=== PATIENT | female | born 1950 | race Two or more races ===

== ENCOUNTER 2021-11-14 14:20 | Inpatient (IN) | payer MEDICARE, OTHER ==
[~2021-11-14] VITALS: Ht 157.5 cm; Wt 71.0 kg
[2021-11-14] MEDS: InsuLIN REG 1unit/0.01ml Soln (100units/ml) SC SCH (12:05)
[2021-11-14] MEDS ORDERED: DexAMETHasone SOD PHOS 10MG/1ML VIAL INJ IV ONE (15:30)
[2021-11-14] MEDS ORDERED: ALBUTEROL SULF 2.5 MG/0.5ML(0.5%) NEB SOLN NEB ONE (15:30)
[2021-11-14] MEDS ORDERED: IPRATROPIUM BROM 0.5 MG/2.5ML INH SOL NEB ONE (15:30)
[2021-11-14 15:34] LABS: Basophils # (auto) 0 10 ^3/uL (0-0.2); Basophils % (auto) 0.4 % (0.0-2.0); Eosinophils # (auto) 0.1 10 ^3/uL (0-0.8); Eosinophils % (auto) 3.4 % (0.0-7.0); Hematocrit 38.1 % (36.0-46.0); Hemoglobin 13.1 g/dL (12.2-16.2); Lymphocytes # (auto) 1.2 10 ^3/uL (0.4-5.4); Lymphocytes % (auto) 31.8 % (10.0-50.0); Mean Corpuscular Hemoglobin 32.1 pg (28.0-32.0); Mean Corpuscular Hgb Conc. 34.4 g/dL (32.0-36.0); Mean Corpuscular Volume 93.4 fL (80.0-100.0); Monocytes # (auto) 0.4 10 ^3/uL (0-1.3); Monocytes % (auto) 11.3 % (0.0-12.0); Neutrophils % (auto) 53.1 % (37.0-80.0); Red Blood Cells 4.08 10^6/uL (4.0-5.20); Red Cell Distribution Width 13.5 % (11.8-14.3); White Blood Cell 3.8 10^3/uL (4.4-10.8)
[2021-11-14 15:50] LABS: INR 1.09 (0.9-1.15); Partial Thromboplastin Time 29.6 sec (23.6-33.0)
[2021-11-14 15:51] LABS: Albumin 3.4 g/dL (3.4-5.0); BUN/Creatinine Ratio 21.1; Calcium 8.7 mg/dL (8.5-10.1); Potassium 4.5 mmol/L (3.5-5.1)
[2021-11-14 15:54] LABS: Bilirubin, Total 0.7 mg/dL (0.2-1.0); Total Protein 7.6 g/dL (6.4-8.2)
[2021-11-14] MEDS ORDERED: cefTRIAXone 1GM/50ML D5W 50 ML IV ONE (17:00)
[2021-11-14] MEDS ORDERED: AZITHROMYCIN 500MG/ 250ML 250 ML IV ONE (17:00)
[2021-11-14] MEDS ORDERED: ADENOSINE 6 MG/2 ML INJ IV ONE ×4 (18:03→18:10)
[2021-11-14] MEDS ORDERED: METOPROLOL TARTRATE 1MG/1ML-5ML VIAL IV ONE ×2 (18:13→18:14)
[2021-11-14] MEDS ORDERED: NITROGLYCERIN 0.4 MG SL TAB SL PRN (19:00)
[2021-11-14] MEDS ORDERED: MORPHINE SULFATE INJ 2 MG/ml SYRG IV PRN (19:00)
[2021-11-14] MEDS ORDERED: ALBUTEROL SULF 2.5 MG/0.5ML(0.5%) NEB SOLN NEB PRN (19:15)
[2021-11-14] MEDS ORDERED: hydrALAZINE HCL 20 MG/ML VL IV PRN (19:15)
[2021-11-14] MEDS ORDERED: DEXTROSE (50%) 50ML SYRG IV PRN (19:15)
[2021-11-14] MEDS: SODIUM CHLORIDE 0.9% 1,000 ML IV SCH (19:30)
[2021-11-14 19:46] LABS: Cholesterol 130 mg/dL (< 200)
[2021-11-14 19:49] LABS: HDL Cholesterol 48 mg/dL (40-59); LDL Cholesterol 66 mg/dL (< 100); Triglycerides 249 mg/dL (< 150)
[2021-11-14 19:51] VITALS: BP 143/90
[2021-11-14] MEDS: ACCU-CHEK COMFORT CURVE STRIP VI SCH (22:00)
[2021-11-14 22:11] VITALS: BP 143/96
[2021-11-14] MEDS ORDERED: METF-371 PO (23:00)
[2021-11-14] MEDS ORDERED: CHOL20007 PO (23:00)
[2021-11-14] MEDS ORDERED: ATOR20TA50 PO (23:00)
[2021-11-14] MEDS ORDERED: ASCO500T11 PO (23:00)
[2021-11-14] MEDS ORDERED: ENAL10TA13 (23:01)
[2021-11-14] MEDS ORDERED: ATOR40TA52 PO (23:04)
[2021-11-15 05:01] VITALS: BP 123/72
[2021-11-15] MEDS: SODIUM CHLORIDE 0.9% 1,000 ML IV SCH ×2 (05:21→15:30)
[2021-11-15 06:22] LABS: Basophils # (auto) 0 10 ^3/uL (0-0.2); Basophils % (auto) 0.1 % (0.0-2.0); Eosinophils # (auto) 0 10 ^3/uL (0-0.8); Hematocrit 39.6 % (36.0-46.0); Hemoglobin 13.5 g/dL (12.2-16.2); Lymphocytes # (auto) 0.6 10 ^3/uL (0.4-5.4); Lymphocytes % (auto) 17.6 % (10.0-50.0); Mean Corpuscular Hemoglobin 31.7 pg (28.0-32.0); Mean Corpuscular Hgb Conc. 34.1 g/dL (32.0-36.0); Mean Corpuscular Volume 93.1 fL (80.0-100.0); Monocytes # (auto) 0.2 10 ^3/uL (0-1.3); Monocytes % (auto) 4.8 % (0.0-12.0); Neutrophils # (auto) 2.8 10 ^3/uL (1.6-8.6); Neutrophils % (auto) 77.5 % (37.0-80.0); Nucleated Red Blood Cells % 0.2 %; Red Blood Cells 4.25 10^6/uL (4.0-5.20); Red Cell Distribution Width 13.4 % (11.8-14.3); White Blood Cell 3.6 10^3/uL (4.4-10.8)
[2021-11-15] MEDS: ACCU-CHEK COMFORT CURVE STRIP VI SCH ×4 (06:27→21:34)
[2021-11-15 06:30] LABS: Albumin 3.5 g/dL (3.4-5.0); BUN/Creatinine Ratio 23.3; Calcium 8.6 mg/dL (8.5-10.1); Potassium 4.6 mmol/L (3.5-5.1)
[2021-11-15] MEDS: InsuLIN REG 1unit/0.01ml Soln (100units/ml) SC SCH ×4 (06:32→21:44)
[2021-11-15 06:33] LABS: Bilirubin, Total 0.6 mg/dL (0.2-1.0); Total Protein 7.7 g/dL (6.4-8.2)
[2021-11-15 08:00] VITALS: BP 150/94
[2021-11-15 09:14] VITALS: BP 150/94
[2021-11-15] MEDS: ENOXAPARIN SOD 40 MG/0.4 ML SYRINGE SC SCH (10:11)
[2021-11-15] MEDS: MORPHINE SULFATE INJ 2 MG/ml SYRG IV PRN (10:12)
[2021-11-15] MEDS ORDERED: METOPROLOL SUCCINATE XL 50 MG TAB PO ONE (10:30)
[2021-11-15] MEDS ORDERED: cefTRIAXone 1GM/50ML D5W 50 ML IV ONE (12:15)
[2021-11-15 13:00] VITALS: BP 157/99
[2021-11-15] MEDS ORDERED: EPINEPHrine HCL 1 MG/10 ML SYRG IV ONE (13:02)
[2021-11-15] MEDS ORDERED: SODIUM BICARBONATE 8.4% INJ 50ML SYRINGE IV ONE (13:02)
[2021-11-15] MEDS ORDERED: AMIODARONE HCL (50 MG/ ML) 3 ML VIAL IV ONE (13:02)
[2021-11-15 17:00] VITALS: BP 155/102
[2021-11-15] MEDS: ATORVASTATIN 20 MG TAB PO SCH (21:23)
[2021-11-15 22:00] VITALS: BP 153/98
[2021-11-16] VITALS (40 sets, daily range): BP systolic 130–175; BP diastolic 90–112
[2021-11-16] MEDS: SODIUM CHLORIDE 0.9% 1,000 ML IV SCH ×3 (01:30→13:24)
[2021-11-16] MEDS: hydrALAZINE HCL 20 MG/ML VL IV PRN (05:13)
[2021-11-16] MEDS: ACCU-CHEK COMFORT CURVE STRIP VI SCH ×3 (06:56→22:01)
[2021-11-16] MEDS: InsuLIN REG 1unit/0.01ml Soln (100units/ml) SC SCH ×4 (06:56→22:01)
[2021-11-16] MEDS ORDERED: ADENOSINE 60 MG in GIVE UN-DILUTED 0 ML IV ONE (07:30)
[2021-11-16] MEDS: cefTRIAXone 1GM/50ML D5W 50 ML IV SCH (08:29)
[2021-11-16] MEDS: METOPROLOL SUCCINATE XL 50 MG TAB PO SCH (09:29)
[2021-11-16] MEDS: ENOXAPARIN SOD 40 MG/0.4 ML SYRINGE SC SCH (09:55)
[2021-11-16] MEDS ORDERED: AMIODARONE HCL 150 MG in D5W 5% 100 ML IV ONE (12:15)
[2021-11-16] MEDS ORDERED: fentaNYL CITRATE 100 MCG/2 ML VL ONE (12:23)
[2021-11-16] MEDS ORDERED: MIDAZOLAM HCL 5 MG/ML-1ML VIAL ONE (12:23)
[2021-11-16] MEDS ORDERED: HEPARIN SODIUM (PORCINE) 5000 UNITS/ML 1ML VIAL ONE (12:23)
[2021-11-16] MEDS ORDERED: fentaNYL CITRATE 100 MCG/2 ML VL IV ONE (12:30)
[2021-11-16] MEDS ORDERED: MIDAZOLAM HCL 5 MG/ML-1ML VIAL IV ONE (12:30)
[2021-11-16] MEDS ORDERED: HEPARIN SODIUM (PORCINE) 5000 UNITS/ML 1ML VIAL IV ONE (12:30)
[2021-11-16] MEDS ORDERED: AMIODARONE 450mg/250ml AE 250 ML IV SCH ×3 (12:30→18:30)
[2021-11-16] MEDS ORDERED: LIDOCAINE HCL 100 MG/5ML (2%) SYRG INJ IV ONE (12:43)
[2021-11-16] MEDS ORDERED: LIDOCAINE 4MG/ML IV SOLN 500 ML IV SCH (12:45)
[2021-11-16] MEDS: LIDOCAINE 4MG/ML IV SOLN 500 ML IV SCH ×2 (12:59→22:01)
[2021-11-16] MEDS ORDERED: METOPROLOL TARTRATE 1MG/1ML-5ML VIAL IV ONE ×3 (13:00→13:30)
[2021-11-16] MEDS ORDERED: MAGNESIUM SULFATE 1GM/100ML 100 ML IV ONE (15:15)
[2021-11-16] MEDS ORDERED: METOPROLOL SUCCINATE XL 50 MG TAB PO ONE (15:15)
[2021-11-16] MEDS: MORPHINE SULFATE INJ 2 MG/ml SYRG IV PRN (16:09)
[2021-11-16 16:32] LABS: Basophils # (auto) 0 10 ^3/uL (0-0.2); Basophils % (auto) 0.4 % (0.0-2.0); Eosinophils # (auto) 0 10 ^3/uL (0-0.8); Eosinophils % (auto) 0.7 % (0.0-7.0); Hematocrit 41.5 % (36.0-46.0); Hemoglobin 14.2 g/dL (12.2-16.2); Lymphocytes # (auto) 1.5 10 ^3/uL (0.4-5.4); Lymphocytes % (auto) 23.1 % (10.0-50.0); Mean Corpuscular Hemoglobin 31.8 pg (28.0-32.0); Mean Corpuscular Hgb Conc. 34.3 g/dL (32.0-36.0); Mean Corpuscular Volume 92.9 fL (80.0-100.0); Monocytes # (auto) 0.6 10 ^3/uL (0-1.3); Monocytes % (auto) 9.3 % (0.0-12.0); Neutrophils # (auto) 4.3 10 ^3/uL (1.6-8.6); Neutrophils % (auto) 66.5 % (37.0-80.0); Nucleated Red Blood Cells % 0.1 %; Red Blood Cells 4.46 10^6/uL (4.0-5.20); Red Cell Distribution Width 13.5 % (11.8-14.3); White Blood Cell 6.4 10^3/uL (4.4-10.8)
[2021-11-16 17:21] LABS: Bilirubin, Total 0.8 mg/dL (0.2-1.0); Calcium 8.7 mg/dL (8.5-10.1); Potassium 4.3 mmol/L (3.5-5.1)
[2021-11-16 17:22] LABS: Albumin 3.4 g/dL (3.4-5.0)
[2021-11-16 17:38] LABS: Magnesium 2.4 mg/dL (1.6-2.6)
[2021-11-16] MEDS ORDERED: AMIODARONE HCL (50 MG/ ML) 3 ML VIAL IV ONE (18:14)
[2021-11-16] MEDS ORDERED: EPINEPHrine HCL 1 MG/10 ML SYRG IV ONE (18:14)
[2021-11-16] MEDS ORDERED: HEPARIN DRIP/D5W 100UNITS/ML 250 ML IV SCH (21:15)
[2021-11-16] MEDS: ATORVASTATIN 20 MG TAB PO SCH (21:59)
[2021-11-17] VITALS (41 sets, daily range): BP systolic 125–190; BP diastolic 74–108
[2021-11-17] MEDS: hydrALAZINE HCL 20 MG/ML VL IV PRN (02:08)
[2021-11-17 05:00] LABS: Basophils # (auto) 0 10 ^3/uL (0-0.2); Basophils % (auto) 0.4 % (0.0-2.0); Eosinophils # (auto) 0 10 ^3/uL (0-0.8); Eosinophils % (auto) 0.9 % (0.0-7.0); Hematocrit 41.1 % (36.0-46.0); Hemoglobin 13.9 g/dL (12.2-16.2); Lymphocytes # (auto) 1.3 10 ^3/uL (0.4-5.4); Lymphocytes % (auto) 24.5 % (10.0-50.0); Mean Corpuscular Hemoglobin 31.8 pg (28.0-32.0); Mean Corpuscular Hgb Conc. 33.7 g/dL (32.0-36.0); Mean Corpuscular Volume 94.2 fL (80.0-100.0); Monocytes # (auto) 0.4 10 ^3/uL (0-1.3); Neutrophils # (auto) 3.6 10 ^3/uL (1.6-8.6); Neutrophils % (auto) 67.2 % (37.0-80.0); Nucleated Red Blood Cells % 0.1 %; Red Blood Cells 4.36 10^6/uL (4.0-5.20); Red Cell Distribution Width 13.3 % (11.8-14.3); White Blood Cell 5.3 10^3/uL (4.4-10.8)
[2021-11-17 05:16] LABS: INR 1.13 (0.9-1.15); Partial Thromboplastin Time 39.7 sec (23.6-33.0)
[2021-11-17 05:17] LABS: BUN/Creatinine Ratio 22.5; Calcium 8.4 mg/dL (8.5-10.1); Potassium 3.9 mmol/L (3.5-5.1)
[2021-11-17] MEDS: LIDOCAINE 4MG/ML IV SOLN 500 ML IV SCH (06:20)
[2021-11-17] MEDS: ACCU-CHEK COMFORT CURVE STRIP VI SCH ×4 (06:20→21:59)
[2021-11-17] MEDS: SODIUM CHLORIDE 0.9% 1,000 ML IV SCH ×3 (06:20→23:43)
[2021-11-17] MEDS: InsuLIN REG 1unit/0.01ml Soln (100units/ml) SC SCH ×4 (06:55→17:00)
[2021-11-17] MEDS ORDERED: AMIODARONE 450mg/250ml AE 250 ML IV ONE (08:10)
[2021-11-17] MEDS: cefTRIAXone 1GM/50ML D5W 50 ML IV SCH (09:14)
[2021-11-17] MEDS: METOPROLOL SUCCINATE XL 50 MG TAB PO SCH (10:00)
[2021-11-17] MEDS ORDERED: LIDOCAINE 2%HCL (LOCAL ANESTH.) INJ 10ml MDV ONE (13:11)
[2021-11-17 13:12] LABS: INR 1.14 (0.9-1.15); Partial Thromboplastin Time 62.8 sec (23.6-33.0)
[2021-11-17] MEDS ORDERED: VERAPAMIL 2.5MG/ML INJ 2ML VIAL IV ONE (13:31)
[2021-11-17] MEDS ORDERED: SODIUM CHL 0.9% 0 ML ONE (13:31)
[2021-11-17] MEDS ORDERED: ANGIOMAX 250 MG VIAL IV ONE (13:31)
[2021-11-17] MEDS ORDERED: MIDAZOLAM HCL 2MG/2ML 2ml VIAL (1mg/ml) ONE (13:31)
[2021-11-17] MEDS ORDERED: fentaNYL CITRATE 100 MCG/2 ML VL ONE (13:31)
[2021-11-17] MEDS ORDERED: METOPROLOL TARTRATE 1MG/1ML-5ML VIAL IV ONE (13:59)
[2021-11-17] MEDS: ATORVASTATIN 20 MG TAB PO SCH (21:58)
[2021-11-17] MEDS: AMIODARONE HCL 200 MG TAB PO SCH (21:58)
[2021-11-18] VITALS (20 sets, daily range): BP systolic 131–171; BP diastolic 81–107
[2021-11-18] MEDS: InsuLIN REG 1unit/0.01ml Soln (100units/ml) SC SCH ×4 (06:36→21:47)
[2021-11-18] MEDS: hydrALAZINE HCL 20 MG/ML VL IV PRN (08:39)
[2021-11-18] MEDS: cefTRIAXone 1GM/50ML D5W 50 ML IV SCH (09:34)
[2021-11-18] MEDS: METOPROLOL SUCCINATE XL 50 MG TAB PO SCH (09:36)
[2021-11-18] MEDS: AMIODARONE HCL 200 MG TAB PO SCH ×2 (09:37→21:46)
[2021-11-18] MEDS ORDERED: ASPirin 81 mg TAB PO ONE (10:30)
[2021-11-18] MEDS: ACCU-CHEK COMFORT CURVE STRIP VI SCH ×3 (11:30→21:47)
[2021-11-18] MEDS ORDERED: ENOXAPARIN SOD 30 MG/0.3 ML SYRINGE SC ONE (11:45)
[2021-11-18] MEDS ORDERED: ACETAMINOPHEN 500 MG TAB PO PRN (13:15)
[2021-11-18 13:19] LABS: Albumin 3.1 g/dL (3.4-5.0); Calcium 8.7 mg/dL (8.5-10.1); Magnesium 2.3 mg/dL (1.6-2.6); Potassium 3.8 mmol/L (3.5-5.1)
[2021-11-18 13:22] LABS: Bilirubin, Total 0.8 mg/dL (0.2-1.0); Total Protein 7.5 g/dL (6.4-8.2)
[2021-11-18] MEDS: ATORVASTATIN 20 MG TAB PO SCH (21:46)
[2021-11-19 00:34] VITALS: BP 149/93
[2021-11-19 05:18] VITALS: BP 153/96
[2021-11-19] MEDS: hydrALAZINE HCL 20 MG/ML VL IV PRN (06:13)
[2021-11-19] MEDS: ACCU-CHEK COMFORT CURVE STRIP VI SCH ×4 (06:27→21:52)
[2021-11-19] MEDS: InsuLIN REG 1unit/0.01ml Soln (100units/ml) SC SCH ×5 (06:27→21:52)
[2021-11-19 09:00] VITALS: BP 128/77
[2021-11-19] MEDS: cefTRIAXone 1GM/50ML D5W 50 ML IV SCH (09:44)
[2021-11-19] MEDS: ASPirin 81 mg TAB PO SCH (09:44)
[2021-11-19] MEDS: AMIODARONE HCL 200 MG TAB PO SCH ×2 (09:45→21:51)
[2021-11-19] MEDS: ENOXAPARIN SOD 40 MG/0.4 ML SYRINGE SC SCH (09:54)
[2021-11-19] MEDS: METOPROLOL SUCCINATE XL 50 MG TAB PO SCH (09:55)
[2021-11-19 17:00] VITALS: BP 141/96
[2021-11-19] MEDS: ATORVASTATIN 20 MG TAB PO SCH (21:44)
[2021-11-20] MEDS: ACCU-CHEK COMFORT CURVE STRIP VI SCH ×2 (06:20→11:39)
[2021-11-20 09:00] VITALS: BP 116/97
[2021-11-20] MEDS: cefTRIAXone 1GM/50ML D5W 50 ML IV SCH (09:00)
[2021-11-20] MEDS ORDERED: AZIT500T66 PO (09:21)
[2021-11-20] MEDS ORDERED: METO25TA93 PO (09:21)
[2021-11-20] MEDS ORDERED: AMIO200T33 PO (09:21)
[2021-11-20] MEDS: ENOXAPARIN SOD 40 MG/0.4 ML SYRINGE SC SCH (09:24)
[2021-11-20] MEDS: ASPirin 81 mg TAB PO SCH (09:25)
[2021-11-20] MEDS: AMIODARONE HCL 200 MG TAB PO SCH (09:25)
[2021-11-20] MEDS: METOPROLOL SUCCINATE XL 50 MG TAB PO SCH (09:27)
[2021-11-20] MEDS: InsuLIN REG 1unit/0.01ml Soln (100units/ml) SC SCH (11:30)
[2021-11-20 11:35] VITALS: BP 154/95
[2021-11-20 13:00] VITALS: BP 145/91
== END 2021-11-20 15:12 | disposition home or self-care (01) | DRG 720 ==
LOC: ER 14:22 → TELE 19:00 → TELE-WESTW 22:11 → DOU IN ICU 11-16 14:02 → TELE-CENTR 11-19 00:10
PROVIDERS: ADMIT Registered Nurse; ATTEND Family Medicine
PROC: 5A2204Z Restoration of Cardiac Rhythm, Single (ICD-10-PCS; 2021-11-16)
PROC: 05HB33Z Insertion of Infusion Device into Right Basilic Vein, Percutaneous Approach (ICD-10-PCS; 2021-11-16)
PROC: B54MZZA Ultrasonography of Right Upper Extremity Veins, Guidance (ICD-10-PCS; 2021-11-16)
PROC: 4A033BC Measurement of Arterial Pressure, Coronary, Percutaneous Approach (ICD-10-PCS; principal; 2021-11-17)
PROC: 4A023N7 Measurement of Cardiac Sampling and Pressure, Left Heart, Percutaneous Approach (ICD-10-PCS; 2021-11-17)
PROC: B2111ZZ Fluoroscopy of Multiple Coronary Arteries using Low Osmolar Contrast (ICD-10-PCS; 2021-11-17)
PROC: B2151ZZ Fluoroscopy of Left Heart using Low Osmolar Contrast (ICD-10-PCS; 2021-11-17)
DX: A41.9 Sepsis, unspecified organism (principal); J96.01 Acute respiratory failure with hypoxia; I50.21 Acute systolic (congestive) heart failure; D69.6 Thrombocytopenia, unspecified; J18.9 Pneumonia, unspecified organism; I47.1 Supraventricular tachycardia; I13.0 Hypertensive heart and chronic kidney disease with heart failure and stage 1 through stage 4 chronic kidney disease, or unspecified chronic kidney disease; I50.20 Unspecified systolic (congestive) heart failure; I48.92 Unspecified atrial flutter; E11.22 Type 2 diabetes mellitus with diabetic chronic kidney disease; Z20.822 Contact with and (suspected) exposure to COVID-19; I44.7 Left bundle-branch block, unspecified; N18.2 Chronic kidney disease, stage 2 (mild); E11.65 Type 2 diabetes mellitus with hyperglycemia; E66.9 Obesity, unspecified; E78.5 Hyperlipidemia, unspecified; I25.10 Atherosclerotic heart disease of native coronary artery without angina pectoris; E78.00 Pure hypercholesterolemia, unspecified; Z68.28 Body mass index [BMI] 28.0-28.9, adult; Z79.84 Long term (current) use of oral hypoglycemic drugs
CPT/HCPCS: 36415; 71045; 71046; 80048; 80053; 80061; 82962; 83036; 83735; 83880; 84443; 84484; 85025; 85379; 85610; 85730; 93005; 93306; 94640; 96365; 96367; 96375; 97110; 97116; 97163; 97530; 99152; G0378; J0153; J0696; J1100; J1815; J2001; J2250; J7060

== ENCOUNTER 2022-02-22 08:06 | Inpatient (IN) | payer MEDICARE, OTHER ==
[~2022-02-22] VITALS: Ht 162.6 cm; Wt 71.2 kg
[~2022-02-22 08:06] MED LIST: AMIO200T33 PO; ASCO500T11 PO; ATOR40TA52 PO; AZIT500T66 PO; CHOL20007 PO; ENAL10TA13; METF-371 PO; METO25TA93 PO
[2022-02-22 09:03] LABS: Basophils # (auto) 0 10 ^3/uL (0-0.2); Basophils % (auto) 0.3 % (0.0-2.0); Eosinophils # (auto) 0.1 10 ^3/uL (0-0.8); Eosinophils % (auto) 0.7 % (0.0-7.0); Hematocrit 39.1 % (36.0-46.0); Hemoglobin 12.8 g/dL (12.2-16.2); Lymphocytes % (auto) 14.4 % (10.0-50.0); Mean Corpuscular Hemoglobin 31.5 pg (28.0-32.0); Mean Corpuscular Hgb Conc. 32.8 g/dL (32.0-36.0); Mean Corpuscular Volume 96.1 fL (80.0-100.0); Monocytes # (auto) 0.7 10 ^3/uL (0-1.3); Monocytes % (auto) 10.5 % (0.0-12.0); Neutrophils % (auto) 74.1 % (37.0-80.0); Red Blood Cells 4.07 10^6/uL (4.0-5.20); Red Cell Distribution Width 13.3 % (11.8-14.3); White Blood Cell 6.8 10^3/uL (4.4-10.8)
[2022-02-22 09:18] LABS: Albumin 3.7 g/dL (3.4-5.0); Calcium 8.6 mg/dL (8.5-10.1); Potassium 4.8 mmol/L (3.5-5.1)
[2022-02-22 09:21] LABS: Bilirubin, Total 0.5 mg/dL (0.2-1.0); Total Protein 7.4 g/dL (6.4-8.2)
[2022-02-22] MEDS ORDERED: ALUM & MAG HYDROX-SIMETH LIQ(MAALOX) 30 ML PO ONE (09:30)
[2022-02-22] MEDS ORDERED: FAMOTIDINE (10MG/ML) 2ML VL IV ONE (09:30)
[2022-02-22] MEDS ORDERED: LACTATED RINGER'S 1,000 ML IV ONE (09:30)
[2022-02-22] MEDS ORDERED: ONDANSETRON HCL 4 MG/2 ML VIAL IV ONE (09:30)
[2022-02-22] MEDS ORDERED: IOHEXOL 300 MG/ML 100ML BOTTLE IJ ONE ×2 (09:42→10:35)
[2022-02-22 10:30] LABS: INR 1.08 (0.9-1.15); Partial Thromboplastin Time 29.3 sec (24.6-33.4)
[2022-02-22 10:43] LABS: Urine Bacteria FEW /hpf (None Seen); Urine Blood Negative /uL (Negative); Urine Specific Gravity 1.013 (1.001-1.035); Urine WBC 1 /hpf (0 - 5)
[2022-02-22] MEDS ORDERED: ACETAMINOPHEN 325 MG TAB PO PRN (12:00)
[2022-02-22] MEDS ORDERED: HYDROcodone-ACET 5/325MG TAB PO PRN (12:00)
[2022-02-22] MEDS: SODIUM CHLORIDE 0.9% 1,000 ML IV SCH (12:27)
[2022-02-22] MEDS ORDERED: DEXTROSE (50%) 50ML SYRG IV PRN (12:30)
[2022-02-22] MEDS: metroNIDAZOLE 500MG/100ML 100 ML IV SCH ×2 (12:33→21:24)
[2022-02-22] MEDS: MORPHINE SULFATE INJ 2 MG/ml SYRG IV PRN ×2 (13:39→18:21)
[2022-02-22] MEDS: InsuLIN REG 1unit/0.01ml Soln (100units/ml) SC SCH ×2 (17:00→21:19)
[2022-02-22] MEDS: ACCU-CHEK COMFORT CURVE STRIP VI SCH ×2 (17:20→21:14)
[2022-02-22] MEDS ORDERED: AMIT25TA12 PO (18:30)
[2022-02-22] MEDS ORDERED: ALBUAER3 IN (18:30)
[2022-02-22] MEDS ORDERED: PREG150C PO (18:30)
[2022-02-22] MEDS ORDERED: OMEP20TA PO (18:31)
[2022-02-22] MEDS ORDERED: NYS15TP (18:31)
[2022-02-22 19:17] VITALS: BP 137/73
[2022-02-22 22:00] VITALS: BP 128/68
[2022-02-22] MEDS ORDERED: ONDANSETRON HCL 4 MG/2 ML VIAL IV PRN (23:00)
[2022-02-23] MEDS: MORPHINE SULFATE INJ 2 MG/ml SYRG IV PRN (01:57)
[2022-02-23] MEDS: SODIUM CHLORIDE 0.9% 1,000 ML IV SCH ×2 (04:40→21:20)
[2022-02-23 05:00] VITALS: BP 112/68
[2022-02-23] MEDS: metroNIDAZOLE 500MG/100ML 100 ML IV SCH ×3 (05:13→20:51)
[2022-02-23] MEDS: ACCU-CHEK COMFORT CURVE STRIP VI SCH ×4 (05:13→21:48)
[2022-02-23] MEDS: InsuLIN REG 1unit/0.01ml Soln (100units/ml) SC SCH ×4 (06:17→21:48)
[2022-02-23 07:13] LABS: Basophils # (auto) 0 10 ^3/uL (0-0.2); Basophils % (auto) 0.2 % (0.0-2.0); Eosinophils # (auto) 0.1 10 ^3/uL (0-0.8); Eosinophils % (auto) 1.1 % (0.0-7.0); Hemoglobin 11.8 g/dL (12.2-16.2); Lymphocytes # (auto) 1.3 10 ^3/uL (0.4-5.4); Lymphocytes % (auto) 17.5 % (10.0-50.0); Mean Corpuscular Hemoglobin 32.3 pg (28.0-32.0); Mean Corpuscular Hgb Conc. 33.6 g/dL (32.0-36.0); Mean Corpuscular Volume 96.1 fL (80.0-100.0); Monocytes # (auto) 0.5 10 ^3/uL (0-1.3); Monocytes % (auto) 7.2 % (0.0-12.0); Neutrophils # (auto) 5.4 10 ^3/uL (1.6-8.6); Nucleated Red Blood Cells % 0.1 %; Red Blood Cells 3.64 10^6/uL (4.0-5.20); Red Cell Distribution Width 13.5 % (11.8-14.3); White Blood Cell 7.3 10^3/uL (4.4-10.8)
[2022-02-23 07:32] LABS: Potassium 4.3 mmol/L (3.5-5.1)
[2022-02-23 07:40] LABS: Albumin 3.1 g/dL (3.4-5.0); Calcium 8.4 mg/dL (8.5-10.1)
[2022-02-23 07:54] LABS: Bilirubin, Total 0.9 mg/dL (0.2-1.0); Total Protein 6.7 g/dL (6.4-8.2)
[2022-02-23 09:00] VITALS: BP 112/67
[2022-02-23] MEDS ORDERED: ENOXAPARIN SOD 40 MG/0.4 ML SYRINGE SC SCH (10:00)
[2022-02-23 13:00] VITALS: BP 114/69
[2022-02-23 17:00] VITALS: BP 126/76
[2022-02-23] MEDS ORDERED: cefTRIAXone 1GM/50ML D5W 50 ML IV ONE (18:45)
[2022-02-23 22:07] VITALS: BP 128/77
[2022-02-24] MEDS: metroNIDAZOLE 500MG/100ML 100 ML IV SCH ×3 (04:13→20:29)
[2022-02-24 05:04] VITALS: BP 132/77
[2022-02-24] MEDS: InsuLIN REG 1unit/0.01ml Soln (100units/ml) SC SCH ×4 (06:16→21:08)
[2022-02-24] MEDS: ACCU-CHEK COMFORT CURVE STRIP VI SCH ×4 (06:16→21:08)
[2022-02-24 08:00] VITALS: BP 131/78
[2022-02-24 09:00] VITALS: BP 131/78
[2022-02-24] MEDS: cefTRIAXone 1GM/50ML D5W 50 ML IV SCH (09:07)
[2022-02-24 13:00] VITALS: BP 121/74
[2022-02-24 17:00] VITALS: BP 134/73
[2022-02-24] MEDS: SODIUM CHLORIDE 0.9% 1,000 ML IV SCH (18:51)
[2022-02-24] MEDS ORDERED: GOLYTELY 4L KIT PO ONE (19:00)
[2022-02-24 22:00] VITALS: BP 141/84
[2022-02-25] MEDS: metroNIDAZOLE 500MG/100ML 100 ML IV SCH ×3 (04:55→20:27)
[2022-02-25 04:58] VITALS: BP 148/87
[2022-02-25] MEDS ORDERED: GOLYTELY 4L KIT PO ONE (06:00)
[2022-02-25] MEDS: SODIUM CHLORIDE 0.9% 1,000 ML IV SCH ×2 (06:19→23:20)
[2022-02-25] MEDS: InsuLIN REG 1unit/0.01ml Soln (100units/ml) SC SCH ×4 (06:20→21:10)
[2022-02-25] MEDS: ACCU-CHEK COMFORT CURVE STRIP VI SCH ×4 (06:20→21:12)
[2022-02-25 06:40] LABS: Albumin 3.2 g/dL (3.4-5.0); Calcium 8.2 mg/dL (8.5-10.1); Potassium 3.8 mmol/L (3.5-5.1)
[2022-02-25 06:45] LABS: BUN/Creatinine Ratio 11.1; Bilirubin, Total 0.7 mg/dL (0.2-1.0); Total Protein 7.1 g/dL (6.4-8.2)
[2022-02-25 06:49] LABS: Basophils # (auto) 0 10 ^3/uL (0-0.2); Basophils % (auto) 0.2 % (0.0-2.0); Eosinophils # (auto) 0 10 ^3/uL (0-0.8); Eosinophils % (auto) 0.8 % (0.0-7.0); Hemoglobin 12.5 g/dL (12.2-16.2); Lymphocytes # (auto) 0.9 10 ^3/uL (0.4-5.4); Mean Corpuscular Hemoglobin 31.4 pg (28.0-32.0); Mean Corpuscular Hgb Conc. 32.8 g/dL (32.0-36.0); Mean Corpuscular Volume 95.7 fL (80.0-100.0); Monocytes # (auto) 0.5 10 ^3/uL (0-1.3); Monocytes % (auto) 7.2 % (0.0-12.0); Neutrophils % (auto) 77.8 % (37.0-80.0); Red Blood Cells 3.97 10^6/uL (4.0-5.20); Red Cell Distribution Width 13.3 % (11.8-14.3); White Blood Cell 6.4 10^3/uL (4.4-10.8)
[2022-02-25] MEDS: cefTRIAXone 1GM/50ML D5W 50 ML IV SCH (08:49)
[2022-02-25 09:00] VITALS: BP 144/86
[2022-02-25 12:57] VITALS: BP 145/89
[2022-02-25] MEDS ORDERED: METOCLOPRAMIDE HCL 5MG/ml INJ 2ml VIAL ONE (15:10)
[2022-02-25] MEDS ORDERED: diphenhdrAMINE HCL 50 MG/1 ML VL ONE (15:38)
[2022-02-25] MEDS ORDERED: SODIUM CHLORIDE LOCK 10 ML ONE (15:38)
[2022-02-25] MEDS: fentaNYL CITRATE 100 MCG/2 ML VL ONE ×2 (15:48→15:53)
[2022-02-25] MEDS: MIDAZOLAM HCL 5 MG/ML-1ML VIAL ONE ×2 (15:48→15:53)
[2022-02-25] MEDS: DOCUSATE SOD 100 MG CAP PO SCH (21:12)
[2022-02-25 22:00] VITALS: BP 145/87
[2022-02-26] MEDS: metroNIDAZOLE 500MG/100ML 100 ML IV SCH ×2 (04:20→12:04)
[2022-02-26 04:57] VITALS: BP 133/79
[2022-02-26] MEDS: InsuLIN REG 1unit/0.01ml Soln (100units/ml) SC SCH ×4 (06:12→21:35)
[2022-02-26] MEDS: ACCU-CHEK COMFORT CURVE STRIP VI SCH ×4 (06:13→21:33)
[2022-02-26 08:39] VITALS: BP 135/84
[2022-02-26] MEDS: cefTRIAXone 1GM/50ML D5W 50 ML IV SCH (09:20)
[2022-02-26] MEDS: DOCUSATE SOD 100 MG CAP PO SCH ×2 (09:21→21:32)
[2022-02-26] MEDS: PANTOPRAZOLE 40 MG TAB PO SCH (09:21)
[2022-02-26 12:28] VITALS: BP 145/89
[2022-02-26] MEDS: SODIUM CHLORIDE 0.9% 1,000 ML IV SCH (15:04)
[2022-02-26 17:00] VITALS: BP 147/91
[2022-02-26] MEDS: metroNIDAZOLE 500 MG TAB PO SCH (21:32)
[2022-02-26 22:00] VITALS: BP 140/90
[2022-02-27 05:00] VITALS: BP 128/82
[2022-02-27] MEDS: ACCU-CHEK COMFORT CURVE STRIP VI SCH ×2 (06:13→12:10)
[2022-02-27] MEDS: metroNIDAZOLE 500 MG TAB PO SCH ×2 (06:13→14:28)
[2022-02-27] MEDS: InsuLIN REG 1unit/0.01ml Soln (100units/ml) SC SCH ×2 (06:19→12:17)
[2022-02-27 08:00] VITALS: BP 123/81
[2022-02-27] MEDS: SODIUM CHLORIDE 0.9% 1,000 ML IV SCH (08:47)
[2022-02-27 09:00] VITALS: BP 123/81
[2022-02-27] MEDS: cefTRIAXone 1GM/50ML D5W 50 ML IV SCH (09:55)
[2022-02-27] MEDS: PANTOPRAZOLE 40 MG TAB PO SCH (09:56)
[2022-02-27] MEDS: DOCUSATE SOD 100 MG CAP PO SCH (09:56)
[2022-02-27 13:00] VITALS: BP 142/84
[2022-02-27 15:04] VITALS: BP 142/84
== END 2022-02-27 16:20 | disposition home or self-care (01) | DRG 244 ==
LOC: ER 08:06 → OVERFLOW 11:58 → WEST WING 17:54
PROVIDERS: ADMIT Internal Medicine; ATTEND Internal Medicine Nephrology
PROC: 0DBM8ZX Excision of Descending Colon, Via Natural or Artificial Opening Endoscopic, Diagnostic (ICD-10-PCS; principal; 2022-02-25 15:42)
DX: K57.31 Diverticulosis of large intestine without perforation or abscess with bleeding (principal); N17.9 Acute kidney failure, unspecified; K55.9 Vascular disorder of intestine, unspecified; D62 Acute posthemorrhagic anemia; Z20.822 Contact with and (suspected) exposure to COVID-19; E11.9 Type 2 diabetes mellitus without complications; N28.1 Cyst of kidney, acquired; I10 Essential (primary) hypertension; R74.8 Abnormal levels of other serum enzymes; E78.5 Hyperlipidemia, unspecified; Z79.899 Other long term (current) drug therapy; Z83.3 Family history of diabetes mellitus
CPT/HCPCS: 36415; 45378; 74177; 76775; 80053; 81001; 82962; 85025; 85610; 85613; 85670; 85705; 85730; 85732; 86850; 86900; 86901; 93005; 96361; 96374; 96375; G0378; J0696; J1815; J2250; J2405; J3490

== ENCOUNTER 2022-04-19 14:35 | Inpatient (IN) | payer MEDICARE, OTHER ==
[~2022-04-19] VITALS: Ht 162.6 cm; Wt 79.1 kg
[~2022-04-19 14:35] MED LIST changes: +ALBUAER3 IN; +AMIT25TA12 PO; -AZIT500T66 PO; +OMEP20TA PO; +PREG150C PO
[2022-04-19] MEDS ORDERED: SODIUM CHLORIDE 0.9% 500 ML IV ONE (16:00)
[2022-04-19] MEDS ORDERED: CLINDAMYCIN 600MG IV 50 ML IV ONE (16:00)
[2022-04-19] MEDS: SODIUM CHLORIDE 0.9% 1,000 ML IV SCH (17:00)
[2022-04-19] MEDS ORDERED: ACETAMINOPHEN 325 MG TAB PO PRN (17:00)
[2022-04-19] MEDS ORDERED: ONDANSETRON HCL 4 MG/2 ML VIAL IV PRN (17:00)
[2022-04-19] MEDS ORDERED: DOCUSATE SOD 100 MG CAP PO PRN (17:00)
[2022-04-19] MEDS ORDERED: KETOROLAC TROMETH 30 MG/ML 1ML VIAL IV ONE (17:00)
[2022-04-19] MEDS ORDERED: ONDANSETRON HCL 4 MG/2 ML VIAL IV ONE (17:00)
[2022-04-19] MEDS ORDERED: PANTOPRAZOLE 40 MG/10 ML VIAL INJ IV ONE (17:00)
[2022-04-19 17:09] LABS: Urine Bacteria NONE SEEN /hpf (None Seen); Urine Blood Negative /uL (Negative); Urine Hyaline Cast FEW /lpf (0 - 2); Urine Specific Gravity 1.024 (1.001-1.035); Urine WBC 24 /hpf (0 - 5)
[2022-04-19 17:19] LABS: Basophils # (auto) 0 10 ^3/uL (0-0.2); Basophils % (auto) 0.5 % (0.0-2.0); Eosinophils # (auto) 0.1 10 ^3/uL (0-0.8); Eosinophils % (auto) 2.9 % (0.0-7.0); Hematocrit 39.9 % (36.0-46.0); Hemoglobin 13.3 g/dL (12.2-16.2); Lymphocytes % (auto) 21.9 % (10.0-50.0); Mean Corpuscular Hemoglobin 32.2 pg (28.0-32.0); Mean Corpuscular Hgb Conc. 33.3 g/dL (32.0-36.0); Mean Corpuscular Volume 96.7 fL (80.0-100.0); Monocytes # (auto) 0.4 10 ^3/uL (0-1.3); Monocytes % (auto) 8.8 % (0.0-12.0); Neutrophils % (auto) 65.9 % (37.0-80.0); Nucleated Red Blood Cells % 0.2 %; Red Blood Cells 4.13 10^6/uL (4.0-5.20); White Blood Cell 4.6 10^3/uL (4.4-10.8)
[2022-04-19 17:34] LABS: INR 1.07 (0.9-1.15); Partial Thromboplastin Time 31.3 sec (24.6-33.4)
[2022-04-19 17:41] LABS: Albumin 3.5 g/dL (3.4-5.0); Calcium 8.8 mg/dL (8.5-10.1)
[2022-04-19 17:42] LABS: Cholesterol 89 mg/dL (< 200); HDL Cholesterol 43 mg/dL (40-59); LDL Cholesterol 49 mg/dL (< 100); Triglycerides 112 mg/dL (< 150)
[2022-04-19 17:45] LABS: BUN/Creatinine Ratio 24.7; Bilirubin, Total 0.7 mg/dL (0.2-1.0); Total Protein 7.9 g/dL (6.4-8.2)
[2022-04-19] MEDS ORDERED: ALBUTEROL SULF HFA 90MCG INH 200DOSE IN SCH (18:00)
[2022-04-19] MEDS ORDERED: ALBUTEROL SULF 2.5 MG/0.5ML(0.5%) NEB SOLN ONE (18:30)
[2022-04-19] MEDS ORDERED: DEXTROSE (50%) 50ML SYRG IV PRN (19:00)
[2022-04-19] MEDS: HYDROcodone-ACET 5/325MG TAB PO PRN (20:12)
[2022-04-19 21:30] LABS: Albumin 2.9 g/dL (3.4-5.0)
[2022-04-19 21:35] LABS: Bilirubin, Total 0.4 mg/dL (0.2-1.0); Total Protein 7.1 g/dL (6.4-8.2)
[2022-04-19 21:43] LABS: Bilirubin, Direct 0.2 mg/dL (0-0.2)
[2022-04-19] MEDS: InsuLIN REG 1unit/0.01ml Soln (100units/ml) SC SCH (22:00)
[2022-04-19] MEDS: ACCU-CHEK COMFORT CURVE STRIP VI SCH (22:00)
[2022-04-19] MEDS: PREGABALIN CAPSULE 75 MG CAP PO SCH (22:00)
[2022-04-19] MEDS ORDERED: KETOROLAC TROMETH 30 MG/ML 1ML VIAL IV PRN (23:00)
[2022-04-19] MEDS: AMITRIPTYLINE HCL 25 MG TAB PO SCH (23:27)
[2022-04-19] MEDS: AMIODARONE HCL 200 MG TAB PO SCH (23:27)
[2022-04-19] MEDS: CLINDAMYCIN 600MG IV 50 ML IV SCH (23:27)
[2022-04-19] MEDS: ASCORBIC ACID 500 MG TAB PO SCH (23:27)
[2022-04-19] MEDS: ATORVASTATIN 20 MG TAB PO SCH (23:27)
[2022-04-20] MEDS: ALBUTEROL SULF 2.5 MG/0.5ML(0.5%) NEB SOLN NEB SCH ×4 (00:01→18:50)
[2022-04-20] MEDS: SODIUM CHLORIDE 0.9% 1,000 ML IV SCH ×2 (03:00→13:31)
[2022-04-20 05:00] VITALS: BP 120/73
[2022-04-20] MEDS: CLINDAMYCIN 600MG IV 50 ML IV SCH ×3 (05:56→21:13)
[2022-04-20] MEDS: PREGABALIN CAPSULE 75 MG CAP PO SCH ×3 (05:58→21:12)
[2022-04-20] MEDS: ACCU-CHEK COMFORT CURVE STRIP VI SCH ×4 (05:59→21:32)
[2022-04-20] MEDS: InsuLIN REG 1unit/0.01ml Soln (100units/ml) SC SCH ×4 (05:59→21:32)
[2022-04-20 09:00] VITALS: BP 107/64
[2022-04-20] MEDS: CHOLECALCIFEROL (VITD3) 2,000 UNIT CAP/TAB PO SCH (09:18)
[2022-04-20] MEDS: ZINC SULFATE 220mg CAP or TAB PO SCH (09:18)
[2022-04-20] MEDS: ASCORBIC ACID 500 MG TAB PO SCH (09:18)
[2022-04-20] MEDS: MULTIPLE VITAMIN TAB PO SCH (09:18)
[2022-04-20] MEDS: AMIODARONE HCL 200 MG TAB PO SCH ×2 (09:24→21:12)
[2022-04-20] MEDS: METOPROLOL SUCCINATE XL 50 MG TAB PO SCH (09:25)
[2022-04-20] MEDS ORDERED: ENOXAPARIN SOD 40 MG/0.4 ML SYRINGE SC SCH (10:00)
[2022-04-20] MEDS ORDERED: ASCORBIC ACID 500 MG TAB PO SCH (10:00)
[2022-04-20] MEDS ORDERED: PANTOPRAZOLE 40 MG/10 ML VIAL INJ IV SCH (10:00)
[2022-04-20] MEDS ORDERED: cefTRIAXone 1GM/50ML D5W 50 ML IV ONE (11:45)
[2022-04-20 13:00] VITALS: BP 114/69
[2022-04-20 17:00] VITALS: BP 109/71
[2022-04-20] MEDS: AMITRIPTYLINE HCL 25 MG TAB PO SCH (21:12)
[2022-04-20] MEDS: ATORVASTATIN 20 MG TAB PO SCH (21:12)
[2022-04-20 22:00] VITALS: BP 130/78
[2022-04-21] MEDS: SODIUM CHLORIDE 0.9% 1,000 ML IV SCH ×2 (04:25→23:51)
[2022-04-21 05:00] VITALS: BP 121/74
[2022-04-21 06:10] LABS: Basophils # (auto) 0 10 ^3/uL (0-0.2); Basophils % (auto) 0.8 % (0.0-2.0); Eosinophils # (auto) 0.1 10 ^3/uL (0-0.8); Eosinophils % (auto) 4.2 % (0.0-7.0); Hematocrit 33.9 % (36.0-46.0); Hemoglobin 11.5 g/dL (12.2-16.2); Lymphocytes # (auto) 0.9 10 ^3/uL (0.4-5.4); Lymphocytes % (auto) 27.7 % (10.0-50.0); Mean Corpuscular Hemoglobin 32.2 pg (28.0-32.0); Mean Corpuscular Hgb Conc. 33.8 g/dL (32.0-36.0); Mean Corpuscular Volume 95.1 fL (80.0-100.0); Monocytes # (auto) 0.3 10 ^3/uL (0-1.3); Neutrophils # (auto) 1.8 10 ^3/uL (1.6-8.6); Neutrophils % (auto) 57.3 % (37.0-80.0); Nucleated Red Blood Cells % 0.1 %; Red Blood Cells 3.57 10^6/uL (4.0-5.20); Red Cell Distribution Width 13.6 % (11.8-14.3); White Blood Cell 3.1 10^3/uL (4.4-10.8)
[2022-04-21] MEDS: PREGABALIN CAPSULE 75 MG CAP PO SCH ×3 (06:11→23:37)
[2022-04-21] MEDS: CLINDAMYCIN 600MG IV 50 ML IV SCH ×3 (06:12→23:34)
[2022-04-21] MEDS: ACCU-CHEK COMFORT CURVE STRIP VI SCH ×4 (06:12→22:52)
[2022-04-21 06:22] LABS: Potassium 4.4 mmol/L (3.5-5.1)
[2022-04-21 06:29] LABS: Albumin 2.9 g/dL (3.4-5.0); BUN/Creatinine Ratio 20.4; Bilirubin, Total 0.4 mg/dL (0.2-1.0); Calcium 8.5 mg/dL (8.5-10.1)
[2022-04-21] MEDS: InsuLIN REG 1unit/0.01ml Soln (100units/ml) SC SCH ×4 (07:00→22:00)
[2022-04-21] MEDS: ALBUTEROL SULF 2.5 MG/0.5ML(0.5%) NEB SOLN NEB SCH ×4 (07:21→18:20)
[2022-04-21 09:00] VITALS: BP 117/65
[2022-04-21 09:53] LABS: Hepatitis B Surface Antibody Negative (Negative)
[2022-04-21] MEDS: cefTRIAXone 1GM/50ML D5W 50 ML IV SCH (09:54)
[2022-04-21] MEDS: MULTIPLE VITAMIN TAB PO SCH (09:55)
[2022-04-21] MEDS: SACUBITRIL-VALSARTAN 24mg/26mg TAB PO SCH ×2 (09:55→23:37)
[2022-04-21] MEDS: DAPAGLIFLOZIN 5 MG TAB PO SCH (09:55)
[2022-04-21] MEDS: CHOLECALCIFEROL (VITD3) 2,000 UNIT CAP/TAB PO SCH (09:55)
[2022-04-21] MEDS: ZINC SULFATE 220mg CAP or TAB PO SCH (09:56)
[2022-04-21] MEDS: ASPirin 81 mg TAB PO SCH (09:56)
[2022-04-21] MEDS: ASCORBIC ACID 500 MG TAB PO SCH (09:56)
[2022-04-21] MEDS: AMIODARONE HCL 200 MG TAB PO SCH ×2 (09:56→23:35)
[2022-04-21] MEDS: METOPROLOL SUCCINATE XL 50 MG TAB PO SCH (10:05)
[2022-04-21 10:28] LABS: Hepatitis A Total Antibody Negative (Negative)
[2022-04-21 13:00] VITALS: BP 122/62
[2022-04-21 17:00] VITALS: BP 123/64
[2022-04-21 21:30] VITALS: BP 121/73
[2022-04-21] MEDS: AMITRIPTYLINE HCL 25 MG TAB PO SCH (23:35)
[2022-04-21] MEDS: ATORVASTATIN 20 MG TAB PO SCH (23:37)
[2022-04-22] MEDS: ALBUTEROL SULF 2.5 MG/0.5ML(0.5%) NEB SOLN NEB SCH ×4 (00:30→19:51)
[2022-04-22 05:00] VITALS: BP 90/53
[2022-04-22 05:49] LABS: Potassium 5.1 mmol/L (3.5-5.1)
[2022-04-22 05:55] LABS: Albumin 3.1 g/dL (3.4-5.0); BUN/Creatinine Ratio 19.4; Calcium 8.6 mg/dL (8.5-10.1)
[2022-04-22 06:04] LABS: Bilirubin, Total 0.4 mg/dL (0.2-1.0); Total Protein 7.1 g/dL (6.4-8.2)
[2022-04-22] MEDS: CLINDAMYCIN 600MG IV 50 ML IV SCH ×3 (06:42→21:38)
[2022-04-22] MEDS: PREGABALIN CAPSULE 75 MG CAP PO SCH ×2 (06:43→21:39)
[2022-04-22] MEDS: InsuLIN REG 1unit/0.01ml Soln (100units/ml) SC SCH ×4 (06:48→21:50)
[2022-04-22] MEDS: ACCU-CHEK COMFORT CURVE STRIP VI SCH ×4 (06:48→21:39)
[2022-04-22 08:00] VITALS: BP 90/53
[2022-04-22] MEDS: METOPROLOL SUCCINATE XL 50 MG TAB PO SCH (08:39)
[2022-04-22] MEDS: ASPirin 81 mg TAB PO SCH (08:39)
[2022-04-22] MEDS: CHOLECALCIFEROL (VITD3) 2,000 UNIT CAP/TAB PO SCH (08:39)
[2022-04-22] MEDS: SACUBITRIL-VALSARTAN 24mg/26mg TAB PO SCH (08:39)
[2022-04-22] MEDS: DAPAGLIFLOZIN 5 MG TAB PO SCH (08:39)
[2022-04-22] MEDS: ASCORBIC ACID 500 MG TAB PO SCH (08:41)
[2022-04-22] MEDS: ZINC SULFATE 220mg CAP or TAB PO SCH (08:41)
[2022-04-22] MEDS: cefTRIAXone 1GM/50ML D5W 50 ML IV SCH (08:41)
[2022-04-22] MEDS: MULTIPLE VITAMIN TAB PO SCH (08:41)
[2022-04-22 09:00] VITALS: BP 110/67
[2022-04-22] MEDS: AMIODARONE HCL 200 MG TAB PO SCH ×2 (10:30→21:38)
[2022-04-22] MEDS: HYDROcodone-ACET 5/325MG TAB PO PRN ×3 (12:59→21:39)
[2022-04-22] MEDS: SODIUM CHLORIDE 0.9% 1,000 ML IV SCH (12:59)
[2022-04-22 13:00] VITALS: BP_SYST 109; BP_SYST 111; BP_DIAS 67; BP_DIAS 68
[2022-04-22 17:00] VITALS: BP 109/70
[2022-04-22] MEDS: AMITRIPTYLINE HCL 25 MG TAB PO SCH (21:38)
[2022-04-22 22:00] VITALS: BP 140/70
[2022-04-23] MEDS: ALBUTEROL SULF 2.5 MG/0.5ML(0.5%) NEB SOLN NEB SCH ×4 (00:29→18:10)
[2022-04-23 03:31] VITALS: BP 140/70
[2022-04-23 05:00] VITALS: BP 133/75
[2022-04-23] MEDS: CLINDAMYCIN 600MG IV 50 ML IV SCH (05:36)
[2022-04-23] MEDS: SODIUM CHLORIDE 0.9% 1,000 ML IV SCH ×2 (05:37→13:04)
[2022-04-23 06:23] LABS: Albumin 3.3 g/dL (3.4-5.0); Calcium 8.5 mg/dL (8.5-10.1); Potassium 4.3 mmol/L (3.5-5.1)
[2022-04-23 06:25] LABS: BUN/Creatinine Ratio 14.9
[2022-04-23 06:42] LABS: Bilirubin, Total 0.5 mg/dL (0.2-1.0); Total Protein 7.1 g/dL (6.4-8.2)
[2022-04-23] MEDS: InsuLIN REG 1unit/0.01ml Soln (100units/ml) SC SCH ×4 (06:59→22:00)
[2022-04-23] MEDS: ACCU-CHEK COMFORT CURVE STRIP VI SCH ×4 (06:59→22:27)
[2022-04-23 09:00] VITALS: BP 129/77
[2022-04-23] MEDS: ASPirin 81 mg TAB PO SCH (09:58)
[2022-04-23] MEDS: HYDROcodone-ACET 5/325MG TAB PO PRN ×2 (09:58→22:26)
[2022-04-23] MEDS: PREGABALIN CAPSULE 75 MG CAP PO SCH ×2 (09:59→22:26)
[2022-04-23] MEDS: AMIODARONE HCL 200 MG TAB PO SCH (09:59)
[2022-04-23] MEDS: MULTIPLE VITAMIN TAB PO SCH (09:59)
[2022-04-23] MEDS: DAPAGLIFLOZIN 5 MG TAB PO SCH (09:59)
[2022-04-23] MEDS: METOPROLOL SUCCINATE XL 50 MG TAB PO SCH (10:00)
[2022-04-23] MEDS: cefTRIAXone 1GM/50ML D5W 50 ML IV SCH (10:00)
[2022-04-23] MEDS: CHOLECALCIFEROL (VITD3) 2,000 UNIT CAP/TAB PO SCH (10:00)
[2022-04-23 13:00] VITALS: BP 128/74
[2022-04-23 13:14] LABS: Basophils # (auto) 0 10 ^3/uL (0-0.2); Basophils % (auto) 0.6 % (0.0-2.0); Eosinophils # (auto) 0.1 10 ^3/uL (0-0.8); Eosinophils % (auto) 3.8 % (0.0-7.0); Hematocrit 37.9 % (36.0-46.0); Hemoglobin 12.5 g/dL (12.2-16.2); Lymphocytes # (auto) 0.9 10 ^3/uL (0.4-5.4); Lymphocytes % (auto) 27.5 % (10.0-50.0); Mean Corpuscular Hemoglobin 31.5 pg (28.0-32.0); Mean Corpuscular Hgb Conc. 32.9 g/dL (32.0-36.0); Mean Corpuscular Volume 95.5 fL (80.0-100.0); Monocytes # (auto) 0.4 10 ^3/uL (0-1.3); Monocytes % (auto) 11.2 % (0.0-12.0); Neutrophils # (auto) 1.8 10 ^3/uL (1.6-8.6); Neutrophils % (auto) 56.9 % (37.0-80.0); Nucleated Red Blood Cells % 0.1 %; Red Blood Cells 3.97 10^6/uL (4.0-5.20); Red Cell Distribution Width 13.8 % (11.8-14.3); White Blood Cell 3.2 10^3/uL (4.4-10.8)
[2022-04-23 17:00] VITALS: BP 114/71
[2022-04-23 22:00] VITALS: BP 111/68
[2022-04-23] MEDS: LINEZOLID 600MG/300ML 300 ML IV SCH (22:26)
[2022-04-23] MEDS: AMITRIPTYLINE HCL 25 MG TAB PO SCH (22:26)
[2022-04-24] MEDS: ALBUTEROL SULF 2.5 MG/0.5ML(0.5%) NEB SOLN NEB SCH ×4 (03:58→18:21)
[2022-04-24 05:00] VITALS: BP 109/68
[2022-04-24] MEDS: SODIUM CHLORIDE 0.9% 1,000 ML IV SCH ×3 (06:09→22:04)
[2022-04-24] MEDS: InsuLIN REG 1unit/0.01ml Soln (100units/ml) SC SCH ×4 (06:26→21:38)
[2022-04-24] MEDS: ACCU-CHEK COMFORT CURVE STRIP VI SCH ×4 (06:26→21:38)
[2022-04-24 06:54] LABS: Basophils # (auto) 0 10 ^3/uL (0-0.2); Basophils % (auto) 0.7 % (0.0-2.0); Eosinophils # (auto) 0.1 10 ^3/uL (0-0.8); Eosinophils % (auto) 3.6 % (0.0-7.0); Hematocrit 33.4 % (36.0-46.0); Hemoglobin 11.4 g/dL (12.2-16.2); Lymphocytes % (auto) 33.1 % (10.0-50.0); Mean Corpuscular Hemoglobin 32.2 pg (28.0-32.0); Mean Corpuscular Hgb Conc. 34.1 g/dL (32.0-36.0); Mean Corpuscular Volume 94.5 fL (80.0-100.0); Monocytes # (auto) 0.4 10 ^3/uL (0-1.3); Monocytes % (auto) 11.8 % (0.0-12.0); Neutrophils # (auto) 1.5 10 ^3/uL (1.6-8.6); Neutrophils % (auto) 50.8 % (37.0-80.0); Red Blood Cells 3.53 10^6/uL (4.0-5.20); Red Cell Distribution Width 13.6 % (11.8-14.3)
[2022-04-24 07:02] LABS: Albumin 2.9 g/dL (3.4-5.0); Calcium 8.2 mg/dL (8.5-10.1); Potassium 4.3 mmol/L (3.5-5.1)
[2022-04-24 07:06] LABS: BUN/Creatinine Ratio 18.4; Bilirubin, Total 0.4 mg/dL (0.2-1.0); Total Protein 6.3 g/dL (6.4-8.2)
[2022-04-24] MEDS: LINEZOLID 600MG/300ML 300 ML IV SCH ×2 (08:19→21:40)
[2022-04-24] MEDS: cefTRIAXone 1GM/50ML D5W 50 ML IV SCH (08:19)
[2022-04-24] MEDS: PREGABALIN CAPSULE 75 MG CAP PO SCH ×2 (08:20→21:38)
[2022-04-24] MEDS: CHOLECALCIFEROL (VITD3) 2,000 UNIT CAP/TAB PO SCH (08:20)
[2022-04-24] MEDS: ASPirin 81 mg TAB PO SCH (08:20)
[2022-04-24] MEDS: MULTIPLE VITAMIN TAB PO SCH (08:20)
[2022-04-24] MEDS: AMIODARONE HCL 200 MG TAB PO SCH (08:21)
[2022-04-24] MEDS: METOPROLOL SUCCINATE XL 50 MG TAB PO SCH (08:21)
[2022-04-24] MEDS: DAPAGLIFLOZIN 5 MG TAB PO SCH (08:22)
[2022-04-24 09:00] VITALS: BP 101/67
[2022-04-24] MEDS: HYDROcodone-ACET 5/325MG TAB PO PRN ×2 (11:52→20:18)
[2022-04-24 13:00] VITALS: BP 93/59
[2022-04-24 17:00] VITALS: BP 102/75
[2022-04-24] MEDS: AMITRIPTYLINE HCL 25 MG TAB PO SCH (21:40)
[2022-04-24 22:00] VITALS: BP 104/63
[2022-04-25] MEDS: ALBUTEROL SULF 2.5 MG/0.5ML(0.5%) NEB SOLN NEB SCH ×4 (00:43→19:15)
[2022-04-25] MEDS: HYDROcodone-ACET 5/325MG TAB PO PRN ×2 (03:53→23:35)
[2022-04-25 05:00] VITALS: BP 110/69
[2022-04-25] MEDS: InsuLIN REG 1unit/0.01ml Soln (100units/ml) SC SCH ×4 (06:13→22:00)
[2022-04-25] MEDS: ACCU-CHEK COMFORT CURVE STRIP VI SCH ×4 (06:14→23:20)
[2022-04-25 08:00] VITALS: BP 106/62
[2022-04-25 08:29] LABS: Hepatitis C Antibody Negative (Negative)
[2022-04-25] MEDS: ASPirin 81 mg TAB PO SCH (10:07)
[2022-04-25] MEDS: DAPAGLIFLOZIN 5 MG TAB PO SCH (10:07)
[2022-04-25] MEDS: LINEZOLID 600MG/300ML 300 ML IV SCH ×2 (10:07→23:24)
[2022-04-25] MEDS: cefTRIAXone 1GM/50ML D5W 50 ML IV SCH (10:07)
[2022-04-25] MEDS: PREGABALIN CAPSULE 75 MG CAP PO SCH ×2 (10:07→23:24)
[2022-04-25] MEDS: AMIODARONE HCL 200 MG TAB PO SCH (10:08)
[2022-04-25] MEDS: MULTIPLE VITAMIN TAB PO SCH (10:08)
[2022-04-25] MEDS: CHOLECALCIFEROL (VITD3) 2,000 UNIT CAP/TAB PO SCH (10:08)
[2022-04-25] MEDS: METOPROLOL SUCCINATE XL 50 MG TAB PO SCH (10:09)
[2022-04-25 12:00] VITALS: BP 123/72
[2022-04-25 16:00] VITALS: BP 118/63
[2022-04-25 21:00] VITALS: BP 118/63
[2022-04-25 22:00] VITALS: BP 106/62
[2022-04-25] MEDS: AMITRIPTYLINE HCL 25 MG TAB PO SCH (23:24)
[2022-04-26] MEDS: ALBUTEROL SULF 2.5 MG/0.5ML(0.5%) NEB SOLN NEB SCH ×5 (00:08→18:57)
[2022-04-26 05:00] VITALS: BP 116/71
[2022-04-26 06:45] LABS: Basophils # (auto) 0 10 ^3/uL (0-0.2); Basophils % (auto) 0.8 % (0.0-2.0); Eosinophils # (auto) 0.1 10 ^3/uL (0-0.8); Hematocrit 36.2 % (36.0-46.0); Hemoglobin 12.3 g/dL (12.2-16.2); Lymphocytes # (auto) 0.6 10 ^3/uL (0.4-5.4); Lymphocytes % (auto) 13.5 % (10.0-50.0); Mean Corpuscular Hemoglobin 32.3 pg (28.0-32.0); Monocytes # (auto) 0.3 10 ^3/uL (0-1.3); Monocytes % (auto) 7.4 % (0.0-12.0); Neutrophils # (auto) 3.3 10 ^3/uL (1.6-8.6); Neutrophils % (auto) 76.3 % (37.0-80.0); Red Blood Cells 3.81 10^6/uL (4.0-5.20); Red Cell Distribution Width 13.7 % (11.8-14.3); White Blood Cell 4.3 10^3/uL (4.4-10.8)
[2022-04-26] MEDS: ACCU-CHEK COMFORT CURVE STRIP VI SCH ×4 (06:47→23:00)
[2022-04-26] MEDS: InsuLIN REG 1unit/0.01ml Soln (100units/ml) SC SCH ×4 (06:48→22:00)
[2022-04-26 06:53] LABS: INR 1.08 (0.9-1.15); Partial Thromboplastin Time 30.2 sec (24.6-33.4)
[2022-04-26 07:02] LABS: Potassium 4.7 mmol/L (3.5-5.1)
[2022-04-26 07:10] LABS: Albumin 3.1 g/dL (3.4-5.0); BUN/Creatinine Ratio 17.4; Bilirubin, Total 0.6 mg/dL (0.2-1.0); Calcium 8.5 mg/dL (8.5-10.1); Total Protein 7.3 g/dL (6.4-8.2)
[2022-04-26] MEDS: AMIODARONE HCL 200 MG TAB PO SCH (08:12)
[2022-04-26] MEDS: MULTIPLE VITAMIN TAB PO SCH (08:13)
[2022-04-26] MEDS: CHOLECALCIFEROL (VITD3) 2,000 UNIT CAP/TAB PO SCH (08:13)
[2022-04-26] MEDS: EMPAGLIFLOZIN 10 MG TAB PO SCH (08:13)
[2022-04-26] MEDS: METOPROLOL SUCCINATE XL 50 MG TAB PO SCH (08:14)
[2022-04-26 09:00] VITALS: BP 112/65
[2022-04-26] MEDS: ASPirin 81 mg TAB PO SCH (10:00)
[2022-04-26] MEDS: PREGABALIN CAPSULE 75 MG CAP PO SCH ×2 (10:00→22:59)
[2022-04-26] MEDS: LINEZOLID 600MG/300ML 300 ML IV SCH ×2 (10:00→22:58)
[2022-04-26 11:56] LABS: Urine Bacteria NONE SEEN /hpf (None Seen); Urine Blood Negative /uL (Negative); Urine WBC 5 /hpf (0 - 5)
[2022-04-26] MEDS ORDERED: LIDOCAINE W/ EPINEPHRINE 2% INJ 20ML VIAL ONE (11:56)
[2022-04-26] MEDS ORDERED: fentaNYL CITRATE 100 MCG/2 ML VL ONE (12:01)
[2022-04-26] MEDS ORDERED: MIDAZOLAM HCL 2MG/2ML 2ml VIAL (1mg/ml) ONE (12:01)
[2022-04-26] MEDS ORDERED: ROCURONIUM 10MG/ML 10ML VIAL IV ONE (12:01)
[2022-04-26] MEDS ORDERED: ceFAZolin 1GM VL ONE (12:42)
[2022-04-26 13:00] VITALS: BP 119/69
[2022-04-26] MEDS ORDERED: LIDOCAINE 2% (LOCAL ANESTH.) PF 5ml SDV ONE (13:12)
[2022-04-26] MEDS ORDERED: ONDANSETRON HCL 4 MG/2 ML VIAL ONE (13:12)
[2022-04-26] MEDS ORDERED: PROPOFOL 10 MG/ML 20 ML IV ONE (13:12)
[2022-04-26] MEDS ORDERED: GLYCOPYRROLATE 0.2 MG/ML 1ML VIAL ONE (13:12)
[2022-04-26] MEDS ORDERED: NEOSTIGMINE 1 MG/ML INJ (10mg/10ML VIAL) ONE (13:12)
[2022-04-26] MEDS ORDERED: ONDANSETRON HCL 4 MG/2 ML VIAL IV PRN (13:30)
[2022-04-26] MEDS ORDERED: HYDROmorphone HCL 2 MG/ML VL/or syr IV PRN ×2 (13:30)
[2022-04-26] MEDS: HYDROcodone-ACET 5/325MG TAB PO PRN (16:18)
[2022-04-26 17:00] VITALS: BP 140/83
[2022-04-26 22:00] VITALS: BP 116/68
[2022-04-26] MEDS: AMITRIPTYLINE HCL 25 MG TAB PO SCH (22:57)
[2022-04-27] VITALS (7 sets, daily range): BP systolic 104–119; BP diastolic 58–69
[2022-04-27] MEDS: ALBUTEROL SULF 2.5 MG/0.5ML(0.5%) NEB SOLN NEB SCH ×4 (00:08→18:37)
[2022-04-27 05:40] LABS: Basophils # (auto) 0 10 ^3/uL (0-0.2); Basophils % (auto) 0.7 % (0.0-2.0); Eosinophils # (auto) 0.1 10 ^3/uL (0-0.8); Eosinophils % (auto) 4.3 % (0.0-7.0); Hematocrit 32.7 % (36.0-46.0); Lymphocytes # (auto) 0.8 10 ^3/uL (0.4-5.4); Lymphocytes % (auto) 25.1 % (10.0-50.0); Mean Corpuscular Hemoglobin 32.3 pg (28.0-32.0); Mean Corpuscular Hgb Conc. 33.6 g/dL (32.0-36.0); Monocytes # (auto) 0.2 10 ^3/uL (0-1.3); Monocytes % (auto) 7.5 % (0.0-12.0); Neutrophils # (auto) 2.1 10 ^3/uL (1.6-8.6); Neutrophils % (auto) 62.4 % (37.0-80.0); Red Cell Distribution Width 13.8 % (11.8-14.3); White Blood Cell 3.3 10^3/uL (4.4-10.8)
[2022-04-27 05:56] LABS: Albumin 2.8 g/dL (3.4-5.0); BUN/Creatinine Ratio 17.1; Calcium 8.3 mg/dL (8.5-10.1)
[2022-04-27 06:00] LABS: Bilirubin, Total 0.4 mg/dL (0.2-1.0); Total Protein 6.1 g/dL (6.4-8.2)
[2022-04-27] MEDS: InsuLIN REG 1unit/0.01ml Soln (100units/ml) SC SCH ×4 (07:00→21:54)
[2022-04-27] MEDS: ACCU-CHEK COMFORT CURVE STRIP VI SCH ×4 (07:07→21:43)
[2022-04-27] MEDS: MULTIPLE VITAMIN TAB PO SCH (10:51)
[2022-04-27] MEDS: PREGABALIN CAPSULE 75 MG CAP PO SCH ×2 (10:51→21:43)
[2022-04-27] MEDS: ASPirin 81 mg TAB PO SCH (10:52)
[2022-04-27] MEDS: HYDROcodone-ACET 5/325MG TAB PO PRN (10:52)
[2022-04-27] MEDS: CHOLECALCIFEROL (VITD3) 2,000 UNIT CAP/TAB PO SCH (10:54)
[2022-04-27] MEDS: METOPROLOL SUCCINATE XL 50 MG TAB PO SCH (10:54)
[2022-04-27] MEDS: EMPAGLIFLOZIN 10 MG TAB PO SCH (10:54)
[2022-04-27] MEDS: AMIODARONE HCL 200 MG TAB PO SCH (10:54)
[2022-04-27] MEDS: LINEZOLID 600MG/300ML 300 ML IV SCH ×2 (10:55→21:42)
[2022-04-27] MEDS: AMITRIPTYLINE HCL 25 MG TAB PO SCH (21:42)
[2022-04-28] MEDS: ALBUTEROL SULF 2.5 MG/0.5ML(0.5%) NEB SOLN NEB SCH ×3 (00:35→11:41)
[2022-04-28 05:12] VITALS: BP 112/66
[2022-04-28] MEDS: InsuLIN REG 1unit/0.01ml Soln (100units/ml) SC SCH ×2 (06:22→11:35)
[2022-04-28] MEDS: ACCU-CHEK COMFORT CURVE STRIP VI SCH ×2 (06:22→11:35)
[2022-04-28 06:28] LABS: Albumin 2.9 g/dL (3.4-5.0); Calcium 8.5 mg/dL (8.5-10.1); Potassium 4.2 mmol/L (3.5-5.1)
[2022-04-28 06:34] LABS: BUN/Creatinine Ratio 16.8; Bilirubin, Total 0.6 mg/dL (0.2-1.0); Total Protein 6.2 g/dL (6.4-8.2)
[2022-04-28 08:00] VITALS: BP 105/58
[2022-04-28] MEDS: LINEZOLID 600MG/300ML 300 ML IV SCH (09:44)
[2022-04-28] MEDS: PREGABALIN CAPSULE 75 MG CAP PO SCH (09:44)
[2022-04-28] MEDS: AMIODARONE HCL 200 MG TAB PO SCH (09:45)
[2022-04-28] MEDS: MULTIPLE VITAMIN TAB PO SCH (09:45)
[2022-04-28] MEDS: ASPirin 81 mg TAB PO SCH (09:45)
[2022-04-28] MEDS: METOPROLOL SUCCINATE XL 50 MG TAB PO SCH (09:46)
[2022-04-28] MEDS: CHOLECALCIFEROL (VITD3) 2,000 UNIT CAP/TAB PO SCH (09:47)
[2022-04-28] MEDS: EMPAGLIFLOZIN 10 MG TAB PO SCH (09:47)
[2022-04-28 12:00] VITALS: BP 120/68
[2022-04-28] MEDS ORDERED: EMPA1TAB PO (15:11)
[2022-04-28] MEDS ORDERED: LINE1TAB10 PO (15:11)
[2022-04-28 15:58] VITALS: BP 105/58
== END 2022-04-28 17:08 | disposition home health service (06) | DRG 383 ==
LOC: ER 14:35 → OVERFLOW 17:46 → EAST 21:41 → TELE-EAST 04-21 23:11
PROVIDERS: ADMIT Nurse Practitioner Family; ATTEND Internal Medicine
PROC: 0Y910ZZ Drainage of Left Buttock, Open Approach (ICD-10-PCS; principal; 2022-04-26 12:19)
DX: L02.31 Cutaneous abscess of buttock (principal); N17.0 Acute kidney failure with tubular necrosis; I42.8 Other cardiomyopathies; E11.22 Type 2 diabetes mellitus with diabetic chronic kidney disease; L02.212 Cutaneous abscess of back [any part, except buttock and flank]; J96.10 Chronic respiratory failure, unspecified whether with hypoxia or hypercapnia; K75.9 Inflammatory liver disease, unspecified; I13.0 Hypertensive heart and chronic kidney disease with heart failure and stage 1 through stage 4 chronic kidney disease, or unspecified chronic kidney disease; I50.22 Chronic systolic (congestive) heart failure; B95.62 Methicillin resistant Staphylococcus aureus infection as the cause of diseases classified elsewhere; Z20.822 Contact with and (suspected) exposure to COVID-19; L03.317 Cellulitis of buttock; I47.1 Supraventricular tachycardia; E11.65 Type 2 diabetes mellitus with hyperglycemia; E78.5 Hyperlipidemia, unspecified; N39.0 Urinary tract infection, site not specified; N28.1 Cyst of kidney, acquired; N18.9 Chronic kidney disease, unspecified; I25.10 Atherosclerotic heart disease of native coronary artery without angina pectoris; E87.5 Hyperkalemia; R74.01 Elevation of levels of liver transaminase levels; I48.91 Unspecified atrial fibrillation; Z79.84 Long term (current) use of oral hypoglycemic drugs; Z79.899 Other long term (current) drug therapy; Z83.3 Family history of diabetes mellitus; Z86.79 Personal history of other diseases of the circulatory system
CPT/HCPCS: 36415; 71045; 76705; 80053; 80061; 80076; 81001; 81025; 82140; 82728; 82962; 83036; 83605; 83880; 84443; 85025; 85610; 85730; 86038; 86704; 86706; 86708; 86803; 86850; 86900; 86901; 87040; 87077; 87186; 87205; 87340; 87426; 93005; 93306; 94640; 96365; 96366; 96375; C9113; G0378; J0690; J0696; J1815; J1885; J2001; J2250; J2405; J2704; J3490

== ENCOUNTER 2022-08-24 22:04 | Emergency (ER) | payer MEDICARE, OTHER ==
[~2022-08-24] VITALS: Ht 162.6 cm; Wt 64.0 kg
[~2022-08-24 22:04] MED LIST changes: -ATOR40TA52 PO; +EMPA1TAB PO; +LINE1TAB10 PO
[2022-08-25 01:10] LABS: Urine Bacteria FEW /hpf (None Seen); Urine Blood Negative /uL (Negative); Urine Specific Gravity 1.021 (1.001-1.035); Urine WBC 23 /hpf (0 - 5)
[2022-08-25 01:17] LABS: Basophils # (auto) 0 10 ^3/uL (0-0.2); Basophils % (auto) 0.5 % (0.0-2.0); Eosinophils # (auto) 0.2 10 ^3/uL (0-0.8); Eosinophils % (auto) 3.5 % (0.0-7.0); Hematocrit 36.3 % (36.0-46.0); Hemoglobin 12.5 g/dL (12.2-16.2); Lymphocytes # (auto) 1.8 10 ^3/uL (0.4-5.4); Lymphocytes % (auto) 39.9 % (10.0-50.0); Mean Corpuscular Hemoglobin 33.1 pg (28.0-32.0); Mean Corpuscular Hgb Conc. 34.4 g/dL (32.0-36.0); Mean Corpuscular Volume 96.1 fL (80.0-100.0); Monocytes # (auto) 0.5 10 ^3/uL (0-1.3); Monocytes % (auto) 12.3 % (0.0-12.0); Neutrophils # (auto) 1.9 10 ^3/uL (1.6-8.6); Neutrophils % (auto) 43.8 % (37.0-80.0); Nucleated Red Blood Cells % 0.1 %; Red Blood Cells 3.77 10^6/uL (4.0-5.20); Red Cell Distribution Width 13.4 % (11.8-14.3); White Blood Cell 4.4 10^3/uL (4.4-10.8)
[2022-08-25 01:19] LABS: Albumin 3.6 g/dL (3.4-5.0); BUN/Creatinine Ratio 25.5; Calcium 8.9 mg/dL (8.5-10.1); Potassium 4.7 mmol/L (3.5-5.1)
[2022-08-25 01:22] LABS: Bilirubin, Total 0.6 mg/dL (0.2-1.0)
[2022-08-25] MEDS ORDERED: MORPHINE SULFATE INJ 2 MG/ml SYRG IV ONE (02:45)
[2022-08-25] MEDS ORDERED: ONDANSETRON HCL 4 MG/2 ML VIAL IV ONE (02:45)
[2022-08-25] MEDS ORDERED: cefTRIAXone 1GM/50ML D5W 50 ML IV ONE (04:30)
[2022-08-25 06:00] VITALS: BP 120/78
[2022-08-25] MEDS ORDERED: HYDROcodone-ACET 10/325MG TAB PO ONE (06:30)
== END 2022-08-25 07:00 | disposition home or self-care (01) ==
LOC: ER 22:04
DX: S66.912A Strain of unspecified muscle, fascia and tendon at wrist and hand level, left hand, initial encounter (principal); N17.9 Acute kidney failure, unspecified; N39.0 Urinary tract infection, site not specified; R55 Syncope and collapse; I10 Essential (primary) hypertension; E11.9 Type 2 diabetes mellitus without complications; E78.5 Hyperlipidemia, unspecified; Z79.899 Other long term (current) drug therapy; W18.39XA Other fall on same level, initial encounter; Y93.89 Activity, other specified; Y92.89 Other specified places as the place of occurrence of the external cause; Y99.8 Other external cause status
CPT/HCPCS: 29125; 36415; 70450; 70486; 71250; 72125; 73110; 73200; 74176; 80053; 81001; 85025; 96365; 96375; 99285; J0696; J2270; J2405

== ENCOUNTER → 2022-09-07 | Day surgery (SDC) | payer MEDICARE, OTHER ==
[2022-09-05 09:47] LABS: Basophils # (auto) 0.1 10 ^3/uL (0-0.2); Basophils % (auto) 0.9 % (0.0-2.0); Eosinophils # (auto) 0.2 10 ^3/uL (0-0.8); Eosinophils % (auto) 2.8 % (0.0-7.0); Hematocrit 38.4 % (36.0-46.0); Hemoglobin 13.3 g/dL (12.2-16.2); Lymphocytes # (auto) 1.4 10 ^3/uL (0.4-5.4); Mean Corpuscular Hemoglobin 31.9 pg (28.0-32.0); Mean Corpuscular Hgb Conc. 34.5 g/dL (32.0-36.0); Mean Corpuscular Volume 92.3 fL (80.0-100.0); Monocytes # (auto) 0.5 10 ^3/uL (0-1.3); Monocytes % (auto) 7.3 % (0.0-12.0); Neutrophils # (auto) 4.3 10 ^3/uL (1.6-8.6); Nucleated Red Blood Cells % 0.2 %; Red Blood Cells 4.16 10^6/uL (4.0-5.20); Red Cell Distribution Width 13.3 % (11.8-14.3); White Blood Cell 6.4 10^3/uL (4.4-10.8)
[2022-09-05 10:22] LABS: Urine Bacteria NONE SEEN /hpf (None Seen); Urine Blood Negative /uL (Negative); Urine Mucus FEW (None Seen); Urine Specific Gravity 1.024 (1.001-1.035); Urine WBC 8 /hpf (0 - 5)
[2022-09-05 10:30] LABS: Potassium 4.1 mmol/L (3.5-5.1)
[2022-09-05 10:40] LABS: INR 1.08 (0.9-1.15); Partial Thromboplastin Time 28.4 sec (24.6-33.4)
[2022-09-05 10:41] LABS: Albumin 3.3 g/dL (3.4-5.0); BUN/Creatinine Ratio 25.9; Bilirubin, Total 0.5 mg/dL (0.2-1.0); Calcium 8.8 mg/dL (8.5-10.1); Total Protein 7.5 g/dL (6.4-8.2)
[~2022-09-07] VITALS: Ht 162.6 cm; Wt 63.5 kg
[~2022-09-07] MED LIST changes: +ACCU-CHEK COMFORT CURVE STRIP VI ONE; +DICY10CA PO; -EMPA1TAB PO; -ENAL10TA13; +GLYCOPYRROLATE 0.2 MG/ML 1ML VIAL ONE; +HYDROmorphone HCL 2 MG/ML VL/or syr IV PRN; +LIDOCAINE 2% (LOCAL ANESTH.) PF 5ml SDV ONE; -LINE1TAB10 PO; -METO25TA93 PO; +MIDAZOLAM HCL 2MG/2ML 2ml VIAL (1mg/ml) ONE; -OMEP20TA PO; +ONDA-144 PO; +ONDANSETRON HCL 4 MG/2 ML VIAL IV PRN; +ONDANSETRON HCL 4 MG/2 ML VIAL ONE; +PHENYLEPHRINE HCL 10 MG/ML VL ONE; +PROPOFOL 10 MG/ML 20 ML IV ONE; +ROCURONIUM 10MG/ML 10ML VIAL IV ONE; +SACU1TAB PO; +SEMA2INJ SC; +SUCCINYLCHOLINE CHLORIDE 20 MG/ML 10ML VIAL IV ONE; +ePHEDrine SULFATE 50 MG/ML AMP ONE; +fentaNYL CITRATE 100 MCG/2 ML VL ONE
[2022-09-07 15:25] VITALS: BP 137/78
== END | disposition home or self-care (01) ==
LOC: GI 12:02
PROVIDERS: ATTEND Internal Medicine Gastroenterology
DX: K55.9 Vascular disorder of intestine, unspecified (principal); K29.70 Gastritis, unspecified, without bleeding; K21.9 Gastro-esophageal reflux disease without esophagitis; K44.9 Diaphragmatic hernia without obstruction or gangrene; K63.5 Polyp of colon; K63.89 Other specified diseases of intestine; K64.8 Other hemorrhoids; R19.4 Change in bowel habit; I10 Essential (primary) hypertension; E11.9 Type 2 diabetes mellitus without complications; Z79.84 Long term (current) use of oral hypoglycemic drugs; Z79.899 Other long term (current) drug therapy; Z83.3 Family history of diabetes mellitus; Z20.822 Contact with and (suspected) exposure to COVID-19
CPT/HCPCS: 36415; 43239; 45380; 45385; 80053; 81001; 82962; 85025; 85610; 85730; J0330; J2001; J2250; J2370; J2405; J2704; J3010; J7030; U0003

== ENCOUNTER → 2022-11-25 | Outpatient (CLI) | payer MEDICARE, OTHER ==
[~2022-11-25] MED LIST changes: -ACCU-CHEK COMFORT CURVE STRIP VI ONE; -AMIT25TA12 PO; +AMIT25TA20 PO; -GLYCOPYRROLATE 0.2 MG/ML 1ML VIAL ONE; -HYDROmorphone HCL 2 MG/ML VL/or syr IV PRN; -LIDOCAINE 2% (LOCAL ANESTH.) PF 5ml SDV ONE; -MIDAZOLAM HCL 2MG/2ML 2ml VIAL (1mg/ml) ONE; -ONDANSETRON HCL 4 MG/2 ML VIAL IV PRN; -ONDANSETRON HCL 4 MG/2 ML VIAL ONE; -PHENYLEPHRINE HCL 10 MG/ML VL ONE; -PROPOFOL 10 MG/ML 20 ML IV ONE; -ROCURONIUM 10MG/ML 10ML VIAL IV ONE; -SUCCINYLCHOLINE CHLORIDE 20 MG/ML 10ML VIAL IV ONE; -ePHEDrine SULFATE 50 MG/ML AMP ONE; -fentaNYL CITRATE 100 MCG/2 ML VL ONE
[2022-11-25 07:59] LABS: Basophils # (auto) 0 10 ^3/uL (0-0.2); Basophils % (auto) 0.7 % (0.0-2.0); Eosinophils # (auto) 0.2 10 ^3/uL (0-0.8); Eosinophils % (auto) 3.7 % (0.0-7.0); Hematocrit 34.3 % (36.0-46.0); Hemoglobin 11.6 g/dL (12.2-16.2); Lymphocytes # (auto) 1.2 10 ^3/uL (0.4-5.4); Lymphocytes % (auto) 18.7 % (10.0-50.0); Mean Corpuscular Hgb Conc. 33.7 g/dL (32.0-36.0); Mean Corpuscular Volume 97.8 fL (80.0-100.0); Monocytes # (auto) 0.4 10 ^3/uL (0-1.3); Monocytes % (auto) 6.2 % (0.0-12.0); Neutrophils # (auto) 4.4 10 ^3/uL (1.6-8.6); Neutrophils % (auto) 70.7 % (37.0-80.0); Nucleated Red Blood Cells % 0.2 %; Red Blood Cells 3.51 10^6/uL (4.0-5.20); White Blood Cell 6.3 10^3/uL (4.4-10.8)
[2022-11-25 08:46] LABS: Albumin 3.3 g/dL (3.4-5.0); Calcium 8.6 mg/dL (8.5-10.1); Potassium 5.1 mmol/L (3.5-5.1)
[2022-11-25 08:52] LABS: BUN/Creatinine Ratio 21.4 (10.0-20.0); Bilirubin, Total 0.5 mg/dL (0.2-1.0); Total Protein 7.7 g/dL (6.4-8.2)
[2022-11-28 12:46] LABS: Hepatitis C Antibody Negative (Negative)
== END | disposition home or self-care (01) ==
LOC: LAB 07:42
PROVIDERS: ATTEND Internal Medicine Gastroenterology
DX: R94.5 Abnormal results of liver function studies (principal); R19.4 Change in bowel habit; K51.90 Ulcerative colitis, unspecified, without complications; K63.5 Polyp of colon; Z79.899 Other long term (current) drug therapy
CPT/HCPCS: 36415; 80053; 80061; 82728; 85025; 85610; 86038; 86803; 87340

== ENCOUNTER → 2023-03-08 | Outpatient (CLI) | payer MEDICARE, OTHER ==
[2023-03-08 11:36] LABS: Basophils # (auto) 0.1 10 ^3/uL (0-0.2); Eosinophils # (auto) 0.6 10 ^3/uL (0-0.8); Eosinophils % (auto) 12.1 % (0.0-7.0); Hematocrit 41.7 % (36.0-46.0); Hemoglobin 14.2 g/dL (12.2-16.2); Lymphocytes # (auto) 1.2 10 ^3/uL (0.4-5.4); Lymphocytes % (auto) 23.3 % (10.0-50.0); Mean Corpuscular Hemoglobin 31.9 pg (28.0-32.0); Mean Corpuscular Volume 93.9 fL (80.0-100.0); Monocytes # (auto) 0.4 10 ^3/uL (0-1.3); Monocytes % (auto) 7.1 % (0.0-12.0); Neutrophils % (auto) 56.5 % (37.0-80.0); Nucleated Red Blood Cells % 0.1 %; Red Blood Cells 4.44 10^6/uL (4.0-5.20); White Blood Cell 5.3 10^3/uL (4.4-10.8)
[2023-03-08 11:50] LABS: Urine Bacteria NONE SEEN /hpf (None Seen); Urine Blood Negative /uL (Negative); Urine Clarity Clear (Clear); Urine Color Yellow (Yellow); Urine Protein, UAD 1+ (Negative); Urine Specific Gravity 1.017 (1.001-1.035); Urine Urobilinogen Normal (Negative); Urine WBC 2 /hpf (0 - 5); Urine pH 5.5 (5.0-8.0)
[2023-03-08 12:17] LABS: Erythrocyte Sedimentation Rate 36 mm/hr (0-20)
[2023-03-08 12:31] LABS: Protein, Urine 54.1 mg/dL (0.0-11.9)
[2023-03-08 12:33] LABS: Creatinine, Urine 68.61 mg/dL (30.0-125.0); Urine Protein/Creatinine Ratio 0.79
[2023-03-08 12:38] LABS: Alanine Aminotransferase 32 U/L (7-40); Albumin 4.8 g/dL (3.2-4.8); Alkaline Phosphatase 167 U/L (46-116); Anion Gap 8.2 (5-15); Aspartate Aminotransferase 39 U/L (13-40); BUN/Creatinine Ratio 23.4 (10.0-20.0); Bilirubin, Total 0.7 mg/dL (0.2-1.0); Blood Urea Nitrogen 33 mg/dL (9-23); CRP High Sensitivity 0.31 mg/dL (<1.0); Calcium 9.8 mg/dL (8.5-10.1); Carbon Dioxide 24.8 mmol/L (20-30); Chloride 104 mmol/L (98-107); Cholesterol 205 mg/dL (< 200); Glucose 126 mg/dL (74-106); HDL Cholesterol 49 mg/dL (40-59); LDL Cholesterol 132 mg/dL (< 100); Potassium 4.7 mmol/L (3.5-5.1); Sodium 137 mmol/L (136-145); Triglycerides 249 mg/dL (< 150); Uric Acid 5.1 mg/dL (3.1-7.8)
[2023-03-09 08:06] LABS: Anti-Centromere B Antibody <0.2 AI (0.0-0.9); Anti-Jo-1 Antibody <0.2 AI (0.0-0.9); Anti-Nuclear Antibody Direct Positive (Negative); Anti-dsDNA Antibody 13 IU/mL (0-9); Antichromatin Antibody 0.2 AI (0.0-0.9); Antiscleroderma-70 Antibody <0.2 AI (0.0-0.9); RNP Antibody <0.2 AI (0.0-0.9); Sjogren's Anti-SS-A Antibody <0.2 AI (0.0-0.9); Sjogren's Anti-SS-B Antibody <0.2 AI (0.0-0.9); Smith Antibody <0.2 AI (0.0-0.9); Thyroid Peroxidase (TPO) Ab 13 IU/mL (0-34)
[2023-03-09 10:06] LABS: Complement C3 170 mg/dL (82-167)
[2023-03-09 21:06] LABS: CCP IgG/IgA Antibody 3 units (0-19)
== END | disposition home or self-care (01) ==
LOC: LAB 11:12
PROVIDERS: ATTEND Internal Medicine Gastroenterology
DX: R94.5 Abnormal results of liver function studies (principal); D64.9 Anemia, unspecified; M32.9 Systemic lupus erythematosus, unspecified; Z79.899 Other long term (current) drug therapy
CPT/HCPCS: 36415; 80053; 80061; 81001; 82570; 82728; 83036; 83516; 84156; 84445; 84550; 85025; 85652; 86038; 86141; 86160; 86200; 86225; 86235; 86376

== ENCOUNTER → 2023-03-17 | Outpatient (CLI) | payer MEDICARE, OTHER ==
[2023-03-17 12:07] LABS: Basophils # (auto) 0.1 10 ^3/uL (0-0.2); Basophils % (auto) 1.2 % (0.0-2.0); Eosinophils # (auto) 0.5 10 ^3/uL (0-0.8); Hemoglobin 13.4 g/dL (12.2-16.2); Lymphocytes # (auto) 1.3 10 ^3/uL (0.4-5.4); Lymphocytes % (auto) 29.9 % (10.0-50.0); Mean Corpuscular Hemoglobin 31.5 pg (28.0-32.0); Mean Corpuscular Hgb Conc. 33.4 g/dL (32.0-36.0); Mean Corpuscular Volume 94.4 fL (80.0-100.0); Monocytes # (auto) 0.4 10 ^3/uL (0-1.3); Monocytes % (auto) 9.1 % (0.0-12.0); Neutrophils # (auto) 2.1 10 ^3/uL (1.6-8.6); Neutrophils % (auto) 47.8 % (37.0-80.0); Nucleated Red Blood Cells % 0.2 %; Red Blood Cells 4.23 10^6/uL (4.0-5.20); Red Cell Distribution Width 12.8 % (11.8-14.3); White Blood Cell 4.4 10^3/uL (4.4-10.8)
[2023-03-17 12:36] LABS: INR 1.06 (0.9-1.15); Prothrombin Time 11.1 sec (9.3-11.8)
[2023-03-17 12:40] LABS: Alanine Aminotransferase 48 U/L (7-40); Albumin 4.6 g/dL (3.2-4.8); Alkaline Phosphatase 186 U/L (46-116); Anion Gap 4 (5-15); Aspartate Aminotransferase 47 U/L (13-40); BUN/Creatinine Ratio 16.7 (10.0-20.0); Blood Urea Nitrogen 27 mg/dL (9-23); Calcium 9.4 mg/dL (8.7-10.4); Carbon Dioxide 30 mmol/L (20-30); Chloride 104 mmol/L (98-107); Glucose 137 mg/dL (74-106); Potassium 4.8 mmol/L (3.5-5.1); Sodium 138 mmol/L (136-145)
[2023-03-17 12:41] LABS: Total Protein 8.6 g/dL (5.7-8.2)
[2023-03-17 14:25] LABS: Bilirubin, Total 0.6 mg/dL (0.2-1.0)
== END | disposition home or self-care (01) ==
LOC: LAB 11:23
PROVIDERS: ATTEND Internal Medicine Gastroenterology
DX: R94.5 Abnormal results of liver function studies (principal); Z79.899 Other long term (current) drug therapy
CPT/HCPCS: 36415; 80053; 83036; 85025; 85610

== ENCOUNTER → 2023-08-30 | Outpatient (CLI) | payer MEDICARE, OTHER ==
[2023-08-30 11:05] LABS: Basophils # (auto) 0 10 ^3/uL (0-0.2); Basophils % (auto) 0.6 % (0.0-2.0); Eosinophils # (auto) 0 10 ^3/uL (0-0.8); Eosinophils % (auto) 0.6 % (0.0-7.0); Hemoglobin 13.6 g/dL (12.2-16.2); Lymphocytes # (auto) 0.9 10 ^3/uL (0.4-5.4); Lymphocytes % (auto) 13.3 % (10.0-50.0); Mean Corpuscular Hemoglobin 31.9 pg (28.0-32.0); Mean Corpuscular Hgb Conc. 33.2 g/dL (32.0-36.0); Mean Corpuscular Volume 96.1 fL (80.0-100.0); Monocytes # (auto) 0.4 10 ^3/uL (0-1.3); Monocytes % (auto) 5.6 % (0.0-12.0); Neutrophils # (auto) 5.5 10 ^3/uL (1.6-8.6); Neutrophils % (auto) 79.9 % (37.0-80.0); Red Blood Cells 4.27 10^6/uL (4.0-5.20); Red Cell Distribution Width 14.2 % (11.8-14.3); White Blood Cell 6.9 10^3/uL (4.4-10.8)
[2023-08-30 11:06] LABS: INR 1.06 (0.9-1.15); Partial Thromboplastin Time 27.3 SEC (24.5-34.5); Prothrombin Time 11.1 sec (9.3-11.8)
[2023-08-30 11:20] LABS: Alanine Aminotransferase 27 U/L (7-40); Albumin 4.3 g/dL (3.2-4.8); Alkaline Phosphatase 141 U/L (46-116); Anion Gap 6 (5-15); Aspartate Aminotransferase 21 U/L (13-40); Blood Urea Nitrogen 23 mg/dL (9-23); Calcium 9.3 mg/dL (8.5-10.1); Carbon Dioxide 25 mmol/L (20-30); Chloride 106 mmol/L (98-107); Cholesterol 182 mg/dL (< 200); Glucose 183 mg/dL (74-106); HDL Cholesterol 50 mg/dL (40-59); LDL Cholesterol 105 mg/dL (< 100); Potassium 4.5 mmol/L (3.5-5.1); Sodium 137 mmol/L (136-145); Triglycerides 257 mg/dL (< 150)
[2023-08-30 11:21] LABS: Bilirubin, Total 0.7 mg/dL (0.2-1.0)
== END | disposition home or self-care (01) ==
LOC: LAB 10:04
PROVIDERS: ATTEND Internal Medicine Gastroenterology
DX: R94.5 Abnormal results of liver function studies (principal); Z79.899 Other long term (current) drug therapy; Z86.2 Personal history of diseases of the blood and blood-forming organs and certain disorders involving the immune mechanism
CPT/HCPCS: 36415; 80053; 80061; 82140; 83036; 85025; 85610; 85730

== ENCOUNTER → 2024-01-17 | Outpatient (CLI) | payer MEDICARE, OTHER ==
[2024-01-17 08:17] LABS: Urine Bacteria FEW /hpf (None Seen); Urine Blood Negative /uL (Negative); Urine Clarity Clear (Clear); Urine Color Light-Yellow (Yellow); Urine Protein, UAD TRACE (Negative); Urine Specific Gravity 1.021 (1.001-1.035); Urine Urobilinogen Normal (Negative); Urine WBC 7 /hpf (0 - 5)
[2024-01-17 08:55] LABS: Protein, Urine 34.9 mg/dL (0.0-11.9)
[2024-01-17 08:56] LABS: Creatinine, Urine 90.38 mg/dL (30.0-125.0); Urine Protein/Creatinine Ratio 0.39
== END | disposition home or self-care (01) ==
LOC: LAB 07:47
PROVIDERS: ATTEND Internal Medicine Rheumatology
DX: M32.9 Systemic lupus erythematosus, unspecified (principal)
CPT/HCPCS: 81001; 82570; 84156

== ENCOUNTER 2024-08-10 10:17 | Inpatient (IN) | payer MEDICARE, OTHER ==
[~2024-08-10] VITALS: Ht 162.6 cm; Wt 72.1 kg
[~2024-08-10 10:17] MED LIST changes: +ALEN35TA18 PO; +AMIO100T6 PO; +ATOR40TA52 PO; +DOXY100T2 PO; +FAMO40TA7 PO; +FURO20TA4 PO; +HYDR-3682 PO; +LEVO50TA7 PO; +METO25TA93 PO; +PANT40TA2 PO; +SODI650T PO
--- NOTE | 2024-08-10 10:51 | ECG ---
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
[2024-08-10 11:22] VITALS: PULSE 109; RESP 14; O2SAT 93
--- NOTE | 2024-08-10 11:44 | ED.PDOC ---
History of Present Illness Chief Complaint: Shortness of Breath Comments pt has copd, uses 2LO2 at home, but does not have a portable tank. she has been coughing for 1 month. she has a history of pneumonia. Time Seen by MD: 10:31 Primary Care Provider: Son Reviewed Notes: Nurses Notes, Medications, Allergies Allergies: Coded Allergies: NO KNOWN ALLERGIES (Unverified , 11/14/21) Home Meds Active Scripts Amiodarone Hcl (Amiodarone Hcl) 200 Mg Tab, 1 TAB PO BID, #180 TAB 1 Refill Prov:SAMANTHA FERRER MD 11/20/21 Reported Medications Semaglutide (Ozempic) 2 Mg/1.5 Ml Inj, 2 MG SC QWEEKLY, INJ 09/05/22 Ondansetron (Zofran) 4 Mg Tab, 8 MG PO BID, TAB 09/05/22 Dicyclomine Hcl (BENTYL CAPSULE) 10 Mg Cp, 10 MG PO BID, CAP 09/05/22 Sacubitril-Valsartan (Entresto 24-26 mg) 1 Tab Tab, 1 TAB PO BID, TAB 09/05/22 Albuterol Sulfate (VENTOLIN MDI) 90 Mcg Ih, 90 MCG IN QID for 30 Days, MCG 02/22/22 Amitriptyline Hcl (Amitriptyline Hcl) 25 Mg Tab, 25 MG PO HS for 30 Days, MG 02/22/22 Pregabalin (Lyrica) 150 Mg Cap, 1 CAP PO TID, #60 CAP 5 Refills 02/22/22 Cholecalciferol (VITAMIN D3) 2,000 Unit Tab, 1 TAB PO DAILY, #30 TAB 5 Refills 11/14/21 Ascorbic Acid (VITAMIN C TABLET) 500 Mg Tb, 1 TAB PO DAILY, #30 TAB 3 Refills 11/14/21 Metformin Hydrochloride (Metformin Hcl) 850 Mg Tab, 1 TAB PO BID, #60 TAB 5 Refills 11/14/21 Information Source: Patient, [facility] Medical Record, Past Medical Record Mode of Arrival: Ambulatory Severity: Mild Timing: Months Past Medical History PAST MEDICAL HISTORY: COPD, DM, High Lipids, HTN Past Medical History (Other): hypothyroidism, arthritis, pneumonia Surgical History: Denies all surgeries SPEECH PATHOLOGIST ASSISTANT History: No Pertinent SPEECH PATHOLOGIST ASSISTANT History Family History Family History: Unknown Social History Smoker: Non-Smoker Alcohol: Denies ETOH Use Drugs: Denies Drug Use Lives In: Home Constitutional: denies: chills, diaphoresis, fatigue, fever, malaise, sweats, weakness, others EENTM: denies: blurred vision, double vision, ear bleeding, ear discharge, ear drainage, ear pain, ear ringing, eye pain, eye redness, hearing loss, mouth pain, mouth swelling, nasal discharge, nose bleeding, nose congestion, nose pain, photophobia, tearing, throat pain, throat swelling, voice changes, others Respiratory: reports: cough, shortness of breath; denies: hemoptysis, orthopnea, SOB at rest, SOB with excertion, stridor, wheezing, others Cardiovascular: denies: chest pain, dizzy spells, diaphoresis, Dyspnea on exertion, edema, irregular heart beat, left arm pain, lightheadedness, palpitations, PND, syncope, others Gastrointestinal: denies: abdomen distended, abdominal pain, blood streaked bowels, constipated, diarrhea, dysphagia, difficulty swallowing, hematemesis, melena, nausea, poor appetite, poor fluid intake, rectal bleeding, rectal pain, vomiting, others Genitourinary: denies: abnormal vagina bleeding, burning, dyspareunia, dysuria, flank pain, frequency, hematuria, incontinence, pain, , vagina discharge, urgency, others Neurological: denies: dizziness, fainting, headache, left sided numbness, left sided weakness, numbness, paresthesia, pre-existing deficit, right sided numbness, right sided weakness, seizure, speech problems, tingling, tremors, weakness, others Musculoskeletal: denies: back pain, gout, joint pain, joint swelling, muscle pain, muscle stiffness, neck pain, others Integumetry: denies: bruises, change in color, change in hair/nails, dryness, laceration, lesions, lumps, rash, wounds, others Allergic/Immunocompromised: denies: Difficulty Healing, Frequent Infections, Hives, Itching, others Hematologic/Lymphatic: denies: anemia, blood clots, easy bleeding, easy bruising, swollen glands, others Endocrine: denies: excessive hunger, excessive sweating, excessive thirst, excessive urination, flushing, intolerance to cold, intolerance to heat, unexplained weight gain, unexplained weight loss, others Psychiatric: denies: anxiety, bipolar disorder, depression, hopeless, panic disorder, schizophrenia, sleepless, suicidal, others All Other Systems: Reviewed and Negative Physical Exam General Appearance: No Apparent Distress, Normal HEENT: Normal ENT Inspection, Pharynx Normal, TMs Normal Neck: Full Range of Motion, Non-Tender, Normal, Normal Inspection Respiratory: Chest Non-Tender, Lungs Clear, No Accessory Muscle Use, No Respiratory Distress, Other (coarse breath souns bilaterally) Cardiovascular: No Edema, No JVD, No Murmur, No Gallop, Normal Peripheral Pulses, Regular Rate/Rhythm Breast Exam: Deferred Gastrointestinal: No Organomegaly, Non Tender, No Pulsatile Mass, Normal Bowel Sounds, Soft Genitalia: Deferred Pelvic: Deferred Rectal: Deferred Extremities: No calf tenderness, Normal capillary refill, Normal inspection, Normal range of motion, Non-tender, No pedal edema Musculoskeletal : Apperance: Normal Neurologic: Alert, tyre fitter II-XII nml as Tested, No Motor Deficits, Normal Affect, Normal Mood, No Sensory Deficits Cerebellar Function: Normal Reflexes: Normal Skin: Dry, Normal Color, Warm Lymphatic: No Adenopathy Was a procedure done? Was a procedure done?: No EKG EKG : Pulse Rate (adult): 107 Kelley: Normal Cardiac Rhythm: ST Block: LBBB Hypertrophy: None ST: Normal Differential Dx Considerations may include: PNA, URI, viral syndrome, pleural effusions X-Ray, Labs, Meds, VS Vital Signs Date Time Temp Pulse Resp B/P (MAP) Pulse Ox O2 Delivery O2 Flow Rate FiO2 08/10/24 14:43 107 08/10/24 13:41 18 92 Room Air* 0 21 08/10/24 13:34 98.9 102 18 117/65 (82) 95 98.9 08/10/24 11:22 109 14 93 Nasal Cannula* 2 28 08/10/24 11:22 97.8 109 18 129/85 (100) 93 97.8 08/10/24 10:47 107 08/10/24 10:39 20 93 Nasal Cannula* 2 08/10/24 10:34 98.1 114 20 125/77 (93) 93 Lab Test 08/10/24 13:02 08/10/24 11:56 08/10/24 11:54 Range/Units Troponin I High Sensitivity 23 20 </=34 ng/L White Blood Count 2.5 L 4.4-10.8 10^3/uL Red Blood Count 3.63 L 4.0-5.20 10^6/uL Hemoglobin 10.7 L 12.2-16.2 g/dL Hematocrit 33.0 L 36.0-46.0 % Mean Corpuscular Volume 90.9 80.0-100.0 fL Mean Corpuscular Hemoglobin 29.5 28.0-32.0 pg Mean Corpuscular Hemoglobin Concent 32.5 32.0-36.0 g/dL Red Cell Distribution Width 14.2 11.8-14.3 % Platelet Count 157 140-450 10^3/uL Mean Platelet Volume 8.5 6.9-10.8 fL Neutrophils (%) (Auto) 78.7 37.0-80.0 % Lymphocytes (%) (Auto) 12.6 10.0-50.0 % Monocytes (%) (Auto) 8.1 0.0-12.0 % Eosinophils (%) (Auto) 0.4 0.0-7.0 % Basophils (%) (Auto) 0.2 0.0-2.0 % Neutrophils # (Auto) 2.0 1.6-8.6 10 ^3/uL Lymphocytes # (Auto) 0.3 L 0.4-5.4 10 ^3/uL Monocytes # (Auto) 0.2 0-1.3 10 ^3/uL Eosinophils # (Auto) 0 0-0.8 10 ^3/uL Basophils # (Auto) 0 0-0.2 10 ^3/uL Nucleated Red Blood Cells 0.3 % Sodium Level 134 L 136-145 mmol/L Potassium Level 4.0 3.5-5.1 mmol/L Chloride Level 96 L 98-107 mmol/L Carbon Dioxide Level 28 20-31 mmol/L Anion Gap 10 5-15 Blood Urea Nitrogen 24 H 9-23 mg/dL Creatinine 1.60 H 0.550-1.02 mg/dL Glomerular Filtration Rate Calc 33 >90 mL/min BUN/Creatinine Ratio 15.0 10.0-20.0 Serum Glucose 158 H 74-106 mg/dL Calcium Level 9.2 8.7-10.4 mg/dL B-Type Natriuretic Peptide 3325.33 0-100 pg/mL Influenza Type A Antigen Negative Negative Influenza Type B Antigen Negative Negative SARS-CoV-2 Antigen (Rapid) Negative NEGATIVE Current Medications Medications (Trade) Dose Ordered Sig/[place] Route Start Time Stop Time Status Last Admin Ipratropium [place] (Atrovent Medneb) 0.5 mg ONCE ONCE NEB 08/10/24 11:45 08/10/24 12:06 DC 08/10/24 13:36 Albuterol (Ventolin Medneb) 5 mg ONCE ONCE NEB 08/10/24 11:45 08/10/24 12:06 DC 08/10/24 13:36 [place] [id number] Ph: [phone] DIAGNOSTIC IMAGING Diagnostic Imaging Report : [id number] Signed PATIENT: JEISON GRAHAM ACCT: [id number] UNIT: [id number] : 1950 LOC: ER ROOM / BED: / AGE / SEX: 74 / F ADM STATUS: REG ER SERVICE 1142 ORDERING PHYSICIAN: CARRIE KING MD PROCEDURE(s): CXRP - CHEST PORTABLE REASON: sob ORDER NUMBER(s): [id number], ACCESSION NUMBER(s): [id number] EXAM: XR Chest, 1 View CLINICAL INDICATION: sob TECHNIQUE: Frontal view of the chest. COMPARISON: EKG on DOS: 04/26/22, EKG on DOS: 04/22/22, EKG on DOS: 04/21/22, CXRP on DOS: 04/19/22, CHEST PORTABLE on DOS: 04/19/22 FINDINGS: LUNGS AND PLEURAL SPACES: See below. HEART: Cardiomegaly with moderate congestion. MEDIASTINUM: Unremarkable. Normal mediastinal contour. BONES/JOINTS: Unremarkable. No acute fracture. OTHER FINDINGS: . . . .. IMPRESSION: Cardiomegaly with moderate congestion. ATED BY: WALESKA PRADHAN MD DICTATED DATE/TIME: 08/10/241200 SIGNED BY: WALESKA PRADHAN MD SIGNED DATE/TIME: 08/10/241200 CC: Time of 1ST Reevaluation: 11:01 Reevaluation 1ST: Unchanged Time of 2ND Reevaluation: 14:44 Reevaluation 2ND: Improved Patient Education/Counseling: Diagnosis, Treatment, Prognosis, Need For Follow Up Family Education/Counseling: No Family Present Additional Information I reviewed the following notes from patient's past medical encounters: ED physician notes on 12/29/22 and 11/14/21; admission discharge summary report on 11/20/21 The following tests were ordered, and results were reviewed by me: CXR I reviewed and agreed with the following test results read by other providers: CXR I discussed treatment and results with medical personnel and hospitalist pt has copd but chf exacerbation as well. she will be admitted for further t reatments Departure 1 Departure Time of Disposition: 14:45 Impression: Primary Impression: COPD (chronic obstructive pulmonary disease) Qualified Codes: J44.1 - Chronic obstructive pulmonary disease with (acute) exacerbation Additional Impression: Systolic CHF Qualified Codes: I50.23 - Acute on chronic systolic (congestive) heart failure Disposition: ADMITTED INPATIENT Admit to: Tele Condition: Serious Discharged With: Self Critical Care Note Critical Care Time?: Yes (1 hr-critical care time only) Critical care comment: Due to concerns for patients condition deteriorating, the care required my highest level of attention and readiness to intervene. I assessed the patient, reviewed the medical records, ordered the appropriate tests and treatments, then reassessed for results and responsiveness. I communicated with medical personnel and consultants and formulated a plan of care. Total critical care time excludes any procedures Stability Stability form required: No Heart Score Heart Score: Heart Score Response (Comments) Value History Moderate Suspicious 1 EKG Normal 0 Age >65 2 Risk Factors >3 or Hx ASHD 2 Troponin Normal limit 0 Total 5 I personally scribed for CARRIE KING MD ([email or web address]) on 08/10/24 at 14:43. Electronically submitted by Randall Nichols ([email or web address]). CARRIE KING MD Aug 10, 2024 11:44
--- NOTE | 2024-08-10 12:04 | [facility]H ---
EXAM: XR Chest, 1 View CLINICAL INDICATION: sob TECHNIQUE: Frontal view of the chest. COMPARISON: EKG on DOS: 04/26/22, EKG on DOS: 04/22/22, EKG on DOS: 04/21/22, CXRP on DOS: 04/19/22, CHEST PORTABLE on DOS: 04/19/22 FINDINGS: LUNGS AND PLEURAL SPACES: See below. HEART: Cardiomegaly with moderate congestion. MEDIASTINUM: Unremarkable. Normal mediastinal contour. BONES/JOINTS: Unremarkable. No acute fracture. OTHER FINDINGS: . . . .. IMPRESSION: Cardiomegaly with moderate congestion.
[2024-08-10 12:29] LABS: Basophils # (auto) 0 10 ^3/uL (0-0.2); Basophils % (auto) 0.2 % (0.0-2.0); Eosinophils # (auto) 0 10 ^3/uL (0-0.8); Eosinophils % (auto) 0.4 % (0.0-7.0); Hemoglobin 10.7 g/dL (12.2-16.2); Lymphocytes # (auto) 0.3 10 ^3/uL (0.4-5.4); Lymphocytes % (auto) 12.6 % (10.0-50.0); Mean Corpuscular Hemoglobin 29.5 pg (28.0-32.0); Mean Corpuscular Hgb Conc. 32.5 g/dL (32.0-36.0); Mean Corpuscular Volume 90.9 fL (80.0-100.0); Monocytes # (auto) 0.2 10 ^3/uL (0-1.3); Monocytes % (auto) 8.1 % (0.0-12.0); Neutrophils % (auto) 78.7 % (37.0-80.0); Nucleated Red Blood Cells % 0.3 %; Platelet Count (auto) 157 10^3/uL (140-450); Red Blood Cells 3.63 10^6/uL (4.0-5.20); Red Cell Distribution Width 14.2 % (11.8-14.3); White Blood Cell 2.5 10^3/uL (4.4-10.8)
[2024-08-10 12:39] LABS: Anion Gap 10 (5-15); Carbon Dioxide 28 mmol/L (20-31)
[2024-08-10 12:40] LABS: Calcium 9.2 mg/dL (8.7-10.4)
[2024-08-10 13:19] LABS: Blood Urea Nitrogen 24 mg/dL (9-23); Chloride 96 mmol/L (98-107); Glucose 158 mg/dL (74-106); Sodium 134 mmol/L (136-145)
[2024-08-10 13:20] LABS: COVID19 ANTIGEN SOFIA FIA NEGATIVE (NEGATIVE); Rapid Influenza A Negative (Negative); Rapid Influenza B Negative (Negative)
[2024-08-10] MEDS: IPRATROPIUM BROM 0.5 MG/2.5ML INH SOL NEB ONE ×2 (13:36→18:12)
[2024-08-10] MEDS: ALBUTEROL SULF 2.5 MG/0.5ML(0.5%) NEB SOLN NEB ONE ×2 (13:36→18:12)
--- NOTE | 2024-08-10 15:44 | DVHHP2 ---
History of Present Illness Reason for Visit: Shortness of the breath and a cough for a month History of Present Illness 74-year-old female past medical history PVC use was on amiodarone for that systolic heart failure COPD pneumonia recently diagnosed in June of this year and given doxycycline, diabetes hyperlipidemia hypertension hypothyroidism lupus arthritis CKD denies surgical history chief complaint patient states that she could not breathe and not able to sleep he has been in his severe cough is going on for two months she did see her doctor Wolf in June and they provided her doxycycline and diagnosed her with pneumonia he has some cough syrup. Patient states despite getting this treatment she has not gotten any better. She is currently not taking amiodarone she states she has been taking this medication about a month. She did state she was taking a water pill twice a day as prescribed. She states no calf pain no swelling to her legs. She denies any chest pain. When evaluating patient's labs and imaging from ED aspirin was given nitro Lasix albuterol and Atrovent white count was found in 2.5 without fever hemoglobin was 10.7 33.0 glucose was 158 creatinine was 1.60 in 24 patient has a history CKD mild up trend from discharge creatinine of 1.4 sodium was 134 troponin was negative x2 BNP was elevated at 09/22/2024 chest x-ray shows cardiomegaly and vascular congestion. Did reviewed patient's echocardiogram from 2021 her EF was 45-50% per Dr. Bloom in his office he did not EF for her recently and it was 25%. He states he likely might have to do a catheterization for her since her EF was declining. With these findings we will admit patient and ask for Cardiology continue to follow Past Medical History PVC use was on amiodarone for that systolic heart failure COPD pneumonia recen tly diagnosed in June of this year and given doxycycline, diabetes hyperlipidemia hypertension hypothyroidism lupus arthritis CKD Past Surgical History denies any surgical history Family History Reviewed, non-contributory to the management of this case. Past Social History The patient lives at home, denies smoking, alcohol or illicit drugs abuse. Review of Systems Constitutional: No: Fever, Chills, Sweats, Weakness, Malaise, Other Eyes: No: Pain, Vision change, Conjunctivae inflammation, Eyelid inflammation, Other, Redness ENT: No: Ear pain, Ear discharge, Nose pain, Nose discharge, Nose congestion, Mouth pain, Mouth swelling, Throat pain, Throat swelling, Other Respiratory: Cough, Shortness of breath; No: Dry, SOB with excertion, Wheezing, Hemoptysis, Pleuritic Pain, Sputum, Wheezing, Other Cardiovascular: No: Chest Pain, Palpitations, Orthopnea, Paroxysmal Noc. Dyspnea, Edema, Lt Headedness, Other Gastrointestinal: No: Nausea, Vomiting, Abdominal Pain, Diarrhea, Constipation, Melena, Hematochezia, Other Genitourinary: No Dysuria, No Frequency, No Incontinence, No Hematuria, No Retention, No Other Musculoskeletal: No: other, neck pain, shoulder pain, arm pain, back pain, hand pain, leg pain, foot pain Skin: No: Rash, Lesions, Jaundice, Bruising, Other Neurological: No: Weakness, Numbness, Incoordination, Change in speech, Confusion, Seizures, Other Allergies: Coded Allergies: NO KNOWN ALLERGIES (Unverified , 11/14/21) Exam Vital Signs Vital Signs Date Time Temp Pulse Resp B/P (MAP) Pulse Ox O2 Delivery O2 Flow Rate FiO2 08/10/24 14:43 107 08/10/24 13:41 18 92 Room Air* 0 21 08/10/24 13:34 98.9 117/65 (82) 98.9 General Appearance: Alert, Oriented X3, Cooperative, mild distress HEENT: Atraumatic, PERRLA, EOMI, Mucous membr. moist/pink Respiratory: Other (Coarse rales heard throughout) Cardiovascular: Regular rate, Normal S1, Normal S2, No murmurs Abdominal: Normal bowel sounds, Soft, No tenderness, No hepatospenomegaly, No masses Extremities: No clubbing, No cyanosis, No edema, Normal pulses, No tenderness/swelling Skin: No rashes, No breakdown, No significant lesion Neuro: Other (Neuro nonfocal) Psych/Mental Status: Mental status NL, Mood NL Labs/Xrays Chest x-ray shows cardiomegaly and congestion I reviewed labs, imaging CT scan abdomen pelvis, EKG and all diagnostic studies on this patient from ED records and the medical chart Labs Test 08/10/24 15:08 08/10/24 11:56 08/10/24 11:54 Range/Units White Blood Count 2.5 L 4.4-10.8 10^3/uL Red Blood Count 3.63 L 4.0-5.20 10^6/uL Hemoglobin 10.7 L 12.2-16.2 g/dL Hematocrit 33.0 L 36.0-46.0 % Mean Corpuscular Volume 90.9 80.0-100.0 fL Mean Corpuscular Hemoglobin 29.5 28.0-32.0 pg Mean Corpuscular Hemoglobin Concent 32.5 32.0-36.0 g/dL Red Cell Distribution Width 14.2 11.8-14.3 % Platelet Count 157 140-450 10^3/uL Mean Platelet Volume 8.5 6.9-10.8 fL Neutrophils (%) (Auto) 78.7 37.0-80.0 % Lymphocytes (%) (Auto) 12.6 10.0-50.0 % Monocytes (%) (Auto) 8.1 0.0-12.0 % Eosinophils (%) (Auto) 0.4 0.0-7.0 % Basophils (%) (Auto) 0.2 0.0-2.0 % Neutrophils # (Auto) 2.0 1.6-8.6 10 ^3/uL Lymphocytes # (Auto) 0.3 L 0.4-5.4 10 ^3/uL Monocytes # (Auto) 0.2 0-1.3 10 ^3/uL Eosinophils # (Auto) 0 0-0.8 10 ^3/uL Basophils # (Auto) 0 0-0.2 10 ^3/uL Nucleated Red Blood Cells 0.3 % Sodium Level 134 L 136-145 mmol/L Potassium Level 4.0 3.5-5.1 mmol/L Chloride Level 96 L 98-107 mmol/L Carbon Dioxide Level 28 20-31 mmol/L Anion Gap 10 5-15 Blood Urea Nitrogen 24 H 9-23 mg/dL Creatinine 1.60 H 0.550-1.02 mg/dL Glomerular Filtration Rate Calc 33 >90 mL/min BUN/Creatinine Ratio 15.0 10.0-20.0 Serum Glucose 158 H 74-106 mg/dL Calcium Level 9.2 8.7-10.4 mg/dL B-Type Natriuretic Peptide 3325.33 0-100 pg/mL Influenza Type A Antigen Negative Negative Influenza Type B Antigen Negative Negative SARS-CoV-2 Antigen (Rapid) Negative NEGATIVE Assessment/Plan Assessment/Plan acute hypoxic resp failure likely from copd and chf found on cxr ordered duoneb prn sob ordered solumedrol atc for now o2 to keep sats >92% acute on chronic systolic heart failure found on cxr bnp 3325 echo found in 2021 ef 45-50% will repeat study fu results per Dr. Bloom pt had echo in clinic ef 25% (he states will see how pt do will need to consider cath) ordered lasix for now trop negative ordered cards consult Dr. Bloom cont home dose of entresto per Dr. Bloom ordered lasix 60mg iv bid strict i/o ordered asa trop negative acute copd exacerbation ordered albuterol atrovent prn sob ordered solumedrol acute acute leukocytosis monitor for fever acute on chronic ckd with mild uptrend likely from heart failure ordered lasix monitor crea if uptrend consider renal consult chronic problems pvc's was on ami, per Dr. Bloom start ami at 200mg po bid copd pna recently dx 06/2024 dm ISS hld htn hypothyroidism ordered TSH arthritis lupus ckd sleep apnea fen/ppx no gi ppx since no hx of gerds or gi bleed scd lovenox hl diet plan admit to tele cards consult Plan discussed with: Patient Date of Service: Aug 10, 2024 Billing Provider: LIZBETH BANKS DNP Common Visit Codes: 24699-ZANPESO INP/OBS CARE (HIGH) LIZBETH BANKS DNP Aug 10, 2024 15:44
[2024-08-10] MEDS: FUROSEMIDE 40 MG/4 ML VIAL IV ONE (15:53)
[2024-08-10] MEDS: ASPirin 325 MG TAB PO ONE (15:54)
[2024-08-10] MEDS: NTG 0.1MG/HR TOPICAL PATCH TD ONE (15:54)
[2024-08-10] MEDS: ASPirin 81 mg TAB PO ONE (17:30)
[2024-08-10] MEDS ORDERED: DEXTROSE (50%) 50ML SYRG IV PRN (17:30)
[2024-08-10 17:52] LABS: Triglycerides 124 mg/dL (< 150)
[2024-08-10 17:53] LABS: LDL Cholesterol 36 mg/dL (< 100)
[2024-08-10 17:54] LABS: Cholesterol 93 mg/dL (< 200)
[2024-08-10 18:01] LABS: HDL Cholesterol 37 mg/dL (40-59)
[2024-08-10] MEDS: methylPREDNISolone SOD SUCC 125 MG/2 ML VL IV ONE (18:30)
[2024-08-10] MEDS: FUROSEMIDE 40 MG/4 ML VIAL IV SCH (18:30)
[2024-08-10] MEDS ORDERED: NITROGLYCERIN 0.4 MG SL TAB SL PRN (18:45)
[2024-08-10 19:31] VITALS: BP 128/82; PULSE 98; RESP 16; TEMP 99; O2SAT 97
--- NOTE | 2024-08-10 20:09 | DVHINCON2 ---
Date of service: Aug 10, 2024 History of Present Illness HPI Patient is a 74-year-old female who presented to the hospital for shortness of breath. She also had been having cough. Problem started around a month ago and worsened recently. Cardiology was involved for cardiac aspects of care. Patient is known to our practice from outside and before. She received recent treatment for pneumonia. Denies chest pains. Does complain of dyspnea on exertion. Does complain of leg swellings. In October 2021, the patient was diagnosed to have nonischemic cardiomyopathy, was put on LifeVest, later was found to have improved LV systolic function the LifeVest was taken away. Recently, ejection fraction decreased again. She denies recent chest pain. She is on amiodarone (for history of PVCs). Home Meds Active Scripts Amiodarone Hcl (Amiodarone Hcl) 200 Mg Tab, 1 TAB PO BID, #180 TAB 1 Refill Prov:SAMANTHA FERRER MD 11/20/21 Reported Medications Semaglutide (Ozempic) 2 Mg/1.5 Ml Inj, 2 MG SC QWEEKLY, INJ 09/05/22 Ondansetron (Zofran) 4 Mg Tab, 8 MG PO BID, TAB 09/05/22 Dicyclomine Hcl (BENTYL CAPSULE) 10 Mg Cp, 10 MG PO BID, CAP 09/05/22 Sacubitril-Valsartan (Entresto 24-26 mg) 1 Tab Tab, 1 TAB PO BID, TAB 09/05/22 Albuterol Sulfate (VENTOLIN MDI) 90 Mcg Ih, 90 MCG IN QID for 30 Days, MCG 02/22/22 Amitriptyline Hcl (Amitriptyline Hcl) 25 Mg Tab, 25 MG PO HS for 30 Days, MG 02/22/22 Pregabalin (Lyrica) 150 Mg Cap, 1 CAP PO TID, #60 CAP 5 Refills 02/22/22 Cholecalciferol (VITAMIN D3) 2,000 Unit Tab, 1 TAB PO DAILY, #30 TAB 5 Refills 11/14/21 Ascorbic Acid (VITAMIN C TABLET) 500 Mg Tb, 1 TAB PO DAILY, #30 TAB 3 Refills 11/14/21 Metformin Hydrochloride (Metformin Hcl) 850 Mg Tab, 1 TAB PO BID, #60 TAB 5 Refills 11/14/21 Past Medical History Others Past medical history includes hypertension, hyperlipidemia, diabetes mellitus, asthma/COPD, history of back surgery, arrhythmia (sustained V. tach in October 2021, for which was shocked), history of old nonischemic cardiomyopathy, pulmonary hypertension (considered type 2), hypothyroidism, hiatal hernia, lupus, SVT, history of colon polyp and its resection, history of thyroid nodule, history of low vitamin-D, possible obstructive sleep apnea, CKD (goes to Nephrology regularly) and also history of laminectomy. Patient Family History: Diabetes mellitus G8 FATHER Smoker: No Hx (Negative) Alocohol: None Drugs: None Review of Systems Constitutional: No symptom reported Ears, Nose, & Throat: No symptom reported Pulmonary/Respiratory: Dyspnea, Cough Cardiovascular: Paroxysmal Noc. Dyspnea, Edema All Other Systems Fourteen point review of system was performed. Relevant findings as per above and as per HPI. Otherwise negative. H&P Exam Vital Signs Vital Signs Date Time Temp Pulse Resp B/P (MAP) Pulse Ox O2 Delivery O2 Flow Rate FiO2 08/10/24 18:30 128/82 08/10/24 18:27 99.0 98 16 97 99.0 08/10/24 18:12 Room Air* 0 21 General Appeara: Well developed, Well nourished Head Exam: Normal inspection Eye Exam: bilateral eye PERRL Nasal Exam: Normal inspection Mouth: Normal Inspection Pulmonary/Respiratory: Rales, Rhonci Cardiovascular/Chest: Regular rate, Systolic murmur Peripheral Pulses: 2+ carotid (R), 2+ carotid (L), 2+ femoral (R), 2+ femoral (L), 2+ dorsalis pedis (R), 2+ dorsalis pedis (L), 2+ Radial (R), 2+ Radial (L) Abdominal Exam: Normal bowel sounds, Soft Neuro/Mental St: Alert, Oriented Appearance: Appropriate appearance Eye contact/ Speech: Cooperative Labs/Xrays Labs Test 08/10/24 15:08 08/10/24 11:56 08/10/24 11:54 Range/Units Troponin I High Sensitivity 23 </=34 ng/L Triglycerides Level 124 < 150 mg/dL Cholesterol Level 93 < 200 mg/dL LDL Cholesterol 36 < 100 mg/dL HDL Cholesterol 37 L 40-59 mg/dL Thyroid Stimulating Hormone (TSH) 1.12 0.55-4.78 uIU/mL White Blood Count 2.5 L 4.4-10.8 10^3/uL Red Blood Count 3.63 L 4.0-5.20 10^6/uL Hemoglobin 10.7 L 12.2-16.2 g/dL Hematocrit 33.0 L 36.0-46.0 % Mean Corpuscular Volume 90.9 80.0-100.0 fL Mean Corpuscular Hemoglobin 29.5 28.0-32.0 pg Mean Corpuscular Hemoglobin Concent 32.5 32.0-36.0 g/dL Red Cell Distribution Width 14.2 11.8-14.3 % Platelet Count 157 140-450 10^3/uL Mean Platelet Volume 8.5 6.9-10.8 fL Neutrophils (%) (Auto) 78.7 37.0-80.0 % Lymphocytes (%) (Auto) 12.6 10.0-50.0 % Monocytes (%) (Auto) 8.1 0.0-12.0 % Eosinophils (%) (Auto) 0.4 0.0-7.0 % Basophils (%) (Auto) 0.2 0.0-2.0 % Neutrophils # (Auto) 2.0 1.6-8.6 10 ^3/uL Lymphocytes # (Auto) 0.3 L 0.4-5.4 10 ^3/uL Monocytes # (Auto) 0.2 0-1.3 10 ^3/uL Eosinophils # (Auto) 0 0-0.8 10 ^3/uL Basophils # (Auto) 0 0-0.2 10 ^3/uL Nucleated Red Blood Cells 0.3 % Sodium Level 134 L 136-145 mmol/L Potassium Level 4.0 3.5-5.1 mmol/L Chloride Level 96 L 98-107 mmol/L Carbon Dioxide Level 28 20-31 mmol/L Anion Gap 10 5-15 Blood Urea Nitrogen 24 H 9-23 mg/dL Creatinine 1.60 H 0.550-1.02 mg/dL Glomerular Filtration Rate Calc 33 >90 mL/min BUN/Creatinine Ratio 15.0 10.0-20.0 Serum Glucose 158 H 74-106 mg/dL Calcium Level 9.2 8.7-10.4 mg/dL B-Type Natriuretic Peptide 3325.33 0-100 pg/mL Influenza Type A Antigen Negative Negative Influenza Type B Antigen Negative Negative SARS-CoV-2 Antigen (Rapid) Negative NEGATIVE Assessment/Plan Plan Patient is a 74-year-old female who presented to the hospital for shortness of breath. She also had been having cough. Problem started around a month ago and worsened recently. Cardiology was involved for cardiac aspects of care. Patient is known to our practice from outside and before. She received recent treatment for pneumonia. Denies chest pains. Does complain of dyspnea on exe rtion. Does complain of leg swellings. In October 2021, the patient was diagnosed to have nonischemic cardiomyopathy, was put on LifeVest, later was found to have improved LV systolic function the LifeVest was taken away. Recently, ejection fraction decreased again. She denies recent chest pain. She is on amiodarone (for history of PVCs). Sitting comfortably in bed, not using accessory muscles of breathing. Mucosa is pink and wet, there is no JVD, no goiter. Chest: Scattered rhonchi/rales. Cardiac: Regular regular, no thrill. Systolic murmur 3/6 in the apex is heard.. Abdomen: Soft, no palpable mass, positive hepatomegaly. Bowel sound is positive. Extremities: 3+ edema. Dorsalis pedis is 2+ bilateral Past medical history includes hypertension, hyperlipidemia, diabetes mellitus, asthma/COPD, history of back surgery, arrhythmia (sustained V. tach in October 2021, for which was shocked), history of old nonischemic cardiomyopathy, pulmonary hypertension (considered type 2), hypothyroidism, hiatal hernia, lupus, SVT, history of colon polyp and its resection, history of thyroid nodule, history of low vitamin-D, possible obstructive sleep apnea, CKD (goes to Nephrology regularly) and also history of laminectomy. Left heart catheterization of November 17, 2021 revealed nonobstructive coronary artery disease, negative FFR of distal LCx, nonischemic cardiomyopathy Echocardiogram of November 15, 2021 revealed ejection fraction of 40%, enlarged LV/LA and aortic root. Echocardiogram of January 31, 2022 (performed in the office) revealed ejection fraction of 40 to 45%, sigmoid shaped septum, impaired relaxation of left ventricular diastolic function, trace MR/TR and right ventricular systolic pressure of less than 35 mmHg. Echocardiogram of March 2022 reported ejection fraction of 45-50%, anteroseptal/apical hypokinesia, trace MR/TR and right ventricular systolic pressure of 22 mm Hg Echocardiogram of April 2025 (performed in the office) revealed ejection fraction of less than 20%, increased EDP, tethered mitral valve leaflet secondary to left ventricular enlargement, moderate MR, mild TR and right ventricular systolic pressure of 60 mm Hg. Hemoglobin: 10.7 Creatinine: 1.60 Potassium: 4.0 BNP: 3325.33 Troponin (high sensitive): 20 - 23 - 23 TSH: 1.12 Chest x-ray reported: MPRESSION: Cardiomegaly with moderate congestion. EKG revealed sinus rhythm with left bundle branch block Tele reveals sinus rhythm Patient is a 74-year-old female who presented with shortness of breath/cough. She was recently treated for pneumonia. She does have recent diagnosis of worsened systolic function and heart failure. He is found to have increased BNP. Chest x-ray reveals congestion. Presentation is in favor of acute on chronic systolic heart failure. Does have old history of nonischemic cardiomyopathy, but systolic function has worsened recently. At this point, acute on chronic systolic heart failure is considered the reason for presentation. May benefit from repeat ischemic workup Acute on chronic heart failure COPD exacerbation Fluid overload Bronchitis, acute ALFONZO on CKD History of nonsustained VT Left bundle branch block Pulmonary hypertension, type 2 Hypothyroidism Left bundle branch block Cardiac suggestion for management: Telemetry monitoring IV diuresis. Consider 60 mg IV Lasix b.i.d. Follow-up electrolytes and kidney function tests and correct abnormalities. Keep potassium above 4 and magnesium above 2 Request for echocardiogram Continuation of amiodarone for history of sustained ventricular tachycardia as suggested (dose: 200 mg once daily) Consider Nephrology evaluation May benefit from ischemic workup/cardiac catheterization (inpatient versus outpatient) Further evaluation and management depends on the above and clinical course Thank you for consultation A total of 75 minutes was spent reviewing the patient record, examining the patient, making a diagnostic and therapeutic plan, discussing this plan with medical personnel, following up on diagnostic studies and following the patient for clinical stability excluding any and all procedures. At least 50% of this time was spent in direct, [id number] contact. Thank you for allowing me to participate in this patient's care. Further recommendations will depend on patient's clinical course. Please do not hesitate to contact me if you have any questions or concerns. This medical document was created using electronic medical record system with [employer] dictation system. Although this document has been carefully reviewed, there may still be some phonetic and typographical errors. These areas are purely typographical due to the imperfection of the software programs, and do not reflect any compromise in the patient's medical care. Plan discussed with: Patient, Other (nurse) WALESKA CHEW MD Aug 10, 2024 20:09
[2024-08-10 21:30] VITALS: PULSE 95; RESP 18; O2SAT 97
[2024-08-10] MEDS: AMIODARONE HCL 200 MG TAB PO ONE (21:37)
[2024-08-10] MEDS: FUROSEMIDE 20 MG/2 ML VIAL IV ONE (21:38)
[2024-08-10] MEDS: ACCU-CHEK COMFORT CURVE STRIP VI SCH (22:07)
[2024-08-10] MEDS: methylPREDNISolone SOD SUCC 40 MG/ML VL IV SCH (22:15)
[2024-08-10] MEDS: PREGABALIN 25 MG CAP PO SCH (22:15)
[2024-08-10] MEDS: InsuLIN REG 1unit/0.01ml Soln (100units/ml) SC SCH (22:16)
[2024-08-10] MEDS: AMITRIPTYLINE HCL 25 MG TAB PO SCH (22:16)
[2024-08-10] MEDS: DICYCLOMINE HCL 10 MG CAP PO SCH (22:16)
[2024-08-10] MEDS: SACUBITRIL-VALSARTAN 24mg/26mg TAB PO SCH (22:16)
[2024-08-10 23:10] VITALS: BP 117/95; PULSE 98; RESP 18; TEMP 97.7; O2SAT 98
[2024-08-11] VITALS (13 sets, daily range): BP systolic 94–117; BP diastolic 57–95; PULSE 84–99; RESP 16–18; TEMP 97.7–98.4; O2SAT 90–99
[2024-08-11] MEDS ORDERED: AMIT-238 (01:05)
[2024-08-11] MEDS ORDERED: [UNRECOGNIZED DRUG - CODE] TOP (01:05)
[2024-08-11] MEDS ORDERED: PRE5T PO (01:42)
[2024-08-11] MEDS ORDERED: DAPA1TAB4 PO ×2 (01:42)
[2024-08-11] MEDS ORDERED: METO10TA3 PO (01:42)
[2024-08-11] MEDS ORDERED: HYDR200T36 PO (01:42)
[2024-08-11] MEDS: FUROSEMIDE 40 MG/4 ML VIAL IV SCH (06:08)
--- NOTE | 2024-08-11 07:58 | DVHPN2 ---
Progress Note - Dictate Date Seen: Aug 11, 2024 Medical Necessity Reason Pt with a Central, PICC or Fol: No vital signs Vital Sign Date Time Temp Pulse Resp B/P (MAP) Pulse Ox O2 Delivery O2 Flow Rate FiO2 08/11/24 06:08 104/68 08/11/24 05:00 97.7 85 18 96 97.7 08/11/24 00:09 Nasal Cannula* 2 28 Total Intake and Output 08/10/24 08/10/24 08/11/24 15:00 23:00 07:00 Intake Total 0 ml Output Total 475 ml Balance -475 ml medications Current Medications Medications Dose Ordered Sig/[place] Route Start Time Stop Time Status Last Admin Dose Admin Amitriptyline HCl 25 mg HS PO 08/10/24 22:00 08/10/24 22:16 25 MG Ascorbic Acid 500 mg DAILY PO 08/11/24 10:00 Dicyclomine HCl 10 mg BID PO 08/10/24 22:00 08/10/24 22:16 10 MG Sacubitril/ Valsartan 1 tab BID PO 08/10/24 22:00 08/10/24 22:16 1 TAB Cholecalciferol 2,000 unit DAILY PO 08/11/24 10:00 Pregabalin 50 mg TID PO 08/10/24 22:00 08/11/24 06:09 50 MG Albuterol 2.5 mg Q4HPRN PRN NEB 08/10/24 17:30 Ipratropium [place] 0.5 mg Q4HPRN PRN NEB 08/10/24 17:30 Aspirin 81 mg DAILY PO 08/11/24 10:00 Methylprednisolone Sodium Succinate 40 mg Q8HR IV 08/10/24 22:00 08/11/24 06:09 40 MG Diagnostic Test (Pha) 1 strip ACHS 08/10/24 22:00 08/11/24 06:09 1 STRIP Insulin Human Regular ACHS SC 08/10/24 22:00 08/11/24 06:07 4 UNITS Dextrose 50 ml UD PRN IV 08/10/24 17:30 Nitroglycerin 0.4 mg Q5MINP PRN SL 08/10/24 18:45 Furosemide 60 mg BIDD IV 08/11/24 06:00 08/11/24 06:08 60 MG Amiodarone HCl 200 mg DAILY PO 08/11/24 10:00 laboratory and microbiology Laboratory Tests 08/10/24 11:56 Test 08/10/24 11:56 Range/Units Serum Glucose 158 H 74-106 mg/dL Assessment/Plan Patient is a 74-year-old female who presented to the hospital for shortness of breath. She also had been having cough. Problem started around a month ago and worsened recently. Cardiology was involved for cardiac aspects of care. Patient is known to our practice from outside and before. She received recent treatment for pneumonia. Denies chest pains. Does complain of dyspnea on exertion. Does complain of leg swellings. In October 2021, the patient was diagnosed to have nonischemic cardiomyopathy, was put on LifeVest, later was found to have improved LV systolic function the LifeVest was taken away. Recently, ejection fraction decreased again. She denies recent chest pain. She is on amiodarone (for history of PVCs). Sitting comfortably in bed, not using accessory muscles of breathing. Mucosa is pink and wet, there is no JVD, no goiter. Chest: Scattered rhonchi/rales. Cardiac: Regular regular, no thrill. Systolic murmur 3/6 in the apex is heard.. Abdomen: Soft, no palpable mass, positive hepatomegaly. Bowel sound is positive. Extremities: 3+ edema. Dorsalis pedis is 2+ bilateral Past medical history includes hypertension, hyperlipidemia, diabetes mellitus, asthma/COPD, history of back surgery, arrhythmia (sustained V. tach in October 2021, for which was shocked), history of old nonischemic cardiomyopathy, pulmonary hypertension (considered type 2), hypothyroidism, hiatal hernia, lupus, SVT, history of colon polyp and its resection, history of thyroid nodule, history of low vitamin-D, possible obstructive sleep apnea, CKD (goes to Nephrology regularly) and also history of laminectomy. Left heart catheterization of November 17, 2021 revealed nonobstructive coronary artery disease, negative FFR of distal LCx, nonischemic cardiomyopathy Echocardiogram of November 15, 2021 revealed ejection fraction of 40%, enlarged LV/LA and aortic root. Echocardiogram of January 31, 2022 (performed in the office) revealed ejection fraction of 40 to 45%, sigmoid shaped septum, impaired relaxation of left ventricular diastolic function, trace MR/TR and right ventricular systolic pressure of less than 35 mmHg. Echocardiogram of March 2022 reported ejection fraction of 45-50%, anteroseptal/apical hypokinesia, trace MR/TR and right ventricular systolic pressure of 22 mm Hg Echocardiogram of April 2025 (performed in the office) revealed ejection fraction of less than 20%, increased EDP, tethered mitral valve leaflet secondary to left ventricular enlargement, moderate MR, mild TR and right ventricular systolic pressure of 60 mm Hg. Hemoglobin: 10.7 Creatinine: 1.60 Potassium: 4.0 BNP: 3325.33 Troponin (high sensitive): TSH: 1.12 Chest x-ray reported: MPRESSION: Cardiomegaly with moderate congestion. EKG revealed sinus rhythm with left bundle branch block Tele reveals sinus rhythm Patient is a 74-year-old female who presented with shortness of breath/cough. She was recently treated for pneumonia. She does have recent diagnosis of worsened systolic function and heart failure. He is found to have increased BNP. Chest x-ray reveals congestion. Presentation is in favor of acute on chronic systolic heart failure. Does have old history of nonischemic cardiomyopathy, but systolic function has worsened recently. At this point, acute on chronic systolic heart failure is considered the reason for presentation. May benefit from repeat ischemic workup Acute on chronic heart failure COPD exacerbation Fluid overload Bronchitis, acute ALFONZO on CKD History of nonsustained VT Left bundle branch block Pulmonary hypertension, type 2 Hypothyroidism Left bundle branch block Cardiac suggestion for management: Telemetry monitoring IV diuresis. On 60 mg IV Lasix b.i.d. Follow-up electrolytes and kidney function tests and correct abnormalities. Keep potassium above 4 and magnesium above 2 Awaiting echocardiogram Continuation of amiodarone for history of sustained ventricular tachycardia as suggested (dose: 200 mg once daily) Consider Nephrology evaluation May benefit from ischemic workup/cardiac catheterization (inpatient versus outpatient) Further evaluation and management depends on the above and clinical course A total of 55 minutes was spent reviewing the patient record, examining the patient, making a diagnostic and therapeutic plan, discussing this plan with medical personnel, following up on diagnostic studies and following the patient for clinical stability excluding any and all procedures. At least 50% of this time was spent in direct, [id number] contact. Thank you for allowing me to participate in this patient's care. Further recommendations will depend on patient's clinical course. Please do not hesitate to contact me if you have any questions or concerns. This medical document was created using electronic medical record system with [employer] computerized dictation system. Although this document has been carefully reviewed, there may still be some phonetic and typographical errors. These areas are purely typographical due to the imperfection of the software programs, and do not reflect any compromise in the patient's medical care. Plan discussed with: Patient, Other (nurse) WALESKA CHEW MD Aug 11, 2024 07:58
[2024-08-11] MEDS: CHOLECALCIFEROL (VITD3) 1,000UNIT=25mCg TAB PO SCH (09:33)
[2024-08-11] MEDS: ASCORBIC ACID 500 MG TAB PO SCH (09:33)
[2024-08-11] MEDS: ASPirin 81 mg TAB PO SCH (09:34)
[2024-08-11] MEDS: AMIODARONE HCL 200 MG TAB PO SCH (09:34)
[2024-08-11] MEDS: IPRATROPIUM BROM 0.5 MG/2.5ML INH SOL NEB PRN (11:00)
[2024-08-11] MEDS: ALBUTEROL SULF 2.5 MG/0.5ML(0.5%) NEB SOLN NEB PRN (11:00)
[2024-08-11 12:02] LABS: Basophils # (auto) 0 10 ^3/uL (0-0.2); Basophils % (auto) 0.1 % (0.0-2.0); Eosinophils # (auto) 0 10 ^3/uL (0-0.8); Hematocrit 35.7 % (36.0-46.0); Hemoglobin 11.4 g/dL (12.2-16.2); Lymphocytes # (auto) 0.3 10 ^3/uL (0.4-5.4); Lymphocytes % (auto) 12.3 % (10.0-50.0); Mean Corpuscular Volume 90.6 fL (80.0-100.0); Monocytes # (auto) 0.1 10 ^3/uL (0-1.3); Monocytes % (auto) 6.3 % (0.0-12.0); Neutrophils # (auto) 1.8 10 ^3/uL (1.6-8.6); Neutrophils % (auto) 81.3 % (37.0-80.0); Nucleated Red Blood Cells % 0.2 %; Platelet Count (auto) 156 10^3/uL (140-450); Red Blood Cells 3.94 10^6/uL (4.0-5.20); White Blood Cell 2.3 10^3/uL (4.4-10.8)
[2024-08-11 12:24] LABS: Alanine Aminotransferase 13 U/L (7-40); Alkaline Phosphatase 98 U/L (46-116); Anion Gap 10 (5-15); Aspartate Aminotransferase 27 U/L (13-40); Bilirubin, Total 1.2 mg/dL (0.2-1.0); Carbon Dioxide 29 mmol/L (20-31); Total Protein 6.7 g/dL (5.7-8.2)
[2024-08-11 12:26] LABS: Blood Urea Nitrogen 26 mg/dL (9-23); Chloride 95 mmol/L (98-107); Glucose 206 mg/dL (74-106); Potassium 3.4 mmol/L (3.5-5.1); Sodium 134 mmol/L (136-145)
--- NOTE | 2024-08-11 14:45 | DVHINCON2 ---
Date of service: Aug 11, [address] carey Reason for Consultation copd History of Present Illness Pt is a 74 yo female, h/o smoking/copd, high BP and DM/on insulin. Pt presented with wheezing, cough and yellow mucus, worsening shortness of breath over last week. Presented to ER, pt had negative resp viral panel, CXR: congestion. Requiring suppl 02 Family History: Diabetes mellitus G8 FATHER Allergies: Coded Allergies: NO KNOWN ALLERGIES (Unverified , 11/14/21) Home Meds Reported Medications Semaglutide (Ozempic) 4 Mg/3 Ml Inj, 1 MG SC QWEEKLY for 30 Days, #3 08/16/24 Dapagliflozin Propanediol (Dapagliflozin Propanediol) 5 Mg Tab, 1 TAB PO DAILY for 30 Days, #30 08/16/24 Hydroxychloroquine Sulfate (Hydroxychloroquine Sulfat) 200 Mg Tab, 100 MG PO for 30 Days, MG 08/11/24 Prednisone (Prednisone) 5 Mg Tab, 5 MG PO DAILY, TAB 08/11/24 Metoclopramide Hcl (Metoclopramide Hcl) 10 Mg Tab, 10 MG PO for 30 Days, MG 08/11/24 Pantoprazole Sodium Sesquihydr (Protonix) 40 Mg Tab, 1 TAB PO DAILY for 90 Days, #90 08/11/24 Doxycycline Hyclate (Doxycycline Hyclate) 100 Mg Tab, 1 TAB PO BID for 10 Days, #20 08/11/24 Furosemide (Furosemide) 20 Mg Tab, 1 TAB PO DAILY for 30 Days, #30 08/11/24 Famotidine (Famotidine) 40 Mg Tab, 1 TAB PO DAILY for 30 Days, #30 08/11/24 Levothyroxine Sodium (Levothyroxine Sodium) 50 Mcg Tab, 1 TAB PO DAILY for 90 Days, #90 08/11/24 Sodium Bicarbonate (Sodium Bicarbonate) 650 Mg Tab, 1 TAB PO DAILY for 30 Days, #30 08/11/24 Atorvastatin Calcium (ATORVASTATIN CALCIUM) 40 Mg Tab, 1 TAB PO DAILY for 90 Days, #90 08/11/24 Metoprolol Succinate (Metoprolol Succinate Er) 25 Mg Tab, 0.5 TAB PO DAILY for 30 Days, #15 08/11/24 Hydroxyzine Hcl (Hydroxyzine Hcl) 25 Mg Tab, 1 TAB PO DAILY for 30 Days, #30 08/11/24 Alendronate Sodium (Alendronate Sodium) 35 Mg Tab, 1 TAB PO QWEEKLY for 28 Days, #4 08/11/24 Amiodarone HCl (Amiodarone Hydrochloride) 100 Mg Tab, 1 TAB PO DAILY for 30 Days, #30 08/11/24 Dicyclomine Hcl (BENTYL CAPSULE) 10 Mg Cp, 10 MG PO BID, CAP 09/05/22 Sacubitril-Valsartan (Entresto 24-26 mg) 1 Tab Tab, 1 TAB PO BID, TAB 09/05/22 Amitriptyline Hcl (Amitriptyline Hcl) 25 Mg Tab, 1 TAB PO HS for 90 Days, #90 02/22/22 Pregabalin (Lyrica) 150 Mg Cap, 1 CAP PO TID, #60 CAP 5 Refills 02/22/22 Cholecalciferol (VITAMIN D3) 2,000 Unit Tab, 1 TAB PO DAILY for 30 Days, #30 11/14/21 Ascorbic Acid (VITAMIN C TABLET) 500 Mg Tb, 1 TAB PO DAILY, #30 TAB 3 Refills 11/14/21 Discontinued Reported Medications Dapagliflozin Propanediol (Farxiga) 10 Mg Tab, 5 MG PO DAILY, TAB 08/11/24 Semaglutide (Ozempic) 2 Mg/1.5 Ml Inj, 2 MG SC QWEEKLY, INJ 09/05/22 Current Medications Current Medications Medications (Trade) Dose Ordered Sig/Troy Route PRN Reason Start Time Stop Time Status Last Admin Amitriptyline HCl (Elavil Tablet) 25 mg HS PO 08/10/24 22:00 08/10/24 22:16 Ascorbic Acid (Vitamin C Tablet) 500 mg DAILY PO 08/11/24 10:00 08/11/24 09:33 Dicyclomine HCl (Bentyl Capsule) 10 mg BID PO 08/10/24 22:00 08/11/24 09:35 Sacubitril/ Valsartan (Entresto 24-26 Mg tab) 1 tab BID PO 08/10/24 22:00 08/11/24 09:35 Cholecalciferol (Vitamin D3 Tablet) 2,000 unit DAILY PO 08/11/24 10:00 08/11/24 09:33 Pregabalin (Lyrica Capsule) 50 mg TID PO 08/10/24 22:00 08/11/24 13:04 Albuterol (Ventolin Medneb) 2.5 mg Q4HPRN PRN NEB SHORTNESS OF BREATH 08/10/24 17:30 08/11/24 11:00 Ipratropium [place] (Atrovent Medneb) 0.5 mg Q4HPRN PRN NEB SHORTNESS OF BREATH 08/10/24 17:30 08/11/24 11:00 Furosemide (Lasix Injection) 40 mg BIDD IV 08/10/24 18:00 08/10/24 20:01 DC 08/10/24 18:30 Aspirin 81 mg DAILY PO 08/11/24 10:00 08/11/24 09:34 Methylprednisolone Sodium Succinate (Solu Medrol) 40 mg Q8HR IV 08/10/24 22:00 08/11/24 13:03 Diagnostic Test (Pha) (Accu-Chek Comfort Curve T) 1 strip ACHS 08/10/24 22:00 08/11/24 11:00 Insulin Human Regular (InsuLIN R) ACHS SC 08/10/24 22:00 08/11/24 11:00 Dextrose 50 ml UD PRN IV Blood Sugar LESS THAN 60 08/10/24 17:30 Nitroglycerin (Ntrostat Sublingual) 0.4 mg Q5MINP PRN SL FOR CHEST PAIN 08/10/24 18:45 Furosemide (Lasix Injection) 60 mg BIDD IV 08/11/24 06:00 08/11/24 06:08 Amiodarone HCl (Cordarone Tablet) 200 mg DAILY PO 08/11/24 10:00 08/11/24 09:34 Review of Systems Constitutional: no fever, chill, weight loss HEENT: no eye pain, no hearing loss, no oral lesion, no scleral icterus Heart: no chest pain, no chest pressure Lung: shortness of breath : no pain with urination, normal appearing urine Musculoskeletal: no joint pain, no muscle pain Neurological: no seizure, no loss of sensation, no weakness in extremities Pysch: no depression, no anxiety Derm: no rash, no jaundice Vital Signs Vital Signs Date Time Temp Pulse Resp B/P (MAP) Pulse Ox O2 Delivery O2 Flow Rate FiO2 08/11/24 13:00 97.9 89 18 105/59 (74) 90 97.9 08/11/24 11:00 Nasal Cannula* 2 28 Labs/Diagnostic Data Labs Test 08/11/24 11:31 08/11/24 10:49 08/10/24 15:08 08/10/24 11:56 Range/Units White Blood Count 2.3 L 4.4-10.8 10^3/uL Red Blood Count 3.94 L 4.0-5.20 10^6/uL Hemoglobin 11.4 L 12.2-16.2 g/dL Hematocrit 35.7 L 36.0-46.0 % Mean Corpuscular Volume 90.6 80.0-100.0 fL Mean Corpuscular Hemoglobin 29.0 28.0-32.0 pg Mean Corpuscular Hemoglobin Concent 32.0 32.0-36.0 g/dL Red Cell Distribution Width 14.0 11.8-14.3 % Platelet Count 156 140-450 10^3/uL Mean Platelet Volume 8.5 6.9-10.8 fL Neutrophils (%) (Auto) 81.3 H 37.0-80.0 % Lymphocytes (%) (Auto) 12.3 10.0-50.0 % Monocytes (%) (Auto) 6.3 0.0-12.0 % Eosinophils (%) (Auto) 0.0 0.0-7.0 % Basophils (%) (Auto) 0.1 0.0-2.0 % Neutrophils # (Auto) 1.8 1.6-8.6 10 ^3/uL Lymphocytes # (Auto) 0.3 L 0.4-5.4 10 ^3/uL Monocytes # (Auto) 0.1 0-1.3 10 ^3/uL Eosinophils # (Auto) 0 0-0.8 10 ^3/uL Basophils # (Auto) 0 0-0.2 10 ^3/uL Nucleated Red Blood Cells 0.2 % Sodium Level 134 L 136-145 mmol/L Potassium Level 3.4 L 3.5-5.1 mmol/L Chloride Level 95 L 98-107 mmol/L Carbon Dioxide Level 29 20-31 mmol/L Anion Gap 10 5-15 Blood Urea Nitrogen 26 H 9-23 mg/dL Creatinine 1.37 H 0.550-1.02 mg/dL Glomerular Filtration Rate Calc 40 >90 mL/min BUN/Creatinine Ratio 19.0 10.0-20.0 Serum Glucose 206 H 74-106 mg/dL Calcium Level 9.0 8.7-10.4 mg/dL Total Bilirubin 1.2 H 0.2-1.0 mg/dL Aspartate Amino Transferase (AST) 27 13-40 U/L Alanine Aminotransferase (ALT) 13 7-40 U/L Alkaline Phosphatase 98 46-116 U/L Total Protein 6.7 5.7-8.2 g/dL Albumin 4.0 3.2-4.8 g/dL POC Glucose 199 H 70-106 mg/dl Troponin I High Sensitivity 23 </=34 ng/L Triglycerides Level 124 < 150 mg/dL Cholesterol Level 93 < 200 mg/dL LDL Cholesterol 36 < 100 mg/dL HDL Cholesterol 37 L 40-59 mg/dL Thyroid Stimulating Hormone (TSH) 1.12 0.55-4.78 uIU/mL B-Type Natriuretic Peptide 3325.33 0-100 pg/mL Test 08/10/24 11:54 Range/Units Influenza Type A Antigen Negative Negative Influenza Type B Antigen Negative Negative SARS-CoV-2 Antigen (Rapid) Negative NEGATIVE Microbiology Date/Time Source Procedure Growth Status 08/11/24 01:23 Nose MRSA Screen - Final Complete Assessment acute copd hypoxemia pulmonary congestions atelectases pt seen and examined no distress CXR and labs reviewed plan/rec solumedrol azithromycin atr/alb wean off 02 if possible ambulate supportive care dvt proph Plan discussed with: Patient KATHERINE FREITAS MD Aug 11, 2024 14:45
--- NOTE | 2024-08-11 21:21 | DVHPN2 ---
Reviewed: Care Plan, H&P, Labs, Medications, Previous Orders, Radiology Changes from previous H/P or p: No Changes General: Per HPI Eyes: No Pain, No Vision change, No Conjunctivae inflammation, No Eyelid inflammation, No Other, No Redness ENT: No Ear pain, No Ear discharge, No Nose pain, No Nose discharge, No Nose congestion, No Mouth pain, No Mouth swelling, No Throat pain, No Throat swelling, No Other Cardiovascular: No Chest Pain, No Palpitations, No Orthopnea, No Paroxysmal Noc. Dyspnea, No Edema, No Lt Headedness, No Other Respiratory: Cough; No Dry; Shortness of breath; No SOB with excertion, No Wheezing, No Hemoptysis, No Pleuritic Pain, No Sputum, No Other Gastrointestinal: No Nausea, No Vomiting, No Abdominal Pain, No Diarrhea, No Constipation, No Melena, No Hematochezia, No Other Genitourinary: No Dysuria, No Frequency, No Incontinence, No Hematuria, No Retention, No Other Musculoskeletal: No other, No neck pain, No shoulder pain, No arm pain, No back pain, No hand pain, No leg pain, No foot pain Skin: No Rash, No Lesions, No Jaundice, No Bruising, No Other Objective Vitals Vital Signs Date Time Temp Pulse Resp B/P (MAP) Pulse Ox O2 Delivery O2 Flow Rate FiO2 08/11/24 20:00 Nasal Cannula* 2 28 08/11/24 16:35 98.4 99 18 94/57 (12) 91 98.4 Intake/Output Intake and Output 08/11/24 07:00 Intake Total 0 ml Output Total 475 ml Balance -475 ml Intake Oral 0 ml Output Urine Total 475 ml General Appearance: Alert, Oriented X3, Cooperative HEENT: Atraumatic Cardiovascular: Regular rate, Normal S1, Normal S2 Abdomen: Normal bowel sounds, Soft Medications Current Medications Medications Dose Ordered Sig/Troy Route Start Time Stop Time Status Last Admin Dose Admin Amitriptyline HCl 25 mg HS PO 08/10/24 22:00 08/10/24 22:16 25 MG Ascorbic Acid 500 mg DAILY PO 08/11/24 10:00 08/11/24 09:33 500 MG Dicyclomine HCl 10 mg BID PO 08/10/24 22:00 08/11/24 09:35 10 MG Sacubitril/ Valsartan 1 tab BID PO 08/10/24 22:00 08/11/24 09:35 1 TAB Cholecalciferol 2,000 unit DAILY PO 08/11/24 10:00 08/11/24 09:33 2,000 UNIT Pregabalin 50 mg TID PO 08/10/24 22:00 08/11/24 13:04 50 MG Albuterol 2.5 mg Q4HPRN PRN NEB 08/10/24 17:30 08/11/24 11:00 2.5 MG Ipratropium [place] 0.5 mg Q4HPRN PRN NEB 08/10/24 17:30 08/11/24 11:00 0.5 MG Aspirin 81 mg DAILY PO 08/11/24 10:00 08/11/24 09:34 81 MG Methylprednisolone Sodium Succinate 40 mg Q8HR IV 08/10/24 22:00 08/11/24 13:03 40 MG Diagnostic Test (Pha) 1 strip ACHS 08/10/24 22:00 08/11/24 17:07 1 STRIP Insulin Human Regular ACHS SC 08/10/24 22:00 08/11/24 17:07 6 UNITS Dextrose 50 ml UD PRN IV 08/10/24 17:30 Nitroglycerin 0.4 mg Q5MINP PRN SL 08/10/24 18:45 Furosemide 60 mg BIDD IV 08/11/24 06:00 08/11/24 06:08 60 MG Amiodarone HCl 200 mg DAILY PO 08/11/24 10:00 08/11/24 09:34 200 MG Azithromycin 250 ml @ 125 mls/hr DAILY IV 08/12/24 10:00 Future Hold Laboratory Results Laboratory Tests 08/11/24 11:31 Chemistry Test 08/11/24 11:31 Albumin 4.0 g/dL (3.2-4.8) Calcium Level 9.0 mg/dL (8.7-10.4) Total Protein 6.7 g/dL (5.7-8.2) LFT Test 08/11/24 11:31 Alanine Aminotransferase (ALT) 13 U/L (7-40) Alkaline Phosphatase 98 U/L (46-116) Aspartate Amino Transferase (AST) 27 U/L (13-40) Total Bilirubin 1.2 mg/dL (0.2-1.0) H Microbiology Microbiology Date/Time Source Procedure Growth Status 08/11/24 01:23 Nose MRSA Screen - Final Complete Labs and/or images reviewed: Labs reviewed by me, Image(s) reviewed by me Assessment/Plan Assessment/Plan 74-year-old female past medical history PVC use was on amiodarone for that systolic heart failure COPD pneumonia recently diagnosed in June of this year and given doxycycline, diabetes hyperlipidemia hypertension hypothyroidism lupus arthritis CKD denies surgical history chief complaint patient states that she could not breathe and not able to sleep he has been in his severe cough is going on for two months she did see her doctor Wolf in June and they provided her doxycycline and diagnosed her with pneumonia he has some cough syrup. Patient states despite getting this treatment she has not gotten any better. She is currently not taking amiodarone she states she has been taking this medication about a month. She did state she was taking a water pill twice a day as prescribed. She states no calf pain no swelling to her legs. She denies any chest pain. When evaluating patient's labs and imaging from ED aspirin was given nitro Lasix albuterol and Atrovent white count was found in 2.5 without fever hemoglobin was 10.7 33.0 glucose was 158 creatinine was 1.60 in 24 patient has a history CKD mild up trend from discharge creatinine of 1.4 sodium was 134 troponin was negative x2 BNP was elevated at 09/22/2024 chest x-ray shows cardiomegaly and vascular congestion. Did reviewed patient's echocardiogram from 2021 her EF was 45-50% per Dr. Bloom in his office he did not EF for her recently and it was 25%. He states he likely might have to do a catheterization for her since her EF was declining. acute hypoxic resp failure likely from copd and chf acute on chronic systolic heart failure acute copd exacerbation acute acute leukocytosis acute on chronic ckd with mild uptrend likely from heart failure chronic problems 08/11/2024: continue with diuresis for CHF significant edema supplement O2 as needed and weaning down as tolerated time: >35 minutes in the coordination of care Plan discussed with: Patient My Orders Orders - OBDULIO RUST DO Procedure Category Date Status Time Consistent DIET 08/11/24 [facility]Diabetes Lunch Date of Service: Aug 11, 2024 Billing Provider: OBDULIO RUST DO Common Visit Codes: [id number] INP/OBS CARE(HIGH) OBDULIO RUST DO Aug 11, 2024 21:21
[2024-08-12] VITALS (14 sets, daily range): BP systolic 101–121; BP diastolic 65–75; PULSE 65–134; RESP 16–20; TEMP 97.4–98.4; O2SAT 91–99
[2024-08-12 05:43] LABS: Anion Gap 8 (5-15); Carbon Dioxide 30 mmol/L (20-31); Potassium 3.5 mmol/L (3.5-5.1)
[2024-08-12 06:20] LABS: Blood Urea Nitrogen 32 mg/dL (9-23); Calcium 8.6 mg/dL (8.7-10.4); Chloride 97 mmol/L (98-107); Glucose 206 mg/dL (74-106); Sodium 135 mmol/L (136-145)
--- NOTE | 2024-08-12 08:26 | DVHSR ---
APPROVED REPORT EXAM: Two-dimensional and M-mode echocardiogram with Doppler and color Doppler. Blood Pressure: 104/68 mmHg INDICATION Eval for cardiac function and EF RISK FACTORS Height: 64, Weight: 153 DIMENSIONS LVDd5.7 (3.8-5.7cm)LA (2D)4.3 (1.9-4.0cm)Aortic Root3.4 (2.0-3.7cm) LVDs5.0 (2.5-4.0cm)LA (MM) (1.9-4.0cm)Aortic Cusp Exc1.6 (1.5-2.0cm) EF (%) 25.0 (55-70%)Rt. Atrium4.1 (1.9-4.0cm)Asc. Aorta cm Mitral Valve MitralMitral Stenosis E wave0.94m/sMV Mean GR.mmHg A wavem/sMV Peak GR.57mmHg E/A ratio0.02D MVAcm2 Aortic Valve Aortic ValveAortic Stenosis V10.74m/Olamide Mean GR.5mmHg V21.51m/Olamide Peak GR.9mmHg LVOT Diameter2.2 (1.8-2.4cm)Doppler AVA1.86cm2 AI P 1/2 Ukge576.38ms Pulmonic Valve V20.89m/s Tricuspid Valve TR Velocity2.37m/s [id number] Other Information Technically limited study due to body habitus. Conclusion Four-chamber dilatation was observed. Left ventricle: Left ventricle was dilated. Severely reduced systolic function of left ventricle was observed. LVEF was around 25%. Diffuse hypokinesis with regional variation of left ventricle seen. Right ventricle was dilated with preserved systolic function. Both atria were mildly dilated. Aortic valve: Aortic valve is trileaflet. Trace aortic insufficiency was seen. There was no aortic stenosis. There was mild mitral/tricuspid regurgitation. There was trace pulmonary valve insufficie ncy. Small pericardial effusion was seen. Right ventricular systolic pressure was assessed at 35 mm Hg.
--- NOTE | 2024-08-12 08:29 | DVHPN2 ---
Progress Note - Dictate Date Seen: Aug 12, 2024 Medical Necessity Reason Pt with a Central, PICC or Fol: No vital signs Vital Sign Date Time Temp Pulse Resp B/P (MAP) Pulse Ox O2 Delivery O2 Flow Rate FiO2 08/12/24 05:00 97.4 89 18 102/68 (79) 98 97.4 08/11/24 21:48 Nasal Cannula* 2 28 Total Intake and Output 08/11/24 08/11/24 08/12/24 15:00 23:00 07:00 Intake Total 1000 ml 950 ml Output Total 400 ml Balance 600 ml 950 ml medications Current Medications Medications Dose Ordered Sig/Troy Route Start Time Stop Time Status Last Admin Dose Admin Amitriptyline HCl 25 mg HS PO 08/10/24 22:00 08/11/24 21:24 25 MG Ascorbic Acid 500 mg DAILY PO 08/11/24 10:00 08/11/24 09:33 500 MG Dicyclomine HCl 10 mg BID PO 08/10/24 22:00 08/11/24 21:24 10 MG Sacubitril/ Valsartan 1 tab BID PO 08/10/24 22:00 08/11/24 21:24 1 TAB Cholecalciferol 2,000 unit DAILY PO 08/11/24 10:00 08/11/24 09:33 2,000 UNIT Pregabalin 50 mg TID PO 08/10/24 22:00 08/12/24 06:28 50 MG Albuterol 2.5 mg Q4HPRN PRN NEB 08/10/24 17:30 08/11/24 11:00 2.5 MG Ipratropium [place] 0.5 mg Q4HPRN PRN NEB 08/10/24 17:30 08/11/24 11:00 0.5 MG Aspirin 81 mg DAILY PO 08/11/24 10:00 08/11/24 09:34 81 MG Methylprednisolone Sodium Succinate 40 mg Q8HR IV 08/10/24 22:00 08/12/24 06:28 40 MG Diagnostic Test (Pha) 1 strip ACHS 08/10/24 22:00 08/12/24 06:07 1 STRIP Insulin Human Regular ACHS SC 08/10/24 22:00 08/12/24 06:29 4 UNITS Dextrose 50 ml UD PRN IV 08/10/24 17:30 Nitroglycerin 0.4 mg Q5MINP PRN SL 08/10/24 18:45 Furosemide 60 mg BIDD IV 08/11/24 06:00 08/11/24 06:08 60 MG Amiodarone HCl 200 mg DAILY PO 08/11/24 10:00 08/11/24 09:34 200 MG Azithromycin 250 ml @ 125 mls/hr DAILY IV 08/12/24 10:00 Future Hold laboratory and microbiology Laboratory Tests 08/12/24 04:47 08/11/24 11:31 Test 08/12/24 04:47 Range/Units Serum Glucose 206 H 74-106 mg/dL Assessment/Plan Patient is a 74-year-old female who presented to the hospital for shortness of breath. She also had been having cough. Problem started around a month ago and worsened recently. Cardiology was involved for cardiac aspects of care. Patient is known to our practice from outside and before. She received recent treatment for pneumonia. Denies chest pains. Does complain of dyspnea on exertion. Does complain of leg swellings. In October 2021, the patient was diagnosed to have nonischemic cardiomyopathy, was put on LifeVest, later was found to have improved LV systolic function the LifeVest was taken away. Recently, ejection fraction decreased again. She denies recent chest pain. She is on amiodarone (for history of PVCs). Sitting comfortably in bed, not using accessory muscles of breathing. Mucosa is pink and wet, there is no JVD, no goiter. Chest: Scattered rhonchi/rales. Cardiac: Regular regular, no thrill. Systolic murmur 3/6 in the apex is heard.. Abdomen: Soft, no palpable mass, positive hepatomegaly. Bowel sound is positive. Extremities: 3+ edema. Dorsalis pedis is 2+ bilateral Past medical history includes hypertension, hyperlipidemia, diabetes mellitus, asthma/COPD, history of back surgery, arrhythmia (sustained V. tach in October 2021, for which was shocked), history of old nonischemic cardiomyopathy, pulmonary hypertension (considered type 2), hypothyroidism, hiatal hernia, lupus, SVT, history of colon polyp and its resection, history of thyroid nodule, history of low vitamin-D, possible obstructive sleep apnea, CKD (goes to Nephrology regularly) and also history of laminectomy. Left heart catheterization of November 17, 2021 revealed nonobstructive coronary artery disease, negative FFR of distal LCx, nonischemic cardiomyopathy Echocardiogram of November 15, 2021 revealed ejection fraction of 40%, enlarged LV/LA and aortic root. Echocardiogram of January 31, 2022 (performed in the office) revealed ejection fraction of 40 to 45%, sigmoid shaped septum, impaired relaxation of left ventricular diastolic function, trace MR/TR and right ventricular systolic pressure of less than 35 mmHg. Echocardiogram of March 2022 reported ejection fraction of 45-50%, anteroseptal/apical hypokinesia, trace MR/TR and right ventricular systolic pressure of 22 mm Hg Echocardiogram of April 2025 (performed in the office) revealed ejection fraction of less than 20%, increased EDP, tethered mitral valve leaflet secondary to left ventricular enlargement, moderate MR, mild TR and right ventricular systolic pressure of 60 mm Hg. Hemoglobin: 10.7 - 11.4 Creatinine: 1.60 - 1.37 - 1.60 Potassium: 4.0 - 3.4 - 3.5 BNP: 3325.33 Troponin (high sensitive): - TSH: 1.12 Chest x-ray reported: MPRESSION: Cardiomegaly with moderate congestion. EKG revealed sinus rhythm with left bundle branch block Tele reveals sinus rhythm Echocardiogram revealed: Four-chamber dilatation was observed. Left ventricle: Left ventricle was dilated. Severely reduced systolic function of left ventricle was observed. LVEF was around 25%. Diffuse hypokinesis with regional variation of left ventricle seen. Right ventricle was dilated with preserved systolic function. Both atria were mildly dilated. Aortic valve: Aortic valve is trileaflet. Trace aortic insufficiency was seen. There was no aortic stenosis. There was mild mitral/tricuspid regurgitation. There was trace pulmonary valve insufficiency. Small pericardial effusion was seen. Right ventricular systolic pressure was assessed at 35 mm Hg. Patient is a 74-year-old female who presented with shortness of breath/cough. She was recently treated for pneumonia. She does have recent diagnosis of worsened systolic function and heart failure. He is found to have increased BNP. Chest x-ray reveals congestion. Presentation is in favor of acute on chronic systolic heart failure. Does have old history of nonischemic cardiomyopathy, but systolic function has worsened recently. At this point, acute on chronic systolic heart failure is considered the reason for presentation. May benefit from repeat ischemic workup (inpatient Vs outpatient) Acute on chronic heart failure COPD exacerbation Fluid overload Bronchitis, acute ALFONZO on CKD History of nonsustained VT Left bundle branch block Pulmonary hypertension, type 2 Hypothyroidism Left bundle branch block Cardiac suggestion for management: Telemetry monitoring IV diuresis. On 60 mg IV Lasix b.i.d. Follow-up electrolytes and kidney function tests and correct abnormalities. Keep potassium above 4 and magnesium above 2 Continuation of amiodarone for history of non-sustained ventricular tachycardia is suggested (dose: 200 mg once daily) Consider Nephrology evaluation May benefit from ischemic workup/cardiac catheterization (inpatient versus outpatient) Further evaluation and management depends on the above and clinical course A total of 55 minutes was spent reviewing the patient record, examining the patient, making a diagnostic and therapeutic plan, discussing this plan with medical personnel, following up on diagnostic studies and following the patient for clinical stability excluding any and all procedures. At least 50% of this time was spent in direct, [id number] contact. Thank you for allowing me to participate in this patient's care. Further recommendations will depend on patient's clinical course. Please do not hesitate to contact me if you have any questions or concerns. This medical document was created using electronic medical record system with [employer] computerized dictation system. Although this document has been carefully reviewed, there may still be some phonetic and typographical errors. These areas are purely typographical due to the imperfection of the software programs, and do not reflect any compromise in the patient's medical care. Dietary Evaluation Review Comments: 1) Add cardiac restriction to 45g CCHO diet order 2) Consider Zofran prn for N/V 3) Continue current plan of care 4) Follow-up with cardiology and nephrology Expected Outcomes/Goals: 1) appetite and labs to improve 2) f/u in 3-5 days Plan discussed with: Patient, Other (nurse) WALESKA CHEW MD Aug 12, 2024 08:29
[2024-08-12] MEDS ORDERED: AZITHROMYCIN 500MG/ 250ML 250 ML IV SCH (10:00)
[2024-08-12] MEDS: SPIRONOLACTONE 25 MG TAB PO SCH (10:52)
--- NOTE | 2024-08-12 10:57 | DVHPN2 ---
Progress Note Date Seen: Aug 12, 2024 Medical Necessity Reason Pt with a Central, PICC or Fol: No Subjective Patient reports: No new complaints Review of Systems: HEENT:Normal, CVS:Normal, RESPIRATORY:Normal, GI:Normal, :Normal, MSK:Normal, NEURO:Normal Objective vital signs Vital Sign Date Time Temp Pulse Resp B/P (MAP) Pulse Ox O2 Delivery O2 Flow Rate FiO2 08/12/24 09:11 97.8 85 18 119/75 (90) 91 97.8 08/12/24 08:00 Nasal Cannula* 2 28 Total Intake and Output 08/11/24 08/11/24 08/12/24 15:00 23:00 07:00 Intake Total 1000 ml 950 ml Output Total 400 ml Balance 600 ml 950 ml medications Current Medications Medications Dose Ordered Sig/[place] Route Start Time Stop Time Status Last Admin Dose Admin Amitriptyline HCl 25 mg HS PO 08/10/24 22:00 08/11/24 21:24 25 MG Sacubitril/ Valsartan 1 tab BID PO 08/10/24 22:00 08/12/24 09:37 1 TAB Pregabalin 50 mg TID PO 08/10/24 22:00 08/12/24 06:28 50 MG Albuterol 2.5 mg Q4HPRN PRN NEB 08/10/24 17:30 08/11/24 11:00 2.5 MG Aspirin 81 mg DAILY PO 08/11/24 10:00 08/12/24 09:37 81 MG Diagnostic Test (Pha) 1 strip ACHS 08/10/24 22:00 08/12/24 06:07 1 STRIP Insulin Human Regular ACHS SC 08/10/24 22:00 08/12/24 06:29 4 UNITS Dextrose 50 ml UD PRN IV 08/10/24 17:30 Nitroglycerin 0.4 mg Q5MINP PRN SL 08/10/24 18:45 Furosemide 60 mg BIDD IV 08/11/24 06:00 08/11/24 06:08 60 MG Amiodarone HCl 200 mg DAILY PO 08/11/24 10:00 08/12/24 09:37 200 MG Spironolactone 12.5 mg DAILY PO 08/12/24 10:00 Methylprednisolone Sodium Succinate 40 mg BID IV 08/12/24 22:00 UNV Ipratropium [place] 0.5 mg Q6HWA NEB 08/12/24 12:00 UNV Examination: GENERAL:Normal, HEENT:Normal, NECK:Normal, LUNGS:Normal, LUNGS:Abnormal (on oxygen, bilateral rhonchi), CVS:Normal, ABDOMEN:Normal, MSK:Normal, SKIN:Normal, NEURO:Normal, :Normal laboratory and microbiology Laboratory Tests 08/12/24 04:47 08/11/24 11:31 Test 08/12/24 04:47 Range/Units Serum Glucose 206 H 74-106 mg/dL Microbiology Date/Time Source Procedure Growth Status 08/11/24 01:23 Nose MRSA Screen - Final Complete Problem List/Assessment/Plan Problem List/Assessment/Plan #1 acute on chronic systolic heart failure: cont meds #2 chronic resp failure #3 copd with exacerbation: iv steroids, bronchodilators #4 acute on chronic renal failure ?vasomotor nephropathy #5 hypothyroidism #6 dm; ssi #7 s/p back surgery #8 h/o v tach: on amiodarone advance care planning- full code- time spent 19 mins Plan discussed with: Patient My Orders My Orders Orders - JASWINDER TORRES MD Procedure Category Date Status Time Methylprednisolone PHA 08/12/24 Transmitted Sod Succ (Solu Medrol 22:00 Ipratropium Medneb PHA 08/12/24 Transmitted (Atrovent Medneb) 12:00 Levalbuterol Hcl PHA 08/12/24 Transmitted (Xopenex Medneb) 12:00 Empagliflozin PHA 08/13/24 Transmitted (Jardiance) 10:00 Pantoprazole PHA 08/12/24 Transmitted (Protonix) 10:45 Pantoprazole PHA 08/13/24 Transmitted (Protonix) 10:00 Pt Request For Service PT 08/12/24 Transmitted 10:34 Urinalysis LAB 08/12/24 Uncollected 10:34 Levothyroxine Tablet PHA 08/13/24 Transmitted (Synthroid Tablet) 06:00 Levothyroxine Tablet PHA 08/12/24 Transmitted (Synthroid Tablet) 10:45 Basic Metabolic Panel LAB 08/13/24 Verified 06:00 Complete Blood Count LAB 08/13/24 Verified 06:00 Hemoglobin A1c LAB 08/13/24 Verified 06:00 Thyroid Stimulating LAB 08/13/24 Verified Hormone 05:00 Dietary Evaluation Review Comments: 1) Add cardiac restriction to 45g CCHO diet order 2) Consider Zofran prn for N/V 3) Continue current plan of care 4) Follow-up with cardiology and nephrology Expected Outcomes/Goals: 1) appetite and labs to improve 2) f/u in 3-5 days Date of Service: Aug 12, 2024 Billing Provider: JASWINDER TORRES MD Common Visit Codes: [id number] INP/OBS CARE(HIGH) Secondary Visit Codes: [id number] CARE PLAN 30 MINUTES JASWINDER TORRES MD Aug 12, 2024 10:57
--- NOTE | 2024-08-12 11:44 | DVH ---
CHEST RADIOGRAPH Indication: chf Technique: Single frontal view of the chest was obtained Comparison: XY CHEST PORTABLE on DOS: 08/10/24, EKG on DOS: 04/26/22, EKG on DOS: 04/22/22, EKG on DOS: 04/21/22, CXRP on DOS: 04/19/22 FINDINGS: Lines and Tubes: None Lungs: Increaesd intersitial opacities. Pleura: Small right pleural effusion No pneumothorax. Cardiomediastinal contours: Cardiomegaly Bones: No acute osseous abnormality. IMPRESSION: Small right pleural effusion Cardiomegaly with CHF.
[2024-08-12] MEDS: IPRATROPIUM BROM 0.5 MG/2.5ML INH SOL NEB SCH (12:00)
[2024-08-12] MEDS: LEVALBUTEROL HCL 1.25 MG/3 ML NEB NEB SCH (12:00)
[2024-08-12] MEDS: LEVOTHYROXINE SODIUM 50 MCG TAB PO ONE (16:15)
[2024-08-12] MEDS: PANTOPRAZOLE 40 MG/10 ML VIAL INJ IV ONE (16:15)
[2024-08-12] MEDS: POTASSIUM EFFERVESENT TAB 25 MEQ PO ONE (19:15)
[2024-08-12] MEDS: METOPROLOL SUCCINATE XL 50 MG TAB PO ONE (19:15)
[2024-08-12 20:33] LABS: Potassium 3.5 mmol/L (3.5-5.1)
[2024-08-12 20:34] LABS: Anion Gap 10 (5-15); Carbon Dioxide 27 mmol/L (20-31)
[2024-08-12 20:35] LABS: Calcium 9.3 mg/dL (8.7-10.4)
[2024-08-12 20:39] LABS: BUN/Creatinine Ratio 23.9 (10.0-20.0)
[2024-08-12 20:40] LABS: Magnesium 1.8 mg/dL (1.6-2.6)
[2024-08-12 20:42] LABS: Phosphorus 3.6 mg/dL (2.4-5.1)
[2024-08-12 20:46] LABS: Blood Urea Nitrogen 37 mg/dL (9-23); Chloride 97 mmol/L (98-107); Glucose 211 mg/dL (74-106); Sodium 134 mmol/L (136-145)
[2024-08-12] MEDS: methylPREDNISolone SOD SUCC 40 MG/ML VL IV SCH (21:04)
[2024-08-13] VITALS (19 sets, daily range): BP systolic 94–110; BP diastolic 63–79; PULSE 65–96; RESP 16–20; TEMP 97.5–97.9; O2SAT 93–100
[2024-08-13] MEDS: LEVOTHYROXINE SODIUM 50 MCG TAB PO SCH (05:18)
[2024-08-13 06:19] LABS: Basophils # (auto) 0 10 ^3/uL (0-0.2); Basophils % (auto) 0.1 % (0.0-2.0); Eosinophils # (auto) 0 10 ^3/uL (0-0.8); Hemoglobin 11.6 g/dL (12.2-16.2); Lymphocytes # (auto) 0.4 10 ^3/uL (0.4-5.4); Lymphocytes % (auto) 8.2 % (10.0-50.0); Mean Corpuscular Hemoglobin 29.1 pg (28.0-32.0); Mean Corpuscular Hgb Conc. 32.2 g/dL (32.0-36.0); Mean Corpuscular Volume 90.2 fL (80.0-100.0); Monocytes # (auto) 0.2 10 ^3/uL (0-1.3); Monocytes % (auto) 5.3 % (0.0-12.0); Neutrophils # (auto) 3.9 10 ^3/uL (1.6-8.6); Neutrophils % (auto) 86.4 % (37.0-80.0); Nucleated Red Blood Cells % 0.2 %; Platelet Count (auto) 188 10^3/uL (140-450); Red Blood Cells 3.99 10^6/uL (4.0-5.20); Red Cell Distribution Width 14.2 % (11.8-14.3); White Blood Cell 4.5 10^3/uL (4.4-10.8)
[2024-08-13 06:36] LABS: Alanine Aminotransferase 15 U/L (7-40); Albumin 3.9 g/dL (3.2-4.8); Alkaline Phosphatase 83 U/L (46-116); Anion Gap 10 (5-15); Aspartate Aminotransferase 23 U/L (13-40); BUN/Creatinine Ratio 25.2 (10.0-20.0); Calcium 9.2 mg/dL (8.7-10.4); Carbon Dioxide 30 mmol/L (20-31); Magnesium 1.9 mg/dL (1.6-2.6); Potassium 4.2 mmol/L (3.5-5.1); Sodium 137 mmol/L (136-145); Total Protein 6.3 g/dL (5.7-8.2)
[2024-08-13 06:43] LABS: Blood Urea Nitrogen 38 mg/dL (9-23); Chloride 97 mmol/L (98-107); Glucose 239 mg/dL (74-106)
--- NOTE | 2024-08-13 07:11 | DVHPN2 ---
Progress Note - Dictate Date Seen: Aug 13, 2024 Medical Necessity Reason Pt with a Central, PICC or Fol: No vital signs Vital Sign Date Time Temp Pulse Resp B/P (MAP) Pulse Ox O2 Delivery O2 Flow Rate FiO2 08/13/24 06:30 83 18 100 08/13/24 06:24 Nasal Cannula* 2 28 08/13/24 05:13 109/77 08/13/24 04:40 97.8 97.8 Total Intake and Output 08/12/24 08/12/24 08/13/24 15:00 23:00 07:00 Intake Total 1800 ml 300 ml Balance 1800 ml 300 ml medications Current Medications Medications Dose Ordered Sig/[place] Route Start Time Stop Time Status Last Admin Dose Admin Amitriptyline HCl 25 mg HS PO 08/10/24 22:00 08/12/24 21:07 25 MG Sacubitril/ Valsartan 1 tab BID PO 08/10/24 22:00 08/12/24 21:05 1 TAB Pregabalin 50 mg TID PO 08/10/24 22:00 08/13/24 05:12 50 MG Albuterol 2.5 mg Q4HPRN PRN NEB 08/10/24 17:30 08/11/24 11:00 2.5 MG Aspirin 81 mg DAILY PO 08/11/24 10:00 08/12/24 09:37 81 MG Diagnostic Test (Pha) 1 strip ACHS 08/10/24 22:00 08/13/24 06:04 1 STRIP Insulin Human Regular ACHS SC 08/10/24 22:00 08/13/24 06:04 4 UNITS Dextrose 50 ml UD PRN IV 08/10/24 17:30 Nitroglycerin 0.4 mg Q5MINP PRN SL 08/10/24 18:45 Furosemide 60 mg BIDD IV 08/11/24 06:00 08/13/24 05:13 60 MG Amiodarone HCl 200 mg DAILY PO 08/11/24 10:00 08/12/24 09:37 200 MG Spironolactone 12.5 mg DAILY PO 08/12/24 10:00 08/12/24 10:52 12.5 MG Methylprednisolone Sodium Succinate 40 mg BID IV 08/12/24 22:00 08/12/24 21:04 40 MG Ipratropium [place] 0.5 mg Q6HWA NEB 08/12/24 12:00 08/13/24 06:23 0.5 MG Levalbuterol HCl 1.25 mg Q6HR NEB 08/12/24 12:00 08/13/24 06:23 1.25 MG Empaglifozin 10 mg DAILY PO 08/13/24 10:00 Pantoprazole Sodium 40 mg DAILY IV 08/13/24 10:00 Levothyroxine Sodium 50 mcg QAM@0600 PO 08/13/24 06:00 08/13/24 05:18 50 MCG Metoprolol Succinate 25 mg DAILY PO 08/13/24 10:00 laboratory and microbiology Laboratory Tests 08/13/24 05:18 Test 08/13/24 05:18 Range/Units Serum Glucose 239 H 74-106 mg/dL Assessment/Plan Patient is a 74-year-old female who presented to the hospital for shortness of breath. She also had been having cough. Problem started around a month ago and worsened recently. Cardiology was involved for cardiac aspects of care. Patient is known to our practice from outside and before. She received recent treatment for pneumonia. Denies chest pains. Does complain of dyspnea on exertion. Does complain of leg swellings. In October 2021, the patient was diagnosed to have nonischemic cardiomyopathy, was put on LifeVest, later was found to have improved LV systolic function the LifeVest was taken away. Recently, ejection fraction decreased again. She denies recent chest pain. She is on amiodarone (for history of PVCs). Sitting comfortably in bed, not using accessory muscles of breathing. Mucosa is pink and wet, there is no JVD, no goiter. Chest: Scattered rhonchi/rales. Cardiac: Regular regular, no thrill. Systolic murmur 3/6 in the apex is heard.. Abdomen: Soft, no palpable mass, positive hepatomegaly. Bowel sound is positive. Extremities: 3+ edema. Dorsalis pedis is 2+ bilateral Past medical history includes hypertension, hyperlipidemia, diabetes mellitus, asthma/COPD, history of back surgery, arrhythmia (sustained V. tach in October 2021, for which was shocked), history of old nonischemic cardiomyopathy, pulmonary hypertension (considered type 2), hypothyroidism, hiatal hernia, lupus, SVT, history of colon polyp and its resection, history of thyroid nodule, history of low vitamin-D, possible obstructive sleep apnea, CKD (goes to Nephrology regularly), A-fib/flutter, LBBB and also history of laminectomy. Left heart catheterization of November 17, 2021 revealed nonobstructive coronary artery disease, negative FFR of distal LCx, nonischemic cardiomyopathy Echocardiogram of November 15, 2021 revealed ejection fraction of 40%, enlarged LV/LA and aortic root. Echocardiogram of January 31, 2022 (performed in the office) revealed ejection fraction of 40 to 45%, sigmoid shaped septum, impaired relaxation of left ventricular diastolic function, trace MR/TR and right ventricular systolic pressure of less than 35 mmHg. Echocardiogram of March 2022 reported ejection fraction of 45-50%, anteroseptal/apical hypokinesia, trace MR/TR and right ventricular systolic pressure of 22 mm Hg Echocardiogram of April 2025 (performed in the office) revealed ejection fraction of less than 20%, increased EDP, tethered mitral valve leaflet secondary to left ventricular enlargement, moderate MR, mild TR and right ventricular systolic pressure of 60 mm Hg. Hemoglobin: 10.7 - 11.4 - 11.6 Creatinine: 1.60 - 1.37 - 1.60 - 1.55 - 1.51 Potassium: 4.0 - 3.4 - 3.5 - 3.5 - 4.2 BNP: 3325.33 Troponin (high sensitive): 23 - 23 - 12 - 12 - 14 TSH: 1.12 Chest x-ray reported: MPRESSION: Cardiomegaly with moderate congestion. Repeat chest xry reported: IMPRESSION: Small right pleural effusion Cardiomegaly with CHF. EKG revealed sinus rhythm with left bundle branch block Tele reveals sinus rhythm, occasions of fib/flutter Echocardiogram revealed: Four-chamber dilatation was observed. Left ventricle: Left ventricle was dilated. Severely reduced systolic function of left ventricle was observed. LVEF was around 25%. Diffuse hypokinesis with regional variation of left ventricle seen. Right ventricle was dilated with preserved systolic function. Both atria were mildly dilated. Aortic valve: Aortic valve is trileaflet. Trace aortic insufficiency was seen. There was no aortic stenosis. There was mild mitral/tricuspid regurgitation. There was trace pulmonary valve insufficiency. Small pericardial effusion was seen. Right ventricular systolic pressure was assessed at 35 mm Hg. Patient is a 74-year-old female who presented with shortness of breath/cough. She was recently treated for pneumonia. She does have recent diagnosis of worsened systolic function and heart failure. He is found to have increased BNP. Chest x-ray reveals congestion. Presentation is in favor of acute on chronic systolic heart failure. Does have old history of nonischemic cardiomyopathy, but systolic function has worsened recently. At this point, acute on chronic systolic heart failure is considered the reason for presentation. May benefit from repeat ischemic workup (inpatient Vs outpatient). Acute on chronic heart failure COPD exacerbation Fluid overload Bronchitis, acute ALFONZO on CKD History of nonsustained VT Left bundle branch block Pulmonary hypertension, type 2 Hypothyroidism Left bundle branch block Atrial fib/flutter Cardiac suggestion for management: Telemetry monitoring IV diuresis. On 60 mg IV Lasix b.i.d. Follow-up electrolytes and kidney function tests and correct abnormalities. Keep potassium above 4 and magnesium above 2 Continuation of amiodarone for history of non-sustained ventricular tachycardia is suggested (dose: 200 mg once daily) Patient with A-fib/flutter and high CHADS/Vasc score Start Eliquis 2.5 mg BID. Stop ASA Consider Nephrology evaluation May benefit from ischemic workup/cardiac catheterization (outpatient) Further evaluation and management depends on the above and clinical course A total of 55 minutes was spent reviewing the patient record, examining the patient, making a diagnostic and therapeutic plan, discussing this plan with medical personnel, following up on diagnostic studies and following the patient for clinical stability excluding any and all procedures. At least 50% of this time was spent in direct, [id number] contact. Thank you for allowing me to participate in this patient's care. Further recommendations will depend on patient's clinical course. Please do not hesitate to contact me if you have any questions or concerns. This medical document was created using electronic medical record system with [employer] computerized dictation system. Although this document has been carefully reviewed, there may still be some phonetic and typographical errors. These areas are purely typographical due to the imperfection of the software programs, and do not reflect any compromise in the patient's medical care. Dietary Evaluation Review Comments: 1) Add cardiac restriction to 45g CCHO diet order 2) Consider Zofran prn for N/V 3) Continue current plan of care 4) Follow-up with cardiology and nephrology Expected Outcomes/Goals: 1) appetite and labs to improve 2) f/u in 3-5 days Plan discussed with: Patient, Other (nurse) WALESKA CHEW MD Aug 13, 2024 07:11
[2024-08-13] MEDS: PANTOPRAZOLE 40 MG/10 ML VIAL INJ IV SCH (10:30)
[2024-08-13] MEDS: EMPAGLIFLOZIN 10 MG TAB PO SCH (10:31)
[2024-08-13] MEDS: APIXABAN 5 MG TAB PO SCH (10:31)
--- NOTE | 2024-08-13 10:39 | DVHPN2 ---
Progress Note Date Seen: Aug 13, 2024 Medical Necessity Reason Pt with a Central, PICC or Fol: No Subjective Patient reports: No new complaints Review of Systems: HEENT:Normal, CVS:Normal, RESPIRATORY:Normal, GI:Normal, :Normal, MSK:Normal, NEURO:Normal Objective vital signs Vital Sign Date Time Temp Pulse Resp B/P (MAP) Pulse Ox O2 Delivery O2 Flow Rate FiO2 08/13/24 09:00 97.9 83 18 109/79 (89) 96 97.9 08/13/24 06:24 Nasal Cannula* 2 28 Total Intake and Output 08/12/24 08/12/24 08/13/24 15:00 23:00 07:00 Intake Total 1800 ml 300 ml Balance 1800 ml 300 ml medications Current Medications Medications Dose Ordered Sig/[place] Route Start Time Stop Time Status Last Admin Dose Admin Amitriptyline HCl 25 mg HS PO 08/10/24 22:00 08/12/24 21:07 25 MG Sacubitril/ Valsartan 1 tab BID PO 08/10/24 22:00 08/13/24 10:30 1 TAB Pregabalin 50 mg TID PO 08/10/24 22:00 08/13/24 05:12 50 MG Albuterol 2.5 mg Q4HPRN PRN NEB 08/10/24 17:30 08/11/24 11:00 2.5 MG Diagnostic Test (Pha) 1 strip ACHS 08/10/24 22:00 08/13/24 06:04 1 STRIP Insulin Human Regular ACHS SC 08/10/24 22:00 08/13/24 06:04 4 UNITS Dextrose 50 ml UD PRN IV 08/10/24 17:30 Nitroglycerin 0.4 mg Q5MINP PRN SL 08/10/24 18:45 Furosemide 60 mg BIDD IV 08/11/24 06:00 08/13/24 05:13 60 MG Amiodarone HCl 200 mg DAILY PO 08/11/24 10:00 08/13/24 10:30 200 MG Spironolactone 12.5 mg DAILY PO 08/12/24 10:00 08/13/24 10:31 12.5 MG Methylprednisolone Sodium Succinate 40 mg BID IV 08/12/24 22:00 08/13/24 10:30 40 MG Ipratropium [place] 0.5 mg Q6HWA NEB 08/12/24 12:00 08/13/24 06:23 0.5 MG Levalbuterol HCl 1.25 mg Q6HR NEB 08/12/24 12:00 08/13/24 06:23 1.25 MG Empaglifozin 10 mg DAILY PO 08/13/24 10:00 08/13/24 10:31 10 MG Pantoprazole Sodium 40 mg DAILY IV 08/13/24 10:00 08/13/24 10:30 40 MG Levothyroxine Sodium 50 mcg QAM@0600 PO 08/13/24 06:00 08/13/24 05:18 50 MCG Metoprolol Succinate 25 mg DAILY PO 08/13/24 10:00 Apixaban 2.5 mg BID PO 08/13/24 10:00 08/13/24 10:31 2.5 MG Examination: GENERAL:Normal, HEENT:Normal, NECK:Normal, LUNGS:Normal, LUNGS:Abnormal (on oxygen, rhonchi), CVS:Normal, ABDOMEN:Normal, MSK:Normal, SKIN:Normal, NEURO:Normal, :Normal laboratory and microbiology Laboratory Tests 08/13/24 05:18 Test 08/13/24 05:18 Range/Units Serum Glucose 239 H 74-106 mg/dL Microbiology Date/Time Source Procedure Growth Status 08/11/24 01:23 Nose MRSA Screen - Final Complete Problem List/Assessment/Plan Problem List/Assessment/Plan #1 acute on chronic systolic heart failure: cont meds #2 chronic resp failure #3 copd with exacerbation: iv steroids, bronchodilators #4 acute on chronic renal failure ?vasomotor nephropathy #5 hypothyroidism #6 dm; ssi #7 s/p back surgery #8 h/o v tach: on amiodarone #8 ? pneumonia - gram positive/neg: iv doxy advance care planning- full code- time spent 19 mins Plan discussed with: Patient My Orders My Orders Orders - JASWINDER TORRES MD Procedure Category Date Status Time Methylprednisolone PHA 08/12/24 In Process Sod Succ (Solu Medrol 22:00 Ipratropium Medneb PHA 08/12/24 In Process (Atrovent Medneb) 12:00 Levalbuterol Hcl PHA 08/12/24 In Process (Xopenex Medneb) 12:00 Empagliflozin PHA 08/13/24 In Process (Jardiance) 10:00 Pantoprazole PHA 08/13/24 In Process (Protonix) 10:00 Pt Request For Service PT 08/12/24 Logged 10:34 Urinalysis LAB 08/12/24 Uncollected 10:34 Levothyroxine Tablet PHA 08/13/24 In Process (Synthroid Tablet) 06:00 Chest Portable XY 08/12/24 Resulted 10:47 Doxycycline PHA 08/13/24 Logged 100mg/100ml 10:45 Urinalysis LAB 08/13/24 Uncollected 10:31 Dietary Evaluation Review Comments: 1) Add cardiac restriction to 45g CCHO diet order 2) Consider Zofran prn for N/V 3) Continue current plan of care 4) Follow-up with cardiology and nephrology Expected Outcomes/Goals: 1) appetite and labs to improve 2) f/u in 3-5 days Date of Service: Aug 13, 2024 Billing Provider: JASWINDER TORRES MD Common Visit Codes: [id number] INP/OBS CARE(HIGH) Secondary Visit Codes: [id number] CARE PLAN 30 MINUTES JASWINDER TORRES MD Aug 13, 2024 10:39
[2024-08-13] MEDS: METOPROLOL SUCCINATE XL 50 MG TAB PO SCH (10:41)
--- NOTE | 2024-08-13 11:06 | ECG ---
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
[2024-08-13] MEDS: IPRATROPIUM BROM 0.5 MG/2.5ML INH SOL NEB SCH (11:14)
[2024-08-13] MEDS: DOXYCYCLINE 100MG/100ML 100 ML IV SCH (15:55)
[2024-08-13 16:40] LABS: Urine Bacteria None Seen /hpf (None Seen)
[2024-08-13 16:55] LABS: Urine Blood Negative /uL (Negative); Urine Clarity Clear (Clear); Urine Color Colorless (Yellow); Urine Protein, UAD Negative (Negative); Urine Specific Gravity 1.009 (1.001-1.035); Urine Squamous Epithelial Cell FEW /hpf (<5); Urine Urobilinogen Normal (Negative); Urine WBC 1 /HPF (0-5)
[2024-08-14] VITALS (16 sets, daily range): BP systolic 95–131; BP diastolic 58–73; PULSE 68–94; RESP 14–20; TEMP 97.6–98.2; O2SAT 92–99
--- NOTE | 2024-08-14 06:08 | DVHPN2 ---
Progress Note - Dictate Date Seen: Aug 14, 2024 Medical Necessity Reason Pt with a Central, PICC or Fol: No vital signs Vital Sign Date Time Temp Pulse Resp B/P (MAP) Pulse Ox O2 Delivery O2 Flow Rate FiO2 08/14/24 05:21 115/73 08/14/24 01:00 98.1 78 20 92 98.1 08/13/24 23:48 Nasal Cannula 4.0 08/13/24 23:48 36 Total Intake and Output 08/13/24 08/13/24 08/14/24 15:00 23:00 07:00 Intake Total 2160 ml 100 ml Output Total 3580 ml Balance -1420 ml 100 ml medications Current Medications Medications Dose Ordered Sig/[place] Route Start Time Stop Time Status Last Admin Dose Admin Amitriptyline HCl 25 mg HS PO 08/10/24 22:00 08/13/24 21:07 25 MG Sacubitril/ Valsartan 1 tab BID PO 08/10/24 22:00 08/13/24 21:08 1 TAB Pregabalin 50 mg TID PO 08/10/24 22:00 08/14/24 05:24 50 MG Albuterol 2.5 mg Q4HPRN PRN NEB 08/10/24 17:30 08/11/24 11:00 2.5 MG Diagnostic Test (Pha) 1 strip ACHS 08/10/24 22:00 08/13/24 21:25 1 STRIP Insulin Human Regular ACHS SC 08/10/24 22:00 08/13/24 21:25 8 UNITS Dextrose 50 ml UD PRN IV 08/10/24 17:30 Nitroglycerin 0.4 mg Q5MINP PRN SL 08/10/24 18:45 Furosemide 60 mg BIDD IV 08/11/24 06:00 08/14/24 05:21 60 MG Amiodarone HCl 200 mg DAILY PO 08/11/24 10:00 08/13/24 10:30 200 MG Spironolactone 12.5 mg DAILY PO 08/12/24 10:00 08/13/24 10:31 12.5 MG Methylprednisolone Sodium Succinate 40 mg BID IV 08/12/24 22:00 08/13/24 21:02 40 MG Levalbuterol HCl 1.25 mg Q6HR NEB 08/12/24 12:00 08/13/24 23:46 1.25 MG Empaglifozin 10 mg DAILY PO 08/13/24 10:00 08/13/24 10:31 10 MG Pantoprazole Sodium 40 mg DAILY IV 08/13/24 10:00 08/13/24 10:30 40 MG Levothyroxine Sodium 50 mcg QAM@0600 PO 08/13/24 06:00 08/14/24 05:25 50 MCG Metoprolol Succinate 25 mg DAILY PO 08/13/24 10:00 08/13/24 10:41 25 MG Apixaban 2.5 mg BID PO 08/13/24 10:00 08/13/24 21:08 2.5 MG Doxycycline Hyclate 100 ml @ 50 mls/hr Q12H IV 08/13/24 10:45 08/13/24 22:00 50 MLS/HR Ipratropium [place] 0.5 mg Q6HWA NEB 08/13/24 12:00 08/13/24 19:03 0.5 MG laboratory and microbiology Laboratory Tests 08/13/24 05:18 Test 08/13/24 05:18 Range/Units Serum Glucose 239 H 74-106 mg/dL Assessment/Plan Patient is a 74-year-old female who presented to the hospital for shortness of breath. She also had been having cough. Problem started around a month ago and worsened recently. Cardiology was involved for cardiac aspects of care. Patient is known to our practice from outside and before. She received recent treatment for pneumonia. Denies chest pains. Does complain of dyspnea on exertion. Does complain of leg swellings. In October 2021, the patient was diagnosed to have nonischemic cardiomyopathy, was put on LifeVest, later was found to have improved LV systolic function the LifeVest was taken away. Recently, ejection fraction decreased again. She denies recent chest pain. She is on amiodarone (for history of PVCs). Sitting comfortably in bed, not using accessory muscles of breathing. Mucosa is pink and wet, there is no JVD, no goiter. Chest: Scattered rhonchi/rales. Cardiac: Regular regular, no thrill. Systolic murmur 3/6 in the apex is heard.. Abdomen: Soft, no palpable mass, positive hepatomegaly. Bowel sound is positive. Extremities: 3+ edema. Dorsalis pedis is 2+ bilateral Past medical history includes hypertension, hyperlipidemia, diabetes mellitus, asthma/COPD, history of back surgery, arrhythmia (sustained V. tach in October 2021, for which was shocked), history of old nonischemic cardiomyopathy, pulmonary hypertension (considered type 2), hypothyroidism, hiatal hernia, lupus, SVT, history of colon polyp and its resection, history of thyroid nodule, history of low vitamin-D, possible obstructive sleep apnea, CKD (goes to Nephrology regularly), A-fib/flutter, LBBB and also history of laminectomy. Left heart catheterization of November 17, 2021 revealed nonobstructive coronary artery disease, negative FFR of distal LCx, nonischemic cardiomyopathy Echocardiogram of November 15, 2021 revealed ejection fraction of 40%, enlarged LV/LA and aortic root. Echocardiogram of January 31, 2022 (performed in the office) revealed ejection fraction of 40 to 45%, sigmoid shaped septum, impaired relaxation of left ventricular diastolic function, trace MR/TR and right ventricular systolic pressure of less than 35 mmHg. Echocardiogram of March 2022 reported ejection fraction of 45-50%, anteroseptal/apical hypokinesia, trace MR/TR and right ventricular systolic pressure of 22 mm Hg Echocardiogram of April 2025 (performed in the office) revealed ejection fraction of less than 20%, increased EDP, tethered mitral valve leaflet secondary to left ventricular enlargement, moderate MR, mild TR and right ventricular systolic pressure of 60 mm Hg. Hemoglobin: 10.7 - 11.4 - 11.6 Creatinine: 1.60 - 1.37 - 1.60 - 1.55 - 1.51 Potassium: 4.0 - 3.4 - 3.5 - 3.5 - 4.2 BNP: 3325.33 Troponin (high sensitive): - - 12 - 12 - 14 TSH: 1.12 Chest x-ray reported: MPRESSION: Cardiomegaly with moderate congestion. Repeat chest xry reported: IMPRESSION: Small right pleural effusion Cardiomegaly with CHF. EKG revealed sinus rhythm with left bundle branch block Tele reveals sinus rhythm, occasions of fib/flutter Echocardiogram revealed: Four-chamber dilatation was observed. Left ventricle: Left ventricle was dilated. Severely reduced systolic function of left ventricle was observed. LVEF was around 25%. Diffuse hypokinesis with regional variation of left ventricle seen. Right ventricle was dilated with preserved systolic function. Both atria were mildly dilated. Aortic valve: Aortic valve is trileaflet. Trace aortic insufficiency was seen. There was no aortic stenosis. There was mild mitral/tricuspid regurgitation. There was trace pulmonary valve insufficiency. Small pericardial effusion was seen. Right ventricular systolic pressure was assessed at 35 mm Hg. Patient is a 74-year-old female who presented with shortness of breath/cough. She was recently treated for pneumonia. She does have recent diagnosis of worsened systolic function and heart failure. He is found to have increased BNP. Chest x-ray reveals congestion. Presentation is in favor of acute on chronic systolic heart failure. Does have old history of nonischemic cardiomyopathy, but systolic function has worsened recently. At this point, acute on chronic systolic heart failure is considered the reason for presentation. May benefit from repeat ischemic workup (inpatient Vs outpatient). Acute on chronic heart failure COPD exacerbation Fluid overload Bronchitis, acute ALFONZO on CKD History of nonsustained VT Left bundle branch block Pulmonary hypertension, type 2 Hypothyroidism Left bundle branch block Atrial fib/flutter Cardiac suggestion for management: Telemetry monitoring IV diuresis. On 60 mg IV Lasix b.i.d. Follow-up electrolytes and kidney function tests and correct abnormalities. Keep potassium above 4 and magnesium above 2 Continuation of amiodarone for history of non-sustained ventricular tachycardia is suggested (dose: 200 mg once daily) Patient with A-fib/flutter and high CHADS/Vasc score On Eliquis 2.5 mg BID. Consider Nephrology evaluation May benefit from ischemic workup/cardiac catheterization (outpatient) Further evaluation and management depends on the above and clinical course A total of 55 minutes was spent reviewing the patient record, examining the patient, making a diagnostic and therapeutic plan, discussing this plan with medical personnel, following up on diagnostic studies and following the patient for clinical stability excluding any and all procedures. At least 50% of this time was spent in direct, [id number] contact. Thank you for allowing me to participate in this patient's care. Further recommendations will depend on patient's clinical course. Please do not hesitate to contact me if you have any questions or concerns. This medical document was created using electronic medical record system with [employer] dictation system. Although this document has been carefully reviewed, there may still be some phonetic and typographical errors. These areas are purely typographical due to the imperfection of the software programs, and do not reflect any compromise in the patient's medical care. Dietary Evaluation Review Comments: 1) Add cardiac restriction to 45g CCHO diet order 2) Consider Zofran prn for N/V 3) Continue current plan of care 4) Follow-up with cardiology and nephrology Expected Outcomes/Goals: 1) appetite and labs to improve 2) f/u in 3-5 days Plan discussed with: Patient, Other (nurse) WALESKA CHEW MD Aug 14, 2024 06:08
--- NOTE | 2024-08-14 11:02 | DVHPN2 ---
Progress Note Date Seen: Aug 14, 2024 Medical Necessity Reason Pt with a Central, PICC or Fol: No Subjective Patient reports: No new complaints Review of Systems: HEENT:Normal, CVS:Normal, RESPIRATORY:Normal, GI:Normal, :Normal, MSK:Normal, NEURO:Normal Objective vital signs Vital Sign Date Time Temp Pulse Resp B/P (MAP) Pulse Ox O2 Delivery O2 Flow Rate FiO2 08/14/24 10:00 93 98/64 08/14/24 09:00 97.6 16 92 97.6 08/14/24 06:54 Nasal Cannula 2.0 08/14/24 06:54 28 Total Intake and Output 08/13/24 08/13/24 08/14/24 15:00 23:00 07:00 Intake Total 2160 ml 400 ml Output Total 3580 ml 1000 ml Balance -1420 ml -600 ml medications Current Medications Medications Dose Ordered Sig/[place] Route Start Time Stop Time Status Last Admin Dose Admin Amitriptyline HCl 25 mg HS PO 08/10/24 22:00 08/13/24 21:07 25 MG Sacubitril/ Valsartan 1 tab BID PO 08/10/24 22:00 08/14/24 10:44 1 TAB Pregabalin 50 mg TID PO 08/10/24 22:00 08/14/24 05:24 50 MG Albuterol 2.5 mg Q4HPRN PRN NEB 08/10/24 17:30 08/11/24 11:00 2.5 MG Diagnostic Test (Pha) 1 strip ACHS 08/10/24 22:00 08/14/24 06:05 1 STRIP Insulin Human Regular ACHS SC 08/10/24 22:00 08/14/24 06:05 6 UNITS Dextrose 50 ml UD PRN IV 08/10/24 17:30 Nitroglycerin 0.4 mg Q5MINP PRN SL 08/10/24 18:45 Furosemide 60 mg BIDD IV 08/11/24 06:00 08/14/24 05:21 60 MG Amiodarone HCl 200 mg DAILY PO 08/11/24 10:00 08/14/24 10:43 200 MG Spironolactone 12.5 mg DAILY PO 08/12/24 10:00 08/14/24 10:45 12.5 MG Methylprednisolone Sodium Succinate 40 mg BID IV 08/12/24 22:00 08/14/24 10:44 40 MG Levalbuterol HCl 1.25 mg Q6HR NEB 08/12/24 12:00 08/14/24 06:54 1.25 MG Empaglifozin 10 mg DAILY PO 08/13/24 10:00 08/14/24 10:44 10 MG Pantoprazole Sodium 40 mg DAILY IV 08/13/24 10:00 08/14/24 10:44 40 MG Levothyroxine Sodium 50 mcg QAM@0600 PO 08/13/24 06:00 08/14/24 05:25 50 MCG Metoprolol Succinate 25 mg DAILY PO 08/13/24 10:00 08/13/24 10:41 25 MG Apixaban 2.5 mg BID PO 08/13/24 10:00 08/13/24 21:08 2.5 MG Doxycycline Hyclate 100 ml @ 50 mls/hr Q12H IV 08/13/24 10:45 08/13/24 22:00 50 MLS/HR Ipratropium [place] 0.5 mg Q6HWA [facility] 08/13/24 12:00 08/14/24 06:54 0.5 MG Examination: GENERAL:Normal, HEENT:Normal, NECK:Normal, LUNGS:Normal, LUNGS:Abnormal (on oxygen, rhonchi), CVS:Normal, ABDOMEN:Normal, MSK:Normal, SKIN:Normal, NEURO:Normal, :Normal laboratory and microbiology Laboratory Tests 08/13/24 05:18 Test 08/13/24 05:18 Range/Units Serum Glucose 239 H 74-106 mg/dL Microbiology Date/Time Source Procedure Growth Status 08/11/24 01:23 Nose MRSA Screen - Final Complete Problem List/Assessment/Plan Problem List/Assessment/Plan #1 acute on chronic systolic heart failure: cont meds, add metolazone #2 chronic resp failure #3 copd with exacerbation: iv steroids, bronchodilators #4 acute on chronic renal failure ?vasomotor nephropathy #5 hypothyroidism #6 dm; ssi #7 s/p back surgery #8 h/o v tach: on amiodarone #8 ? pneumonia - gram positive/neg: iv doxy advance care planning- full code- time spent 19 mins Plan discussed with: Patient My Orders My Orders Orders - JASWINDER TORRES MD Procedure Category Date Status Time Ipratropium Medneb PHA 08/13/24 In Process (Atrovent Medneb) 12:00 Dietary Evaluation Review Comments: 1) Add cardiac restriction to 45g CCHO diet order 2) Consider Zofran prn for N/V 3) Continue current plan of care 4) Follow-up with cardiology and nephrology Expected Outcomes/Goals: 1) appetite and labs to improve 2) f/u in 3-5 days Date of Service: Aug 14, 2024 Billing Provider: JASWINDER TORRES MD Common Visit Codes: [id number] INP/OBS CARE(HIGH) JASWINDER TORRES MD Aug 14, 2024 11:02
[2024-08-14] MEDS: ACETAMINOPHEN 325 MG TAB PO PRN (12:15)
[2024-08-14] MEDS: metOLazone 5 MG TAB PO ONE (13:33)
[2024-08-14] MEDS: methylPREDNISolone SOD SUCC 40 MG/ML VL IV SCH (21:08)
[2024-08-15] VITALS (17 sets, daily range): BP systolic 93–112; BP diastolic 59–76; PULSE 74–103; RESP 13–19; TEMP 97.5–98.1; O2SAT 77–99
[2024-08-15 07:14] LABS: Anion Gap 12 (5-15); Potassium 4.1 mmol/L (3.5-5.1)
[2024-08-15 07:16] LABS: Calcium 9.7 mg/dL (8.7-10.4)
--- NOTE | 2024-08-15 07:17 | DVHPN2 ---
Progress Note - Dictate Date Seen: Aug 15, 2024 Medical Necessity Reason Pt with a Central, PICC or Fol: No vital signs Vital Sign Date Time Temp Pulse Resp B/P (MAP) Pulse Ox O2 Delivery O2 Flow Rate FiO2 08/15/24 06:07 106/71 08/15/24 04:58 98.0 96 13 95 98.0 08/14/24 20:00 Nasal Cannula* 4 36 Total Intake and Output 08/14/24 08/14/24 08/15/24 15:00 23:00 07:00 Intake Total 100 ml 700 ml 350 ml Output Total 1200 ml Balance 100 ml -500 ml 350 ml medications Current Medications Medications Dose Ordered Sig/[place] Route Start Time Stop Time Status Last Admin Dose Admin Amitriptyline HCl 25 mg HS PO 08/10/24 22:00 08/14/24 21:10 25 MG Sacubitril/ Valsartan 1 tab BID PO 08/10/24 22:00 08/14/24 10:44 1 TAB Pregabalin 50 mg TID PO 08/10/24 22:00 08/15/24 06:13 50 MG Albuterol 2.5 mg Q4HPRN PRN NEB 08/10/24 17:30 08/11/24 11:00 2.5 MG Diagnostic Test (Pha) 1 strip ACHS 08/10/24 22:00 08/15/24 06:14 1 STRIP Insulin Human Regular ACHS SC 08/10/24 22:00 08/15/24 06:20 8 UNITS Dextrose 50 ml UD PRN IV 08/10/24 17:30 Nitroglycerin 0.4 mg Q5MINP PRN SL 08/10/24 18:45 Furosemide 60 mg BIDD IV 08/11/24 06:00 08/15/24 06:07 60 MG Amiodarone HCl 200 mg DAILY PO 08/11/24 10:00 08/14/24 10:43 200 MG Spironolactone 12.5 mg DAILY PO 08/12/24 10:00 08/14/24 10:45 12.5 MG Levalbuterol HCl 1.25 mg Q6HR NEB 08/12/24 12:00 08/15/24 00:35 1.25 MG Empaglifozin 10 mg DAILY PO 08/13/24 10:00 08/14/24 10:44 10 MG Pantoprazole Sodium 40 mg DAILY IV 08/13/24 10:00 08/14/24 10:44 40 MG Levothyroxine Sodium 50 mcg QAM@0600 PO 08/13/24 06:00 08/15/24 06:13 50 MCG Metoprolol Succinate 25 mg DAILY PO 08/13/24 10:00 08/13/24 10:41 25 MG Apixaban 2.5 mg BID PO 08/13/24 10:00 08/14/24 21:10 2.5 MG Doxycycline Hyclate 100 ml @ 50 mls/hr Q12H IV 08/13/24 10:45 08/14/24 22:33 50 MLS/HR Ipratropium [place] 0.5 mg Q6HWA NEB 08/13/24 12:00 08/15/24 00:35 0.5 MG Methylprednisolone Sodium Succinate 20 mg BID IV 08/14/24 22:00 08/14/24 21:08 20 MG Metolazone 2.5 mg DAILY PO 08/15/24 10:00 Acetaminophen 650 mg Q6HP PRN PO 08/14/24 11:15 08/14/24 12:15 650 MG laboratory and microbiology Laboratory Tests 08/13/24 05:18 Test 08/15/24 05:03 Range/Units Serum Glucose Pending Assessment/Plan Patient is a 74-year-old female who presented to the hospital for shortness of breath. She also had been having cough. Problem started around a month ago and worsened recently. Cardiology was involved for cardiac aspects of care. Patient is known to our practice from outside and before. She received recent treatment for pneumonia. Denies chest pains. Does complain of dyspnea on exertion. Does complain of leg swellings. In October 2021, the patient was diagnosed to have nonischemic cardiomyopathy, was put on LifeVest, later was found to have improved LV systolic function the LifeVest was taken away. Recently, ejection fraction decreased again. She denies recent chest pain. She is on amiodarone (for history of PVCs). Sitting comfortably in bed, not using accessory muscles of breathing. Mucosa is pink and wet, there is no JVD, no goiter. Chest: Scattered rhonchi/rales. Cardiac: Regular regular, no thrill. Systolic murmur 3/6 in the apex is heard.. Abdomen: Soft, no palpable mass, positive hepatomegaly. Bowel sound is positive. Extremities: 3+ edema. Dorsalis pedis is 2+ bilateral Past medical history includes hypertension, hyperlipidemia, diabetes mellitus, asthma/COPD, history of back surgery, arrhythmia (sustained V. tach in October 2021, for which was shocked), history of old nonischemic cardiomyopathy, pulmonary hypertension (considered type 2), hypothyroidism, hiatal hernia, lupus, SVT, history of colon polyp and its resection, history of thyroid nodule, history of low vitamin-D, possible obstructive sleep apnea, CKD (goes to Nephrology regularly), A-fib/flutter, LBBB and also history of laminectomy. Left heart catheterization of November 17, 2021 revealed nonobstructive coronary artery disease, negative FFR of distal LCx, nonischemic cardiomyopathy Echocardiogram of November 15, 2021 revealed ejection fraction of 40%, enlarged LV/LA and aortic root. Echocardiogram of January 31, 2022 (performed in the office) revealed ejection fraction of 40 to 45%, sigmoid shaped septum, impaired relaxation of left ventricular diastolic function, trace MR/TR and right ventricular systolic pressure of less than 35 mmHg. Echocardiogram of March 2022 reported ejection fraction of 45-50%, anteroseptal/apical hypokinesia, trace MR/TR and right ventricular systolic pressure of 22 mm Hg Echocardiogram of April 2025 (performed in the office) revealed ejection fraction of less than 20%, increased EDP, tethered mitral valve leaflet secondary to left ventricular enlargement, moderate MR, mild TR and right ventricular systolic pressure of 60 mm Hg. Hemoglobin: 10.7 - 11.4 - 11.6 Creatinine: 1.60 - 1.37 - 1.60 - 1.55 - 1.51 - 1.79 Potassium: 4.0 - 3.4 - 3.5 - 3.5 - 4.2 - 4.1 BNP: 3325.33 Troponin (high sensitive): 23 - 23 - 12 - 12 - 14 TSH: 1.12 Chest x-ray reported: MPRESSION: Cardiomegaly with moderate congestion. Repeat chest xry reported: IMPRESSION: Small right pleural effusion Cardiomegaly with CHF. EKG revealed sinus rhythm with left bundle branch block Tele reveals sinus rhythm, occasions of fib/flutter Echocardiogram revealed: Four-chamber dilatation was observed. Left ventricle: Left ventricle was dilated. Severely reduced systolic function of left ventricle was observed. LVEF was around 25%. Diffuse hypokinesis with regional variation of left ventricle seen. Right ventricle was dilated with preserved systolic function. Both atria were mildly dilated. Aortic valve: Aortic valve is trileaflet. Trace aortic insufficiency was seen. There was no aortic stenosis. There was mild mitral/tricuspid regurgitation. There was trace pulmonary valve insufficiency. Small pericardial effusion was seen. Right ventricular systolic pressure was assessed at 35 mm Hg. Patient is a 74-year-old female who presented with shortness of breath/cough. She was recently treated for pneumonia. She does have recent diagnosis of worsened systolic function and heart failure. He is found to have increased BNP. Chest x-ray reveals congestion. Presentation is in favor of acute on chronic systolic heart failure. Does have old history of nonischemic cardiomyopathy, but systolic function has worsened recently. At this point, acute on chronic systolic heart failure is considered the reason for presentation. May benefit from repeat ischemic workup (inpatient Vs outpatient). Acute on chronic heart failure COPD exacerbation Fluid overload Bronchitis, acute Pneumonia, community acquired ALFONZO on CKD History of nonsustained VT Left bundle branch block Pulmonary hypertension, type 2 Hypothyroidism Left bundle branch block Atrial fib/flutter Cardiac suggestion for management: Telemetry monitoring IV diuresis. On 60 mg IV Lasix b.i.d. Follow-up electrolytes and kidney function tests and correct abnormalities. Keep potassium above 4 and magnesium above 2 Continuation of amiodarone for history of non-sustained ventricular tachycardia is suggested (dose: 200 mg once daily) Patient with A-fib/flutter and high CHADS/Vasc score On Eliquis 2.5 mg BID. Consider Nephrology evaluation May benefit from ischemic workup/cardiac catheterization (outpatient) Further evaluation and management depends on the above and clinical course A total of 55 minutes was spent reviewing the patient record, examining the patient, making a diagnostic and therapeutic plan, discussing this plan with medical personnel, following up on diagnostic studies and following the patient for clinical stability excluding any and all procedures. At least 50% of this time was spent in direct, [id number] contact. Thank you for allowing me to participate in this patient's care. Further recommendations will depend on patient's clinical course. Please do not hesitate to contact me if you have any questions or concerns. This medical document was created using electronic medical record system with [employer] computerized dictation system. Although this document has been carefully reviewed, there may still be some phonetic and typographical errors. These areas are purely typographical due to the imperfection of the software programs, and do not reflect any compromise in the patient's medical care. Dietary Evaluation Review Comments: 1) Add cardiac restriction to 45g CCHO diet order 2) Consider Zofran prn for N/V 3) Continue current plan of care 4) Follow-up with cardiology and nephrology Expected Outcomes/Goals: 1) appetite and labs to improve 2) f/u in 3-5 days Plan discussed with: Patient, Other (nurse) WALESKA CHEW MD Aug 15, 2024 07:17
[2024-08-15 07:21] LABS: BUN/Creatinine Ratio 30.7 (10.0-20.0)
[2024-08-15 07:22] LABS: Blood Urea Nitrogen 55 mg/dL (9-23); Carbon Dioxide 31 mmol/L (20-31); Chloride 90 mmol/L (98-107); Glucose 237 mg/dL (74-106); Sodium 133 mmol/L (136-145)
[2024-08-15] MEDS: LEVALBUTEROL HCL 1.25 MG/3 ML NEB ONE (07:40)
[2024-08-15] MEDS ORDERED: metOLazone 5 MG TAB PO SCH (10:00)
--- NOTE | 2024-08-15 10:37 | DVHPN2 ---
Progress Note Date Seen: Aug 15, 2024 Medical Necessity Reason Pt with a Central, PICC or Fol: No Subjective Patient reports: No new complaints Review of Systems: HEENT:Normal, CVS:Normal, RESPIRATORY:Normal, GI:Normal, :Normal, MSK:Normal, NEURO:Normal Objective vital signs Vital Sign Date Time Temp Pulse Resp B/P (MAP) Pulse Ox O2 Delivery O2 Flow Rate FiO2 08/15/24 09:00 97.7 102 17 93/59 (70) 95 97.7 08/15/24 07:31 Nasal Cannula* 3 32 Total Intake and Output 08/14/24 08/14/24 08/15/24 15:00 23:00 07:00 Intake Total 100 ml 700 ml 350 ml Output Total 1200 ml Balance 100 ml -500 ml 350 ml medications Current Medications Medications Dose Ordered Sig/[place] Route Start Time Stop Time Status Last Admin Dose Admin Amitriptyline HCl 25 mg HS PO 08/10/24 22:00 08/14/24 21:10 25 MG Sacubitril/ Valsartan 1 tab BID PO 08/10/24 22:00 08/14/24 10:44 1 TAB Pregabalin 50 mg TID PO 08/10/24 22:00 08/15/24 06:13 50 MG Albuterol 2.5 mg Q4HPRN PRN NEB 08/10/24 17:30 08/11/24 11:00 2.5 MG Diagnostic Test (Pha) 1 strip ACHS 08/10/24 22:00 08/15/24 06:14 1 STRIP Insulin Human Regular ACHS SC 08/10/24 22:00 08/15/24 06:20 8 UNITS Dextrose 50 ml UD PRN IV 08/10/24 17:30 Nitroglycerin 0.4 mg Q5MINP PRN SL 08/10/24 18:45 Amiodarone HCl 200 mg DAILY PO 08/11/24 10:00 08/14/24 10:43 200 MG Spironolactone 12.5 mg DAILY PO 08/12/24 10:00 08/14/24 10:45 12.5 MG Levalbuterol HCl 1.25 mg Q6HR NEB 08/12/24 12:00 08/15/24 07:31 1.25 MG Empaglifozin 10 mg DAILY PO 08/13/24 10:00 2/19/25 10:44 10 MG Levothyroxine Sodium 50 mcg QAM@0600 PO 08/13/24 06:00 08/15/24 06:13 50 MCG Metoprolol Succinate 25 mg DAILY PO 08/13/24 10:00 08/13/24 10:41 25 MG Apixaban 2.5 mg BID PO 08/13/24 10:00 08/14/24 21:10 2.5 MG Ipratropium [place] 0.5 mg Q6HWA NEB 08/13/24 12:00 08/15/24 07:31 0.5 MG Acetaminophen 650 mg Q6HP PRN PO 08/14/24 11:15 08/14/24 12:15 650 MG Furosemide 40 mg BIDD IV 08/15/24 18:00 UNV Prednisone 40 mg DAILY PO 08/16/24 10:00 UNV Pantoprazole Sodium 40 mg DAILY@0600 PO 08/16/24 06:00 UNV Examination: GENERAL:Normal, HEENT:Normal, NECK:Normal, LUNGS:Normal, LUNGS:Abnormal (RHONCHI+), CVS:Normal, ABDOMEN:Normal, MSK:Normal, SKIN:Normal, NEURO:Normal, :Normal laboratory and microbiology Laboratory Tests 08/15/24 05:03 08/13/24 05:18 Test 08/15/24 05:03 Range/Units Serum Glucose 237 H 74-106 mg/dL Microbiology Date/Time Source Procedure Growth Status 08/11/24 01:23 Nose MRSA Screen - Final Complete Problem List/Assessment/Plan Problem List/Assessment/Plan #1 acute on chronic systolic heart failure: cont meds, dc metolazone #2 chronic resp failure #3 copd with exacerbation: prednisone, bronchodilators #4 acute on chronic renal failure ?vasomotor nephropathy #5 hypothyroidism #6 dm; ssi #7 s/p back surgery #8 h/o v tach: on amiodarone #8 ? pneumonia - gram positive/neg: iv antibiotics advance care planning- full code- time spent 19 mins Plan discussed with: Patient My Orders My Orders Orders - JASWINDER TORRES MD Procedure Category Date Status Time Acetaminophen Tablet PHA 08/14/24 In Process (Tylenol Tablet) 11:15 Furosemide Injection PHA 08/15/24 Logged (Lasix Injection) 18:00 Prednisone Tablet PHA 08/16/24 Logged 10:00 Pantoprazole Tablet PHA 08/16/24 Logged (Protonix Tablet) 06:00 Ceftriaxone Ivpb PHA 08/16/24 Transmitted Rocephin 09:00 Ceftriaxone Ivpb PHA 08/15/24 Transmitted Rocephin 10:45 Azithromycin Tablet PHA 08/15/24 Transmitted (Zithromax Tablet) 10:45 Azithromycin Tablet PHA 08/16/24 Transmitted (Zithromax Tablet) 10:00 Basic Metabolic Panel LAB 08/16/24 Verified 06:00 Complete Blood Count LAB 08/16/24 Verified 06:00 Chest Portable XY 08/16/24 Transmitted 06:00 Dietary Evaluation Review Comments: 1) Add cardiac restriction to 45g CCHO diet order 2) Consider Zofran prn for N/V 3) Continue current plan of care 4) Follow-up with cardiology and nephrology Expected Outcomes/Goals: 1) appetite and labs to improve 2) f/u in 3-5 days Date of Service: Aug 15, 2024 Billing Provider: JASWINDER TORRES MD Common Visit Codes: [id number] INP/OBS CARE(HIGH) JASWINDER TORRES MD Aug 15, 2024 10:36
[2024-08-15] MEDS ORDERED: AZITHROMYCIN 250 MG TAB PO ONE (10:45)
[2024-08-15] MEDS: cefTRIAXone 1GM/50ML D5W 50 ML IV ONE (11:27)
[2024-08-15] MEDS: DOXYCYCLINE 100 MG TAB/CAP PO ONE (11:35)
[2024-08-15] MEDS: THROAT LOZENGES(CEPASTAT) MT PRN (12:57)
[2024-08-15] MEDS: FUROSEMIDE 40 MG/4 ML VIAL IV SCH (18:03)
[2024-08-15] MEDS ORDERED: DOXYCYCLINE 100 MG TAB/CAP PO SCH (22:00)
[2024-08-15] MEDS: DOXYCYCLINE 100 MG TAB/CAP PO SCH (22:06)
[2024-08-16] VITALS (16 sets, daily range): BP systolic 85–119; BP diastolic 47–72; PULSE 71–94; RESP 16–20; TEMP 97.8–98; O2SAT 92–99
[2024-08-16 05:14] LABS: Basophils # (auto) 0 10 ^3/uL (0-0.2); Basophils % (auto) 0.1 % (0.0-2.0); Eosinophils # (auto) 0.1 10 ^3/uL (0-0.8); Eosinophils % (auto) 1.5 % (0.0-7.0); Hematocrit 42.1 % (36.0-46.0); Hemoglobin 13.6 g/dL (12.2-16.2); Lymphocytes # (auto) 1.4 10 ^3/uL (0.4-5.4); Lymphocytes % (auto) 21.4 % (10.0-50.0); Mean Corpuscular Hgb Conc. 32.2 g/dL (32.0-36.0); Mean Corpuscular Volume 90.1 fL (80.0-100.0); Monocytes # (auto) 0.8 10 ^3/uL (0-1.3); Monocytes % (auto) 12.2 % (0.0-12.0); Neutrophils # (auto) 4.3 10 ^3/uL (1.6-8.6); Neutrophils % (auto) 64.8 % (37.0-80.0); Nucleated Red Blood Cells % 0.4 %; Platelet Count (auto) 251 10^3/uL (140-450); Red Blood Cells 4.67 10^6/uL (4.0-5.20); Red Cell Distribution Width 14.6 % (11.8-14.3); White Blood Cell 6.6 10^3/uL (4.4-10.8)
[2024-08-16 05:41] LABS: Potassium 4.2 mmol/L (3.5-5.1)
[2024-08-16 05:42] LABS: Anion Gap 11 (5-15); Calcium 9.3 mg/dL (8.7-10.4); Carbon Dioxide 31 mmol/L (20-31)
--- NOTE | 2024-08-16 05:52 | DVH ---
EXAM: XR Chest, 1 View CLINICAL INDICATION: CHF TECHNIQUE: Frontal view of the chest. COMPARISON: XY CHEST PORTABLE on DOS: 08/12/24, XY CHEST PORTABLE on DOS: 08/10/24, EKG on DOS: , EKG on DOS: 04/22/22, EKG on DOS: 04/21/22 FINDINGS: LUNGS AND PLEURAL SPACES: Mild pulmonary congestion. No consolidation. No pneumothorax. HEART: Unremarkable. No cardiomegaly. MEDIASTINUM: Unremarkable. Normal mediastinal contour. BONES/JOINTS: Unremarkable. No acute fracture. OTHER FINDINGS: . None. .. ... IMPRESSION: Mild pulmonary congestion.
[2024-08-16 06:00] LABS: Chloride 87 mmol/L (98-107); Glucose 176 mg/dL (74-106); Sodium 129 mmol/L (136-145)
--- NOTE | 2024-08-16 06:03 | DVHPN2 ---
Progress Note - Dictate Date Seen: Aug 16, 2024 Medical Necessity Reason Pt with a Central, PICC or Fol: No vital signs Vital Sign Date Time Temp Pulse Resp B/P (MAP) Pulse Ox O2 Delivery O2 Flow Rate FiO2 08/16/24 05:00 98.0 71 18 119/72 (88) 95 98.0 08/15/24 20:00 Nasal Cannula* 4 36 Total Intake and Output 08/15/24 08/15/24 08/16/24 15:00 23:00 07:00 Intake Total 50 ml 780 ml 150 ml Output Total 150 ml Balance 50 ml 780 ml 0 ml medications Current Medications Medications Dose Ordered Sig/[place] Route Start Time Stop Time Status Last Admin Dose Admin Amitriptyline HCl 25 mg HS PO 08/10/24 22:00 08/15/24 22:05 25 MG Sacubitril/ Valsartan 1 tab BID PO 08/10/24 22:00 08/15/24 22:05 1 TAB Pregabalin 50 mg TID PO 08/10/24 22:00 08/15/24 22:05 50 MG Albuterol 2.5 mg Q4HPRN PRN NEB 08/10/24 17:30 08/11/24 11:00 2.5 MG Diagnostic Test (Pha) 1 strip ACHS 08/10/24 22:00 08/15/24 22:07 1 STRIP Insulin Human Regular ACHS SC 08/10/24 22:00 08/15/24 22:08 2 UNITS Dextrose 50 ml UD PRN IV 08/10/24 17:30 Nitroglycerin 0.4 mg Q5MINP PRN SL 08/10/24 18:45 Amiodarone HCl 200 mg DAILY PO 08/11/24 10:00 08/15/24 10:57 200 MG Spironolactone 12.5 mg DAILY PO 08/12/24 10:00 08/15/24 10:58 12.5 MG Levalbuterol HCl 1.25 mg Q6HR NEB 08/12/24 12:00 08/16/24 00:06 1.25 MG Empaglifozin 10 mg DAILY PO 08/13/24 10:00 08/15/24 10:59 10 MG Levothyroxine Sodium 50 mcg QAM@0600 PO 08/13/24 06:00 08/15/24 06:13 50 MCG Metoprolol Succinate 25 mg DAILY PO 08/13/24 10:00 08/15/24 11:01 25 MG Apixaban 2.5 mg BID PO 08/13/24 10:00 08/15/24 22:05 2.5 MG Ipratropium [place] 0.5 mg Q6HWA NEB 08/13/24 12:00 08/15/24 19:50 0.5 MG Acetaminophen 650 mg Q6HP PRN PO 08/14/24 11:15 08/14/24 12:15 650 MG Furosemide 40 mg BIDD IV 08/15/24 18:00 08/15/24 18:03 40 MG Prednisone 40 mg DAILY PO 08/16/24 10:00 Pantoprazole Sodium 40 mg DAILY@0600 PO 08/16/24 06:00 Ceftriaxone Sodium 50 ml @ 100 mls/hr DAILY@09 IV 08/16/24 09:00 Throat Lozenges 1 sofi Q2HP PRN MT 08/15/24 11:15 08/15/24 17:27 1 SOFI Doxycycline Monohydrate 100 mg Q12HR PO 08/15/24 22:00 UNV Doxycycline Monohydrate 100 mg Q12HR PO 08/15/24 22:00 08/15/24 22:06 100 MG laboratory and microbiology Laboratory Tests 08/16/24 04:42 Test 08/16/24 04:42 Range/Units Serum Glucose 176 H 74-106 mg/dL Assessment/Plan Patient is a 74-year-old female who presented to the hospital for shortness of breath. She also had been having cough. Problem started around a month ago and worsened recently. Cardiology was involved for cardiac aspects of care. Patient is known to our practice from outside and before. She received recent treatment for pneumonia. Denies chest pains. Does complain of dyspnea on exertion. Does complain of leg swellings. In October 2021, the patient was diagnosed to have nonischemic cardiomyopathy, was put on LifeVest, later was found to have improved LV systolic function the LifeVest was taken away. Recently, ejection fraction decreased again. She denies recent chest pain. She is on amiodarone (for history of PVCs). Sitting comfortably in bed, not using accessory muscles of breathing. Mucosa is pink and wet, there is no JVD, no goiter. Chest: Scattered rhonchi/rales. Cardiac: Regular regular, no thrill. Systolic murmur 3/6 in the apex is heard.. Abdomen: Soft, no palpable mass, positive hepatomegaly. Bowel sound is positive. Extremities: 3+ edema. Dorsalis pedis is 2+ bilateral Past medical history includes hypertension, hyperlipidemia, diabetes mellitus, asthma/COPD, history of back surgery, arrhythmia (sustained V. tach in October 2021, for which was shocked), history of old nonischemic cardiomyopathy, pulmonary hypertension (considered type 2), hypothyroidism, hiatal hernia, lupus, SVT, history of colon polyp and its resection, history of thyroid nodule, history of low vitamin-D, possible obstructive sleep apnea, CKD (goes to Nephrology regularly), A-fib/flutter, LBBB and also history of laminectomy. Left heart catheterization of November 17, 2021 revealed nonobstructive coronary artery disease, negative FFR of distal LCx, nonischemic cardiomyopathy Echocardiogram of November 15, 2021 revealed ejection fraction of 40%, enlarged LV/LA and aortic root. Echocardiogram of January 31, 2022 (performed in the office) revealed ejection fraction of 40 to 45%, sigmoid shaped septum, impaired relaxation of left ventricular diastolic function, trace MR/TR and right ventricular systolic pressure of less than 35 mmHg. Echocardiogram of March 2022 reported ejection fraction of 45-50%, anteroseptal/apical hypokinesia, trace MR/TR and right ventricular systolic pressure of 22 mm Hg Echocardiogram of April 2025 (performed in the office) revealed ejection fraction of less than 20%, increased EDP, tethered mitral valve leaflet secondary to left ventricular enlargement, moderate MR, mild TR and right ventricular systolic pressure of 60 mm Hg. Hemoglobin: 10.7 - 11.4 - 11.6 - 13.6 Creatinine: 1.60 - 1.37 - 1.60 - 1.55 - 1.51 - 1.79 - 2.55 Potassium: 4.0 - 3.4 - 3.5 - 3.5 - 4.2 - 4.1 - 4.2 BNP: 3325.33 Troponin (high sensitive): 20 - 23 - 23 - 12 - 12 - 14 TSH: 1.12 Chest x-ray reported: MPRESSION: Cardiomegaly with moderate congestion. Repeat chest xry reported: IMPRESSION: Small right pleural effusion Cardiomegaly with CHF. Repeat chest xry revealed: IMPRESSION: Mild pulmonary congestion. EKG revealed sinus rhythm with left bundle branch block Tele reveals sinus rhythm, occasions of fib/flutter Echocardiogram revealed: Four-chamber dilatation was observed. Left ventricle: Left ventricle was dilated. Severely reduced systolic function of left ventricle was observed. LVEF was around 25%. Diffuse hypokinesis with regional variation of left ventricle seen. Right ventricle was dilated with preserved systolic function. Both atria were mildly dilated. Aortic valve: Aortic valve is trileaflet. Trace aortic insufficiency was seen. There was no aortic stenosis. There was mild mitral/tricuspid regurgitation. There was trace pulmonary valve insufficiency. Small pericardial effusion was seen. Right ventricular systolic pressure was assessed at 35 mm Hg. Patient is a 74-year-old female who presented with shortness of breath/cough. She was recently treated for pneumonia. She does have recent diagnosis of worsened systolic function and heart failure. He is found to have increased BNP. Chest x-ray reveals congestion. Presentation is in favor of acute on chronic systolic heart failure. Does have old history of nonischemic cardiomyopathy, but systolic function has worsened recently. At this point, acute on chronic systolic heart failure is considered the reason for presentation. May benefit from repeat ischemic workup (inpatient Vs outpatient). Acute on chronic heart failure COPD exacerbation Fluid overload Bronchitis, acute Pneumonia, community acquired ALFONZO on CKD History of nonsustained VT Left bundle branch block Pulmonary hypertension, type 2 Hypothyroidism Left bundle branch block Atrial fib/flutter Cardiac suggestion for management: Telemetry monitoring IV diuresis. On 60 mg IV Lasix b.i.d. Follow-up electrolytes and kidney function tests and correct abnormalities. Keep potassium above 4 and magnesium above 2 Continuation of amiodarone for history of non-sustained ventricular tachycardia is suggested (dose: 200 mg once daily) Patient with A-fib/flutter and high CHADS/Vasc score On Eliquis 2.5 mg BID. Consider Nephrology evaluation May benefit from ischemic workup/cardiac catheterization (outpatient) Further evaluation and management depends on the above and clinical course A total of 55 minutes was spent reviewing the patient record, examining the patient, making a diagnostic and therapeutic plan, discussing this plan with medical personnel, following up on diagnostic studies and following the patient for clinical stability excluding any and all procedures. At least 50% of this time was spent in direct, [id number] contact. Thank you for allowing me to participate in this patient's care. Further recommendations will depend on patient's clinical course. Please do not hesitate to contact me if you have any questions or concerns. This medical document was created using electronic medical record system with [employer] computerized dictation system. Although this document has been carefully reviewed, there may still be some phonetic and typographical errors. These areas are purely typographical due to the imperfection of the software programs, and do not reflect any compromise in the patient's medical care. Dietary Evaluation Review Comments: 1) Add cardiac restriction to 45g CCHO diet order 2) Consider Zofran prn for N/V 3) Continue current plan of care 4) Follow-up with cardiology and nephrology Expected Outcomes/Goals: 1) appetite and labs to improve 2) f/u in 3-5 days Plan discussed with: Patient, Other (nurse) WALESKA CHEW MD Aug 16, 2024 06:03
[2024-08-16 06:04] LABS: BUN/Creatinine Ratio 28.6 (10.0-20.0)
[2024-08-16 06:05] LABS: Blood Urea Nitrogen 73 mg/dL (9-23)
[2024-08-16] MEDS: PANTOPRAZOLE 40 MG TAB PO SCH (06:30)
[2024-08-16] MEDS ORDERED: DAPA5TAB2 PO (08:45)
[2024-08-16] MEDS ORDERED: SEMA4INJ SC (08:52)
[2024-08-16] MEDS: cefTRIAXone 1GM/50ML D5W 50 ML IV SCH (09:06)
[2024-08-16] MEDS: predniSONE 20 MG TAB PO SCH (09:07)
[2024-08-16] MEDS ORDERED: AZITHROMYCIN 250 MG TAB PO SCH (10:00)
--- NOTE | 2024-08-16 20:18 | DVHPN2 ---
Reviewed: Care Plan, H&P, Labs, Medications, Previous Orders, Radiology Changes from previous H/P or p: No Changes General: Per HPI Eyes: No Pain, No Vision change, No Conjunctivae inflammation, No Eyelid inflammation, No Other, No Redness ENT: No Ear pain, No Ear discharge, No Nose pain, No Nose discharge, No Nose congestion, No Mouth pain, No Mouth swelling, No Throat pain, No Throat swelling, No Other Cardiovascular: No Chest Pain, No Palpitations, No Orthopnea, No Paroxysmal Noc. Dyspnea, No Edema, No Lt Headedness, No Other Respiratory: Cough; No Dry; Shortness of breath; No SOB with excertion, No Wheezing, No Hemoptysis, No Pleuritic Pain, No Sputum, No Other Gastrointestinal: No Nausea, No Vomiting, No Abdominal Pain, No Diarrhea, No Constipation, No Melena, No Hematochezia, No Other Genitourinary: No Dysuria, No Frequency, No Incontinence, No Hematuria, No Retention, No Other Musculoskeletal: No other, No neck pain, No shoulder pain, No arm pain, No back pain, No hand pain, No leg pain, No foot pain Skin: No Rash, No Lesions, No Jaundice, No Bruising, No Other Objective Vitals Vital Signs Date Time Temp Pulse Resp B/P (MAP) Pulse Ox O2 Delivery O2 Flow Rate FiO2 08/16/24 18:32 77 18 94 08/16/24 18:32 Nasal Cannula 2.0 08/16/24 18:32 28 08/16/24 18:30 96/51 (66) 08/16/24 16:34 98.0 98.0 Intake/Output Intake and Output 08/16/24 07:00 Intake Total 980 ml Output Total 150 ml Balance 830 ml Intake Oral 930 ml IV Total 50 ml Output Urine Total 150 ml # Voids 3 General Appearance: Alert, Oriented X3, Cooperative HEENT: Atraumatic Cardiovascular: Regular rate, Normal S1, Normal S2 Abdomen: Normal bowel sounds, Soft Medications Current Medications Medications Dose Ordered Sig/[place] Route Start Time Stop Time Status Last Admin Dose Admin Amitriptyline HCl 25 mg HS PO 08/10/24 22:00 08/15/24 22:05 25 MG Sacubitril/ Valsartan 1 tab BID PO 08/10/24 22:00 08/16/24 09:07 1 TAB Pregabalin 50 mg TID PO 08/10/24 22:00 08/16/24 15:31 50 MG Albuterol 2.5 mg Q4HPRN PRN NEB 08/10/24 17:30 08/11/24 11:00 2.5 MG Diagnostic Test (Pha) 1 strip ACHS 08/10/24 22:00 08/16/24 17:02 1 STRIP Insulin Human Regular ACHS SC 08/10/24 22:00 08/16/24 17:00 8 UNITS Dextrose 50 ml UD PRN IV 08/10/24 17:30 Nitroglycerin 0.4 mg Q5MINP PRN SL 08/10/24 18:45 Amiodarone HCl 200 mg DAILY PO 08/11/24 10:00 08/16/24 09:07 200 MG Spironolactone 12.5 mg DAILY PO 08/12/24 10:00 08/16/24 09:08 12.5 MG Levalbuterol HCl 1.25 mg Q6HR NEB 08/12/24 12:00 08/16/24 18:32 1.25 MG Empaglifozin 10 mg DAILY PO 08/13/24 10:00 08/16/24 09:09 10 MG Levothyroxine Sodium 50 mcg QAM@0600 PO 08/13/24 06:00 08/16/24 06:30 50 MCG Metoprolol Succinate 25 mg DAILY PO 08/13/24 10:00 08/16/24 09:08 25 MG Apixaban 2.5 mg BID PO 08/13/24 10:00 08/16/24 09:07 2.5 MG Ipratropium [place] 0.5 mg Q6HWA NEB 08/13/24 12:00 08/16/24 18:32 0.5 MG Acetaminophen 650 mg Q6HP PRN PO 08/14/24 11:15 08/14/24 12:15 650 MG Furosemide 40 mg BIDD IV 08/15/24 18:00 08/16/24 06:30 40 MG Prednisone 40 mg DAILY PO 08/16/24 10:00 08/16/24 09:07 40 MG Pantoprazole Sodium 40 mg DAILY@0600 PO 08/16/24 06:00 08/16/24 06:30 40 MG Ceftriaxone Sodium 50 ml @ 100 mls/hr DAILY@09 IV 08/16/24 09:00 08/16/24 09:06 100 MLS/HR Throat Lozenges 1 sofi Q2HP PRN MT 08/15/24 11:15 08/16/24 13:49 1 SOFI Doxycycline Monohydrate 100 mg Q12HR PO 08/15/24 22:00 UNV Doxycycline Monohydrate 100 mg Q12HR PO 08/15/24 22:00 08/16/24 09:08 100 MG Laboratory Results Laboratory Tests 08/16/24 04:42 Chemistry Test 08/16/24 04:42 Calcium Level 9.3 mg/dL (8.7-10.4) Urinalysis Test 08/13/24 04:24 Urine Color Colorless (Yellow) Urine Clarity Clear (Clear) Urine pH 7.0 (5.0-9.0) Urine Specific [place] 1.009 (1.001-1.035) Urine Protein Negative (Negative) Urine Ketones Negative (Negative) Urine Blood Negative /uL (Negative) Urine Nitrite Negative (Negative) Urine Bilirubin Negative (Negative) Urine Urobilinogen Normal mg/dL (Negative) Urine Leukocyte Esterase Negative /uL (Negative) Urine RBC <1 /hpf (0 - 4) Urine Microscopic WBC 1 /HPF (0-5) Urine Squamous Epithelial Cells Few /hpf (<5) Urine Bacteria None seen /hpf (None Seen) Urine Glucose 4+ mg/dL (Normal) H Microbiology Microbiology Date/Time Source Procedure Growth Status 08/11/24 01:23 Nose MRSA Screen - Final Complete Assessment/Plan Assessment/Plan #1 acute on chronic systolic heart failure: cont meds, dc metolazone #2 chronic resp failure #3 copd with exacerbation: prednisone, bronchodilators #4 acute on chronic renal failure ?vasomotor nephropathy #5 hypothyroidism #6 dm; ssi #7 s/p back surgery #8 h/o v tach: on amiodarone #8 ? pneumonia - gram positive/neg: iv antibiotics Plan discussed with: Patient Date of Service: Aug 16, 2024 Billing Provider: RAMONA PEREIRA MD Common Visit Codes: [id number] INP/OBS CARE(HIGH) RAMONA PEREIRA MD Aug 16, 2024 20:18
[2024-08-17] VITALS (15 sets, daily range): BP systolic 93–141; BP diastolic 51–72; PULSE 68–106; RESP 12–20; TEMP 97.3–99; O2SAT 59–98
--- NOTE | 2024-08-17 06:28 | DVHPN2 ---
Progress Note - Dictate Date Seen: Aug 17, 2024 Medical Necessity Reason Pt with a Central, PICC or Fol: No Subjective Seen and examined at the bedside within telemetry. Chart reviewed. vital signs Vital Sign Date Time Temp Pulse Resp B/P (MAP) Pulse Ox O2 Delivery O2 Flow Rate FiO2 08/17/24 06:12 93 Nasal Cannula* 2 28 08/17/24 06:12 85 12 08/17/24 05:43 119/71 08/17/24 05:00 98.0 98.0 Total Intake and Output 08/16/24 08/16/24 08/17/24 15:00 23:00 07:00 Intake Total 50 ml 1050 ml 800 ml Output Total 1000 ml Balance 50 ml 1050 ml -200 ml medications Current Medications Medications Dose Ordered Sig/[place]roy Route Start Time Stop Time Status Last Admin Dose Admin Amitriptyline HCl 25 mg HS PO 08/10/24 22:00 08/16/24 21:12 25 MG Sacubitril/ Valsartan 1 tab BID PO 08/10/24 22:00 08/16/24 09:07 1 TAB Pregabalin 50 mg TID PO 08/10/24 22:00 08/17/24 05:43 50 MG Albuterol 2.5 mg Q4HPRN PRN NEB 08/10/24 17:30 08/11/24 11:00 2.5 MG Diagnostic Test (Pha) 1 strip ACHS 08/10/24 22:00 08/17/24 05:57 1 STRIP Insulin Human Regular ACHS SC 08/10/24 22:00 08/17/24 05:58 2 UNITS Dextrose 50 ml UD PRN IV 08/10/24 17:30 Nitroglycerin 0.4 mg Q5MINP PRN SL 08/10/24 18:45 Amiodarone HCl 200 mg DAILY PO 08/11/24 10:00 08/16/24 09:07 200 MG Spironolactone 12.5 mg DAILY PO 08/12/24 10:00 08/16/24 09:08 12.5 MG Levalbuterol HCl 1.25 mg Q6HR NEB 08/12/24 12:00 08/17/24 06:12 1.25 MG Empaglifozin 10 mg DAILY PO 08/13/24 10:00 08/16/24 09:09 10 MG Levothyroxine Sodium 50 mcg QAM@0600 PO 08/13/24 06:00 08/17/24 05:43 50 MCG Metoprolol Succinate 25 mg DAILY PO 08/13/24 10:00 08/16/24 09:08 25 MG Apixaban 2.5 mg BID PO 08/13/24 10:00 08/16/24 21:13 2.5 MG Ipratropium [place] 0.5 mg Q6HWA NEB 08/13/24 12:00 08/17/24 06:12 0.5 MG Acetaminophen 650 mg Q6HP PRN PO 08/14/24 11:15 08/14/24 12:15 650 MG Furosemide 40 mg BIDD IV 08/15/24 18:00 08/17/24 05:43 40 MG Prednisone 40 mg DAILY PO 08/16/24 10:00 08/16/24 09:07 40 MG Pantoprazole Sodium 40 mg DAILY@0600 PO 08/16/24 06:00 08/17/24 05:43 40 MG Ceftriaxone Sodium 50 ml @ 100 mls/hr DAILY@09 IV 08/16/24 09:00 08/16/24 09:06 100 MLS/HR Throat Lozenges 1 sofi Q2HP PRN MT 08/15/24 11:15 08/16/24 13:49 1 SOFI Doxycycline Monohydrate 100 mg Q12HR PO 08/15/24 22:00 UNV Doxycycline Monohydrate 100 mg Q12HR PO 08/15/24 22:00 08/16/24 21:13 100 MG laboratory and microbiology Laboratory Tests 08/16/24 04:42 Test 08/16/24 04:42 Range/Units Serum Glucose 176 H 74-106 mg/dL Assessment/Plan Assessment/Plan Patient is a 74-year-old female who presented to the hospital for shortness of breath. She also had been having cough. Problem started around a month ago and worsened recently. Cardiology was involved for cardiac aspects of care. Patient is known to our practice from outside and before. She received recent treatment for pneumonia. Denies chest pains. Does complain of dyspnea on exertion. Does complain of leg swellings. In October 2021, the patient was diagnosed to have nonischemic cardiomyopathy, was put on LifeVest, later was found to have improved LV systolic function the LifeVest was taken away. Recently, ejection fraction decreased again. She denies recent chest pain. She is on amiodarone (for history of PVCs). Sitting comfortably in bed, not using accessory muscles of breathing. Mucosa is pink and wet, there is no JVD, no goiter. Chest: Scattered rhonchi/rales. Cardiac: Regular regular, no thrill. Systolic murmur 3/6 in the apex is heard.. Abdomen: Soft, no palpable mass, positive hepatomegaly. Bowel sound is positive. Extremities: 3+ edema. Dorsalis pedis is 2+ bilateral Past medical history includes hypertension, hyperlipidemia, diabetes mellitus, asthma/COPD, history of back surgery, arrhythmia (sustained V. tach in October 2021, for which was shocked), history of old nonischemic cardiomyopathy, pulmonary hypertension (considered type 2), hypothyroidism, hiatal hernia, lupus, SVT, history of colon polyp and its resection, history of thyroid nodule, history of low vitamin-D, possible obstructive sleep apnea, CKD (goes to Nephrology regularly), A-fib/flutter, LBBB and also history of laminectomy. Left heart catheterization of November 17, 2021 revealed nonobstructive coronary artery disease, negative FFR of distal LCx, nonischemic cardiomyopathy Echocardiogram of November 15, 2021 revealed ejection fraction of 40%, enlarged LV/LA and aortic root. Echocardiogram of January 31, 2022 (performed in the office) revealed ejection fraction of 40 to 45%, sigmoid shaped septum, impaired relaxation of left ventricular diastolic function, trace MR/TR and right ventricular systolic pressure of less than 35 mmHg. Echocardiogram of March 2022 reported ejection fraction of 45-50%, anteroseptal/apical hypokinesia, trace MR/TR and right ventricular systolic pressure of 22 mm Hg Echocardiogram of April 2025 (performed in the office) revealed ejection fraction of less than 20%, increased EDP, tethered mitral valve leaflet secondary to left ventricular enlargement, moderate MR, mild TR and right ventricular systolic pressure of 60 mm Hg. Hemoglobin: 10.7 - 11.4 - 11.6 - 13.6 Creatinine: 1.60 - 1.37 - 1.60 - 1.55 - 1.51 - 1.79 - 2.55 Potassium: 4.0 - 3.4 - 3.5 - 3.5 - 4.2 - 4.1 - 4.2 BNP: 3325.33 Troponin (high sensitive): 20 - 23 - 23 - 12 - 12 - 14 TSH: 1.12 Chest x-ray reported: IMPRESSION: Cardiomegaly with moderate congestion. Repeat chest xry reported: IMPRESSION: Small right pleural effusion Cardiomegaly with CHF. Repeat chest xry revealed: IMPRESSION: Mild pulmonary congestion. EKG revealed sinus rhythm with left bundle branch block Tele reveals sinus rhythm, occasions of fib/flutter Echocardiogram revealed: Four-chamber dilatation was observed. Left ventricle: Left ventricle was dilated. Severely reduced systolic function of left ventricle was observed. LVEF was around 25%. Diffuse hypokinesis with regional variation of left ventricle seen. Right ventricle was dilated with preserved systolic function. Both atria were mildly dilated. Aortic valve: Aortic valve is trileaflet. Trace aortic insufficiency was seen. There was no aortic stenosis. There was mild mitral/tricuspid regurgitation. There was trace pulmonary valve insufficiency. Small pericardial effusion was seen. Right ventricular systolic pressure was assessed at 35 mm Hg. Patient is a 74-year-old female who presented with shortness of breath/cough. She was recently treated for pneumonia. She does have recent diagnosis of worsened systolic function and heart failure. He is found to have increased BNP. Chest x-ray reveals congestion. Presentation is in favor of acute on chronic systolic heart failure. Does have old history of nonischemic cardiomyopathy, but systolic function has worsened recently. At this point, acute on chronic systolic heart failure is considered the reason for presentation. May benefit from repeat ischemic workup (inpatient Vs outpatient). Acute on chronic heart failure COPD exacerbation Fluid overload Bronchitis, acute Pneumonia, community acquired ALFONZO on CKD History of nonsustained VT Left bundle branch block Pulmonary hypertension, type 2 Hypothyroidism Left bundle branch block Atrial fib/flutter Cardiac suggestion for management: Telemetry monitoring IV diuresis. On 60 mg IV Lasix b.i.d. Follow-up electrolytes and kidney function tests and correct abnormalities. Keep potassium above 4 and magnesium above 2 Continuation of amiodarone for history of non-sustained ventricular tachycardia is suggested (dose: 200 mg once daily) Patient with A-fib/flutter and high CHADS/Vasc score On Eliquis 2.5 mg BID. Request for Kestra external wearable cardioverter defibrillator vest for primary prevention against sudden cardiac Consider Nephrology evaluation May benefit from ischemic workup/cardiac catheterization (outpatient) Further evaluation and management depends on the above and clinical course A total of 55 minutes was spent reviewing the patient record, examining the patient, making a diagnostic and therapeutic plan, discussing this plan with medical personnel, following up on diagnostic studies and following the patient for clinical stability excluding any and all procedures. At least 50% of this time was spent in direct, [id number] contact. Thank you for allowing me to participate in this patient's care. Further recommendations will depend on patient's clinical course. Please do not hesitate to contact me if you have any questions or concerns. This medical document was created using electronic medical record system with [employer] computerized dictation system. Although this document has been carefully reviewed, there may still be some phonetic and typographical errors. These areas are purely typographical due to the imperfection of the software programs, and do not reflect any compromise in the patient's medical care. Dietary Evaluation Review Comments: 1) Add cardiac restriction to 45g CCHO diet order 2) Consider Zofran prn for N/V 3) Continue current plan of care 4) Follow-up with cardiology and nephrology Expected Outcomes/Goals: 1) appetite and labs to improve 2) f/u in 3-5 days Plan discussed with: Other (Patient and Primary RN ) ARMOND JIMENEZ Aug 17, 2024 06:28
--- NOTE | 2024-08-17 18:12 | DVHPN2 ---
Subjective in bed resting Reviewed: Care Plan, H&P, Labs, Medications, Previous Orders, Radiology Changes from previous H/P or p: No Changes General: Per HPI Eyes: No Pain, No Vision change, No Conjunctivae inflammation, No Eyelid inflammation, No Other, No Redness ENT: No Ear pain, No Ear discharge, No Nose pain, No Nose discharge, No Nose congestion, No Mouth pain, No Mouth swelling, No Throat pain, No Throat swelling, No Other Cardiovascular: No Chest Pain, No Palpitations, No Orthopnea, No Paroxysmal Noc. Dyspnea, No Edema, No Lt Headedness, No Other Respiratory: Cough; No Dry; Shortness of breath; No SOB with excertion, No Wheezing, No Hemoptysis, No Pleuritic Pain, No Sputum, No Other Gastrointestinal: No Nausea, No Vomiting, No Abdominal Pain, No Diarrhea, No Constipation, No Melena, No Hematochezia, No Other Genitourinary: No Dysuria, No Frequency, No Incontinence, No Hematuria, No Retention, No Other Musculoskeletal: No other, No neck pain, No shoulder pain, No arm pain, No back pain, No hand pain, No leg pain, No foot pain Skin: No Rash, No Lesions, No Jaundice, No Bruising, No Other Objective Vitals Vital Signs Date Time Temp Pulse Resp B/P (MAP) Pulse Ox O2 Delivery O2 Flow Rate FiO2 08/17/24 17:22 116/65 08/17/24 17:00 97.5 84 20 91 97.5 08/17/24 11:49 Nasal Cannula 2.0 08/17/24 11:49 28 Intake/Output Intake and Output 08/17/24 07:00 Intake Total 1900 ml Output Total 1000 ml Balance 900 ml Intake Oral 1850 ml IV Total 50 ml Output Urine Total 1000 ml # Voids 3 # Bowel Movements 2 General Appearance: Alert, Oriented X3, Cooperative HEENT: Atraumatic Cardiovascular: Regular rate, Normal S1, Normal S2 Abdomen: Normal bowel sounds, Soft Medications Current Medications Medications Dose Ordered Sig/[place] Route Start Time Stop Time Status Last Admin Dose Admin Amitriptyline HCl 25 mg HS PO 08/10/24 22:00 08/16/24 21:12 25 MG Sacubitril/ Valsartan 1 tab BID PO 08/10/24 22:00 08/17/24 11:23 1 TAB Pregabalin 50 mg TID PO 08/10/24 22:00 08/17/24 15:10 50 MG Albuterol 2.5 mg Q4HPRN PRN NEB 08/10/24 17:30 08/11/24 11:00 2.5 MG Diagnostic Test (Pha) 1 strip ACHS 08/10/24 22:00 08/17/24 17:22 1 STRIP Insulin Human Regular ACHS SC 08/10/24 22:00 08/17/24 17:42 6 UNITS Dextrose 50 ml UD PRN IV 08/10/24 17:30 Nitroglycerin 0.4 mg Q5MINP PRN SL 08/10/24 18:45 Amiodarone HCl 200 mg DAILY PO 08/11/24 10:00 08/17/24 11:19 200 MG Spironolactone 12.5 mg DAILY PO 08/12/24 10:00 08/17/24 11:20 12.5 MG Levalbuterol HCl 1.25 mg Q6HR NEB 08/12/24 12:00 08/17/24 11:49 1.25 MG Empaglifozin 10 mg DAILY PO 08/13/24 10:00 08/17/24 11:23 10 MG Levothyroxine Sodium 50 mcg QAM@0600 PO 08/13/24 06:00 08/17/24 05:43 50 MCG Metoprolol Succinate 25 mg DAILY PO 08/13/24 10:00 08/17/24 11:23 25 MG Apixaban 2.5 mg BID PO 08/13/24 10:00 08/17/24 11:21 2.5 MG Ipratropium [place] 0.5 mg Q6HWA NEB 08/13/24 12:00 08/17/24 11:49 0.5 MG Acetaminophen 650 mg Q6HP PRN PO 08/14/24 11:15 08/14/24 12:15 650 MG Furosemide 40 mg BIDD IV 08/15/24 18:00 08/17/24 17:22 40 MG Prednisone 40 mg DAILY PO 08/16/24 10:00 08/17/24 11:20 40 MG Pantoprazole Sodium 40 mg DAILY@0600 PO 08/16/24 06:00 08/17/24 05:43 40 MG Ceftriaxone Sodium 50 ml @ 100 mls/hr DAILY@09 IV 08/16/24 09:00 08/17/24 11:24 100 MLS/HR Throat Lozenges 1 sofi Q2HP PRN MT 08/15/24 11:15 08/16/24 13:49 1 SOFI Doxycycline Monohydrate 100 mg Q12HR PO 08/15/24 22:00 UNV Doxycycline Monohydrate 100 mg Q12HR PO 08/15/24 22:00 08/17/24 11:22 100 MG Laboratory Results Laboratory Tests 08/16/24 04:42 Urinalysis Test 08/13/24 04:24 Urine Color Colorless (Yellow) Urine Clarity Clear (Clear) Urine pH 7.0 (5.0-9.0) Urine Specific [place] 1.009 (1.001-1.035) Urine Protein Negative (Negative) Urine Ketones Negative (Negative) Urine Blood Negative /uL (Negative) Urine Nitrite Negative (Negative) Urine Bilirubin Negative (Negative) Urine Urobilinogen Normal mg/dL (Negative) Urine Leukocyte Esterase Negative /uL (Negative) Urine RBC <1 /hpf (0 - 4) Urine Microscopic WBC 1 /HPF (0-5) Urine Squamous Epithelial Cells Few /hpf (<5) Urine Bacteria None seen /hpf (None Seen) Urine Glucose 4+ mg/dL (Normal) H Microbiology Microbiology Date/Time Source Procedure Growth Status 08/11/24 01:23 Nose MRSA Screen - Final Complete Assessment/Plan Assessment/Plan #1 acute on chronic systolic heart failure: cont meds, dc metolazone #2 chronic resp failure #3 copd with exacerbation: prednisone, bronchodilators #4 acute on chronic renal failure ?vasomotor nephropathy #5 hypothyroidism #6 dm; ssi #7 s/p back surgery #8 h/o v tach: on amiodarone #8 ? pneumonia - gram positive/neg: iv antibiotics Plan discussed with: Patient Date of Service: Aug 17, 2024 Billing Provider: RAMONA PEREIRA MD Common Visit Codes: [id number] INP/OBS CARE(HIGH) RAMONA PEREIRA MD Aug 17, 2024 18:12
[2024-08-18] VITALS (18 sets, daily range): BP systolic 91–135; BP diastolic 54–69; PULSE 73–95; RESP 16–20; TEMP 97.4–98.5; O2SAT 93–100
--- NOTE | 2024-08-18 05:00 | DVHPN2 ---
Progress Note - Dictate Date Seen: Aug 18, 2024 Medical Necessity Reason Pt with a Central, PICC or Fol: No Subjective Seen and examined at the bedside within telemetry. Chart reviewed. vital signs Vital Sign Date Time Temp Pulse Resp B/P (MAP) Pulse Ox O2 Delivery O2 Flow Rate FiO2 08/18/24 01:00 98.5 74 19 94/61 (72) 94 98.5 08/18/24 00:27 Nasal Cannula* 2 28 Total Intake and Output 08/17/24 08/17/24 08/18/24 15:00 23:00 07:00 Intake Total 50 ml 1140 ml Output Total 1000 ml Balance 50 ml 140 ml medications Current Medications Medications Dose Ordered Sig/[place] Route Start Time Stop Time Status Last Admin Dose Admin Amitriptyline HCl 25 mg HS PO 08/10/24 22:00 08/17/24 21:15 25 MG Sacubitril/ Valsartan 1 tab BID PO 08/10/24 22:00 08/17/24 11:23 1 TAB Pregabalin 50 mg TID PO 08/10/24 22:00 08/17/24 21:15 50 MG Albuterol 2.5 mg Q4HPRN PRN NEB 08/10/24 17:30 08/11/24 11:00 2.5 MG Diagnostic Test (Pha) 1 strip ACHS 08/10/24 22:00 08/17/24 21:24 1 STRIP Insulin Human Regular ACHS SC 08/10/24 22:00 08/17/24 21:24 10 UNITS Dextrose 50 ml UD PRN IV 08/10/24 17:30 Nitroglycerin 0.4 mg Q5MINP PRN SL 08/10/24 18:45 Amiodarone HCl 200 mg DAILY PO 08/11/24 10:00 08/17/24 11:19 200 MG Spironolactone 12.5 mg DAILY PO 08/12/24 10:00 08/17/24 11:20 12.5 MG Levalbuterol HCl 1.25 mg Q6HR NEB 08/12/24 12:00 08/18/24 00:27 1.25 MG Empaglifozin 10 mg DAILY PO 08/13/24 10:00 08/17/24 11:23 10 MG Levothyroxine Sodium 50 mcg QAM@0600 PO 08/13/24 06:00 08/17/24 05:43 50 MCG Metoprolol Succinate 25 mg DAILY PO 08/13/24 10:00 08/17/24 11:23 25 MG Apixaban 2.5 mg BID PO 08/13/24 10:00 08/17/24 21:14 2.5 MG Ipratropium [place] 0.5 mg Q6HWA NEB 08/13/24 12:00 08/17/24 18:51 0.5 MG Acetaminophen 650 mg Q6HP PRN PO 08/14/24 11:15 08/14/24 12:15 650 MG Furosemide 40 mg BIDD IV 08/15/24 18:00 08/17/24 17:22 40 MG Prednisone 40 mg DAILY PO 08/16/24 10:00 08/17/24 11:20 40 MG Pantoprazole Sodium 40 mg DAILY@0600 PO 08/16/24 06:00 08/17/24 05:43 40 MG Ceftriaxone Sodium 50 ml @ 100 mls/hr DAILY@09 IV 08/16/24 09:00 08/17/24 11:24 100 MLS/HR Throat Lozenges 1 sofi Q2HP PRN MT 08/15/24 11:15 08/16/24 13:49 1 SOFI Doxycycline Monohydrate 100 mg Q12HR PO 08/15/24 22:00 UNV Doxycycline Monohydrate 100 mg Q12HR PO 08/15/24 22:00 08/17/24 21:15 100 MG laboratory and microbiology Laboratory Tests 08/16/24 04:42 Test 08/16/24 04:42 Range/Units Serum Glucose 176 H 74-106 mg/dL Assessment/Plan Assessment/Plan Patient is a 74-year-old female who presented to the hospital for shortness of breath. She also had been having cough. Problem started around a month ago and worsened recently. Cardiology was involved for cardiac aspects of care. Patient is known to our practice from outside and before. She received recent treatment for pneumonia. Denies chest pains. Does complain of dyspnea on exertion. Does complain of leg swellings. In October 2021, the patient was diagnosed to have nonischemic cardiomyopathy, was put on LifeVest, later was found to have improved LV systolic function the LifeVest was taken away. Recently, ejection fraction decreased again. She denies recent chest pain. She is on amiodarone (for history of PVCs). Sitting comfortably in bed, not using accessory muscles of breathing. Mucosa is pink and wet, there is no JVD, no goiter. Chest: Scattered rhonchi/rales. Cardiac: Regular regular, no thrill. Systolic murmur 3/6 in the apex is heard.. Abdomen: Soft, no palpable mass, positive hepatomegaly. Bowel sound is positive. Extremities: 3+ edema. Dorsalis pedis is 2+ bilateral Past medical history includes hypertension, hyperlipidemia, diabetes mellitus, asthma/COPD, history of back surgery, arrhythmia (sustained V. tach in October 2021, for which was shocked), history of old nonischemic cardiomyopathy, pulmonary hypertension (considered type 2), hypothyroidism, hiatal hernia, lupus, SVT, history of colon polyp and its resection, history of thyroid nodule, history of low vitamin-D, possible obstructive sleep apnea, CKD (goes to Nephrology regularly), A-fib/flutter, LBBB and also history of laminectomy. Left heart catheterization of November 17, 2021 revealed nonobstructive coronary artery disease, negative FFR of distal LCx, nonischemic cardiomyopathy Echocardiogram of November 15, 2021 revealed ejection fraction of 40%, enlarged LV/LA and aortic root. Echocardiogram of January 31, 2022 (performed in the office) revealed ejection fraction of 40 to 45%, sigmoid shaped septum, impaired relaxation of left ventricular diastolic function, trace MR/TR and right ventricular systolic pressure of less than 35 mmHg. Echocardiogram of March 2022 reported ejection fraction of 45-50%, anteroseptal/apical hypokinesia, trace MR/TR and right ventricular systolic pressure of 22 mm Hg Echocardiogram of April 2025 (performed in the office) revealed ejection fraction of less than 20%, increased EDP, tethered mitral valve leaflet secondary to left ventricular enlargement, moderate MR, mild TR and right ventricular systolic pressure of 60 mm Hg. Hemoglobin: 10.7 - 11.4 - 11.6 - 13.6 Creatinine: 1.60 - 1.37 - 1.60 - 1.55 - 1.51 - 1.79 - 2.55 Potassium: 4.0 - 3.4 - 3.5 - 3.5 - 4.2 - 4.1 - 4.2 BNP: 3325.33 Troponin (high sensitive): 20 - - 23 - 12 - 12 - 14 TSH: 1.12 Chest x-ray reported: IMPRESSION: Cardiomegaly with moderate congestion. Repeat chest xry reported: IMPRESSION: Small right pleural effusion Cardiomegaly with CHF. Repeat chest xry revealed: IMPRESSION: Mild pulmonary congestion. EKG revealed sinus rhythm with left bundle branch block Tele reveals sinus rhythm, occasions of fib/flutter Echocardiogram revealed: Four-chamber dilatation was observed. Left ventricle: Left ventricle was dilated. Severely reduced systolic function of left ventricle was observed. LVEF was around 25%. Diffuse hypokinesis with regional variation of left ventricle seen. Right ventricle was dilated with preserved systolic function. Both atria were mildly dilated. Aortic valve: Aortic valve is trileaflet. Trace aortic insufficiency was seen. There was no aortic stenosis. There was mild mitral/tricuspid regurgitation. There was trace pulmonary valve insufficiency. Small pericardial effusion was seen. Right ventricular systolic pressure was assessed at 35 mm Hg. Patient is a 74-year-old female who presented with shortness of breath/cough. She was recently treated for pneumonia. She does have recent diagnosis of worsened systolic function and heart failure. He is found to have increased BNP. Chest x-ray reveals congestion. Presentation is in favor of acute on chronic systolic heart failure. Does have old history of nonischemic cardiomyopathy, but systolic function has worsened recently. At this point, acute on chronic systolic heart failure is considered the reason for presentation. May benefit from repeat ischemic workup (inpatient Vs outpatient). Acute on chronic heart failure COPD exacerbation Fluid overload Bronchitis, acute Pneumonia, community acquired ALFONZO on CKD History of nonsustained VT Left bundle branch block Pulmonary hypertension, type 2 Hypothyroidism Left bundle branch block Atrial fib/flutter Cardiac suggestion for management: Telemetry monitoring IV diuresis. On 60 mg IV Lasix b.i.d. Follow-up electrolytes and kidney function tests and correct abnormalities. Keep potassium above 4 and magnesium above 2 Continuation of amiodarone for history of non-sustained ventricular tachycardia is suggested (dose: 200 mg once daily) Patient with A-fib/flutter and high CHADS/Vasc score On Eliquis 2.5 mg BID. Awaiting requested [employer] external wearable cardioverter defibrillator vest for primary prevention against sudden cardiac Consider Nephrology evaluation May benefit from ischemic workup/cardiac catheterization (outpatient) Further evaluation and management depends on the above and clinical course A total of 55 minutes was spent reviewing the patient record, examining the patient, making a diagnostic and therapeutic plan, discussing this plan with medical personnel, following up on diagnostic studies and following the patient for clinical stability excluding any and all procedures. At least 50% of this time was spent in direct, [id number] contact. Thank you for allowing me to participate in this patient's care. Further recommendations will depend on patient's clinical course. Please do not hesitate to contact me if you have any questions or concerns. This medical document was created using electronic medical record system with [employer] computerized dictation system. Although this document has been carefully reviewed, there may still be some phonetic and typographical errors. These areas are purely typographical due to the imperfection of the software programs, and do not reflect any compromise in the patient's medical care. Dietary Evaluation Review Comments: 1) Add cardiac restriction to 45g CCHO diet order 2) Consider Zofran prn for N/V 3) Continue current plan of care 4) Follow-up with cardiology and nephrology Expected Outcomes/Goals: 1) appetite and labs to improve 2) f/u in 3-5 days Plan discussed with: Patient (Patient and Primary RN ) ARMOND JIMENEZ Aug 18, 2024 05:00
[2024-08-18] MEDS: ALBUMIN 25% 100 ML IV ONE (09:26)
--- NOTE | 2024-08-18 09:34 | DVH ---
CHEST RADIOGRAPH Indication: Hypotension Technique: Single frontal view of the chest was obtained COMPARISON: XY CHEST PORTABLE on DOS: 08/16/24, XY CHEST PORTABLE on DOS: 08/12/24, XY CHEST PORTABLE o n DOS: 08/10/24, EKG on DOS: 04/26/22, EKG on DOS: 04/22/22 FINDINGS: Lines and Tubes: None Lungs: Clear Pleura: No effusion. No pneumothorax. Cardiomediastinal contours: Unremarkable Bones: Unremarkable IMPRESSION: No acute disease.
--- NOTE | 2024-08-18 14:38 | DVHPN2 ---
Subjective in bed resting Reviewed: Care Plan, H&P, Labs, Medications, Previous Orders, Radiology Changes from previous H/P or p: No Changes General: Per HPI Eyes: No Pain, No Vision change, No Conjunctivae inflammation, No Eyelid inflammation, No Other, No Redness ENT: No Ear pain, No Ear discharge, No Nose pain, No Nose discharge, No Nose congestion, No Mouth pain, No Mouth swelling, No Throat pain, No Throat swelling, No Other Cardiovascular: No Chest Pain, No Palpitations, No Orthopnea, No Paroxysmal Noc. Dyspnea, No Edema, No Lt Headedness, No Other Respiratory: Cough; No Dry; Shortness of breath; No SOB with excertion, No Wheezing, No Hemoptysis, No Pleuritic Pain, No Sputum, No Other Gastrointestinal: No Nausea, No Vomiting, No Abdominal Pain, No Diarrhea, No Constipation, No Melena, No Hematochezia, No Other Genitourinary: No Dysuria, No Frequency, No Incontinence, No Hematuria, No Retention, No Other Musculoskeletal: No other, No neck pain, No shoulder pain, No arm pain, No back pain, No hand pain, No leg pain, No foot pain Skin: No Rash, No Lesions, No Jaundice, No Bruising, No Other Objective Vitals Vital Signs Date Time Temp Pulse Resp B/P (MAP) Pulse Ox O2 Delivery O2 Flow Rate FiO2 08/18/24 13:00 97.5 87 16 93/56 (68) 95 97.5 08/18/24 10:59 Nasal Cannula* 2 28 Intake/Output Intake and Output 08/18/24 07:00 Intake Total 1790 ml Output Total 1000 ml Balance 790 ml Intake Oral 1740 ml IV Total 50 ml Output Urine Total 1000 ml # Voids 2 # Bowel Movements 2 General Appearance: Alert, Oriented X3, Cooperative HEENT: Atraumatic Cardiovascular: Regular rate, Normal S1, Normal S2 Abdomen: Normal bowel sounds, Soft Medications Current Medications Medications Dose Ordered Sig/[place] Route Start Time Stop Time Status Last Admin Dose Admin Amitriptyline HCl 25 mg HS PO 08/10/24 22:00 08/17/24 21:15 25 MG Sacubitril/ Valsartan 1 tab BID PO 08/10/24 22:00 08/18/24 08:59 1 TAB Pregabalin 50 mg TID PO 08/10/24 22:00 08/18/24 06:19 50 MG Albuterol 2.5 mg Q4HPRN PRN NEB 08/10/24 17:30 08/11/24 11:00 2.5 MG Diagnostic Test (Pha) 1 strip ACHS 08/10/24 22:00 08/18/24 11:30 1 STRIP Insulin Human Regular ACHS SC 08/10/24 22:00 08/18/24 11:42 10 UNITS Dextrose 50 ml UD PRN IV 08/10/24 17:30 Nitroglycerin 0.4 mg Q5MINP PRN SL 08/10/24 18:45 Amiodarone HCl 200 mg DAILY PO 08/11/24 10:00 08/18/24 08:59 200 MG Spironolactone 12.5 mg DAILY PO 08/12/24 10:00 08/17/24 11:20 12.5 MG Levalbuterol HCl 1.25 mg Q6HR NEB 08/12/24 12:00 08/18/24 10:59 1.25 MG Empaglifozin 10 mg DAILY PO 08/13/24 10:00 08/18/24 08:58 10 MG Levothyroxine Sodium 50 mcg QAM@0600 PO 08/13/24 06:00 08/18/24 06:19 50 MCG Metoprolol Succinate 25 mg DAILY PO 08/13/24 10:00 08/17/24 11:23 25 MG Apixaban 2.5 mg BID PO 08/13/24 10:00 08/18/24 09:00 2.5 MG Ipratropium [place] 0.5 mg Q6HWA NEB 08/13/24 12:00 08/18/24 10:59 0.5 MG Acetaminophen 650 mg Q6HP PRN PO 08/14/24 11:15 08/14/24 12:15 650 MG Furosemide 40 mg BIDD IV 08/15/24 18:00 08/18/24 06:19 40 MG Prednisone 40 mg DAILY PO 08/16/24 10:00 08/18/24 08:58 40 MG Pantoprazole Sodium 40 mg DAILY@0600 PO 08/16/24 06:00 08/18/24 06:19 40 MG Ceftriaxone Sodium 50 ml @ 100 mls/hr DAILY@09 IV 08/16/24 09:00 08/18/24 08:54 100 MLS/HR Throat Lozenges 1 sofi Q2HP PRN MT 08/15/24 11:15 08/18/24 14:12 1 SOFI Doxycycline Monohydrate 100 mg Q12HR PO 08/15/24 22:00 UNV Doxycycline Monohydrate 100 mg Q12HR PO 08/15/24 22:00 08/18/24 08:58 100 MG Laboratory Results Laboratory Tests 08/16/24 04:42 Coagulation Test 08/18/24 13:05 D-Dimer, Quantitative 1.57 mg/L FEU (0.0-0.49) H Urinalysis Test 08/13/24 04:24 Urine Color Colorless (Yellow) Urine Clarity Clear (Clear) Urine pH 7.0 (5.0-9.0) Urine Specific [place] 1.009 (1.001-1.035) Urine Protein Negative (Negative) Urine Ketones Negative (Negative) Urine Blood Negative /uL (Negative) Urine Nitrite Negative (Negative) Urine Bilirubin Negative (Negative) Urine Urobilinogen Normal mg/dL (Negative) Urine Leukocyte Esterase Negative /uL (Negative) Urine RBC <1 /hpf (0 - 4) Urine Microscopic WBC 1 /HPF (0-5) Urine Squamous Epithelial Cells Few /hpf (<5) Urine Bacteria None seen /hpf (None Seen) Urine Glucose 4+ mg/dL (Normal) H Microbiology Microbiology Date/Time Source Procedure Growth Status 08/11/24 01:23 Nose MRSA Screen - Final Complete Assessment/Plan Assessment/Plan #1 acute on chronic systolic heart failure: cont meds, dc metolazone #2 chronic resp failure #3 copd with exacerbation: prednisone, bronchodilators #4 acute on chronic renal failure ?vasomotor nephropathy #5 hypothyroidism #6 dm; ssi #7 s/p back surgery #8 h/o v tach: on amiodarone #8 ? pneumonia - gram positive/neg: iv antibiotics Plan discussed with: Patient Date of Service: Aug 18, 2024 Billing Provider: RAMONA PEREIRA MD Common Visit Codes: [id number] INP/OBS CARE(HIGH) RAMONA PEREIRA MD Aug 18, 2024 14:38
[2024-08-18] MEDS: MIDODRINE HCL 10 MG TAB PO SCH (15:41)
[2024-08-18 15:51] LABS: Potassium 4.3 mmol/L (3.5-5.1)
[2024-08-18 15:52] LABS: Anion Gap 17 (5-15); Calcium 9.5 mg/dL (8.7-10.4); Carbon Dioxide 25 mmol/L (20-31)
[2024-08-18 15:57] LABS: BUN/Creatinine Ratio 41.6 (10.0-20.0)
--- NOTE | 2024-08-18 16:03 | DVH ---
Bilateral lower extremity venous duplex Clinical History: Hypotension Comparison: LIV on DOS: 04/19/22 Technique: Duplex Doppler evaluation of the deep venous systems of both lower extremities from the common femora l veins to the popliteal veins including color Doppler and spectral/pulsed waveform analysis was perf ormed. Findings: RIGHT SIDE: The common femoral vein demonstrates appropriate compressibility and waveform variability. There is compressibility/patency of the great saphenous vein at the proximal thigh. The femoral vein demonstrates appropriate compressibility and waveform variability. The deep femoral vein demonstrates appropriate compressibility and waveform variability. The popliteal vein demonstrates appropriate compressibility and waveform variability. There is normal compressibility at the tibioperoneal trunk. LEFT SIDE: The common femoral vein demonstrates appropriate compressibility and waveform variability. There is compressibility/patency of the great saphenous vein at the proximal thigh. The femoral vein demonstrates appropriate compressibility and waveform variability. The deep femoral vein demonstrates appropriate compressibility and waveform variability. The popliteal vein demonstrates appropriate compressibility and waveform variability. There is normal compressibility at the tibioperoneal trunk. Impression: 1. No right or left femoropopliteal venous thrombosis.
[2024-08-18 16:19] LABS: Basophils # (auto) 0 10 ^3/uL (0-0.2); Basophils % (auto) 0.1 % (0.0-2.0); Eosinophils # (auto) 0 10 ^3/uL (0-0.8); Hematocrit 40.8 % (36.0-46.0); Hemoglobin 13.2 g/dL (12.2-16.2); Lymphocytes # (auto) 0.4 10 ^3/uL (0.4-5.4); Lymphocytes % (auto) 7.5 % (10.0-50.0); Mean Corpuscular Hemoglobin 28.8 pg (28.0-32.0); Mean Corpuscular Hgb Conc. 32.3 g/dL (32.0-36.0); Mean Corpuscular Volume 89.3 fL (80.0-100.0); Monocytes # (auto) 0.5 10 ^3/uL (0-1.3); Monocytes % (auto) 8.9 % (0.0-12.0); Neutrophils # (auto) 4.7 10 ^3/uL (1.6-8.6); Neutrophils % (auto) 83.5 % (37.0-80.0); Nucleated Red Blood Cells % 0.1 %; Platelet Count (auto) 271 10^3/uL (140-450); Red Blood Cells 4.57 10^6/uL (4.0-5.20); Red Cell Distribution Width 14.4 % (11.8-14.3); White Blood Cell 5.6 10^3/uL (4.4-10.8)
[2024-08-18 16:30] LABS: Chloride 84 mmol/L (98-107); Glucose 298 mg/dL (74-106); Sodium 126 mmol/L (136-145)
[2024-08-18 16:32] LABS: Blood Urea Nitrogen 117 mg/dL (9-23)
[2024-08-19] VITALS (18 sets, daily range): BP systolic 84–101; BP diastolic 52–62; PULSE 50–119; RESP 16–20; TEMP 97.6–98.1; O2SAT 95–100
[2024-08-19 07:58] LABS: Basophils # (auto) 0 10 ^3/uL (0-0.2); Basophils % (auto) 0.2 % (0.0-2.0); Eosinophils # (auto) 0 10 ^3/uL (0-0.8); Hematocrit 38.8 % (36.0-46.0); Hemoglobin 12.9 g/dL (12.2-16.2); Lymphocytes # (auto) 0.5 10 ^3/uL (0.4-5.4); Lymphocytes % (auto) 10.1 % (10.0-50.0); Mean Corpuscular Hemoglobin 29.6 pg (28.0-32.0); Mean Corpuscular Hgb Conc. 33.2 g/dL (32.0-36.0); Monocytes # (auto) 0.4 10 ^3/uL (0-1.3); Monocytes % (auto) 7.3 % (0.0-12.0); Neutrophils % (auto) 82.4 % (37.0-80.0); Nucleated Red Blood Cells % 0.1 %; Platelet Count (auto) 252 10^3/uL (140-450); Red Blood Cells 4.36 10^6/uL (4.0-5.20); Red Cell Distribution Width 14.4 % (11.8-14.3); White Blood Cell 4.9 10^3/uL (4.4-10.8)
[2024-08-19 08:07] LABS: Anion Gap 11 (5-15); Carbon Dioxide 26 mmol/L (20-31); Potassium 4.5 mmol/L (3.5-5.1)
[2024-08-19 08:08] LABS: Calcium 9.1 mg/dL (8.7-10.4)
[2024-08-19 08:13] LABS: BUN/Creatinine Ratio 40.6 (10.0-20.0)
[2024-08-19 08:28] LABS: Chloride 92 mmol/L (98-107); Glucose 277 mg/dL (74-106); Sodium 129 mmol/L (136-145)
--- NOTE | 2024-08-19 08:28 | DVHPN2 ---
Progress Note - Dictate Date Seen: Aug 19, 2024 Medical Necessity Reason Pt with a Central, PICC or Fol: No vital signs Vital Sign Date Time Temp Pulse Resp B/P (MAP) Pulse Ox O2 Delivery O2 Flow Rate FiO2 08/19/24 06:30 85 16 96 08/19/24 06:24 Nasal Cannula 2.0 08/19/24 06:24 28 08/19/24 06:07 96/66 08/19/24 05:00 98.0 98.0 Total Intake and Output 08/18/24 08/18/24 08/19/24 15:00 23:00 07:00 Intake Total 250 ml 550 ml 525 ml Output Total 2 ml Balance 250 ml 548 ml 525 ml medications Current Medications Medications Dose Ordered Sig/[place] Route Start Time Stop Time Status Last Admin Dose Admin Amitriptyline HCl 25 mg HS PO 08/10/24 22:00 08/18/24 21:14 25 MG Sacubitril/ Valsartan 1 tab BID PO 08/10/24 22:00 08/18/24 21:15 1 TAB Pregabalin 50 mg TID PO 08/10/24 22:00 08/19/24 05:56 50 MG Albuterol 2.5 mg Q4HPRN PRN NEB 08/10/24 17:30 08/11/24 11:00 2.5 MG Diagnostic Test (Pha) 1 strip ACHS 08/10/24 22:00 08/19/24 06:08 1 STRIP Insulin Human Regular ACHS SC 08/10/24 22:00 08/19/24 06:10 4 UNITS Dextrose 50 ml UD PRN IV 08/10/24 17:30 Nitroglycerin 0.4 mg Q5MINP PRN SL 08/10/24 18:45 Amiodarone HCl 200 mg DAILY PO 08/11/24 10:00 08/18/24 08:59 200 MG Spironolactone 12.5 mg DAILY PO 08/12/24 10:00 08/17/24 11:20 12.5 MG Levalbuterol HCl 1.25 mg Q6HR NEB 08/12/24 12:00 08/19/24 06:24 1.25 MG Empaglifozin 10 mg DAILY PO 08/13/24 10:00 08/18/24 08:58 10 MG Levothyroxine Sodium 50 mcg QAM@0600 PO 08/13/24 06:00 08/19/24 05:56 50 MCG Metoprolol Succinate 25 mg DAILY PO 08/13/24 10:00 08/17/24 11:23 25 MG Apixaban 2.5 mg BID PO 08/13/24 10:00 08/18/24 21:15 2.5 MG Ipratropium [place] 0.5 mg Q6HWA NEB 08/13/24 12:00 08/19/24 06:23 0.5 MG Acetaminophen 650 mg Q6HP PRN PO 08/14/24 11:15 08/14/24 12:15 650 MG Furosemide 40 mg BIDD IV 08/15/24 18:00 08/19/24 06:07 40 MG Prednisone 40 mg DAILY PO 08/16/24 10:00 08/18/24 08:58 40 MG Pantoprazole Sodium 40 mg DAILY@0600 PO 08/16/24 06:00 08/19/24 05:56 40 MG Ceftriaxone Sodium 50 ml @ 100 mls/hr DAILY@09 IV 08/16/24 09:00 08/18/24 08:54 100 MLS/HR Throat Lozenges 1 sofi Q2HP PRN MT 08/15/24 11:15 08/18/24 14:12 1 SOFI Doxycycline Monohydrate 100 mg Q12HR PO 08/15/24 22:00 UNV Doxycycline Monohydrate 100 mg Q12HR PO 08/15/24 22:00 08/18/24 21:14 100 MG Midodrine 5 mg BID PO 08/18/24 15:00 08/18/24 21:15 5 MG laboratory and microbiology Laboratory Tests 08/19/24 07:35 Test 08/19/24 07:35 Range/Units Serum Glucose Pending Assessment/Plan Patient is a 74-year-old female who presented to the hospital for shortness of breath. She also had been having cough. Problem started around a month ago and worsened recently. Cardiology was involved for cardiac aspects of care. Patient is known to our practice from outside and before. She received recent treatment for pneumonia. Denies chest pains. Does complain of dyspnea on exertion. Does complain of leg swellings. In October 2021, the patient was diagnosed to have nonischemic cardiomyopathy, was put on LifeVest, later was found to have improved LV systolic function the LifeVest was taken away. Recently, ejection fraction decreased again. She denies recent chest pain. She is on amiodarone (for history of PVCs). Sitting comfortably in bed, not using accessory muscles of breathing. Mucosa is pink and wet, there is no JVD, no goiter. Chest: Scattered rhonchi/rales. Cardiac: Regular regular, no thrill. Systolic murmur 3/6 in the apex is heard.. Abdomen: Soft, no palpable mass, positive hepatomegaly. Bowel sound is positive. Extremities: 3+ edema. Dorsalis pedis is 2+ bilateral Past medical history includes hypertension, hyperlipidemia, diabetes mellitus, asthma/COPD, history of back surgery, arrhythmia (sustained V. tach in October 2021, for which was shocked), history of old nonischemic cardiomyopathy, pulmonary hypertension (considered type 2), hypothyroidism, hiatal hernia, lupus, SVT, history of colon polyp and its resection, history of thyroid nodule, history of low vitamin-D, possible obstructive sleep apnea, CKD (goes to Nephrology regularly), A-fib/flutter, LBBB and also history of laminectomy. Left heart catheterization of November 17, 2021 revealed nonobstructive coronary artery disease, negative FFR of distal LCx, nonischemic cardiomyopathy Echocardiogram of November 15, 2021 revealed ejection fraction of 40%, enlarged LV/LA and aortic root. Echocardiogram of January 31, 2022 (performed in the office) revealed ejection fraction of 40 to 45%, sigmoid shaped septum, impaired relaxation of left ventricular diastolic function, trace MR/TR and right ventricular systolic pressure of less than 35 mmHg. Echocardiogram of March 2022 reported ejection fraction of 45-50%, anteroseptal/apical hypokinesia, trace MR/TR and right ventricular systolic pressure of 22 mm Hg Echocardiogram of April 2025 (performed in the office) revealed ejection fraction of less than 20%, increased EDP, tethered mitral valve leaflet secondary to left ventricular enlargement, moderate MR, mild TR and right ventricular systolic pressure of 60 mm Hg. Hemoglobin: 10.7 - 11.4 - 11.6 - 13.6 - 13.2 today's pending Creatinine: 1.60 - 1.37 - 1.60 - 1.55 - 1.51 - 1.79 - 2.55 - 2.81 Potassium: 4.0 - 3.4 - 3.5 - 3.5 - 4.2 - 4.1 - 4.2 - 4.3 today's pending BNP: 3325.33 - 3570.88 Troponin (high sensitive): 20 - 23 - 23 - 12 - 12 - 14 D-dimer: 1.57 Chest x-ray reported: MPRESSION: Cardiomegaly with moderate congestion. Repeat chest xry reported: IMPRESSION: Small right pleural effusion Cardiomegaly with CHF. Repeat chest xry revealed: IMPRESSION: Mild pulmonary congestion. Repeat chest xry revealed: IMPRESSION: No acute disease. Venous duplex of lower ext revealed: Impression: 1. No right or left femoropopliteal venous thrombosis. EKG revealed sinus rhythm with left bundle branch block Tele reveals sinus rhythm, occasions of fib/flutter Echocardiogram revealed: Four-chamber dilatation was observed. Left ventricle: Left ventricle was dilated. Severely reduced systolic function of left ventricle was observed. LVEF was around 25%. Diffuse hypokinesis with regional variation of left ventricle seen. Right ventricle was dilated with preserved systolic function. Both atria were mildly dilated. Aortic valve: Aortic valve is trileaflet. Trace aortic insufficiency was seen. There was no aortic stenosis. There was mild mitral/tricuspid regurgitation. There was trace pulmonary valve insufficiency. Small pericardial effusion was seen. Right ventricular systolic pressure was assessed at 35 mm Hg. Patient is a 74-year-old female who presented with shortness of breath/cough. She was recently treated for pneumonia. She does have recent diagnosis of worsened systolic function and heart failure. He is found to have increased BNP. Chest x-ray reveals congestion. Presentation is in favor of acute on chronic systolic heart failure. Does have old history of nonischemic cardiomyopathy, but systolic function has worsened recently. At this point, acute on chronic systolic heart failure is considered the reason for presentation. May benefit from repeat ischemic workup (inpatient Vs outpatient). As EF had dropped suggestion is for Life Vest Acute on chronic heart failure COPD exacerbation Fluid overload Bronchitis, acute Pneumonia, community acquired ALFONZO on CKD History of nonsustained VT Left bundle branch block Pulmonary hypertension, type 2 Hypothyroidism Left bundle branch block Atrial fib/flutter Elevated D-dimer Cardiac suggestion for management: Telemetry monitoring IV diuresis. On 60 mg IV Lasix b.i.d. Follow-up electrolytes and kidney function tests and correct abnormalities. Keep potassium above 4 and magnesium above 2 Continuation of amiodarone for history of non-sustained ventricular tachycardia is suggested (dose: 200 mg once daily) Patient with A-fib/flutter and high CHADS/Vasc score On Eliquis 2.5 mg BID. Kestra external wearable cardioverter defibrillator vest for primary prevention against sudden cardiac Consider Nephrology evaluation May benefit from ischemic workup/cardiac catheterization (outpatient) Further evaluation and management depends on the above and clinical course A total of 55 minutes was spent reviewing the patient record, examining the patient, making a diagnostic and therapeutic plan, discussing this plan with medical personnel, following up on diagnostic studies and following the patient for clinical stability excluding any and all procedures. At least 50% of this time was spent in direct, [id number] contact. Thank you for allowing me to participate in this patient's care. Further recommendations will depend on patient's clinical course. Please do not hesitate to contact me if you have any questions or concerns. This medical document was created using electronic medical record system with [employer] computerized dictation system. Although this document has been carefully reviewed, there may still be some phonetic and typographical errors. These areas are purely typographical due to the imperfection of the software programs, and do not reflect any compromise in the patient's medical care. Dietary Evaluation Review Comments: 1) Add cardiac restriction to 45g CCHO diet order 2) Consider Zofran prn for N/V 3) Continue current plan of care 4) Follow-up with cardiology and nephrology Expected Outcomes/Goals: 1) appetite and labs to improve 2) f/u in 3-5 days Plan discussed with: Patient, Other (nurse) WALESKA CHEW MD Aug 19, 2024 08:28
[2024-08-19 08:49] LABS: Blood Urea Nitrogen 103 mg/dL (9-23)
--- NOTE | 2024-08-19 12:16 | DVHPN2 ---
Progress Note Date Seen: Aug 19, 2024 Medical Necessity Reason Pt with a Central, PICC or Fol: No Subjective Patient reports: No new complaints Review of Systems: HEENT:Normal, CVS:Normal, RESPIRATORY:Normal, GI:Normal, :Normal, MSK:Normal, NEURO:Normal Objective vital signs Vital Sign Date Time Temp Pulse Resp B/P (MAP) Pulse Ox O2 Delivery O2 Flow Rate FiO2 08/19/24 11:23 81 18 97 08/19/24 11:17 Nasal Cannula* 2 28 08/19/24 08:44 98.1 84/52 (63) 98.1 Total Intake and Output 08/18/24 08/18/24 08/19/24 15:00 23:00 07:00 Intake Total 250 ml 550 ml 525 ml Output Total 2 ml Balance 250 ml 548 ml 525 ml medications Current Medications Medications Dose Ordered Sig/[place] Route Start Time Stop Time Status Last Admin Dose Admin Amitriptyline HCl 25 mg HS PO 08/10/24 22:00 08/18/24 21:14 25 MG Pregabalin 50 mg TID PO 08/10/24 22:00 08/19/24 05:56 50 MG Albuterol 2.5 mg Q4HPRN PRN NEB 08/10/24 17:30 08/11/24 11:00 2.5 MG Diagnostic Test (Pha) 1 strip ACHS 08/10/24 22:00 08/19/24 06:08 1 STRIP Insulin Human Regular ACHS SC 08/10/24 22:00 08/19/24 06:10 4 UNITS Dextrose 50 ml UD PRN IV 08/10/24 17:30 Nitroglycerin 0.4 mg Q5MINP PRN SL 08/10/24 18:45 Amiodarone HCl 200 mg DAILY PO 08/11/24 10:00 08/19/24 09:08 200 MG Levalbuterol HCl 1.25 mg Q6HR NEB 08/12/24 12:00 08/19/24 11:16 1.25 MG Empaglifozin 10 mg DAILY PO 08/13/24 10:00 08/19/24 09:13 10 MG Levothyroxine Sodium 50 mcg QAM@0600 PO 08/13/24 06:00 08/19/24 05:56 50 MCG Apixaban 2.5 mg BID PO 08/13/24 10:00 08/19/24 09:11 2.5 MG Ipratropium [place] 0.5 mg Q6HWA NEB 08/13/24 12:00 08/19/24 11:17 0.5 MG Acetaminophen 650 mg Q6HP PRN PO 08/14/24 11:15 08/14/24 12:15 650 MG Prednisone 40 mg DAILY PO 08/16/24 10:00 08/19/24 09:08 40 MG Pantoprazole Sodium 40 mg DAILY@0600 PO 08/16/24 06:00 08/19/24 05:56 40 MG Ceftriaxone Sodium 50 ml @ 100 mls/hr DAILY@09 IV 08/16/24 09:00 08/19/24 09:13 100 MLS/HR Throat Lozenges 1 sofi Q2HP PRN MT 08/15/24 11:15 08/18/24 14:12 1 SOFI Doxycycline Monohydrate 100 mg Q12HR PO 08/15/24 22:00 UNV Doxycycline Monohydrate 100 mg Q12HR PO 08/15/24 22:00 08/19/24 09:11 100 MG Examination: GENERAL:Normal, HEENT:Normal, NECK:Normal, LUNGS:Normal, LUNGS:Abnormal (on oxygen, rhonchi), CVS:Normal, ABDOMEN:Normal, MSK:Normal, SKIN:Normal, NEURO:Normal, :Normal laboratory and microbiology Laboratory Tests 08/19/24 07:35 Test 08/19/24 07:35 Range/Units Serum Glucose 277 H 74-106 mg/dL Microbiology Date/Time Source Procedure Growth Status 08/11/24 01:23 Nose MRSA Screen - Final Complete Problem List/Assessment/Plan Problem List/Assessment/Plan #1 acute on chronic systolic heart failure: cont meds, dc metolazone #2 chronic resp failure #3 copd with exacerbation: prednisone, bronchodilators, ct chest #4 acute on chronic renal failure ?vasomotor nephropathy #5 hypothyroidism #6 dm; ssi #7 s/p back surgery #8 h/o v tach: on amiodarone #8 ? pneumonia - gram positive/neg: iv antibiotics advance care planning- full code- time spent 19 mins Plan discussed with: Patient My Orders My Orders Orders - JASWINDER TORRES MD Procedure Category Date Status Time Kidney US 08/19/24 Transmitted 12:[address] 08/19/24 Transmitted 12:06 Comprehensive LAB 08/20/24 Verified Metabolic Panel 06:00 Dietary Evaluation Review Comments: 1) Add cardiac restriction to 45g CCHO diet order 2) Consider Zofran prn for N/V 3) Continue current plan of care 4) Follow-up with cardiology and nephrology Expected Outcomes/Goals: 1) appetite and labs to improve 2) f/u in 3-5 days Date of Service: Aug 19, 2024 Billing Provider: JASWINDER TORRES MD Common Visit Codes: [id number] INP/OBS CARE(HIGH) JASWINDER TORRES MD Aug 19, 2024 12:16
--- NOTE | 2024-08-19 13:42 | DVH ---
RENAL ULTRASOUND CLINICAL HISTORY: renal failure TECHNIQUE: Multiple ultrasound images of the kidneys and bladder were obtained. COMPARISON: KIDNEY on DOS: 02/23/22 FINDINGS: The right kidney measures 7.2 cm in length. The left kidney measures 9.2 cm. The kidneys appear echog enic compatible with medical renal disease. There are bilateral renal cysts, the largest in the left kidney measuring 5.0 cm. There is no evidence of nephrolithiasis or significant hydronephrosis. Bladder appears within normal limits with a prevoid volume of 212 cc. IMPRESSION: 1. Kidneys appear echogenic compatible with medical renal disease. 2. Bilateral renal cysts measuring up to 5.0 cm. HS:Y
--- NOTE | 2024-08-19 14:12 | DVH ---
EXAM: CT CHEST WITHOUT CONTRAST History: copd Comparison Study: CT CHST AB PEL WO CON-NO IV/ORAL on DOS: 08/24/22 TECHNIQUE: Multidetector CT of the chest was performed. Imaging was performed without IV contrast. Ax ial, coronal, and sagittal multiplanar reformats were obtained from the axial data set by the technol ogjose. Radiation Dose : CTDI vol 7.65 mGy, DLP 330.89 mGy*cm. Findings: Lungs: Mild right lower lobe atelectasis and traction bronchiectasis. Pleura: Unremarkable Heart/Great vessels: No cardiomegaly or pericardial effusion. Severe coronary atherosclerosis versus stents. Mediastinum: Unremarkable Soft tissues/Bones: Mild to moderate multilevel degenerative changes of the thoracic spine. Bilateral renal cysts. The remaining partially visualized upper abdomen is within normal limits. Impression: 1. No acute cardiopulmonary disease. 2. Mild right lower lobe atelectasis and traction bronchiectasis.
--- NOTE | 2024-08-19 15:54 | DVH ---
NUCLEAR MEDICINE VENTILATION/PERFUSION LUNG SCAN. INDICATION: PULMONARY EMBOLISM COMPARISON: None TECHNIQUE: Following intravenous demonstration of 6 millicuries of technetium 99m MAA, and inhalati on of 40 mCi of Tc 99m DTPA scintigrams were obtained in multiple projections of the lungs. FINDINGS: There is normal uptake of radionuclide on both the ventilation and perfusion portions of the examinat ion. No mismatched perfusion defects are demonstrated. Uptake is normally homogeneous. IMPRESSION: 1. Low probability for PE.
--- NOTE | 2024-08-19 16:58 | DVHINCON2 ---
Date of service: Aug 19, [address] 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 During the hospital course patient diuresed with metolazone and Lasix. Creatinine on admission was 1.6 which is close to her baseline and progressively increased to 2.54. Nephrology has been consulted of the same. Patient is seen and examined at bedside. She has a LifeVest on. She says her shortness of breath has improved. Denies any edema to her legs. Past Medical History As stated above Past Surgical History Negative Family History: Diabetes mellitus G8 FATHER Family History Negative for kidney disease Social History No active history of smoking, alcohol or drug abuse Allergies: Coded Allergies: NO KNOWN ALLERGIES (Unverified , 11/14/21) Home Meds Reported Medications Semaglutide (Ozempic) 4 Mg/3 Ml Inj, 1 MG SC QWEEKLY for 30 Days, #3 08/16/24 Dapagliflozin Propanediol (Dapagliflozin Propanediol) 5 Mg Tab, 1 TAB PO DAILY for 30 Days, #30 08/16/24 Hydroxychloroquine Sulfate (Hydroxychloroquine Sulfat) 200 Mg Tab, 100 MG PO for 30 Days, MG 08/11/24 Prednisone (Prednisone) 5 Mg Tab, 5 MG PO DAILY, TAB 08/11/24 Metoclopramide Hcl (Metoclopramide Hcl) 10 Mg Tab, 10 MG PO for 30 Days, MG 08/11/24 Pantoprazole Sodium Sesquihydr (Protonix) 40 Mg Tab, 1 TAB PO DAILY for 90 Days, #90 08/11/24 Doxycycline Hyclate (Doxycycline Hyclate) 100 Mg Tab, 1 TAB PO BID for 10 Days, #20 08/11/24 Furosemide (Furosemide) 20 Mg Tab, 1 TAB PO DAILY for 30 Days, #30 08/11/24 Famotidine (Famotidine) 40 Mg Tab, 1 TAB PO DAILY for 30 Days, #30 08/11/24 Levothyroxine Sodium (Levothyroxine Sodium) 50 Mcg Tab, 1 TAB PO DAILY for 90 Days, #90 08/11/24 Sodium Bicarbonate (Sodium Bicarbonate) 650 Mg Tab, 1 TAB PO DAILY for 30 Days, #30 08/11/24 Atorvastatin Calcium (ATORVASTATIN CALCIUM) 40 Mg Tab, 1 TAB PO DAILY for 90 Days, #90 08/11/24 Metoprolol Succinate (Metoprolol Succinate Er) 25 Mg Tab, 0.5 TAB PO DAILY for 30 Days, #15 08/11/24 Hydroxyzine Hcl (Hydroxyzine Hcl) 25 Mg Tab, 1 TAB PO DAILY for 30 Days, #30 08/11/24 Alendronate Sodium (Alendronate Sodium) 35 Mg Tab, 1 TAB PO QWEEKLY for 28 Days, #4 08/11/24 Amiodarone HCl (Amiodarone Hydrochloride) 100 Mg Tab, 1 TAB PO DAILY for 30 Days, #30 08/11/24 Dicyclomine Hcl (BENTYL CAPSULE) 10 Mg Cp, 10 MG PO BID, CAP 09/05/22 Sacubitril-Valsartan (Entresto 24-26 mg) 1 Tab Tab, 1 TAB PO BID, TAB 09/05/22 Amitriptyline Hcl (Amitriptyline Hcl) 25 Mg Tab, 1 TAB PO HS for 90 Days, #90 02/22/22 Pregabalin (Lyrica) 150 Mg Cap, 1 CAP PO TID, #60 CAP 5 Refills 02/22/22 Cholecalciferol (VITAMIN D3) 2,000 Unit Tab, 1 TAB PO DAILY for 30 Days, #30 11/14/21 Ascorbic Acid (VITAMIN C TABLET) 500 Mg Tb, 1 TAB PO DAILY, #30 TAB 3 Refills 11/14/21 Discontinued Reported Medications Dapagliflozin Propanediol (Farxiga) 10 Mg Tab, 5 MG PO DAILY, TAB 08/11/24 Semaglutide (Ozempic) 2 Mg/1.5 Ml Inj, 2 MG SC QWEEKLY, INJ 09/05/22 Review of Systems 12 point review of system negative except as stated in the HPI Vital Signs Vital Signs Date Time Temp Pulse Resp B/P (MAP) Pulse Ox O2 Delivery O2 Flow Rate FiO2 08/19/24 13:00 97.7 80 16 86/54 (65) 98 97.7 08/19/24 11:17 Nasal Cannula* 2 28 Physical Exam Awake alert oriented x3 HEENT: Normocephalic, no JVD Lungs: Bilateral good air entry CVS: S1, S2 regular rate rhythm Abdomen: Soft, bowel sounds present [employer]IST: No focal deficits Extremities: No edema Labs/Diagnostic Data Labs Test 08/19/24 07:35 08/19/24 05:59 08/18/24 13:05 08/13/24 05:18 Range/Units White Blood Count 4.9 4.4-10.8 10^3/uL Red Blood Count 4.36 4.0-5.20 10^6/uL Hemoglobin 12.9 12.2-16.2 g/dL Hematocrit 38.8 36.0-46.0 % Mean Corpuscular Volume 89.0 80.0-100.0 fL Mean Corpuscular Hemoglobin 29.6 28.0-32.0 pg Mean Corpuscular Hemoglobin Concent 33.2 32.0-36.0 g/dL Red Cell Distribution Width 14.4 H 11.8-14.3 % Platelet Count 252 140-450 10^3/uL Mean Platelet Volume 9.2 6.9-10.8 fL Neutrophils (%) (Auto) 82.4 H 37.0-80.0 % Lymphocytes (%) (Auto) 10.1 10.0-50.0 % Monocytes (%) (Auto) 7.3 0.0-12.0 % Eosinophils (%) (Auto) 0.0 0.0-7.0 % Basophils (%) (Auto) 0.2 0.0-2.0 % Neutrophils # (Auto) 4.0 1.6-8.6 10 ^3/uL Lymphocytes # (Auto) 0.5 0.4-5.4 10 ^3/uL Monocytes # (Auto) 0.4 0-1.3 10 ^3/uL Eosinophils # (Auto) 0 0-0.8 10 ^3/uL Basophils # (Auto) 0 0-0.2 10 ^3/uL Nucleated Red Blood Cells 0.1 % Sodium Level 129 L 136-145 mmol/L Potassium Level 4.5 3.5-5.1 mmol/L Chloride Level 92 L 98-107 mmol/L Carbon Dioxide Level 26 20-31 mmol/L Anion Gap 11 5-15 Blood Urea Nitrogen 103 #*H 9-23 mg/dL Creatinine 2.54 H 0.550-1.02 mg/dL Glomerular Filtration Rate Calc 19 >90 mL/min BUN/Creatinine Ratio 40.6 H 10.0-20.0 Serum Glucose 277 H 74-106 mg/dL Calcium Level 9.1 8.7-10.4 mg/dL POC Glucose 207 H 70-106 mg/dl D-Dimer, Quantitative 1.57 H 0.0-0.49 mg/L FEU Hemoglobin A1c 7.8 H <5.7 % A1C Magnesium Level 1.9 1.6-2.6 mg/dL Total Bilirubin 1.0 0.2-1.0 mg/dL Aspartate Amino Transferase (AST) 23 13-40 U/L Alanine Aminotransferase (ALT) 15 7-40 U/L Alkaline Phosphatase 83 46-116 U/L Total Protein 6.3 5.7-8.2 g/dL Albumin 3.9 3.2-4.8 g/dL Thyroid Stimulating Hormone (TSH) 0.16 L 0.55-4.78 uIU/mL Test 08/13/24 04:24 08/12/24 22:39 08/12/24 19:49 08/10/24 15:08 Range/Units Urine Color Colorless Yellow Urine Clarity Clear Clear Urine pH 7.0 5.0-9.0 Urine Specific [place] 1.009 1.001-1.035 Urine Protein Negative Negative Urine Ketones Negative Negative Urine Blood Negative Negative /uL Urine Nitrite Negative Negative Urine Bilirubin Negative Negative Urine Urobilinogen Normal Negative mg/dL Urine Leukocyte Esterase Negative Negative /uL Urine RBC <1 0 - 4 /hpf Urine Microscopic WBC 1 0-5 /HPF Urine Squamous Epithelial Cells Few <5 /hpf Urine Bacteria None seen None Seen /hpf Urine Glucose 4+ H Normal mg/dL Troponin I High Sensitivity 14 </=34 ng/L Phosphorus Level 3.6 2.4-5.1 mg/dL B-Type Natriuretic Peptide 3570.88 0-100 pg/mL Triglycerides Level 124 < 150 mg/dL Cholesterol Level 93 < 200 mg/dL LDL Cholesterol 36 < 100 mg/dL HDL Cholesterol 37 L 40-59 mg/dL Test 08/10/24 11:54 Range/Units Influenza Type A Antigen Negative Negative Influenza Type B Antigen Negative Negative SARS-CoV-2 Antigen (Rapid) Negative NEGATIVE Microbiology Date/Time Source Procedure Growth Status 08/11/24 01:23 Nose MRSA Screen - Final Complete Assessment Acute kidney injury superimposed on CKD stage IIIB. Worsening GFR secondary to over-diuresis Acute on chronic systolic heart failure Hyponatremia secondary to heart failure Hypotension Type 2 diabetes with nephropathy Acute on chronic hypoxic respiratory failure COPD Hypothyroidism Type 2 diabetes History of V-tach Plan/Recommendation Metolazone and Lasix have been put on hold. Also Entresto and spironolactone have been put on hold Hold Jardiance Strict Is&Os Renal ultrasound reviewed Labs in a.m. Plan discussed with: Patient XOCHITL ORELLANA MD Aug 19, 2024 16:58
[2024-08-20] VITALS (17 sets, daily range): BP systolic 91–136; BP diastolic 51–70; PULSE 65–108; RESP 14–20; TEMP 97.3–97.8; O2SAT 90–100
--- NOTE | 2024-08-20 06:07 | DVHPN2 ---
Progress Note - Dictate Date Seen: Aug 20, 2024 Medical Necessity Reason Pt with a Central, PICC or Fol: No vital signs Vital Sign Date Time Temp Pulse Resp B/P (MAP) Pulse Ox O2 Delivery O2 Flow Rate FiO2 08/20/24 05:00 97.3 85 20 91/60 (70) 98 97.3 08/19/24 20:00 Nasal Cannula* 2 28 Total Intake and Output 08/19/24 08/19/24 08/20/24 15:00 23:00 07:00 Intake Total 50 ml 1590 ml 100 ml Output Total 900 ml Balance 50 ml 1590 ml -800 ml medications Current Medications Medications Dose Ordered Sig/[place] Route Start Time Stop Time Status Last Admin Dose Admin Amitriptyline HCl 25 mg HS PO 08/10/24 22:00 08/19/24 21:12 25 MG Pregabalin 50 mg TID PO 08/10/24 22:00 08/20/24 05:29 50 MG Albuterol 2.5 mg Q4HPRN PRN NEB 08/10/24 17:30 08/11/24 11:00 2.5 MG Diagnostic Test (Pha) 1 strip ACHS 08/10/24 22:00 08/19/24 21:18 1 STRIP Insulin Human Regular ACHS SC 08/10/24 22:00 08/19/24 21:19 4 UNITS Dextrose 50 ml UD PRN IV 08/10/24 17:30 Nitroglycerin 0.4 mg Q5MINP PRN SL 08/10/24 18:45 Amiodarone HCl 200 mg DAILY PO 08/11/24 10:00 08/19/24 09:08 200 MG Levalbuterol HCl 1.25 mg Q6HR NEB 08/12/24 12:00 08/20/24 00:32 1.25 MG Levothyroxine Sodium 50 mcg QAM@0600 PO 08/13/24 06:00 08/20/24 05:29 50 MCG Apixaban 2.5 mg BID PO 08/13/24 10:00 08/19/24 21:12 2.5 MG Ipratropium [place] 0.5 mg Q6HWA NEB 08/13/24 12:00 08/19/24 18:35 0.5 MG Acetaminophen 650 mg Q6HP PRN PO 08/14/24 11:15 08/14/24 12:15 650 MG Prednisone 40 mg DAILY PO 08/16/24 10:00 08/19/24 09:08 40 MG Pantoprazole Sodium 40 mg DAILY@0600 PO 08/16/24 06:00 08/20/24 05:30 40 MG Ceftriaxone Sodium 50 ml @ 100 mls/hr DAILY@09 IV 08/16/24 09:00 08/19/24 09:13 100 MLS/HR Throat Lozenges 1 sofi Q2HP PRN MT 08/15/24 11:15 08/19/24 14:57 1 SOFI Doxycycline Monohydrate 100 mg Q12HR PO 08/15/24 22:00 UNV Doxycycline Monohydrate 100 mg Q12HR PO 08/15/24 22:00 08/19/24 21:12 100 MG laboratory and microbiology Laboratory Tests 08/19/24 07:35 Test 08/19/24 07:35 Range/Units Serum Glucose 277 H 74-106 mg/dL Assessment/Plan Patient is a 74-year-old female who presented to the hospital for shortness of breath. She also had been having cough. Problem started around a month ago and worsened recently. Cardiology was involved for cardiac aspects of care. Patient is known to our practice from outside and before. She received recent treatment for pneumonia. Denies chest pains. Does complain of dyspnea on exertion. Does complain of leg swellings. In October 2021, the patient was diagnosed to have nonischemic cardiomyopathy, was put on LifeVest, later was found to have improved LV systolic function the LifeVest was taken away. Recently, ejection fraction decreased again. She denies recent chest pain. She is on amiodarone (for history of PVCs). Sitting comfortably in bed, not using accessory muscles of breathing. Mucosa is pink and wet, there is no JVD, no goiter. Chest: Scattered rhonchi/rales. Cardiac: Regular regular, no thrill. Systolic murmur 3/6 in the apex is heard.. Abdomen: Soft, no palpable mass, positive hepatomegaly. Bowel sound is positive. Extremities: 3+ edema. Dorsalis pedis is 2+ bilateral Past medical history includes hypertension, hyperlipidemia, diabetes mellitus, asthma/COPD, history of back surgery, arrhythmia (sustained V. tach in October 2021, for which was shocked), history of old nonischemic cardiomyopathy, pulmonary hypertension (considered type 2), hypothyroidism, hiatal hernia, lupus, SVT, history of colon polyp and its resection, history of thyroid nodule, history of low vitamin-D, possible obstructive sleep apnea, CKD (goes to Nephrology regularly), A-fib/flutter, LBBB and also history of laminectomy. Left heart catheterization of November 17, 2021 revealed nonobstructive coronary artery disease, negative FFR of distal LCx, nonischemic cardiomyopathy Echocardiogram of November 15, 2021 revealed ejection fraction of 40%, enlarged LV/LA and aortic root. Echocardiogram of January 31, 2022 (performed in the office) revealed ejection fraction of 40 to 45%, sigmoid shaped septum, impaired relaxation of left ventricular diastolic function, trace MR/TR and right ventricular systolic pressure of less than 35 mmHg. Echocardiogram of March 2022 reported ejection fraction of 45-50%, anteroseptal/apical hypokinesia, trace MR/TR and right ventricular systolic pressure of 22 mm Hg Echocardiogram of April 2025 (performed in the office) revealed ejection fraction of less than 20%, increased EDP, tethered mitral valve leaflet secondary to left ventricular enlargement, moderate MR, mild TR and right ventricular systolic pressure of 60 mm Hg. Hemoglobin: 10.7 - 11.4 - 11.6 - 13.6 - 13.2 - 12.9 Creatinine: 1.60 - 1.37 - 1.60 - 1.55 - 1.51 - 1.79 - 2.55 - 2.81 - 2.54 Potassium: 4.0 - 3.4 - 3.5 - 3.5 - 4.2 - 4.1 - 4.2 - 4.3 - 4.5 BNP: 3325.33 - 3570.88 Troponin (high sensitive): 20 - 23 - 23 - 12 - 12 - 14 D-dimer: 1.57 Chest x-ray reported: MPRESSION: Cardiomegaly with moderate congestion. Repeat chest xry reported: IMPRESSION: Small right pleural effusion Cardiomegaly with CHF. Repeat chest xry revealed: IMPRESSION: Mild pulmonary congestion. Repeat chest xry revealed: IMPRESSION: No acute disease. Venous duplex of lower ext revealed: Impression: 1. No right or left femoropopliteal venous thrombosis. V/Q scan reported: IMPRESSION: 1. Low probability for PE. CT of chest (no contrast) reported: Impression: 1. No acute cardiopulmonary disease. 2. Mild right lower lobe atelectasis and traction bronchiectasis. Renal ultrasound reported: IMPRESSION: 1. Kidneys appear echogenic compatible with medical renal disease. 2. Bilateral renal cysts measuring up to 5.0 cm. EKG revealed sinus rhythm with left bundle branch block Tele reveals sinus rhythm, occasions of fib/flutter Echocardiogram revealed: Four-chamber dilatation was observed. Left ventricle: Left ventricle was dilated. Severely reduced systolic function of left ventricle was observed. LVEF was around 25%. Diffuse hypokinesis with regional variation of left ventricle seen. Right ventricle was dilated with preserved systolic function. Both atria were mildly dilated. Aortic valve: Aortic valve is trileaflet. Trace aortic insufficiency was seen. There was no aortic stenosis. There was mild mitral/tricuspid regurgitation. There was trace pulmonary valve insufficiency. Small pericardial effusion was seen. Right ventricular systolic pressure was assessed at 35 mm Hg. Patient is a 74-year-old female who presented with shortness of breath/cough. She was recently treated for pneumonia. She does have recent diagnosis of worsened systolic function and heart failure. He is found to have increased BNP. Chest x-ray reveals congestion. Presentation is in favor of acute on chronic systolic heart failure. Does have old history of nonischemic cardiomyopathy, but systolic function has worsened recently. Has been managed for acute on chronic systolic heart failure is considered the reason for presentation. May benefit from repeat ischemic workup (inpatient Vs outpatient). As EF had dropped suggestion is for Life Vest Acute on chronic heart failure COPD exacerbation Fluid overload Bronchitis, acute Pneumonia, community acquired ALFONZO on CKD History of nonsustained VT Left bundle branch block Pulmonary hypertension, type 2 Hypothyroidism Left bundle branch block Atrial fib/flutter Elevated D-dimer Cardiac suggestion for management: Telemetry monitoring IV diuresis. On 60 mg IV Lasix b.i.d. Follow-up electrolytes and kidney function tests and correct abnormalities. Keep potassium above 4 and magnesium above 2 Continuation of amiodarone for history of non-sustained ventricular tachycardia is suggested (dose: 200 mg once daily) Patient with A-fib/flutter and high CHADS/Vasc score On Eliquis 2.5 mg BID. Kestra external wearable cardioverter defibrillator vest for primary prevention against sudden cardiac Consider Nephrology evaluation May benefit from ischemic workup/cardiac catheterization (outpatient) Further evaluation and management depends on the above and clinical course A total of 55 minutes was spent reviewing the patient record, examining the patient, making a diagnostic and therapeutic plan, discussing this plan with medical personnel, following up on diagnostic studies and following the patient for clinical stability excluding any and all procedures. At least 50% of this time was spent in direct, [id number] contact. Thank you for allowing me to participate in this patient's care. Further recommendations will depend on patient's clinical course. Please do not hesitate to contact me if you have any questions or concerns. This medical document was created using electronic medical record system with [employer] dictation system. Although this document has been carefully reviewed, there may still be some phonetic and typographical errors. These areas are purely typographical due to the imperfection of the software programs, and do not reflect any compromise in the patient's medical care. Dietary Evaluation Review Comments: 1) Add cardiac restriction to 45g CCHO diet order 2) Consider Zofran prn for N/V 3) Continue current plan of care 4) Follow-up with cardiology and nephrology Expected Outcomes/Goals: 1) appetite and labs to improve 2) f/u in 3-5 days Plan discussed with: Patient, Other (nurse) WALESKA CHEW MD Aug 20, 2024 06:07
[2024-08-20 07:17] LABS: Basophils # (auto) 0 10 ^3/uL (0-0.2); Basophils % (auto) 0.1 % (0.0-2.0); Eosinophils # (auto) 0 10 ^3/uL (0-0.8); Hematocrit 38.5 % (36.0-46.0); Hemoglobin 12.8 g/dL (12.2-16.2); Lymphocytes # (auto) 0.5 10 ^3/uL (0.4-5.4); Lymphocytes % (auto) 10.5 % (10.0-50.0); Mean Corpuscular Hemoglobin 29.8 pg (28.0-32.0); Mean Corpuscular Hgb Conc. 33.3 g/dL (32.0-36.0); Mean Corpuscular Volume 89.4 fL (80.0-100.0); Monocytes # (auto) 0.3 10 ^3/uL (0-1.3); Monocytes % (auto) 5.4 % (0.0-12.0); Neutrophils # (auto) 4.2 10 ^3/uL (1.6-8.6); Nucleated Red Blood Cells % 0.2 %; Platelet Count (auto) 229 10^3/uL (140-450); Red Blood Cells 4.31 10^6/uL (4.0-5.20); Red Cell Distribution Width 14.5 % (11.8-14.3)
[2024-08-20 08:11] LABS: Anion Gap 13 (5-15); Calcium 9.4 mg/dL (8.7-10.4); Carbon Dioxide 24 mmol/L (20-31); Potassium 4.6 mmol/L (3.5-5.1)
[2024-08-20 08:13] LABS: Alkaline Phosphatase 86 U/L (46-116); BUN/Creatinine Ratio 44.6 (10.0-20.0)
[2024-08-20 08:14] LABS: Alanine Aminotransferase 25 U/L (7-40); Albumin 3.9 g/dL (3.2-4.8)
[2024-08-20 08:15] LABS: Bilirubin, Total 0.9 mg/dL (0.2-1.0); Total Protein 6.4 g/dL (5.7-8.2)
[2024-08-20 08:16] LABS: Aspartate Aminotransferase 12 U/L (13-40); Chloride 92 mmol/L (98-107); Glucose 225 mg/dL (74-106); Sodium 129 mmol/L (136-145)
[2024-08-20 08:17] LABS: Blood Urea Nitrogen 99 mg/dL (9-23)
[2024-08-20] MEDS ORDERED: NYSTATIN (MOUTH-THROAT) 500,000 UNITS/5 ML SUSP MT ONE (12:00)
--- NOTE | 2024-08-20 12:02 | DVHPN2 ---
Progress Note Date Seen: Aug 20, 2024 Medical Necessity Reason Pt with a Central, PICC or Fol: No Subjective Patient reports: No new complaints Review of Systems: HEENT:Normal, CVS:Normal, RESPIRATORY:Normal, GI:Normal, :Normal, MSK:Normal, NEURO:Normal Objective vital signs Vital Sign Date Time Temp Pulse Resp B/P (MAP) Pulse Ox O2 Delivery O2 Flow Rate FiO2 08/20/24 09:50 99 Nasal Cannula* 2 28 08/20/24 09:00 97.7 65 16 94/56 (69) 97.7 Total Intake and Output 08/19/24 08/19/24 08/20/24 15:00 23:00 07:00 Intake Total 50 ml 1590 ml 100 ml Output Total 900 ml Balance 50 ml 1590 ml -800 ml medications Current Medications Medications Dose Ordered Sig/[place] Route Start Time Stop Time Status Last Admin Dose Admin Amitriptyline HCl 25 mg HS PO 08/10/24 22:00 08/19/24 21:12 25 MG Pregabalin 50 mg TID PO 08/10/24 22:00 08/20/24 05:29 50 MG Albuterol 2.5 mg Q4HPRN PRN NEB 08/10/24 17:30 08/11/24 11:00 2.5 MG Diagnostic Test (Pha) 1 strip ACHS 08/10/24 22:00 08/20/24 11:24 1 STRIP Insulin Human Regular ACHS SC 08/10/24 22:00 08/20/24 11:29 6 UNITS Dextrose 50 ml UD PRN IV 08/10/24 17:30 Nitroglycerin 0.4 mg Q5MINP PRN SL 08/10/24 18:45 Amiodarone HCl 200 mg DAILY PO 08/11/24 10:00 08/20/24 08:44 200 MG Levalbuterol HCl 1.25 mg Q6HR NEB 08/12/24 12:00 08/20/24 06:26 1.25 MG Levothyroxine Sodium 50 mcg QAM@0600 PO 08/13/24 06:00 08/20/24 05:29 50 MCG Apixaban 2.5 mg BID PO 08/13/24 10:00 08/20/24 08:45 2.5 MG Ipratropium [place] 0.5 mg Q6HWA NEB 08/13/24 12:00 08/20/24 06:26 0.5 MG Acetaminophen 650 mg Q6HP PRN PO 08/14/24 11:15 08/14/24 12:15 650 MG Prednisone 40 mg DAILY PO 08/16/24 10:00 08/20/24 08:45 40 MG Pantoprazole Sodium 40 mg DAILY@0600 PO 08/16/24 06:00 08/20/24 05:30 40 MG Ceftriaxone Sodium 50 ml @ 100 mls/hr DAILY@09 IV 08/16/24 09:00 08/20/24 08:41 100 MLS/HR Throat Lozenges 1 sofi Q2HP PRN MT 08/15/24 11:15 08/19/24 14:57 1 SOFI Doxycycline Monohydrate 100 mg Q12HR PO 08/15/24 22:00 UNV Doxycycline Monohydrate 100 mg Q12HR PO 08/15/24 22:00 08/20/24 08:44 100 MG Examination: GENERAL:Normal, HEENT:Normal, NECK:Normal, LUNGS:Normal, LUNGS:Abnormal ( rhonchi), CVS:Normal, ABDOMEN:Normal, MSK:Normal, SKIN:Normal, NEURO:Normal, :Normal laboratory and microbiology Laboratory Tests 08/20/24 06:06 Test 08/20/24 06:06 Range/Units Serum Glucose 225 H 74-106 mg/dL Microbiology Date/Time Source Procedure Growth Status 08/11/24 01:23 Nose MRSA Screen - Final Complete Problem List/Assessment/Plan Problem List/Assessment/Plan #1 acute on chronic systolic heart failure: cont meds, dc metolazone #2 chronic resp failure #3 copd with exacerbation: prednisone, bronchodilators, ct chest-negative #4 acute on chronic renal failure ?vasomotor nephropathy #5 hypothyroidism #6 dm; ssi #7 s/p back surgery #8 h/o v tach: on amiodarone #8 ? pneumonia - gram positive/neg: iv antibiotics advance care planning- full code- time spent 19 mins Plan discussed with: Patient My Orders My Orders Orders - JASWINDER TORRES MD Procedure Category Date Status Time Kidney US 08/19/24 Resulted 12:[address] 08/19/24 Resulted 12:06 Prednisone Tablet PHA 08/21/24 Verified 10:00 Nystatin PHA 08/20/24 Verified (Mouth-Throat) 12:00 Nystatin PHA 08/20/24 Verified (Mouth-Throat) 12:00 Basic Metabolic Panel LAB 08/21/24 Verified 06:00 Dietary Evaluation Review Comments: 1) Add cardiac restriction to 45g CCHO diet order 2) Consider Zofran prn for N/V 3) Continue current plan of care 4) Follow-up with cardiology and nephrology Expected Outcomes/Goals: 1) appetite and labs to improve 2) f/u in 3-5 days Date of Service: Aug 20, 2024 Billing Provider: JASWINDER TORRES MD Common Visit Codes: [id number] INP/OBS CARE(HIGH) JASWINDER TORRES MD Aug 20, 2024 12:02
[2024-08-20] MEDS: NYSTATIN (MOUTH-THROAT) 500,000 UNITS/5 ML SUSP MT SCH (13:03)
--- NOTE | 2024-08-20 18:33 | DVHPN2 ---
Progress Note - Dictate Date Seen: Aug 20, 2024 Medical Necessity Reason Pt with a Central, PICC or Fol: No Subjective no acute issues overnight vital signs Vital Sign Date Time Temp Pulse Resp B/P (MAP) Pulse Ox O2 Delivery O2 Flow Rate FiO2 08/20/24 16:58 97.7 88 14 101/59 (73) 98 97.7 08/20/24 13:04 Nasal Cannula 3.0 08/20/24 13:04 32 Total Intake and Output 08/19/24 08/19/24 08/20/24 15:00 23:00 07:00 Intake Total 50 ml 1590 ml 100 ml Output Total 900 ml Balance 50 ml 1590 ml -800 ml medications Current Medications Medications Dose Ordered Sig/[place] Route Start Time Stop Time Status Last Admin Dose Admin Amitriptyline HCl 25 mg HS PO 08/10/24 22:00 08/19/24 21:12 25 MG Pregabalin 50 mg TID PO 08/10/24 22:00 08/20/24 14:25 50 MG Albuterol 2.5 mg Q4HPRN PRN NEB 08/10/24 17:30 08/11/24 11:00 2.5 MG Diagnostic Test (Pha) 1 strip ACHS 08/10/24 22:00 08/20/24 17:10 1 STRIP Insulin Human Regular ACHS SC 08/10/24 22:00 08/20/24 17:16 10 UNITS Dextrose 50 ml UD PRN IV 08/10/24 17:30 Nitroglycerin 0.4 mg Q5MINP PRN SL 08/10/24 18:45 Amiodarone HCl 200 mg DAILY PO 08/11/24 10:00 08/20/24 08:44 200 MG Levalbuterol HCl 1.25 mg Q6HR NEB 08/12/24 12:00 08/20/24 13:04 1.25 MG Levothyroxine Sodium 50 mcg QAM@0600 PO 08/13/24 06:00 08/20/24 05:29 50 MCG Apixaban 2.5 mg BID PO 08/13/24 10:00 08/20/24 08:45 2.5 MG Ipratropium [place] 0.5 mg Q6HWA NEB 08/13/24 12:00 08/20/24 13:04 0.5 MG Acetaminophen 650 mg Q6HP PRN PO 08/14/24 11:15 08/14/24 12:15 650 MG Pantoprazole Sodium 40 mg DAILY@0600 PO 08/16/24 06:00 08/20/24 05:30 40 MG Throat Lozenges 1 sofi Q2HP PRN MT 08/15/24 11:15 08/19/24 14:57 1 SOFI Doxycycline Monohydrate 100 mg Q12HR PO 08/15/24 22:00 UNV Doxycycline Monohydrate 100 mg Q12HR PO 08/15/24 22:00 08/20/24 08:44 100 MG Prednisone 30 mg DAILY PO 08/21/24 10:00 Nystatin 5 ml QID MT 08/20/24 12:00 08/20/24 17:12 5 ML objective Awake alert oriented x3 HEENT: Normocephalic, no JVD Lungs: Bilateral good air entry CVS: S1, S2 regular rate rhythm Abdomen: Soft, bowel sounds present [employer]: No focal deficits Extremities: No edema laboratory and microbiology Laboratory Tests 08/20/24 06:06 Test 08/20/24 06:06 Range/Units Serum Glucose 225 H 74-106 mg/dL Problem List Acute kidney injury superimposed on CKD stage IIIB. Worsening GFR secondary to over-diuresis Acute on chronic systolic heart failure Hyponatremia secondary to heart failure Hypotension Type 2 diabetes with nephropathy Acute on chronic hypoxic respiratory failure COPD Hypothyroidism Type 2 diabetes History of V-tach Assessment/Plan GFR with the improvement. Continue to hold Lasix, metolazone , Entresto, Aldactone and Jardiance. Respiratory status stable . Lasix once improvement in GFR . SGLT2 inhib can be reinitiated in the outpatient setting We will follow up on BMP. Dietary Evaluation Review Comments: 1) Add cardiac restriction to 45g CCHO diet order 2) Consider Zofran prn for N/V 3) Continue current plan of care 4) Follow-up with cardiology and nephrology Expected Outcomes/Goals: 1) appetite and labs to improve 2) f/u in 3-5 days Plan discussed with: Patient XOCHITL ORELLANA MD Aug 20, 2024 18:33
[2024-08-21] VITALS (18 sets, daily range): BP systolic 90–103; BP diastolic 56–62; PULSE 72–91; RESP 12–20; TEMP 96.7–98.4; O2SAT 94–100
--- NOTE | 2024-08-21 06:46 | DVHPN2 ---
Progress Note - Dictate Date Seen: Aug 21, 2024 Medical Necessity Reason Pt with a Central, PICC or Fol: No vital signs Vital Sign Date Time Temp Pulse Resp B/P (MAP) Pulse Ox O2 Delivery O2 Flow Rate FiO2 08/21/24 05:00 97.5 72 20 90/57 (68) 94 97.5 08/20/24 20:00 Nasal Cannula* 2 28 Total Intake and Output 08/20/24 08/20/24 08/21/24 15:00 23:00 07:00 Intake Total 50 ml 750 ml 450 ml Output Total 800 ml 1000 ml Balance 50 ml -50 ml -550 ml medications Current Medications Medications Dose Ordered Sig/[place]roy Route Start Time Stop Time Status Last Admin Dose Admin Amitriptyline HCl 25 mg HS PO 08/10/24 22:00 08/20/24 21:20 25 MG Pregabalin 50 mg TID PO 08/10/24 22:00 08/21/24 05:45 50 MG Albuterol 2.5 mg Q4HPRN PRN NEB 08/10/24 17:30 08/11/24 11:00 2.5 MG Diagnostic Test (Pha) 1 strip ACHS 08/10/24 22:00 08/21/24 06:09 1 STRIP Insulin Human Regular ACHS SC 08/10/24 22:00 08/21/24 06:10 6 UNITS Dextrose 50 ml UD PRN IV 08/10/24 17:30 Nitroglycerin 0.4 mg Q5MINP PRN SL 08/10/24 18:45 Amiodarone HCl 200 mg DAILY PO 08/11/24 10:00 08/20/24 08:44 200 MG Levalbuterol HCl 1.25 mg Q6HR NEB 08/12/24 12:00 08/21/24 06:33 1.25 MG Levothyroxine Sodium 50 mcg QAM@0600 PO 08/13/24 06:00 08/21/24 05:44 50 MCG Apixaban 2.5 mg BID PO 08/13/24 10:00 08/20/24 21:20 2.5 MG Ipratropium [place] 0.5 mg Q6HWA NEB 08/13/24 12:00 08/21/24 06:33 0.5 MG Acetaminophen 650 mg Q6HP PRN PO 08/14/24 11:15 08/14/24 12:15 650 MG Pantoprazole Sodium 40 mg DAILY@0600 PO 08/16/24 06:00 08/21/24 05:44 40 MG Throat Lozenges 1 sofi Q2HP PRN MT 08/15/24 11:15 08/19/24 14:57 1 SOFI Doxycycline Monohydrate 100 mg Q12HR PO 08/15/24 22:00 UNV Doxycycline Monohydrate 100 mg Q12HR PO 08/15/24 22:00 08/20/24 21:20 100 MG Prednisone 30 mg DAILY PO 08/21/24 10:00 Nystatin 5 ml QID MT 08/20/24 12:00 08/21/24 05:45 5 ML laboratory and microbiology Test 08/21/24 05:43 Range/Units Serum Glucose Pending Assessment/Plan Patient is a 74-year-old female who presented to the hospital for shortness of breath. She also had been having cough. Problem started around a month ago and worsened recently. Cardiology was involved for cardiac aspects of care. Patient is known to our practice from outside and before. She received recent treatment for pneumonia. Denies chest pains. Does complain of dyspnea on exertion. Does complain of leg swellings. In October 2021, the patient was diagnosed to have nonischemic cardiomyopathy, was put on LifeVest, later was found to have improved LV systolic function the LifeVest was taken away. Recently, ejection fraction decreased again. She denies recent chest pain. She is on amiodarone (for history of PVCs). Sitting comfortably in bed, not using accessory muscles of breathing. Mucosa is pink and wet, there is no JVD, no goiter. Chest: Scattered rhonchi/rales. Cardiac: Regular regular, no thrill. Systolic murmur 3/6 in the apex is heard.. Abdomen: Soft, no palpable mass, positive hepatomegaly. Bowel sound is positive. Extremities: 3+ edema. Dorsalis pedis is 2+ bilateral Past medical history includes hypertension, hyperlipidemia, diabetes mellitus, asthma/COPD, history of back surgery, arrhythmia (sustained V. tach in October 2021, for which was shocked), history of old nonischemic cardiomyopathy, pulmonary hypertension (considered type 2), hypothyroidism, hiatal hernia, lupus, SVT, history of colon polyp and its resection, history of thyroid nodule, history of low vitamin-D, possible obstructive sleep apnea, CKD (goes to Nephrology regularly), A-fib/flutter, LBBB and also history of laminectomy. Left heart catheterization of November 17, 2021 revealed nonobstructive coronary artery disease, negative FFR of distal LCx, nonischemic cardiomyopathy Echocardiogram of November 15, 2021 revealed ejection fraction of 40%, enlarged LV/LA and aortic root. Echocardiogram of January 31, 2022 (performed in the office) revealed ejection fraction of 40 to 45%, sigmoid shaped septum, impaired relaxation of left ventricular diastolic function, trace MR/TR and right ventricular systolic pressure of less than 35 mmHg. Echocardiogram of March 2022 reported ejection fraction of 45-50%, anteroseptal/apical hypokinesia, trace MR/TR and right ventricular systolic pressure of 22 mm Hg Echocardiogram of April 2025 (performed in the office) revealed ejection fraction of less than 20%, increased EDP, tethered mitral valve leaflet secondary to left ventricular enlargement, moderate MR, mild TR and right ventricular systolic pressure of 60 mm Hg. Hemoglobin: 10.7 - 11.4 - 11.6 - 13.6 - 13.2 - 12.9 - 12.8 today's pending Creatinine: 1.60 - 1.37 - 1.60 - 1.55 - 1.51 - 1.79 - 2.55 - 2.81 - 2.54 - 2.22 today's pending Potassium: 4.0 - 3.4 - 3.5 - 3.5 - 4.2 - 4.1 - 4.2 - 4.3 - 4.5 - 4.6 today's pending BNP: 3325.33 - 3570.88 Troponin (high sensitive): - 23 - 12 - 12 - 14 D-dimer: 1.57 Chest x-ray reported: MPRESSION: Cardiomegaly with moderate congestion. Repeat chest xry reported: IMPRESSION: Small right pleural effusion Cardiomegaly with CHF. Repeat chest xry revealed: IMPRESSION: Mild pulmonary congestion. Repeat chest xry revealed: IMPRESSION: No acute disease. Venous duplex of lower ext revealed: Impression: 1. No right or left femoropopliteal venous thrombosis. V/Q scan reported: IMPRESSION: 1. Low probability for PE. CT of chest (no contrast) reported: Impression: 1. No acute cardiopulmonary disease. 2. Mild right lower lobe atelectasis and traction bronchiectasis. Renal ultrasound reported: IMPRESSION: 1. Kidneys appear echogenic compatible with medical renal disease. 2. Bilateral renal cysts measuring up to 5.0 cm. EKG revealed sinus rhythm with left bundle branch block Tele reveals sinus rhythm, occasions of fib/flutter Echocardiogram revealed: Four-chamber dilatation was observed. Left ventricle: Left ventricle was dilated. Severely reduced systolic function of left ventricle was observed. LVEF was around 25%. Diffuse hypokinesis with regional variation of left ventricle seen. Right ventricle was dilated with preserved systolic function. Both atria were mildly dilated. Aortic valve: Aortic valve is trileaflet. Trace aortic insufficiency was seen. There was no aortic stenosis. There was mild mitral/tricuspid regurgitation. There was trace pulmonary valve insufficiency. Small pericardial effusion was seen. Right ventricular systolic pressure was assessed at 35 mm Hg. Patient is a 74-year-old female who presented with shortness of breath/cough. She was recently treated for pneumonia. She does have recent diagnosis of worsened systolic function and heart failure. He is found to have increased BNP. Chest x-ray reveals congestion. Presentation is in favor of acute on chronic systolic heart failure. Does have old history of nonischemic cardiomyopathy, but systolic function has worsened recently. Has been managed for acute on chronic systolic heart failure is considered the reason for presentation. May benefit from repeat ischemic workup (inpatient Vs outpatient). As EF had dropped suggestion is for Life Vest. Being followed by Nephrology Acute on chronic heart failure COPD exacerbation Fluid overload Bronchitis, acute Pneumonia, community acquired ALFONZO on CKD History of nonsustained VT Left bundle branch block Pulmonary hypertension, type 2 Hypothyroidism Left bundle branch block Atrial fib/flutter Elevated D-dimer Cardiac suggestion for management: Telemetry monitoring Follow-up electrolytes and kidney function tests and correct abnormalities. Keep potassium above 4 and magnesium above 2 Continuation of amiodarone for history of non-sustained ventricular tachycardia is suggested (dose: 200 mg once daily) Patient with A-fib/flutter and high CHADS/Vasc score On Eliquis 2.5 mg BID. Kestra external wearable cardioverter defibrillator vest for primary prevention against sudden cardiac Nephrology follow up May benefit from ischemic workup/cardiac catheterization (outpatient) Further evaluation and management depends on the above and clinical course A total of 55 minutes was spent reviewing the patient record, examining the patient, making a diagnostic and therapeutic plan, discussing this plan with medical personnel, following up on diagnostic studies and following the patient for clinical stability excluding any and all procedures. At least 50% of this time was spent in direct, [id number] contact. Thank you for allowing me to participate in this patient's care. Further recommendations will depend on patient's clinical course. Please do not hesitate to contact me if you have any questions or concerns. This medical document was created using electronic medical record system with [employer] dictation system. Although this document has been carefully reviewed, there may still be some phonetic and typographical errors. These areas are purely typographical due to the imperfection of the software programs, and do not reflect any compromise in the patient's medical care. Dietary Evaluation Review Comments: 1) Add cardiac restriction to 45g CCHO diet order 2) Consider Zofran prn for N/V 3) Continue current plan of care 4) Follow-up with cardiology and nephrology Expected Outcomes/Goals: 1) appetite and labs to improve 2) f/u in 3-5 days Plan discussed with: Patient, Other (nurse) WALESKA CHEW MD Aug 21, 2024 06:46
[2024-08-21 06:52] LABS: Basophils # (auto) 0 10 ^3/uL (0-0.2); Eosinophils # (auto) 0 10 ^3/uL (0-0.8); Hematocrit 38.5 % (36.0-46.0); Hemoglobin 12.4 g/dL (12.2-16.2); Lymphocytes # (auto) 0.5 10 ^3/uL (0.4-5.4); Lymphocytes % (auto) 9.8 % (10.0-50.0); Mean Corpuscular Hemoglobin 28.9 pg (28.0-32.0); Mean Corpuscular Hgb Conc. 32.1 g/dL (32.0-36.0); Mean Corpuscular Volume 90.2 fL (80.0-100.0); Monocytes # (auto) 0.3 10 ^3/uL (0-1.3); Neutrophils # (auto) 3.8 10 ^3/uL (1.6-8.6); Neutrophils % (auto) 83.2 % (37.0-80.0); Nucleated Red Blood Cells % 0.1 %; Platelet Count (auto) 233 10^3/uL (140-450); Red Blood Cells 4.27 10^6/uL (4.0-5.20); Red Cell Distribution Width 14.5 % (11.8-14.3); White Blood Cell 4.6 10^3/uL (4.4-10.8)
[2024-08-21 07:14] LABS: Anion Gap 14 (5-15); Calcium 9.7 mg/dL (8.7-10.4); Carbon Dioxide 22 mmol/L (20-31); Potassium 4.5 mmol/L (3.5-5.1)
[2024-08-21 07:20] LABS: BUN/Creatinine Ratio 42.8 (10.0-20.0)
[2024-08-21 07:21] LABS: Chloride 93 mmol/L (98-107); Glucose 267 mg/dL (74-106); Sodium 129 mmol/L (136-145)
[2024-08-21 07:23] LABS: Blood Urea Nitrogen 101 mg/dL (9-23)
[2024-08-21] MEDS: predniSONE 20 MG TAB PO SCH (09:19)
--- NOTE | 2024-08-21 11:44 | DVHPN2 ---
Progress Note Date Seen: Aug 21, 2024 Medical Necessity Reason Pt with a Central, PICC or Fol: No Subjective Patient reports: No new complaints Review of Systems: HEENT:Normal, CVS:Normal, RESPIRATORY:Normal, GI:Normal, :Normal, MSK:Normal, NEURO:Normal Objective vital signs Vital Sign Date Time Temp Pulse Resp B/P (MAP) Pulse Ox O2 Delivery O2 Flow Rate FiO2 08/21/24 10:00 99 Nasal Cannula 3.0 08/21/24 10:00 32 08/21/24 08:30 97.4 88 17 93/56 (68) 97.4 Total Intake and Output 08/20/24 08/20/24 08/21/24 15:00 23:00 07:00 Intake Total 50 ml 750 ml 450 ml Output Total 800 ml 1000 ml Balance 50 ml -50 ml -550 ml medications Current Medications Medications Dose Ordered Sig/[place] Route Start Time Stop Time Status Last Admin Dose Admin Amitriptyline HCl 25 mg HS PO 08/10/24 22:00 08/20/24 21:20 25 MG Pregabalin 50 mg TID PO 08/10/24 22:00 08/21/24 05:45 50 MG Albuterol 2.5 mg Q4HPRN PRN NEB 08/10/24 17:30 08/11/24 11:00 2.5 MG Diagnostic Test (Pha) 1 strip ACHS 08/10/24 22:00 08/21/24 11:04 1 STRIP Insulin Human Regular ACHS SC 08/10/24 22:00 08/21/24 11:07 8 UNITS Dextrose 50 ml UD PRN IV 08/10/24 17:30 Nitroglycerin 0.4 mg Q5MINP PRN SL 08/10/24 18:45 Amiodarone HCl 200 mg DAILY PO 08/11/24 10:00 08/21/24 09:19 200 MG Levalbuterol HCl 1.25 mg Q6HR NEB 08/12/24 12:00 08/21/24 06:33 1.25 MG Levothyroxine Sodium 50 mcg QAM@0600 PO 08/13/24 06:00 08/21/24 05:44 50 MCG Apixaban 2.5 mg BID PO 08/13/24 10:00 08/21/24 09:19 2.5 MG Ipratropium [place] 0.5 mg Q6HWA NEB 08/13/24 12:00 08/21/24 06:33 0.5 MG Acetaminophen 650 mg Q6HP PRN PO 08/14/24 11:15 08/14/24 12:15 650 MG Pantoprazole Sodium 40 mg DAILY@0600 PO 08/16/24 06:00 08/21/24 05:44 40 MG Throat Lozenges 1 sofi Q2HP PRN MT 08/15/24 11:15 08/19/24 14:57 1 SOFI Doxycycline Monohydrate 100 mg Q12HR PO 08/15/24 22:00 UNV Doxycycline Monohydrate 100 mg Q12HR PO 08/15/24 22:00 08/21/24 09:19 100 MG Prednisone 30 mg DAILY PO 08/21/24 10:00 08/21/24 09:19 30 MG Nystatin 5 ml QID MT 08/20/24 12:00 08/21/24 05:45 5 ML Examination: GENERAL:Normal, HEENT:Normal, NECK:Normal, LUNGS:Normal, CVS:Normal, ABDOMEN:Normal, MSK:Normal, SKIN:Normal, NEURO:Normal, :Normal laboratory and microbiology Laboratory Tests 08/21/24 05:43 Test 08/21/24 05:43 Range/Units Serum Glucose 267 H 74-106 mg/dL Microbiology Date/Time Source Procedure Growth Status 08/11/24 01:23 Nose MRSA Screen - Final Complete Problem List/Assessment/Plan Problem List/Assessment/Plan #1 acute on chronic systolic heart failure: cont meds, dc metolazone #2 chronic resp failure #3 copd with exacerbation: prednisone, bronchodilators, ct chest-negative #4 acute on chronic renal failure ?vasomotor nephropathy: ivf #5 hypothyroidism #6 dm; ssi #7 s/p back surgery #8 h/o v tach: on amiodarone #8 ? pneumonia - gram positive/neg: iv antibiotics #9 dysphagia/upper airway ?obstruction: ct neck, gi eval advance care planning- full code- time spent 19 mins Plan discussed with: Patient My Orders My Orders Orders - JASWINDER TORRES MD Procedure Category Date Status Time Prednisone Tablet PHA 08/21/24 In Process 10:00 Nystatin PHA 08/20/24 In Process (Mouth-Throat) 12:00 Prednisone Tablet PHA 08/22/24 Verified 10:00 Dietary Evaluation Review Comments: 1) Add cardiac restriction to 45g CCHO diet order 2) Consider Zofran prn for N/V 3) Continue current plan of care 4) Follow-up with cardiology and nephrology Expected Outcomes/Goals: 1) appetite and labs to improve 2) f/u in 3-5 days Date of Service: Aug 21, 2024 Billing Provider: JASWINDER TORRES MD Common Visit Codes: [id number] INP/OBS CARE(HIGH) JASWINDER TORRES MD Aug 21, 2024 11:44
[2024-08-21] MEDS: SODIUM CHLORIDE 0.9% 1,000 ML IV SCH (12:20)
--- NOTE | 2024-08-21 13:58 | DVHINCON2 ---
Date of service: Aug 21, 2024 Referring Physician Chin Miller Reason for Consultation Oropharyngeal dysphagia History of Present Illness History of Present Illness 74-year-old female admitted with shortness of breath and severe coughing going on for the last two months. Patient has been treated with doxycycline and cough syrup. Patient has been having trouble breathing and because of that she is also having some trouble swallowing however it appears to be now more centered in the upper esophageal area. Patient is also having chronic cough and phlegm production in this area which is likely contributing to her symptoms. Patient was seen at bedside and she had tolerated a most of her soft mechanical diet. Patient is on supplemental oxygen. Patient is also on diuretics for suspected CHF. Her last ejection fraction was 45-50% and recently was told it was 25%. There is a plan for cardiac catheterization in the future Past Medical History Past Medical History PVC use was on amiodarone for that systolic heart failure COPD pneumonia recently diagnosed in June of this year and given doxycycline, diabetes hyperlipidemia hypertension hypothyroidism lupus arthritis CKD Past Surgical History Past Surgical History denies any surgical history Family History: Diabetes mellitus G8 FATHER Allergies: Coded Allergies: NO KNOWN ALLERGIES (Unverified , 11/14/21) Home Meds Reported Medications Semaglutide (Ozempic) 4 Mg/3 Ml Inj, 1 MG SC QWEEKLY for 30 Days, #3 08/16/24 Dapagliflozin Propanediol (Dapagliflozin Propanediol) 5 Mg Tab, 1 TAB PO DAILY for 30 Days, #30 08/16/24 Hydroxychloroquine Sulfate (Hydroxychloroquine Sulfat) 200 Mg Tab, 100 MG PO for 30 Days, MG 08/11/24 Prednisone (Prednisone) 5 Mg Tab, 5 MG PO DAILY, TAB 08/11/24 Metoclopramide Hcl (Metoclopramide Hcl) 10 Mg Tab, 10 MG PO for 30 Days, MG 08/11/24 Pantoprazole Sodium Sesquihydr (Protonix) 40 Mg Tab, 1 TAB PO DAILY for 90 Days, #90 08/11/24 Doxycycline Hyclate (Doxycycline Hyclate) 100 Mg Tab, 1 TAB PO BID for 10 Days, #20 08/11/24 Furosemide (Furosemide) 20 Mg Tab, 1 TAB PO DAILY for 30 Days, #30 08/11/24 Famotidine (Famotidine) 40 Mg Tab, 1 TAB PO DAILY for 30 Days, #30 08/11/24 Levothyroxine Sodium (Levothyroxine Sodium) 50 Mcg Tab, 1 TAB PO DAILY for 90 Days, #90 08/11/24 Sodium Bicarbonate (Sodium Bicarbonate) 650 Mg Tab, 1 TAB PO DAILY for 30 Days, #30 08/11/24 Atorvastatin Calcium (ATORVASTATIN CALCIUM) 40 Mg Tab, 1 TAB PO DAILY for 90 Days, #90 08/11/24 Metoprolol Succinate (Metoprolol Succinate Er) 25 Mg Tab, 0.5 TAB PO DAILY for 30 Days, #15 08/11/24 Hydroxyzine Hcl (Hydroxyzine Hcl) 25 Mg Tab, 1 TAB PO DAILY for 30 Days, #30 08/11/24 Alendronate Sodium (Alendronate Sodium) 35 Mg Tab, 1 TAB PO QWEEKLY for 28 Days, #4 08/11/24 Amiodarone HCl (Amiodarone Hydrochloride) 100 Mg Tab, 1 TAB PO DAILY for 30 Days, #30 08/11/24 Dicyclomine Hcl (BENTYL CAPSULE) 10 Mg Cp, 10 MG PO BID, CAP 09/05/22 Sacubitril-Valsartan (Entresto 24-26 mg) 1 Tab Tab, 1 TAB PO BID, TAB 09/05/22 Amitriptyline Hcl (Amitriptyline Hcl) 25 Mg Tab, 1 TAB PO HS for 90 Days, #90 02/22/22 Pregabalin (Lyrica) 150 Mg Cap, 1 CAP PO TID, #60 CAP 5 Refills 02/22/22 Cholecalciferol (VITAMIN D3) 2,000 Unit Tab, 1 TAB PO DAILY for 30 Days, #30 11/14/21 Ascorbic Acid (VITAMIN C TABLET) 500 Mg Tb, 1 TAB PO DAILY, #30 TAB 3 Refills 11/14/21 Discontinued Reported Medications Dapagliflozin Propanediol (Farxiga) 10 Mg Tab, 5 MG PO DAILY, TAB 08/11/24 Semaglutide (Ozempic) 2 Mg/1.5 Ml Inj, 2 MG SC QWEEKLY, INJ 09/05/22 Current Medications Current Medications Medications (Trade) Dose Ordered Sig/[place] Route PRN Reason Start Time Stop Time Status Last Admin Prednisone 30 mg DAILY PO 08/21/24 10:00 08/21/24 11:43 DC 08/21/24 09:19 Prednisone 20 mg DAILY PO 08/22/24 10:00 Sodium Chloride 1,000 ml @ 60 mls/hr [id number] IV 08/21/24 11:45 08/21/24 12:20 Vital Signs Vital Signs Date Time Temp Pulse Resp B/P (MAP) Pulse Ox O2 Delivery O2 Flow Rate FiO2 08/21/24 12:34 96.7 87 16 103/56 (72) 97 96.7 08/21/24 12:09 Nasal Cannula* 2 28 Physical Exam Awake alert oriented x3 on supplemental oxygen, patient having moderate amount of coughing and phlegm production at bedside HEENT: Normocephalic, no JVD Lungs: Bilateral crackles CVS: S1, S2 regular rate rhythm Abdomen: Soft, bowel sounds present PROCESS COORDINATOR: No focal deficits Extremities: No edema Labs/Diagnostic Data Labs Test 08/21/24 05:43 08/21/24 05:39 08/20/24 06:06 08/18/24 13:05 Range/Units White Blood Count 4.6 4.4-10.8 10^3/uL Red Blood Count 4.27 4.0-5.20 10^6/uL Hemoglobin 12.4 12.2-16.2 g/dL Hematocrit 38.5 36.0-46.0 % Mean Corpuscular Volume 90.2 80.0-100.0 fL Mean Corpuscular Hemoglobin 28.9 28.0-32.0 pg Mean Corpuscular Hemoglobin Concent 32.1 32.0-36.0 g/dL Red Cell Distribution Width 14.5 H 11.8-14.3 % Platelet Count 233 140-450 10^3/uL Mean Platelet Volume 9.5 6.9-10.8 fL Neutrophils (%) (Auto) 83.2 H 37.0-80.0 % Lymphocytes (%) (Auto) 9.8 L 10.0-50.0 % Monocytes (%) (Auto) 7.0 0.0-12.0 % Eosinophils (%) (Auto) 0.0 0.0-7.0 % Basophils (%) (Auto) 0.0 0.0-2.0 % Neutrophils # (Auto) 3.8 1.6-8.6 10 ^3/uL Lymphocytes # (Auto) 0.5 0.4-5.4 10 ^3/uL Monocytes # (Auto) 0.3 0-1.3 10 ^3/uL Eosinophils # (Auto) 0 0-0.8 10 ^3/uL Basophils # (Auto) 0 0-0.2 10 ^3/uL Nucleated Red Blood Cells 0.1 % Sodium Level 129 L 136-145 mmol/L Potassium Level 4.5 3.5-5.1 mmol/L Chloride Level 93 L 98-107 mmol/L Carbon Dioxide Level 22 20-31 mmol/L Anion Gap 14 5-15 Blood Urea Nitrogen 101 *H 9-23 mg/dL Creatinine 2.36 H 0.550-1.02 mg/dL Glomerular Filtration Rate Calc 21 >90 mL/min BUN/Creatinine Ratio 42.8 H 10.0-20.0 Serum Glucose 267 H 74-106 mg/dL Calcium Level 9.7 8.7-10.4 mg/dL POC Glucose 271 H 70-106 mg/dl Total Bilirubin 0.9 0.2-1.0 mg/dL Aspartate Amino Transferase (AST) 12 L 13-40 U/L Alanine Aminotransferase (ALT) 25 7-40 U/L Alkaline Phosphatase 86 46-116 U/L Total Protein 6.4 5.7-8.2 g/dL Albumin 3.9 3.2-4.8 g/dL D-Dimer, Quantitative 1.57 H 0.0-0.49 mg/L FEU Test 08/13/24 05:18 08/13/24 04:24 08/12/24 22:39 08/12/24 19:49 Range/Units Hemoglobin A1c 7.8 H <5.7 % A1C Magnesium Level 1.9 1.6-2.6 mg/dL Thyroid Stimulating Hormone (TSH) 0.16 L 0.55-4.78 uIU/mL Urine Color Colorless Yellow Urine Clarity Clear Clear Urine pH 7.0 5.0-9.0 Urine Specific [place] 1.009 1.001-1.035 Urine Protein Negative Negative Urine Ketones Negative Negative Urine Blood Negative Negative /uL Urine Nitrite Negative Negative Urine Bilirubin Negative Negative Urine Urobilinogen Normal Negative mg/dL Urine Leukocyte Esterase Negative Negative /uL Urine RBC <1 0 - 4 /hpf Urine Microscopic WBC 1 0-5 /HPF Urine Squamous Epithelial Cells Few <5 /hpf Urine Bacteria None seen None Seen /hpf Urine Glucose 4+ H Normal mg/dL Troponin I High Sensitivity 14 </=34 ng/L Phosphorus Level 3.6 2.4-5.1 mg/dL B-Type Natriuretic Peptide 3570.88 0-100 pg/mL Test 08/10/24 15:08 08/10/24 11:54 Range/Units Triglycerides Level 124 < 150 mg/dL Cholesterol Level 93 < 200 mg/dL LDL Cholesterol 36 < 100 mg/dL HDL Cholesterol 37 L 40-59 mg/dL Influenza Type A Antigen Negative Negative Influenza Type B Antigen Negative Negative SARS-CoV-2 Antigen (Rapid) Negative NEGATIVE Microbiology Date/Time Source Procedure Growth Status 08/11/24 01:23 Nose MRSA Screen - Final Complete Chest CT Impression: 1. No acute cardiopulmonary disease. 2. Mild right lower lobe atelectasis and traction bronchiectasis. Problems(with codes): (1) Oropharyngeal dysphagia (2) Atelectasis (3) Shortness of breath (4) Systolic CHF (5) COPD (chronic obstructive pulmonary disease) Plan/Recommendation Assessment plan Patient is undergoing a CT offer neck and soft tissues today I suspect the patient may have oropharyngeal candidiasis because of her steroid use and inhalers Patient it does not appear to be clinically stable for an endoscopic procedure and has her moderate amount of cough and phlegm at this time Continue pulmonary care antibiotic treatment I will start her empirically on nystatin swish and swallow 5 mL p.o. three times a day Protonix 40 mg IV q.12 hours Carafate suspension 1 g 4 times a day I will follow up patient with you and we will consider endoscopic evaluation once medically more stabilized Plan discussed with: Patient, Other (Dr Miller) BREANNA MORSE MD Aug 21, 2024 13:58
--- NOTE | 2024-08-21 14:46 | DVH ---
EXAM: CT NECK WITHOUT CONTRAST INDICATION: dysphagia/upper airway obstruction Exam Date: 08/21/2024 11:57 AM COMPARISON: None TECHNIQUE: CT of the neck without intravenous contrast. RADIATION DOSE: CTDIvol: 13.04 mGy, DLP: 312.02 mGy*cm FINDINGS: There is no evidence of cervical mass lesion, pathologically enlarged lymph nodes or fluid collection . The fat planes of the neck appear intact. The airway and larynx are unremarkable. The parotid, submandibular and thyroid glands are unremarkable. The vascular structures of the neck appear patent. The visualized lung apices are clear. The limited visualized portions of the brain are unremarkable. Multilevel degenerative changes of the spine. IMPRESSION: No evidence of cervical mass lesion, pathologically enlarged lymph nodes or fluid collection.
[2024-08-21] MEDS: SUCRALFATE 1 GM/10 ML ORAL SUSP PO SCH (16:53)
[2024-08-21] MEDS: NYSTATIN (MOUTH-THROAT) 500,000 UNITS/5 ML SUSP MT SCH (17:49)
--- NOTE | 2024-08-21 18:18 | DVHPN2 ---
Progress Note - Dictate Date Seen: Aug 21, 2024 Medical Necessity Reason Pt with a Central, PICC or Fol: No Subjective no acute issues overnight started on IV hydration vital signs Vital Sign Date Time Temp Pulse Resp B/P (MAP) Pulse Ox O2 Delivery O2 Flow Rate FiO2 08/21/24 16:38 98.3 86 16 101/62 (75) 99 98.3 08/21/24 12:09 Nasal Cannula* 2 28 Total Intake and Output 08/20/24 08/20/24 08/21/24 15:00 23:00 07:00 Intake Total 50 ml 750 ml 450 ml Output Total 800 ml 1000 ml Balance 50 ml -50 ml -550 ml medications Current Medications Medications Dose Ordered Sig/[place]roy Route Start Time Stop Time Status Last Admin Dose Admin Amitriptyline HCl 25 mg HS PO 08/10/24 22:00 08/20/24 21:20 25 MG Pregabalin 50 mg TID PO 08/10/24 22:00 08/21/24 13:44 50 MG Albuterol 2.5 mg Q4HPRN PRN NEB 08/10/24 17:30 08/11/24 11:00 2.5 MG Diagnostic Test (Pha) 1 strip ACHS 08/10/24 22:00 08/21/24 16:54 1 STRIP Insulin Human Regular ACHS SC 08/10/24 22:00 08/21/24 16:57 4 UNITS Dextrose 50 ml UD PRN IV 08/10/24 17:30 Nitroglycerin 0.4 mg Q5MINP PRN SL 08/10/24 18:45 Amiodarone HCl 200 mg DAILY PO 08/11/24 10:00 08/21/24 09:19 200 MG Levalbuterol HCl 1.25 mg Q6HR NEB 08/12/24 12:00 08/21/24 12:09 1.25 MG Levothyroxine Sodium 50 mcg QAM@0600 PO 08/13/24 06:00 08/21/24 05:44 50 MCG Apixaban 2.5 mg BID PO 08/13/24 10:00 08/21/24 09:19 2.5 MG Ipratropium [place] 0.5 mg Q6HWA NEB 08/13/24 12:00 08/21/24 12:09 0.5 MG Acetaminophen 650 mg Q6HP PRN PO 08/14/24 11:15 08/14/24 12:15 650 MG Throat Lozenges 1 sofi Q2HP PRN MT 08/15/24 11:15 08/19/24 14:57 1 SOFI Doxycycline Monohydrate 100 mg Q12HR PO 08/15/24 22:00 UNV Doxycycline Monohydrate 100 mg Q12HR PO 08/15/24 22:00 08/21/24 09:19 100 MG Prednisone 20 mg DAILY PO 08/22/24 10:00 Sodium Chloride 1,000 ml @ 60 mls/hr [id number] IV 08/21/24 11:45 08/21/24 12:20 60 MLS/HR Nystatin 5 ml QID MT 08/21/24 18:00 08/21/24 17:49 5 ML Sucralfate 1 gm QID@0600,1130,1700,2200 PO 08/21/24 17:00 08/21/24 16:53 1 GM Pantoprazole Sodium 40 mg BID IV 08/22/24 10:00 objective Awake alert oriented x3 HEENT: Normocephalic, no JVD Lungs: Bilateral good air entry CVS: S1, S2 regular rate rhythm Abdomen: Soft, bowel sounds present YARDAGE ESTIMATOR: No focal deficits Extremities: No edema laboratory and microbiology Laboratory Tests 08/21/24 05:43 Test 08/21/24 05:43 Range/Units Serum Glucose 267 H 74-106 mg/dL Problem List Acute kidney injury superimposed on CKD stage IIIB. Worsening GFR secondary to over-diuresis Acute on chronic systolic heart failure Hyponatremia secondary to heart failure Hypotension Type 2 diabetes with nephropathy Acute on chronic hypoxic respiratory failure COPD Hypothyroidism Type 2 diabetes History of V-tach Assessment/Plan GFR with the improvement. Continue to hold Lasix, metolazone , Entresto, Aldactone and Jardiance. Respiratory status stable . continue with IVF SGLT2 inhib can be reinitiated in the outpatient setting We will follow up on BMP. Dietary Evaluation Review Comments: 1) Add cardiac restriction to 45g CCHO diet order 2) Consider Zofran prn for N/V 3) Continue current plan of care 4) Follow-up with cardiology and nephrology Expected Outcomes/Goals: 1) appetite and labs to improve 2) f/u in 3-5 days Plan discussed with: Patient XOCHITL ORELLANA MD Aug 21, 2024 18:18
[2024-08-22] VITALS (17 sets, daily range): BP systolic 92–117; BP diastolic 62–75; PULSE 64–91; RESP 12–20; TEMP 97.2–98.1; O2SAT 95–100
[2024-08-22 06:35] LABS: Chloride 103 mmol/L (98-107)
[2024-08-22 06:36] LABS: Anion Gap 8 (5-15); Calcium 9.6 mg/dL (8.7-10.4); Carbon Dioxide 24 mmol/L (20-31)
[2024-08-22 06:38] LABS: Potassium 5.3 mmol/L (3.5-5.1); Sodium 135 mmol/L (136-145)
[2024-08-22 06:42] LABS: BUN/Creatinine Ratio 46.8 (10.0-20.0)
[2024-08-22 06:44] LABS: Glucose 216 mg/dL (74-106)
[2024-08-22 06:45] LABS: Blood Urea Nitrogen 81 mg/dL (9-23)
[2024-08-22 06:58] LABS: Basophils # (auto) 0 10 ^3/uL (0-0.2); Eosinophils # (auto) 0 10 ^3/uL (0-0.8); Hemoglobin 12.1 g/dL (12.2-16.2); Lymphocytes # (auto) 0.4 10 ^3/uL (0.4-5.4); Lymphocytes % (auto) 9.3 % (10.0-50.0); Mean Corpuscular Hemoglobin 28.8 pg (28.0-32.0); Mean Corpuscular Hgb Conc. 31.7 g/dL (32.0-36.0); Mean Corpuscular Volume 90.7 fL (80.0-100.0); Monocytes # (auto) 0.4 10 ^3/uL (0-1.3); Monocytes % (auto) 7.8 % (0.0-12.0); Neutrophils # (auto) 3.8 10 ^3/uL (1.6-8.6); Neutrophils % (auto) 82.9 % (37.0-80.0); Nucleated Red Blood Cells % 0.1 %; Platelet Count (auto) 207 10^3/uL (140-450); Red Blood Cells 4.19 10^6/uL (4.0-5.20); Red Cell Distribution Width 14.6 % (11.8-14.3); White Blood Cell 4.6 10^3/uL (4.4-10.8)
--- NOTE | 2024-08-22 07:36 | DVHPN2 ---
Progress Note - Dictate Date Seen: Aug 22, 2024 Medical Necessity Reason Pt with a Central, PICC or Fol: No vital signs Vital Sign Date Time Temp Pulse Resp B/P (MAP) Pulse Ox O2 Delivery O2 Flow Rate FiO2 08/22/24 07:23 76 14 96 08/22/24 07:23 Nasal Cannula 2.0 08/22/24 07:23 28 08/22/24 05:00 97.7 101/67 (78) 97.7 Total Intake and Output 08/21/24 08/21/24 08/22/24 15:00 23:00 07:00 Intake Total 1540 ml 920 ml Output Total 900 ml Balance 1540 ml 20 ml medications Current Medications Medications Dose Ordered Sig/[place]roy Route Start Time Stop Time Status Last Admin Dose Admin Amitriptyline HCl 25 mg HS PO 08/10/24 22:00 08/21/24 21:21 25 MG Pregabalin 50 mg TID PO 08/10/24 22:00 08/22/24 05:32 50 MG Albuterol 2.5 mg Q4HPRN PRN NEB 08/10/24 17:30 08/11/24 11:00 2.5 MG Diagnostic Test (Pha) 1 strip ACHS 08/10/24 22:00 08/22/24 06:05 1 STRIP Insulin Human Regular ACHS SC 08/10/24 22:00 08/22/24 06:09 3 UNITS Dextrose 50 ml UD PRN IV 08/10/24 17:30 Nitroglycerin 0.4 mg Q5MINP PRN SL 08/10/24 18:45 Amiodarone HCl 200 mg DAILY PO 08/11/24 10:00 08/21/24 09:19 200 MG Levalbuterol HCl 1.25 mg Q6HR NEB 08/12/24 12:00 08/22/24 07:23 1.25 MG Levothyroxine Sodium 50 mcg QAM@0600 PO 08/13/24 06:00 08/22/24 05:32 50 MCG Apixaban 2.5 mg BID PO 08/13/24 10:00 08/21/24 21:21 2.5 MG Ipratropium [place] 0.5 mg Q6HWA NEB 08/13/24 12:00 08/22/24 07:23 0.5 MG Acetaminophen 650 mg Q6HP PRN PO 08/14/24 11:15 08/14/24 12:15 650 MG Throat Lozenges 1 sofi Q2HP PRN MT 08/15/24 11:15 08/19/24 14:57 1 SOFI Doxycycline Monohydrate 100 mg Q12HR PO 08/15/24 22:00 UNV Doxycycline Monohydrate 100 mg Q12HR PO 08/15/24 22:00 08/21/24 21:21 100 MG Prednisone 20 mg DAILY PO 08/22/24 10:00 Sodium Chloride 1,000 ml @ 60 mls/hr [id number] IV 08/21/24 11:45 08/22/24 05:32 60 MLS/HR Nystatin 5 ml QID MT 08/21/24 18:00 08/22/24 05:31 5 ML Sucralfate 1 gm QID@0600,1130,1700,2200 PO 08/21/24 17:00 08/22/24 05:31 1 GM Pantoprazole Sodium 40 mg BID IV 08/22/24 10:00 laboratory and microbiology Laboratory Tests 08/22/24 05:23 Test 08/22/24 05:23 Range/Units Serum Glucose 216 H 74-106 mg/dL Assessment/Plan Patient is a 74-year-old female who presented to the hospital for shortness of breath. She also had been having cough. Problem started around a month ago and worsened recently. Cardiology was involved for cardiac aspects of care. Patient is known to our practice from outside and before. She received recent treatment for pneumonia. Denies chest pains. Does complain of dyspnea on exertion. Does complain of leg swellings. In October 2021, the patient was diagnosed to have nonischemic cardiomyopathy, was put on LifeVest, later was found to have improved LV systolic function the LifeVest was taken away. Recently, ejection fraction decreased again. She denies recent chest pain. She is on amiodarone (for history of PVCs). Sitting comfortably in bed, not using accessory muscles of breathing. Mucosa is pink and wet, there is no JVD, no goiter. Chest: Scattered rhonchi/rales. Cardiac: Regular regular, no thrill. Systolic murmur 3/6 in the apex is heard.. Abdomen: Soft, no palpable mass, positive hepatomegaly. Bowel sound is positive. Extremities: 3+ edema. Dorsalis pedis is 2+ bilateral Past medical history includes hypertension, hyperlipidemia, diabetes mellitus, asthma/COPD, history of back surgery, arrhythmia (sustained V. tach in October 2021, for which was shocked), history of old nonischemic cardiomyopathy, pulmonary hypertension (considered type 2), hypothyroidism, hiatal hernia, lupus, SVT, history of colon polyp and its resection, history of thyroid nodule, history of low vitamin-D, possible obstructive sleep apnea, CKD (goes to Nephrology regularly), A-fib/flutter, LBBB and also history of laminectomy. Left heart catheterization of November 17, 2021 revealed nonobstructive coronary artery disease, negative FFR of distal LCx, nonischemic cardiomyopathy Echocardiogram of November 15, 2021 revealed ejection fraction of 40%, enlarged LV/LA and aortic root. Echocardiogram of January 31, 2022 (performed in the office) revealed ejection fraction of 40 to 45%, sigmoid shaped septum, impaired relaxation of left ventricular diastolic function, trace MR/TR and right ventricular systolic pressure of less than 35 mmHg. Echocardiogram of March 2022 reported ejection fraction of 45-50%, anteroseptal/apical hypokinesia, trace MR/TR and right ventricular systolic pressure of 22 mm Hg Echocardiogram of April 2025 (performed in the office) revealed ejection fraction of less than 20%, increased EDP, tethered mitral valve leaflet secondary to left ventricular enlargement, moderate MR, mild TR and right ventricular systolic pressure of 60 mm Hg. Hemoglobin: 10.7 - 11.4 - 11.6 - 13.6 - 13.2 - 12.9 - 12.8 12.4 - 12.1 Creatinine: 1.60 - 1.37 - 1.60 - 1.55 - 1.51 - 1.79 - 2.55 - 2.81 - 2.54 - 2.22 - 2.36 - 1.73 Potassium: 4.0 - 3.4 - 3.5 - 3.5 - 4.2 - 4.1 - 4.2 - 4.3 - 4.5 - 4.6 - 4.5 - 5.3 BNP: 3325.33 - 3570.88 Troponin (high sensitive): 20 - 23 - 23 - 12 - 12 - 14 D-dimer: 1.57 Chest x-ray reported: MPRESSION: Cardiomegaly with moderate congestion. Repeat chest xry reported: IMPRESSION: Small right pleural effusion Cardiomegaly with CHF. Repeat chest xry revealed: IMPRESSION: Mild pulmonary congestion. Repeat chest xry revealed: IMPRESSION: No acute disease. Venous duplex of lower ext revealed: Impression: 1. No right or left femoropopliteal venous thrombosis. V/Q scan reported: IMPRESSION: 1. Low probability for PE. CT of neck revealed: IMPRESSION: No evidence of cervical mass lesion, pathologically enlarged lymph nodes or fluid collection. CT of chest (no contrast) reported: Impression: 1. No acute cardiopulmonary disease. 2. Mild right lower lobe atelectasis and traction bronchiectasis. Renal ultrasound reported: IMPRESSION: 1. Kidneys appear echogenic compatible with medical renal disease. 2. Bilateral renal cysts measuring up to 5.0 cm. EKG revealed sinus rhythm with left bundle branch block Tele reveals sinus rhythm, occasions of fib/flutter Echocardiogram revealed: Four-chamber dilatation was observed. Left ventricle: Left ventricle was dilated. Severely reduced systolic function of left ventricle was observed. LVEF was around 25%. Diffuse hypokinesis with regional variation of left ventricle seen. Right ventricle was dilated with preserved systolic function. Both atria were mildly dilated. Aortic valve: Aortic valve is trileaflet. Trace aortic insufficiency was seen. There was no aortic stenosis. There was mild mitral/tricuspid regurgitation. There was trace pulmonary valve insufficiency. Small pericardial effusion was seen. Right ventricular systolic pressure was assessed at 35 mm Hg. Patient is a 74-year-old female who presented with shortness of breath/cough. She was recently treated for pneumonia. She does have recent diagnosis of worsened systolic function and heart failure. He is found to have increased BNP. Chest x-ray reveals congestion. Presentation is in favor of acute on chronic systolic heart failure. Does have old history of nonischemic cardiomyopathy, but systolic function has worsened recently. Has been managed for acute on chronic systolic heart failure is considered the reason for presentation. May benefit from repeat ischemic workup (inpatient Vs outpatient). As EF had dropped suggestion is for Life Vest. Being followed by Nephrology. Was seen by GI for dysphagia and had CT of neck. Started on Nystatin by GI Acute on chronic heart failure COPD exacerbation Fluid overload Bronchitis, acute Pneumonia, community acquired ALFONZO on CKD History of nonsustained VT Left bundle branch block Pulmonary hypertension, type 2 Hypothyroidism Left bundle branch block Atrial fib/flutter Elevated D-dimer Cardiac suggestion for management: Telemetry monitoring Follow-up electrolytes and kidney function tests and correct abnormalities. Keep potassium above 4 and magnesium above 2 Continuation of amiodarone for history of non-sustained ventricular tachycardia is suggested (dose: 200 mg once daily) Patient with A-fib/flutter and high CHADS/Vasc score On Eliquis 2.5 mg BID. Kestra external wearable cardioverter defibrillator vest for primary prevention against sudden cardiac Nephrology follow up May benefit from ischemic workup/cardiac catheterization (outpatient) Further evaluation and management depends on the above and clinical course A total of 55 minutes was spent reviewing the patient record, examining the patient, making a diagnostic and therapeutic plan, discussing this plan with medical personnel, following up on diagnostic studies and following the patient for clinical stability excluding any and all procedures. At least 50% of this time was spent in direct, [id number] contact. Thank you for allowing me to participate in this patient's care. Further recommendations will depend on patient's clinical course. Please do not hesitate to contact me if you have any questions or concerns. This medical document was created using electronic medical record system with [employer] computerized dictation system. Although this document has been carefully reviewed, there may still be some phonetic and typographical errors. These areas are purely typographical due to the imperfection of the software programs, and do not reflect any compromise in the patient's medical care. Dietary Evaluation Review Comments: 1) Add cardiac restriction to 45g CCHO diet order 2) Consider Zofran prn for N/V 3) Continue current plan of care 4) Follow-up with cardiology and nephrology Expected Outcomes/Goals: 1) appetite and labs to improve 2) f/u in 3-5 days Plan discussed with: Patient, Other (nurse) WALESKA CHEW MD Aug 22, 2024 07:36
[2024-08-22] MEDS: predniSONE 20 MG TAB PO SCH (09:24)
[2024-08-22] MEDS: PANTOPRAZOLE 40 MG/10 ML VIAL INJ IV SCH (09:24)
--- NOTE | 2024-08-22 10:28 | CONS ---
Pharmacy Clinical Information: From Heart Failure Fallout Report on CQM Application, Carlo Tabitha Leblanc is a 74 year old female with PMH of HF (LVEF 25%), PVCs on amio, COPD, DM, HLD, HTN, CKD, hypothyroidism, lupus arthritis, and pneumonia. Her home medications include atorvastatin 40 mg PO QD. Consider resuming home statin dose since LFTs and Lipid panel are WNL if patient tolerates PO. BRANDON ROTHMAN PHARMACIST Aug 22, 2024 10:27
--- NOTE | 2024-08-22 11:14 | DVHPN2 ---
Progress Note Date Seen: Aug 22, 2024 Resident Creating Document: ANNETTE CROCKER RESIDENT Medical Necessity Reason Pt with a Central, PICC or Fol: No Subjective Review of Systems History of Present Illness 74-year-old female admitted with shortness of breath and severe coughing going on for the last two months. Patient has been treated with doxycycline and cough syrup. Patient has been having trouble breathing and because of that she is also having some trouble swallowing however it appears to be now more centered in the upper esophageal area. Patient is also having chronic cough and phlegm production in this area which is likely contributing to her symptoms. Patient was seen at bedside and she had tolerated a most of her soft mechanical diet. Patient is on supplemental oxygen. Patient is also on diuretics for suspected CHF. Her last ejection fraction was 45-50% and recently was told it was 25%. There is a plan for cardiac catheterization in the future Past Medical History Past Medical History PVC use was on amiodarone for that systolic heart failure COPD pneumonia recently diagnosed in June of this year and given doxycycline, diabetes hyperlipidemia hypertension hypothyroidism lupus arthritis CKD Past Surgical History Past Surgical History denies any surgical history Patient able to eat however patient continued to have oropharyngeal dysphagia. plan for barium esophagogram Objective vital signs Vital Sign Date Time Temp Pulse Resp B/P (MAP) Pulse Ox O2 Delivery O2 Flow Rate FiO2 08/22/24 10:00 96 Nasal Cannula* 2 28 08/22/24 09:00 97.2 80 18 117/65 (82) 97.2 Total Intake and Output 08/21/24 08/21/24 08/22/24 15:00 23:00 07:00 Intake Total 1540 ml 920 ml Output Total 900 ml Balance 1540 ml 20 ml medications Current Medications Medications Dose Ordered Sig/[place]roy Route Start Time Stop Time Status Last Admin Dose Admin Amitriptyline HCl 25 mg HS PO 08/10/24 22:00 08/21/24 21:21 25 MG Pregabalin 50 mg TID PO 08/10/24 22:00 08/22/24 05:32 50 MG Albuterol 2.5 mg Q4HPRN PRN NEB 08/10/24 17:30 08/11/24 11:00 2.5 MG Diagnostic Test (Pha) 1 strip ACHS 08/10/24 22:00 08/22/24 06:05 1 STRIP Insulin Human Regular ACHS SC 08/10/24 22:00 08/22/24 06:09 3 UNITS Dextrose 50 ml UD PRN IV 08/10/24 17:30 Nitroglycerin 0.4 mg Q5MINP PRN SL 08/10/24 18:45 Amiodarone HCl 200 mg DAILY PO 08/11/24 10:00 08/22/24 09:24 200 MG Levalbuterol HCl 1.25 mg Q6HR NEB 08/12/24 12:00 08/22/24 07:23 1.25 MG Levothyroxine Sodium 50 mcg QAM@0600 PO 08/13/24 06:00 08/22/24 05:32 50 MCG Apixaban 2.5 mg BID PO 08/13/24 10:00 08/22/24 09:25 2.5 MG Ipratropium [place] 0.5 mg Q6HWA NEB 08/13/24 12:00 08/22/24 07:23 0.5 MG Acetaminophen 650 mg Q6HP PRN PO 08/14/24 11:15 08/14/24 12:15 650 MG Throat Lozenges 1 sofi Q2HP PRN MT 08/15/24 11:15 08/19/24 14:57 1 SOFI Doxycycline Monohydrate 100 mg Q12HR PO 08/15/24 22:00 UNV Doxycycline Monohydrate 100 mg Q12HR PO 08/15/24 22:00 08/22/24 09:24 100 MG Prednisone 20 mg DAILY PO 08/22/24 10:00 08/22/24 09:24 20 MG Sodium Chloride 1,000 ml @ 60 mls/hr [id number] IV 08/21/24 11:45 08/22/24 05:32 60 MLS/HR Nystatin 5 ml QID MT 08/21/24 18:00 08/22/24 05:31 5 ML Sucralfate 1 gm QID@0600,1130,1700,2200 PO 08/21/24 17:00 08/22/24 05:31 1 GM Pantoprazole Sodium 40 mg BID IV 08/22/24 10:00 08/22/24 09:24 40 MG Examination General Appearance: Cooperative. Well developed. Well nourished. NAD Head Exam: Normal inspection Neck Exam: Normal inspection. Non-tender. Normal alignment Pulmonary/Respiratory: Chest non-tender. Clear bilateral breath sounds, no crackles, no wheezing. Cardiovascular/Chest: Regular rate and rhythm. No murmurs. No JVD. Peripheral Pulses: 2+ Radial (R). 2+ Radial (L). 2+ Pedal (R). 2+ Pedal (L) Abdominal Exam: Normal bowel sounds. Soft. normal abdomen, no visible veins, Nontender. No hepatospenomegaly. No masses Ankle Exam: Negative ankle edema Lower extremities: Negative lower extremity edema Neuro/Mental Status: A&O x4. Coherent. Thoughts/Psych: Normal thought pattern. Appropriate mood and affect. Good judgement and insight Skin Exam: Normal inspection. Normal color. Warm. Dry laboratory and microbiology Laboratory Tests 08/22/24 05:23 Test 08/22/24 05:23 Range/Units Serum Glucose 216 H 74-106 mg/dL Microbiology Date/Time Source Procedure Growth Status 08/11/24 01:23 Nose MRSA Screen - Final Complete Problem List/Assessment/Plan Problem List/Assessment/Plan Oropharyngeal dysphagia Acute on chronic systolic CHF COPD, currently on baseline 2 L oxygen via nasal cannula Acute bronchitis Plan/recommendation Dr William -Plan for barium esophagogram. Patient continued to have dysphagia with solid food. -CT scan of the neck and soft tissues negative for mass. -Re-evaluate tomorrow AM again for possible GI endoscopy. We will wait for barium esophagogram -Continue empirical nystatin swish and swallow 5 mL p.o. t.i.d. -Continue Protonix 40 mg IV b.i.d., Carafate suspension 1 g 4 times daily. -We will follow up with this patient and we will consider endoscopic evaluation once medically more stabilized Plan discussed with: Patient, Other (RN) Dietary Evaluation Review Comments: 1) Add cardiac restriction to 45g CCHO diet order 2) Consider Zofran prn for N/V 3) Continue current plan of care 4) Follow-up with cardiology and nephrology Expected Outcomes/Goals: 1) appetite and labs to improve 2) f/u in 3-5 days ANNETTE CROCKER RESIDENT Aug 22, 2024 11:14
[2024-08-22] MEDS: BARIUM SULFATE 98% 340 GM PWDR ONE (12:21)
[2024-08-22] MEDS: EZ PAQUE SUSP 12OZ BTL ONE (12:22)
[2024-08-22] MEDS: EZ-GAS II GRANULES (RADIOLOGY USE) PO ONE (12:22)
[2024-08-22] MEDS: GASTROGRAFIN 120 ML SOL ONE (12:23)
--- NOTE | 2024-08-22 13:25 | DVH ---
XY ESOPHAGUS BARIUM SWALLOW, HISTORY: dysphagia COMPARISON: None PROCEDURE: Gastrografin administered orally, and radiographs were obtained under intermittent fluor oscopic observation. Total fluoroscopic time was 0.6 minutes. DAP 287 FINDINGS: The esophagus was normal in caliber with no stricture, filling defect or wall irregularity demonstrat ed. Normal esophageal peristalsis was observed. The stomach was distended with food. Mild esophageal reflux seen. IMPRESSION: No structural abnormality seen of the esophagus. Mild esophageal reflux seen. The stomach was distended with food.
--- NOTE | 2024-08-22 14:49 | DVHPN2 ---
Progress Note Date Seen: Aug 22, 2024 Medical Necessity Reason Pt with a Central, PICC or Fol: No Subjective Patient reports: No new complaints Review of Systems: HEENT:Normal, CVS:Normal, RESPIRATORY:Normal, GI:Normal, :Normal, MSK:Normal, NEURO:Normal Objective vital signs Vital Sign Date Time Temp Pulse Resp B/P (MAP) Pulse Ox O2 Delivery O2 Flow Rate FiO2 08/22/24 10:00 96 Nasal Cannula* 2 28 08/22/24 09:00 97.2 80 18 117/65 (82) 97.2 Total Intake and Output 08/21/24 08/21/24 08/22/24 15:00 23:00 07:00 Intake Total 1540 ml 920 ml Output Total 900 ml Balance 1540 ml 20 ml medications Current Medications Medications Dose Ordered Sig/[place] Route Start Time Stop Time Status Last Admin Dose Admin Amitriptyline HCl 25 mg HS PO 08/10/24 22:00 08/21/24 21:21 25 MG Pregabalin 50 mg TID PO 08/10/24 22:00 08/22/24 13:52 50 MG Albuterol 2.5 mg Q4HPRN PRN NEB 08/10/24 17:30 08/11/24 11:00 2.5 MG Diagnostic Test (Pha) 1 strip ACHS 08/10/24 22:00 08/22/24 11:15 1 STRIP Insulin Human Regular ACHS SC 08/10/24 22:00 08/22/24 11:16 6 UNITS Dextrose 50 ml UD PRN IV 08/10/24 17:30 Nitroglycerin 0.4 mg Q5MINP PRN SL 08/10/24 18:45 Amiodarone HCl 200 mg DAILY PO 08/11/24 10:00 08/22/24 09:24 200 MG Levalbuterol HCl 1.25 mg Q6HR NEB 08/12/24 12:00 08/22/24 07:23 1.25 MG Levothyroxine Sodium 50 mcg QAM@0600 PO 08/13/24 06:00 08/22/24 05:32 50 MCG Apixaban 2.5 mg BID PO 08/13/24 10:00 08/22/24 09:25 2.5 MG Ipratropium [place] 0.5 mg Q6HWA NEB 08/13/24 12:00 08/22/24 07:23 0.5 MG Acetaminophen 650 mg Q6HP PRN PO 08/14/24 11:15 08/14/24 12:15 650 MG Throat Lozenges 1 sofi Q2HP PRN MT 08/15/24 11:15 08/19/24 14:57 1 SOFI Doxycycline Monohydrate 100 mg Q12HR PO 08/15/24 22:00 UNV Doxycycline Monohydrate 100 mg Q12HR PO 08/15/24 22:00 08/22/24 09:24 100 MG Prednisone 20 mg DAILY PO 08/22/24 10:00 08/22/24 09:24 20 MG Sodium Chloride 1,000 ml @ 60 mls/hr [id number] IV 08/21/24 11:45 08/22/24 05:32 60 MLS/HR Nystatin 5 ml QID MT 08/21/24 18:00 08/22/24 12:19 5 ML Sucralfate 1 gm QID@0600,1130,1700,2200 PO 08/21/24 17:00 08/22/24 11:14 1 GM Pantoprazole Sodium 40 mg BID IV 08/22/24 10:00 08/22/24 09:24 40 MG Examination: GENERAL:Normal, HEENT:Normal, NECK:Normal, LUNGS:Normal, LUNGS:Abnormal (on oxygen), CVS:Normal, ABDOMEN:Normal, MSK:Normal, SKIN:Normal, NEURO:Normal, :Normal laboratory and microbiology Laboratory Tests 08/22/24 05:23 Test 08/22/24 05:23 Range/Units Serum Glucose 216 H 74-106 mg/dL Microbiology Date/Time Source Procedure Growth Status 08/11/24 01:23 Nose MRSA Screen - Final Complete Problem List/Assessment/Plan Problem List/Assessment/Plan #1 acute on chronic systolic heart failure: cont meds, dc metolazone #2 chronic resp failure #3 copd with exacerbation: prednisone, bronchodilators, ct chest-negative #4 acute on chronic renal failure ?vasomotor nephropathy: ivf #5 hypothyroidism #6 dm; ssi #7 s/p back surgery #8 h/o v tach: on amiodarone #8 ? pneumonia - gram positive/neg: dc iv antibiotics #9 dysphagia/upper airway ?obstruction: ct neck, gi eval advance care planning- full code- time spent 19 mins Plan discussed with: Patient Dietary Evaluation Review Comments: 1) Add cardiac restriction to 45g CCHO diet order 2) Consider Zofran prn for N/V 3) Continue current plan of care 4) Follow-up with cardiology and nephrology Expected Outcomes/Goals: 1) appetite and labs to improve 2) f/u in 3-5 days Date of Service: Aug 22, 2024 Billing Provider: JASWINDER TORRES MD Common Visit Codes: [id number] INP/OBS CARE(HIGH) JASWINDER TORRES MD Aug 22, 2024 14:49
[2024-08-22] MEDS: SODIUM CHLORIDE 0.9% 1,000 ML IV SCH (16:35)
--- NOTE | 2024-08-22 17:26 | DVHPN2 ---
Progress Note - Dictate Date Seen: Aug 22, 2024 Medical Necessity Reason Pt with a Central, PICC or Fol: No Subjective no acute issues overnight started on IV hydration Denies shortness of breath vital signs Vital Sign Date Time Temp Pulse Resp B/P (MAP) Pulse Ox O2 Delivery O2 Flow Rate FiO2 08/22/24 16:38 97.6 91 20 111/62 (78) 97 97.6 08/22/24 10:00 Nasal Cannula* 2 28 Total Intake and Output 08/21/24 08/21/24 08/22/24 15:00 23:00 07:00 Intake Total 1540 ml 920 ml Output Total 900 ml Balance 1540 ml 20 ml medications Current Medications Medications Dose Ordered Sig/[place] Route Start Time Stop Time Status Last Admin Dose Admin Amitriptyline HCl 25 mg HS PO 08/10/24 22:00 08/21/24 21:21 25 MG Pregabalin 50 mg TID PO 08/10/24 22:00 08/22/24 13:52 50 MG Albuterol 2.5 mg Q4HPRN PRN NEB 08/10/24 17:30 08/11/24 11:00 2.5 MG Diagnostic Test (Pha) 1 strip ACHS 08/10/24 22:00 08/22/24 16:39 1 STRIP Insulin Human Regular ACHS SC 08/10/24 22:00 08/22/24 16:52 8 UNITS Dextrose 50 ml UD PRN IV 08/10/24 17:30 Nitroglycerin 0.4 mg Q5MINP PRN SL 08/10/24 18:45 Amiodarone HCl 200 mg DAILY PO 08/11/24 10:00 08/22/24 09:24 200 MG Levalbuterol HCl 1.25 mg Q6HR NEB 08/12/24 12:00 08/22/24 07:23 1.25 MG Levothyroxine Sodium 50 mcg QAM@0600 PO 08/13/24 06:00 08/22/24 05:32 50 MCG Apixaban 2.5 mg BID PO 08/13/24 10:00 08/22/24 09:25 2.5 MG Ipratropium [place] 0.5 mg Q6HWA NEB 08/13/24 12:00 08/22/24 07:23 0.5 MG Acetaminophen 650 mg Q6HP PRN PO 08/14/24 11:15 08/14/24 12:15 650 MG Throat Lozenges 1 sofi Q2HP PRN MT 08/15/24 11:15 08/19/24 14:57 1 SOFI Doxycycline Monohydrate 100 mg Q12HR PO 08/15/24 22:00 UNV Prednisone 20 mg DAILY PO 08/22/24 10:00 08/22/24 09:24 20 MG Nystatin 5 ml QID MT 08/21/24 18:00 08/22/24 12:19 5 ML Sucralfate 1 gm QID@0600,1130,1700,2200 PO 08/21/24 17:00 08/22/24 16:39 1 GM Pantoprazole Sodium 40 mg BID IV 08/22/24 10:00 08/22/24 09:24 40 MG Sodium Chloride 1,000 ml @ 50 mls/hr Q20H IV 08/22/24 15:00 08/22/24 16:35 50 MLS/HR objective Awake alert oriented x3 HEENT: Normocephalic, no JVD Lungs: Bilateral good air entry CVS: S1, S2 regular rate rhythm Abdomen: Soft, bowel sounds present 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 Worsening GFR secondary to over-diuresis Acute on chronic systolic heart failure Hyponatremia secondary to heart failure Hypotension,resolved Type 2 diabetes with nephropathy Acute on chronic hypoxic respiratory failure COPD Hypothyroidism Type 2 diabetes History of V-tach Hyperkalemia Assessment/Plan GFR with the improvement. Continue to hold Lasix, metolazone , Entresto, Aldactone and Jardiance. Respiratory status stable . continue with IVF SGLT2 inhib can be reinitiated in the outpatient setting We will follow up on BMP. Lokelma x 1 dose Dietary Evaluation Review Comments: 1) Add cardiac restriction to 45g CCHO diet order 2) Consider Zofran prn for N/V 3) Continue current plan of care 4) Follow-up with cardiology and nephrology Expected Outcomes/Goals: 1) appetite and labs to improve 2) f/u in 3-5 days Plan discussed with: Patient XOCHITL ORELLANA MD Aug 22, 2024 17:26
[2024-08-22] MEDS: SODIUM ZIRCONIUM CYCL 10 GM PAK PO ONE (18:36)
[2024-08-23] VITALS (18 sets, daily range): BP systolic 100–116; BP diastolic 50–74; PULSE 83–105; RESP 14–19; TEMP 97.6–98.4; O2SAT 94–100
[2024-08-23 06:41] LABS: Basophils # (auto) 0 10 ^3/uL (0-0.2); Eosinophils # (auto) 0 10 ^3/uL (0-0.8); Eosinophils % (auto) 0.1 % (0.0-7.0); Hematocrit 42.1 % (36.0-46.0); Hemoglobin 13.2 g/dL (12.2-16.2); Lymphocytes # (auto) 0.5 10 ^3/uL (0.4-5.4); Lymphocytes % (auto) 6.3 % (10.0-50.0); Mean Corpuscular Hemoglobin 28.9 pg (28.0-32.0); Mean Corpuscular Hgb Conc. 31.5 g/dL (32.0-36.0); Mean Corpuscular Volume 91.8 fL (80.0-100.0); Monocytes # (auto) 0.5 10 ^3/uL (0-1.3); Monocytes % (auto) 6.5 % (0.0-12.0); Neutrophils # (auto) 6.6 10 ^3/uL (1.6-8.6); Neutrophils % (auto) 87.1 % (37.0-80.0); Nucleated Red Blood Cells % 0.1 %; Platelet Count (auto) 210 10^3/uL (140-450); Red Blood Cells 4.59 10^6/uL (4.0-5.20); Red Cell Distribution Width 14.9 % (11.8-14.3); White Blood Cell 7.5 10^3/uL (4.4-10.8)
[2024-08-23 06:48] LABS: INR 1.14 (0.9-1.15); Partial Thromboplastin Time 27.6 SEC (24.5-34.5); Prothrombin Time 11.9 sec (9.3-11.8)
[2024-08-23 07:17] LABS: Anion Gap 11 (5-15); Calcium 10.1 mg/dL (8.7-10.4); Carbon Dioxide 22 mmol/L (20-31); Chloride 105 mmol/L (98-107); Potassium 4.8 mmol/L (3.5-5.1); Sodium 138 mmol/L (136-145)
[2024-08-23 07:25] LABS: Blood Urea Nitrogen 63 mg/dL (9-23); Glucose 230 mg/dL (74-106)
--- NOTE | 2024-08-23 07:27 | DVHPN2 ---
Progress Note - Dictate Date Seen: Aug 23, 2024 Medical Necessity Reason Pt with a Central, PICC or Fol: No vital signs Vital Sign Date Time Temp Pulse Resp B/P (MAP) Pulse Ox O2 Delivery O2 Flow Rate FiO2 08/23/24 06:36 90 16 99 08/23/24 06:28 Nasal Cannula* 2 08/23/24 05:00 97.9 116/74 (88) 97.9 Total Intake and Output 08/22/24 08/22/24 08/23/24 15:00 23:00 07:00 Intake Total 1940 ml 330 ml Output Total 900 ml 1600 ml Balance 1040 ml -1270 ml medications Current Medications Medications Dose Ordered Sig/[place] Route Start Time Stop Time Status Last Admin Dose Admin Amitriptyline HCl 25 mg HS PO 08/10/24 22:00 08/22/24 21:18 25 MG Pregabalin 50 mg TID PO 08/10/24 22:00 08/22/24 21:18 50 MG Albuterol 2.5 mg Q4HPRN PRN NEB 08/10/24 17:30 08/11/24 11:00 2.5 MG Diagnostic Test (Pha) 1 strip ACHS 08/10/24 22:00 08/23/24 06:17 1 STRIP Insulin Human Regular ACHS SC 08/10/24 22:00 08/23/24 06:19 4 UNITS Dextrose 50 ml UD PRN IV 08/10/24 17:30 Nitroglycerin 0.4 mg Q5MINP PRN SL 08/10/24 18:45 Amiodarone HCl 200 mg DAILY PO 08/11/24 10:00 08/22/24 09:24 200 MG Levalbuterol HCl 1.25 mg Q6HR NEB 08/12/24 12:00 08/23/24 06:28 1.25 MG Levothyroxine Sodium 50 mcg QAM@0600 PO 08/13/24 06:00 08/22/24 05:32 50 MCG Apixaban 2.5 mg BID PO 08/13/24 10:00 08/22/24 21:18 2.5 MG Ipratropium [place] 0.5 mg Q6HWA NEB 08/13/24 12:00 08/23/24 06:28 0.5 MG Acetaminophen 650 mg Q6HP PRN PO 08/14/24 11:15 08/14/24 12:15 650 MG Throat Lozenges 1 sofi Q2HP PRN MT 08/15/24 11:15 08/19/24 14:57 1 SOFI Doxycycline Monohydrate 100 mg Q12HR PO 08/15/24 22:00 UNV Prednisone 20 mg DAILY PO 08/22/24 10:00 08/22/24 09:24 20 MG Nystatin 5 ml QID MT 08/21/24 18:00 08/22/24 21:17 5 ML Sucralfate 1 gm QID@0600,1130,1700,2200 PO 08/21/24 17:00 08/22/24 21:18 1 GM Pantoprazole Sodium 40 mg BID IV 08/22/24 10:00 08/22/24 21:18 40 MG Sodium Chloride 1,000 ml @ 50 mls/hr Q20H IV 08/22/24 15:00 08/22/24 16:35 50 MLS/HR laboratory and microbiology Laboratory Tests 08/23/24 05:52 Test 08/23/24 05:52 Range/Units Serum Glucose Pending Assessment/Plan Patient is a 74-year-old female who presented to the hospital for shortness of breath. She also had been having cough. Problem started around a month ago and worsened recently. Cardiology was involved for cardiac aspects of care. Patient is known to our practice from outside and before. She received recent treatment for pneumonia. Denies chest pains. Does complain of dyspnea on exertion. Does complain of leg swellings. In October 2021, the patient was diagnosed to have nonischemic cardiomyopathy, was put on LifeVest, later was found to have improved LV systolic function the LifeVest was taken away. Recently, ejection fraction decreased again. She denies recent chest pain. She is on amiodarone (for history of PVCs). Sitting comfortably in bed, not using accessory muscles of breathing. Mucosa is pink and wet, there is no JVD, no goiter. Chest: Scattered rhonchi/rales. Cardiac: Regular regular, no thrill. Systolic murmur 3/6 in the apex is heard.. Abdomen: Soft, no palpable mass, positive hepatomegaly. Bowel sound is positive. Extremities: 3+ edema. Dorsalis pedis is 2+ bilateral Past medical history includes hypertension, hyperlipidemia, diabetes mellitus, asthma/COPD, history of back surgery, arrhythmia (sustained V. tach in October 2021, for which was shocked), history of old nonischemic cardiomyopathy, pulmonary hypertension (considered type 2), hypothyroidism, hiatal hernia, lupus, SVT, history of colon polyp and its resection, history of thyroid nodule, history of low vitamin-D, possible obstructive sleep apnea, CKD (goes to Nephrology regularly), A-fib/flutter, LBBB and also history of laminectomy. Left heart catheterization of November 17, 2021 revealed nonobstructive coronary artery disease, negative FFR of distal LCx, nonischemic cardiomyopathy Echocardiogram of November 15, 2021 revealed ejection fraction of 40%, enlarged LV/LA and aortic root. Echocardiogram of January 31, 2022 (performed in the office) revealed ejection fraction of 40 to 45%, sigmoid shaped septum, impaired relaxation of left ventricular diastolic function, trace MR/TR and right ventricular systolic pressure of less than 35 mmHg. Echocardiogram of March 2022 reported ejection fraction of 45-50%, anteroseptal/apical hypokinesia, trace MR/TR and right ventricular systolic pressure of 22 mm Hg Echocardiogram of April 2025 (performed in the office) revealed ejection fraction of less than 20%, increased EDP, tethered mitral valve leaflet secondary to left ventricular enlargement, moderate MR, mild TR and right ventricular systolic pressure of 60 mm Hg. Hemoglobin: 10.7 - 11.4 - 11.6 - 13.6 - 13.2 - 12.9 - 12.8 12.4 - 12.1 - 13.2 Creatinine: 1.60 - 1.37 - 1.60 - 1.55 - 1.51 - 1.79 - 2.55 - 2.81 - 2.54 - 2.22 - 2.36 - 1.73 - 1.37 Potassium: 4.0 - 3.4 - 3.5 - 3.5 - 4.2 - 4.1 - 4.2 - 4.3 - 4.5 - 4.6 - 4.5 - 5.3 - 4.8 BNP: 3325.33 - 3570.88 Troponin (high sensitive): 20 - 23 - 23 - 12 - 12 - 14 D-dimer: 1.57 Chest x-ray reported: MPRESSION: Cardiomegaly with moderate congestion. Repeat chest xry reported: IMPRESSION: Small right pleural effusion Cardiomegaly with CHF. Repeat chest xry revealed: IMPRESSION: Mild pulmonary congestion. Repeat chest xry revealed: IMPRESSION: No acute disease. Venous duplex of lower ext revealed: Impression: 1. No right or left femoropopliteal venous thrombosis. V/Q scan reported: IMPRESSION: 1. Low probability for PE. CT of neck revealed: IMPRESSION: No evidence of cervical mass lesion, pathologically enlarged lymph nodes or fluid collection. CT of chest (no contrast) reported: Impression: 1. No acute cardiopulmonary disease. 2. Mild right lower lobe atelectasis and traction bronchiectasis. Barium swallow reported: IMPRESSION: No structural abnormality seen of the esophagus. Mild esophageal reflux seen. The stomach was distended with food. Renal ultrasound reported: IMPRESSION: 1. Kidneys appear echogenic compatible with medical renal disease. 2. Bilateral renal cysts measuring up to 5.0 cm. EKG revealed sinus rhythm with left bundle branch block Tele reveals sinus rhythm, occasions of fib/flutter Echocardiogram revealed: Four-chamber dilatation was observed. Left ventricle: Left ventricle was dilated. Severely reduced systolic function of left ventricle was observed. LVEF was around 25%. Diffuse hypokinesis with regional variation of left ventricle seen. Right ventricle was dilated with preserved systolic function. Both atria were mildly dilated. Aortic valve: Aortic valve is trileaflet. Trace aortic insufficiency was seen. There was no aortic stenosis. There was mild mitral/tricuspid regurgitation. There was trace pulmonary valve insufficiency. Small pericardial effusion was seen. Right ventricular systolic pressure was assessed at 35 mm Hg. Patient is a 74-year-old female who presented with shortness of breath/cough. She was recently treated for pneumonia. She does have recent diagnosis of worsened systolic function and heart failure. He is found to have increased BNP. Chest x-ray reveals congestion. Presentation is in favor of acute on chronic systolic heart failure. Does have old history of nonischemic cardiomyopathy, but systolic function has worsened recently. Has been managed for acute on chronic systolic heart failure is considered the reason for presentation. May benefit from repeat ischemic workup (inpatient Vs outpatient). As EF had dropped suggestion is for Life Vest. Being followed by Nephrology. Was seen by GI for dysphagia and had CT of neck. Started on Nystatin by GI Acute on chronic heart failure COPD exacerbation Fluid overload Bronchitis, acute Pneumonia, community acquired ALFONZO on CKD History of nonsustained VT Left bundle branch block Pulmonary hypertension, type 2 Hypothyroidism Left bundle branch block Atrial fib/flutter Elevated D-dimer Cardiac suggestion for management: Telemetry monitoring Follow-up electrolytes and kidney function tests and correct abnormalities. Keep potassium above 4 and magnesium above 2 Continuation of amiodarone for history of non-sustained ventricular tachycardia is suggested (dose: 200 mg once daily) Patient with A-fib/flutter and high CHADS/Vasc score On Eliquis 2.5 mg BID. Kestra external wearable cardioverter defibrillator vest for primary prevention against sudden cardiac Nephrology follow up May benefit from ischemic workup/cardiac catheterization (outpatient) Further evaluation and management depends on the above and clinical course A total of 55 minutes was spent reviewing the patient record, examining the patient, making a diagnostic and therapeutic plan, discussing this plan with medical personnel, following up on diagnostic studies and following the patient for clinical stability excluding any and all procedures. At least 50% of this time was spent in direct, [id number] contact. Thank you for allowing me to participate in this patient's care. Further recommendations will depend on patient's clinical course. Please do not hesitate to contact me if you have any questions or concerns. This medical document was created using electronic medical record system with [email or web address] computerized dictation system. Although this document has been carefully reviewed, there may still be some phonetic and typographical errors. These areas are purely typographical due to the imperfection of the software programs, and do not reflect any compromise in the patient's medical care. Dietary Evaluation Review Comments: 1) Add cardiac restriction to 45g CCHO diet order 2) Consider Zofran prn for N/V 3) Continue current plan of care 4) Follow-up with cardiology and nephrology Expected Outcomes/Goals: 1) appetite and labs to improve 2) f/u in 3-5 days Plan discussed with: Patient, Other (nurse) WALESKA CHEW MD Aug 23, 2024 07:26
--- NOTE | 2024-08-23 11:44 | DVHPN2 ---
Reviewed: Care Plan, H&P, Labs, Medications, Previous Orders, Radiology Changes from previous H/P or p: No Changes General: Per HPI Eyes: No Pain, No Vision change, No Conjunctivae inflammation, No Eyelid inflammation, No Other, No Redness ENT: No Ear pain, No Ear discharge, No Nose pain, No Nose discharge, No Nose congestion, No Mouth pain, No Mouth swelling, No Throat pain, No Throat swelling, No Other Cardiovascular: No Chest Pain, No Palpitations, No Orthopnea, No Paroxysmal Noc. Dyspnea, No Edema, No Lt Headedness, No Other Respiratory: Cough; No Dry; Shortness of breath; No SOB with excertion, No Wheezing, No Hemoptysis, No Pleuritic Pain, No Sputum, No Other Gastrointestinal: No Nausea, No Vomiting, No Abdominal Pain, No Diarrhea, No Constipation, No Melena, No Hematochezia, No Other Genitourinary: No Dysuria, No Frequency, No Incontinence, No Hematuria, No Retention, No Other Musculoskeletal: No other, No neck pain, No shoulder pain, No arm pain, No back pain, No hand pain, No leg pain, No foot pain Skin: No Rash, No Lesions, No Jaundice, No Bruising, No Other Objective Vitals Vital Signs Date Time Temp Pulse Resp B/P (MAP) Pulse Ox O2 Delivery O2 Flow Rate FiO2 08/23/24 11:11 96 18 99 08/23/24 11:03 Nasal Cannula 2.0 08/23/24 11:03 28 08/23/24 09:00 98.2 115/71 (86) 98.2 Intake/Output Intake and Output 08/23/24 07:00 Intake Total 2270 ml Output Total 2500 ml Balance -230 ml Intake Oral 1590 ml IV Total 680 ml Output Urine Total 2500 ml # Bowel Movements 3 General Appearance: Alert, Oriented X3, Cooperative HEENT: Atraumatic Cardiovascular: Regular rate, Normal S1, Normal S2 Abdomen: Normal bowel sounds, Soft Medications Current Medications Medications Dose Ordered Sig/[place] Route Start Time Stop Time Status Last Admin Dose Admin Amitriptyline HCl 25 mg HS PO 08/10/24 22:00 08/22/24 21:18 25 MG Pregabalin 50 mg TID PO 08/10/24 22:00 08/22/24 21:18 50 MG Albuterol 2.5 mg Q4HPRN PRN NEB 08/10/24 17:30 08/11/24 11:00 2.5 MG Diagnostic Test (Pha) 1 strip ACHS 08/10/24 22:00 08/23/24 06:17 1 STRIP Insulin Human Regular ACHS SC 08/10/24 22:00 08/23/24 06:19 4 UNITS Dextrose 50 ml UD PRN IV 08/10/24 17:30 Nitroglycerin 0.4 mg Q5MINP PRN SL 08/10/24 18:45 Amiodarone HCl 200 mg DAILY PO 08/11/24 10:00 08/22/24 09:24 200 MG Levalbuterol HCl 1.25 mg Q6HR NEB 08/12/24 12:00 08/23/24 11:03 1.25 MG Levothyroxine Sodium 50 mcg QAM@0600 PO 08/13/24 06:00 08/22/24 05:32 50 MCG Apixaban 2.5 mg BID PO 08/13/24 10:00 08/22/24 21:18 2.5 MG Ipratropium [place] 0.5 mg Q6HWA NEB 08/13/24 12:00 08/23/24 11:03 0.5 MG Acetaminophen 650 mg Q6HP PRN PO 08/14/24 11:15 08/14/24 12:15 650 MG Throat Lozenges 1 sofi Q2HP PRN MT 08/15/24 11:15 08/19/24 14:57 1 SOFI Doxycycline Monohydrate 100 mg Q12HR PO 08/15/24 22:00 UNV Prednisone 20 mg DAILY PO 08/22/24 10:00 08/22/24 09:24 20 MG Nystatin 5 ml QID MT 08/21/24 18:00 08/22/24 21:17 5 ML Sucralfate 1 gm QID@0600,1130,1700,2200 PO 08/21/24 17:00 08/22/24 21:18 1 GM Pantoprazole Sodium 40 mg BID IV 08/22/24 10:00 08/23/24 09:43 40 MG Sodium Chloride 1,000 ml @ 50 mls/hr Q20H IV 08/22/24 15:00 08/22/24 16:35 50 MLS/HR Laboratory Results Laboratory Tests 08/23/24 05:52 Chemistry Test 08/23/24 05:52 Calcium Level 10.1 mg/dL (8.7-10.4) Coagulation Test 08/23/24 05:52 Prothrombin Time 11.9 sec (9.3-11.8) H Prothrombin Time INR 1.14 (0.9-1.15) Activated Partial Thromboplast Time 27.6 SEC (24.5-34.5) Urinalysis Test 08/13/24 04:24 Urine Color Colorless (Yellow) Urine Clarity Clear (Clear) Urine pH 7.0 (5.0-9.0) Urine Specific [place] 1.009 (1.001-1.035) Urine Protein Negative (Negative) Urine Ketones Negative (Negative) Urine Blood Negative /uL (Negative) Urine Nitrite Negative (Negative) Urine Bilirubin Negative (Negative) Urine Urobilinogen Normal mg/dL (Negative) Urine Leukocyte Esterase Negative /uL (Negative) Urine RBC <1 /hpf (0 - 4) Urine Microscopic WBC 1 /HPF (0-5) Urine Squamous Epithelial Cells Few /hpf (<5) Urine Bacteria None seen /hpf (None Seen) Urine Glucose 4+ mg/dL (Normal) H Microbiology Microbiology Date/Time Source Procedure Growth Status 08/11/24 01:23 Nose MRSA Screen - Final Complete Labs and/or images reviewed: Labs reviewed by me, Image(s) reviewed by me Assessment/Plan Assessment/Plan Covering for Dr. Verduzco #1 acute on chronic systolic heart failure: cont meds, dc metolazone #2 chronic resp failure #3 copd with exacerbation: prednisone, bronchodilators, ct chest-negative #4 acute on chronic renal failure ?vasomotor nephropathy: ivf #5 hypothyroidism #6 dm; ssi #7 s/p back surgery #8 h/o v tach: on amiodarone #8 ? pneumonia - gram positive/neg: dc iv antibiotics #9 dysphagia/upper airway obstruction: CT neck negative, barium swallow negative # 10 PE ruled out Plan discussed with: Patient Date of Service: Aug 23, 2024 Billing Provider: SAMANTHA FERRER MD Common Visit Codes: [id number] INP/OBS CARE(HIGH) SAMANTHA FERRER MD Aug 23, 2024 11:44
[2024-08-23] MEDS ORDERED: PROPOFOL 10 MG/ML 20 ML IV ONE (13:10)
--- NOTE | 2024-08-23 15:56 | DVHPN2 ---
Progress Note - Dictate Date Seen: Aug 23, 2024 Medical Necessity Reason Pt with a Central, PICC or Fol: No Subjective Status post EGD vital signs Vital Sign Date Time Temp Pulse Resp B/P (MAP) Pulse Ox O2 Delivery O2 Flow Rate FiO2 08/23/24 15:30 97.7 88 18 104/64 (77) 94 97.7 08/23/24 14:41 Mask 5.0 08/23/24 14:41 99 Total Intake and Output 08/22/24 08/22/24 08/23/24 15:00 23:00 07:00 Intake Total 1940 ml 330 ml Output Total 900 ml 1600 ml Balance 1040 ml -1270 ml medications Current Medications Medications Dose Ordered Sig/[place] Route Start Time Stop Time Status Last Admin Dose Admin Amitriptyline HCl 25 mg HS PO 08/10/24 22:00 08/22/24 21:18 25 MG Pregabalin 50 mg TID PO 08/10/24 22:00 08/22/24 21:18 50 MG Albuterol 2.5 mg Q4HPRN PRN NEB 08/10/24 17:30 08/11/24 11:00 2.5 MG Diagnostic Test (Pha) 1 strip ACHS 08/10/24 22:00 08/23/24 12:05 1 STRIP Insulin Human Regular ACHS SC 08/10/24 22:00 08/23/24 06:19 4 UNITS Dextrose 50 ml UD PRN IV 08/10/24 17:30 Nitroglycerin 0.4 mg Q5MINP PRN SL 08/10/24 18:45 Amiodarone HCl 200 mg DAILY PO 08/11/24 10:00 08/22/24 09:24 200 MG Levalbuterol HCl 1.25 mg Q6HR NEB 08/12/24 12:00 08/23/24 11:03 1.25 MG Levothyroxine Sodium 50 mcg QAM@0600 PO 08/13/24 06:00 08/22/24 05:32 50 MCG Apixaban 2.5 mg BID PO 08/13/24 10:00 08/22/24 21:18 2.5 MG Ipratropium [place] 0.5 mg Q6HWA NEB 08/13/24 12:00 08/23/24 11:03 0.5 MG Acetaminophen 650 mg Q6HP PRN PO 08/14/24 11:15 08/14/24 12:15 650 MG Throat Lozenges 1 sofi Q2HP PRN MT 08/15/24 11:15 08/19/24 14:57 1 SOFI Doxycycline Monohydrate 100 mg Q12HR PO 08/15/24 22:00 UNV Prednisone 20 mg DAILY PO 08/22/24 10:00 08/22/24 09:24 20 MG Nystatin 5 ml QID MT 08/21/24 18:00 08/22/24 21:17 5 ML Sucralfate 1 gm QID@0600,1130,1700,2200 PO 08/21/24 17:00 08/22/24 21:18 1 GM Pantoprazole Sodium 40 mg BID IV 08/22/24 10:00 08/23/24 09:43 40 MG Sodium Chloride 1,000 ml @ 50 mls/hr Q20H IV 08/22/24 15:00 08/22/24 16:35 50 MLS/HR Metoclopramide HCl 10 mg Q8HR IV 08/23/24 22:00 objective Awake alert oriented x3 HEENT: Normocephalic, no JVD Lungs: Bilateral good air entry CVS: S1, S2 regular rate rhythm Abdomen: Soft, bowel sounds present 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 Worsening GFR secondary to over-diuresis Acute on chronic systolic heart failure Hyponatremia secondary to heart failure Hypotension,resolved Type 2 diabetes with nephropathy Acute on chronic hypoxic respiratory failure COPD Hypothyroidism Type 2 diabetes History of V-tach Hyperkalemia Assessment/Plan GFR with the improvement. Continue to hold Lasix, metolazone , Entresto, Aldactone and Jardiance. Respiratory status stable . SGLT2 inhib can be reinitiated in the outpatient setting Stable from renal standpoint to be discharged. Patient to follow up with the primary scrap collector next week. Dietary Evaluation Review Comments: 1) Add cardiac restriction to 45g CCHO diet order 2) Consider Zofran prn for N/V 3) Continue current plan of care 4) Follow-up with cardiology and nephrology Expected Outcomes/Goals: 1) appetite and labs to improve 2) f/u in 3-5 days Plan discussed with: Patient XOCHITL ORELLANA MD Aug 23, 2024 15:56
--- NOTE | 2024-08-23 19:31 | DVHOP2 ---
Operative Report DATE OF OPERATION: 08/23/24 ; Time of procedure 2.30 p.m. PROCEDURE: Upper Endoscopy with biopsy. PREOPERATIVE INDICATION: The patient is a 74 -year-old female undergoing endoscopy for oropharyngeal dysphagia POSTOPERATIVE DIAGNOSES: 1. 1-2 cm sliding-type hiatal hernia with slightly irregular squamocolumnar junction but no significant erosive esophagitis and no evidence of a stricture 2. There was evidence of mild esophagitis with some whitish yellowish plaques in the distal esophagus from which biopsies were obtained to rule out Dina 3. [id number]-[id number] gastroparesis with a large amount of retained food in the stomach 4. Otherwise normal examination up to the 2nd and 3rd part of the duodenum PROCEDURE PERFORMED BY: Breanna William GI NURSE: Mercedes SCOPE: Olympus videoendoscope. ASA CLASS: 3. PREOPERATIVE MEDICATIONS: Dr. Leann Hinkle PROCEDURE IN DETAIL: After obtaining an informed consent, the patient was placed on left lateral decubitus position. The patient was then sedated with the above medications. A bite block was placed between her teeth. The endoscope was then passed through the oropharynx, into the esophagus, and through the stomach and pylorus up to the second and third part of the duodenum. The endoscope was then withdrawn. The 2nd and 3rd part of the duodenum and the duodenal bulb were normal. The pre-pyloric area and antrum showed minimal gastritis The patient had a large amount of retained food in the stomach suggestive of [id number] gastroparesis Otherwise on retroflexion the visualized portion of the cardia and fundus were normal. Duodenal and gastric biopsies were obtained. The endoscope was then withdrawn into the distal esophagus where the patient had a 2-3 cm sliding-type hiatal hernia with slightly irregular squamocolumnar junction There was no evidence of an esophageal stricture but there was mild esophagitis with some yellowish whitish plaques now more scattered and prominent in the distal esophagus. Esophageal biopsies were obtained. The remaining distal and proximal esophagus and oropharynx were unremarkable The patient tolerated the procedure well without difficulty. COMPLICATIONS : None SPECIMENS: Duodenal biopsies Gastric biopsies GE junction and distal esophageal biopsies DISPOSITION: Transfer back to the floor Stable PLAN: 1. Await for biopsy result 2. Will place pt on Protonix 40 mg bid 3. Start Reglan 10 mg IV q.8 hours and then I will decrease it to 5 mg IV q.8 hours 4. I will start her on full liquid diet and then advance to pureed or soft me chanical once I believe the Reglan has improved her gastroparesis 5. Hold narcotics and any other medications that might be aggravating her delayed gastric emptying 6. Continue Carafate and nystatin swish and swallow at this time for a few more days BREANNA WILLIAM MD Aug 23, 2024 19:31
[2024-08-23] MEDS: METOCLOPRAMIDE HCL 5MG/ml INJ 2ml VIAL IV SCH (21:56)
--- NOTE | 2024-08-23 23:46 | ECG ---
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
[2024-08-24] VITALS (19 sets, daily range): BP systolic 90–113; BP diastolic 59–68; PULSE 55–109; RESP 16–20; TEMP 97.6–98.1; O2SAT 96–100
[2024-08-24 07:20] LABS: Basophils # (auto) 0 10 ^3/uL (0-0.2); Eosinophils # (auto) 0.1 10 ^3/uL (0-0.8); Hematocrit 35.9 % (36.0-46.0); Hemoglobin 11.4 g/dL (12.2-16.2); Lymphocytes # (auto) 0.8 10 ^3/uL (0.4-5.4); Lymphocytes % (auto) 13.5 % (10.0-50.0); Mean Corpuscular Hgb Conc. 31.8 g/dL (32.0-36.0); Mean Corpuscular Volume 91.4 fL (80.0-100.0); Monocytes # (auto) 0.5 10 ^3/uL (0-1.3); Monocytes % (auto) 8.3 % (0.0-12.0); Neutrophils # (auto) 4.6 10 ^3/uL (1.6-8.6); Neutrophils % (auto) 76.2 % (37.0-80.0); Nucleated Red Blood Cells % 0.1 %; Platelet Count (auto) 171 10^3/uL (140-450); Red Blood Cells 3.93 10^6/uL (4.0-5.20); Red Cell Distribution Width 14.6 % (11.8-14.3)
[2024-08-24 07:33] LABS: Calcium 9.4 mg/dL (8.7-10.4); Potassium 4.4 mmol/L (3.5-5.1); Sodium 139 mmol/L (136-145)
[2024-08-24 07:34] LABS: Anion Gap 8 (5-15); Carbon Dioxide 21 mmol/L (20-31)
[2024-08-24 07:40] LABS: BUN/Creatinine Ratio 36.8 (10.0-20.0)
[2024-08-24 07:42] LABS: Blood Urea Nitrogen 46 mg/dL (9-23); Chloride 110 mmol/L (98-107); Glucose 137 mg/dL (74-106)
--- NOTE | 2024-08-24 10:43 | DVHPN2 ---
Reviewed: Care Plan, H&P, Labs, Medications, Previous Orders, Radiology Changes from previous H/P or p: No Changes General: Per HPI Eyes: No Pain, No Vision change, No Conjunctivae inflammation, No Eyelid inflammation, No Other, No Redness ENT: No Ear pain, No Ear discharge, No Nose pain, No Nose discharge, No Nose congestion, No Mouth pain, No Mouth swelling, No Throat pain, No Throat swelling, No Other Cardiovascular: No Chest Pain, No Palpitations, No Orthopnea, No Paroxysmal Noc. Dyspnea, No Edema, No Lt Headedness, No Other Respiratory: Cough; No Dry; Shortness of breath; No SOB with excertion, No Wheezing, No Hemoptysis, No Pleuritic Pain, No Sputum, No Other Gastrointestinal: No Nausea, No Vomiting, No Abdominal Pain, No Diarrhea, No Constipation, No Melena, No Hematochezia, No Other Genitourinary: No Dysuria, No Frequency, No Incontinence, No Hematuria, No Retention, No Other Musculoskeletal: No other, No neck pain, No shoulder pain, No arm pain, No back pain, No hand pain, No leg pain, No foot pain Skin: No Rash, No Lesions, No Jaundice, No Bruising, No Other Objective Vitals Vital Signs Date Time Temp Pulse Resp B/P (MAP) Pulse Ox O2 Delivery O2 Flow Rate FiO2 08/24/24 09:16 97.8 80 20 96/63 (74) 96 97.8 08/24/24 05:45 Nasal Cannula 2.0 08/24/24 05:45 28 Intake/Output Intake and Output 08/24/24 07:00 Intake Total 1340 ml Output Total 1450 ml Balance -110 ml Intake Oral 840 ml IV Total 500 ml Output Urine Total 1450 ml # Bowel Movements 2 General Appearance: Alert, Oriented X3, Cooperative HEENT: Atraumatic Cardiovascular: Regular rate, Normal S1, Normal S2 Abdomen: Normal bowel sounds, Soft Medications Current Medications Medications Dose Ordered Sig/[place] Route Start Time Stop Time Status Last Admin Dose Admin Amitriptyline HCl 25 mg HS PO 08/10/24 22:00 08/23/24 21:55 25 MG Pregabalin 50 mg TID PO 08/10/24 22:00 08/24/24 06:39 50 MG Albuterol 2.5 mg Q4HPRN PRN NEB 08/10/24 17:30 08/24/24 01:18 2.5 MG Diagnostic Test (Pha) 1 strip ACHS 08/10/24 22:00 08/24/24 06:40 1 STRIP Insulin Human Regular ACHS SC 08/10/24 22:00 08/23/24 22:06 2 UNITS Dextrose 50 ml UD PRN IV 08/10/24 17:30 Nitroglycerin 0.4 mg Q5MINP PRN SL 08/10/24 18:45 Amiodarone HCl 200 mg DAILY PO 08/11/24 10:00 08/24/24 09:52 200 MG Levalbuterol HCl 1.25 mg Q6HR NEB 08/12/24 12:00 08/23/24 19:31 1.25 MG Levothyroxine Sodium 50 mcg QAM@0600 PO 08/13/24 06:00 08/24/24 06:38 50 MCG Apixaban 2.5 mg BID PO 08/13/24 10:00 08/24/24 09:52 2.5 MG Ipratropium [place] 0.5 mg Q6HWA [facility] 08/13/24 12:00 08/24/24 05:45 0.5 MG Acetaminophen 650 mg Q6HP PRN PO 08/14/24 11:15 08/14/24 12:15 650 MG Throat Lozenges 1 sofi Q2HP PRN MT 08/15/24 11:15 08/19/24 14:57 1 SOFI Doxycycline Monohydrate 100 mg Q12HR PO 08/15/24 22:00 UNV Prednisone 20 mg DAILY PO 08/22/24 10:00 08/24/24 09:52 20 MG Nystatin 5 ml QID MT 08/21/24 18:00 08/24/24 06:38 5 ML Sucralfate 1 gm QID@0600,1130,1700,2200 PO 08/21/24 17:00 08/24/24 06:38 1 GM Pantoprazole Sodium 40 mg BID IV 08/22/24 10:00 08/24/24 09:52 40 MG Sodium Chloride 1,000 ml @ 50 mls/hr Q20H IV 08/22/24 15:00 08/22/24 16:35 50 MLS/HR Metoclopramide HCl 10 mg Q8HR IV 08/23/24 22:00 08/24/24 06:39 10 MG Laboratory Results Laboratory Tests 08/24/24 06:30 Chemistry Test 08/24/24 06:30 Calcium Level 9.4 mg/dL (8.7-10.4) Urinalysis Test 08/13/24 04:24 Urine Color Colorless (Yellow) Urine Clarity Clear (Clear) Urine pH 7.0 (5.0-9.0) Urine Specific [place] 1.009 (1.001-1.035) Urine Protein Negative (Negative) Urine Ketones Negative (Negative) Urine Blood Negative /uL (Negative) Urine Nitrite Negative (Negative) Urine Bilirubin Negative (Negative) Urine Urobilinogen Normal mg/dL (Negative) Urine Leukocyte Esterase Negative /uL (Negative) Urine RBC <1 /hpf (0 - 4) Urine Microscopic WBC 1 /HPF (0-5) Urine Squamous Epithelial Cells Few /hpf (<5) Urine Bacteria None seen /hpf (None Seen) Urine Glucose 4+ mg/dL (Normal) H Microbiology Microbiology Date/Time Source Procedure Growth Status 08/11/24 01:23 Nose MRSA Screen - Final Complete Assessment/Plan Assessment/Plan Covering for Dr. Verduzco #1 acute on chronic systolic heart failure: cont meds, dc metolazone #2 chronic resp failure #3 copd with exacerbation: prednisone, bronchodilators, ct chest-negative #4 acute on chronic renal failure ?vasomotor nephropathy: ivf #5 hypothyroidism #6 dm; ssi #7 s/p back surgery #8 h/o v tach: on amiodarone #8 Community-acquired pneumonia treated with the IV antibiotics #9 dysphagia/upper airway obstruction: CT neck negative, barium swallow negative # 10 PE ruled out Plan discussed with: Patient Date of Service: Aug 24, 2024 Billing Provider: SAMANTHA FERRER MD Common Visit Codes: [id number] INP/OBS CARE(HIGH) SAMANTHA FERRER MD Aug 24, 2024 10:43
--- NOTE | 2024-08-24 11:33 | DVHPN2 ---
Progress Note - Dictate Date Seen: Aug 24, 2024 Medical Necessity Reason Pt with a Central, PICC or Fol: No vital signs Vital Sign Date Time Temp Pulse Resp B/P (MAP) Pulse Ox O2 Delivery O2 Flow Rate FiO2 08/24/24 09:16 97.8 80 20 96/63 (74) 96 97.8 08/24/24 05:45 Nasal Cannula 2.0 08/24/24 05:45 28 Total Intake and Output 08/23/24 08/23/24 08/24/24 15:00 23:00 07:00 Intake Total 50 ml 690 ml 600 ml Output Total 800 ml 650 ml Balance 50 ml -110 ml -50 ml medications Current Medications Medications Dose Ordered Sig/[place] Route Start Time Stop Time Status Last Admin Dose Admin Amitriptyline HCl 25 mg HS PO 08/10/24 22:00 08/23/24 21:55 25 MG Pregabalin 50 mg TID PO 08/10/24 22:00 08/24/24 06:39 50 MG Albuterol 2.5 mg Q4HPRN PRN NEB 08/10/24 17:30 08/24/24 01:18 2.5 MG Diagnostic Test (Pha) 1 strip ACHS 08/10/24 22:00 08/24/24 06:40 1 STRIP Insulin Human Regular ACHS SC 08/10/24 22:00 08/23/24 22:06 2 UNITS Dextrose 50 ml UD PRN IV 08/10/24 17:30 Nitroglycerin 0.4 mg Q5MINP PRN SL 08/10/24 18:45 Amiodarone HCl 200 mg DAILY PO 08/11/24 10:00 08/24/24 09:52 200 MG Levalbuterol HCl 1.25 mg Q6HR NEB 08/12/24 12:00 08/23/24 19:31 1.25 MG Levothyroxine Sodium 50 mcg QAM@0600 PO 08/13/24 06:00 08/24/24 06:38 50 MCG Apixaban 2.5 mg BID PO 08/13/24 10:00 08/24/24 09:52 2.5 MG Ipratropium [place] 0.5 mg Q6HWA NEB 08/13/24 12:00 08/24/24 05:45 0.5 MG Acetaminophen 650 mg Q6HP PRN PO 08/14/24 11:15 08/14/24 12:15 650 MG Throat Lozenges 1 sofi Q2HP PRN MT 08/15/24 11:15 08/19/24 14:57 1 SOFI Doxycycline Monohydrate 100 mg Q12HR PO 08/15/24 22:00 UNV Prednisone 20 mg DAILY PO 08/22/24 10:00 08/24/24 09:52 20 MG Nystatin 5 ml QID MT 08/21/24 18:00 08/24/24 06:38 5 ML Sucralfate 1 gm QID@0600,1130,1700,2200 PO 08/21/24 17:00 08/24/24 06:38 1 GM Pantoprazole Sodium 40 mg BID IV 08/22/24 10:00 08/24/24 09:52 40 MG Sodium Chloride 1,000 ml @ 50 mls/hr Q20H IV 08/22/24 15:00 08/22/24 16:35 50 MLS/HR Metoclopramide HCl 10 mg Q8HR IV 08/23/24 22:00 08/24/24 06:39 10 MG laboratory and microbiology Laboratory Tests 08/24/24 06:30 Test 08/24/24 06:30 Range/Units Serum Glucose 137 H 74-106 mg/dL Assessment/Plan Patient is a 74-year-old female who presented to the hospital for shortness of breath. She also had been having cough. Problem started around a month ago and worsened recently. Cardiology was involved for cardiac aspects of care. Patient is known to our practice from outside and before. She received recent treatment for pneumonia. Denies chest pains. Does complain of dyspnea on exertion. Does complain of leg swellings. In October 2021, the patient was diagnosed to have nonischemic cardiomyopathy, was put on LifeVest, later was found to have improved LV systolic function the LifeVest was taken away. Recently, ejection fraction decreased again. She denies recent chest pain. She is on amiodarone (for history of PVCs). Sitting comfortably in bed, not using accessory muscles of breathing. Mucosa is pink and wet, there is no JVD, no goiter. Chest: Scattered rhonchi/rales. Cardiac: Regular regular, no thrill. Systolic murmur 3/6 in the apex is heard.. Abdomen: Soft, no palpable mass, positive hepatomegaly. Bowel sound is positive. Extremities: 3+ edema. Dorsalis pedis is 2+ bilateral Past medical history includes hypertension, hyperlipidemia, diabetes mellitus, asthma/COPD, history of back surgery, arrhythmia (sustained V. tach in October 2021, for which was shocked), history of old nonischemic cardiomyopathy, pulmonary hypertension (considered type 2), hypothyroidism, hiatal hernia, lupus, SVT, history of colon polyp and its resection, history of thyroid nodule, history of low vitamin-D, possible obstructive sleep apnea, CKD (goes to Nephrology regularly), A-fib/flutter, LBBB and also history of laminectomy. Left heart catheterization of November 17, 2021 revealed nonobstructive coronary artery disease, negative FFR of distal LCx, nonischemic cardiomyopathy Echocardiogram of November 15, 2021 revealed ejection fraction of 40%, enlarged LV/LA and aortic root. Echocardiogram of January 31, 2022 (performed in the office) revealed ejection fraction of 40 to 45%, sigmoid shaped septum, impaired relaxation of left ventricular diastolic function, trace MR/TR and right ventricular systolic pressure of less than 35 mmHg. Echocardiogram of March 2022 reported ejection fraction of 45-50%, anteroseptal/apical hypokinesia, trace MR/TR and right ventricular systolic pressure of 22 mm Hg Echocardiogram of April 2025 (performed in the office) revealed ejection fraction of less than 20%, increased EDP, tethered mitral valve leaflet secondary to left ventricular enlargement, moderate MR, mild TR and right ventricular systolic pressure of 60 mm Hg. Hemoglobin: 10.7 - 11.4 - 11.6 - 13.6 - 13.2 - 12.9 - 12.8 12.4 - 12.1 - 13.2 - 11.4 Creatinine: 1.60 - 1.37 - 1.60 - 1.55 - 1.51 - 1.79 - 2.55 - 2.81 - 2.54 - 2.22 - 2.36 - 1.73 - 1.37 - 1.25 Potassium: 4.0 - 3.4 - 3.5 - 3.5 - 4.2 - 4.1 - 4.2 - 4.3 - 4.5 - 4.6 - 4.5 - 5.3 - 4.8 - 4.4 BNP: 3325.33 - 3570.88 Troponin (high sensitive): 20 - 23 - 23 - 12 - 12 - 14 D-dimer: 1.57 Chest x-ray reported: MPRESSION: Cardiomegaly with moderate congestion. Repeat chest xry reported: IMPRESSION: Small right pleural effusion Cardiomegaly with CHF. Repeat chest xry revealed: IMPRESSION: Mild pulmonary congestion. Repeat chest xry revealed: IMPRESSION: No acute disease. Venous duplex of lower ext revealed: Impression: 1. No right or left femoropopliteal venous thrombosis. V/Q scan reported: IMPRESSION: 1. Low probability for PE. CT of neck revealed: IMPRESSION: No evidence of cervical mass lesion, pathologically enlarged lymph nodes or fluid collection. CT of chest (no contrast) reported: Impression: 1. No acute cardiopulmonary disease. 2. Mild right lower lobe atelectasis and traction bronchiectasis. Barium swallow reported: IMPRESSION: No structural abnormality seen of the esophagus. Mild esophageal reflux seen. The stomach was distended with food. Renal ultrasound reported: IMPRESSION: 1. Kidneys appear echogenic compatible with medical renal disease. 2. Bilateral renal cysts measuring up to 5.0 cm. EKG revealed sinus rhythm with left bundle branch block Tele reveals sinus rhythm, occasions of fib/flutter Echocardiogram revealed: Four-chamber dilatation was observed. Left ventricle: Left ventricle was dilated. Severely reduced systolic function of left ventricle was observed. LVEF was around 25%. Diffuse hypokinesis with regional variation of left ventricle seen. Right ventricle was dilated with preserved systolic function. Both atria were mildly dilated. Aortic valve: Aortic valve is trileaflet. Trace aortic insufficiency was seen. There was no aortic stenosis. There was mild mitral/tricuspid regurgitation. There was trace pulmonary valve insufficiency. Small pericardial effusion was seen. Right ventricular systolic pressure was assessed at 35 mm Hg. Patient is a 74-year-old female who presented with shortness of breath/cough. She was recently treated for pneumonia. She does have recent diagnosis of worsened systolic function and heart failure. He is found to have increased BNP. Chest x-ray reveals congestion. Presentation is in favor of acute on chronic systolic heart failure. Does have old history of nonischemic cardiomyopathy, but systolic function has worsened recently. Has been managed for acute on chronic systolic heart failure is considered the reason for presentation. May benefit from repeat ischemic workup (inpatient Vs outpatient). As EF had dropped suggestion is for Life Vest. Being followed by Nephrology. Was seen by GI for dysphagia and had CT of neck. Started on Nystatin by GI Acute on chronic systolic heart failure COPD exacerbation Fluid overload Bronchitis, acute Pneumonia, community acquired ALFONZO on CKD History of nonsustained VT Left bundle branch block Pulmonary hypertension, type 2 Hypothyroidism Left bundle branch block Atrial fib/flutter Elevated D-dimer s/p EGD: hiatal hernia, esophagitis, gastroparesis Cardiac suggestion for management: Telemetry monitoring Follow-up electrolytes and kidney function tests and correct abnormalities. Keep potassium above 4 and magnesium above 2 Continuation of amiodarone for history of non-sustained ventricular tachycardia is suggested (dose: 200 mg once daily) Patient with A-fib/flutter and high CHADS/Vasc score On Eliquis 2.5 mg BID. On Reglan as per GI (for gastroparesis) Kestra external wearable cardioverter defibrillator vest for primary prevention against sudden cardiac Nephrology follow up May benefit from ischemic workup/cardiac catheterization (outpatient) Further evaluation and management depends on the above and clinical course A total of 55 minutes was spent reviewing the patient record, examining the patient, making a diagnostic and therapeutic plan, discussing this plan with medical personnel, following up on diagnostic studies and following the patient for clinical stability excluding any and all procedures. At least 50% of this time was spent in direct, [id number] contact. Thank you for allowing me to participate in this patient's care. Further recommendations will depend on patient's clinical course. Please do not hesitate to contact me if you have any questions or concerns. This medical document was created using electronic medical record system with [employer] computerized dictation system. Although this document has been carefully reviewed, there may still be some phonetic and typographical errors. These areas are purely typographical due to the imperfection of the software programs, and do not reflect any compromise in the patient's medical care. Dietary Evaluation Review Comments: 1) Add cardiac restriction to 45g CCHO diet order 2) Consider Zofran prn for N/V 3) Continue current plan of care 4) Follow-up with cardiology and nephrology Expected Outcomes/Goals: 1) appetite and labs to improve 2) f/u in 3-5 days Plan discussed with: Patient, Other (nurse) WALESKA CHEW MD Aug 24, 2024 11:33
--- NOTE | 2024-08-24 11:43 | ECG ---
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
[2024-08-24 15:30] LABS: Urine Bacteria FEW /hpf (None Seen); Urine Blood Negative /uL (Negative); Urine Clarity Turbid (Clear); Urine Color Yellow (Yellow); Urine Mucus FEW (None Seen); Urine Protein, UAD Negative (Negative); Urine Specific Gravity 1.019 (1.001-1.035); Urine Squamous Epithelial Cell FEW /hpf (<5); Urine Urobilinogen Normal (Negative); Urine WBC 52 /HPF (0-5); Urine WBC Clumps PRESENT /hpf (None Seen)
--- NOTE | 2024-08-24 18:47 | DVHPN2 ---
Progress Note - Dictate Date Seen: Aug 24, 2024 Medical Necessity Reason Pt with a Central, PICC or Fol: No Subjective Patient seen at bedside She is awake and alert Patient feels much better She is swallowing better EGD findings reviewed with the patient vital signs Vital Sign Date Time Temp Pulse Resp B/P (MAP) Pulse Ox O2 Delivery O2 Flow Rate FiO2 08/24/24 16:38 98.1 72 16 113/67 (82) 98 98.1 08/24/24 12:05 Nasal Cannula 2.0 08/24/24 12:05 28 Total Intake and Output 08/23/24 08/23/24 08/24/24 15:00 23:00 07:00 Intake Total 50 ml 690 ml 600 ml Output Total 800 ml 650 ml Balance 50 ml -110 ml -50 ml medications Current Medications Medications Dose Ordered Sig/[place] Route Start Time Stop Time Status Last Admin Dose Admin Amitriptyline HCl 25 mg HS PO 08/10/24 22:00 08/23/24 21:55 25 MG Pregabalin 50 mg TID PO 08/10/24 22:00 08/24/24 14:08 50 MG Albuterol 2.5 mg Q4HPRN PRN NEB 08/10/24 17:30 08/24/24 12:13 2.5 MG Diagnostic Test (Pha) 1 strip ACHS 08/10/24 22:00 08/24/24 17:00 1 STRIP Insulin Human Regular ACHS SC 08/10/24 22:00 08/24/24 18:42 6 UNITS Dextrose 50 ml UD PRN IV 08/10/24 17:30 Nitroglycerin 0.4 mg Q5MINP PRN SL 08/10/24 18:45 Amiodarone HCl 200 mg DAILY PO 08/11/24 10:00 08/24/24 09:52 200 MG Levalbuterol HCl 1.25 mg Q6HR NEB 08/12/24 12:00 08/23/24 19:31 1.25 MG Levothyroxine Sodium 50 mcg QAM@0600 PO 08/13/24 06:00 08/24/24 06:38 50 MCG Apixaban 2.5 mg BID PO 08/13/24 10:00 08/24/24 09:52 2.5 MG Ipratropium [place] 0.5 mg Q6HWA NEB 08/13/24 12:00 08/24/24 12:14 0.5 MG Acetaminophen 650 mg Q6HP PRN PO 08/14/24 11:15 08/14/24 12:15 650 MG Throat Lozenges 1 sofi Q2HP PRN MT 08/15/24 11:15 08/19/24 14:57 1 SOFI Doxycycline Monohydrate 100 mg Q12HR PO 08/15/24 22:00 UNV Prednisone 20 mg DAILY PO 08/22/24 10:00 08/24/24 09:52 20 MG Nystatin 5 ml QID MT 08/21/24 18:00 08/24/24 18:39 5 ML Sucralfate 1 gm QID@0600,1130,1700,2200 PO 08/21/24 17:00 08/24/24 18:39 1 GM Pantoprazole Sodium 40 mg BID IV 08/22/24 10:00 08/24/24 09:52 40 MG Sodium Chloride 1,000 ml @ 50 mls/hr Q20H IV 08/22/24 15:00 08/22/24 16:35 50 MLS/HR Metoclopramide HCl 10 mg Q8HR IV 08/23/24 22:00 08/24/24 14:08 10 MG objective Awake alert oriented x3 HEENT: Normocephalic, no JVD Lungs: Bilateral good air entry CVS: S1, S2 regular rate rhythm Abdomen: Soft, bowel sounds present RAYON TESTER: No focal deficits Extremities: No edema laboratory and microbiology Laboratory Tests 08/24/24 06:30 Test 08/24/24 06:30 Range/Units Serum Glucose 137 H 74-106 mg/dL Problems(with codes): (1) Hiatal hernia with gastroesophageal reflux disease and esophagitis (2) Gastroparesis (3) Shortness of breath (4) Oropharyngeal dysphagia (5) Systolic CHF (6) COPD (chronic obstructive pulmonary disease) Prognosis Plan Continue Protonix 40 mg p.o. daily Carafate 1 g p.o. q.h.s. Continue nystatin swish and swallow for now but can DC upon discharge IV Reglan 10 mg q.8 hours Advance to pureed diet Avoid narcotics Dietary Evaluation Review Comments: 1) Add cardiac restriction to 45g CCHO diet order 2) Consider Zofran prn for N/V 3) Continue current plan of care 4) Follow-up with cardiology and nephrology Expected Outcomes/Goals: 1) appetite and labs to improve 2) f/u in 3-5 days Plan discussed with: Patient BREANNA MORSE MD Aug 24, 2024 18:47
[2024-08-25] VITALS (18 sets, daily range): BP systolic 108–130; BP diastolic 67–77; PULSE 72–89; RESP 16–20; TEMP 97.6–98.3; O2SAT 95–100
[2024-08-25 00:02] LABS: Urine Bacteria FEW /hpf (None Seen); Urine Blood Negative /uL (Negative); Urine Budding Yeast OCCASIONAL /hpf (None Seen); Urine Clarity Clear (Clear); Urine Color Light-Yellow (Yellow); Urine Mucus FEW (None Seen); Urine Protein, UAD Negative (Negative); Urine Specific Gravity 1.021 (1.001-1.035); Urine Squamous Epithelial Cell FEW /hpf (<5); Urine Urobilinogen Normal (Negative); Urine WBC 62 /HPF (0-5)
--- NOTE | 2024-08-25 07:34 | DVHPN2 ---
Progress Note - Dictate Date Seen: Aug 25, 2024 Medical Necessity Reason Pt with a Central, PICC or Fol: No vital signs Vital Sign Date Time Temp Pulse Resp B/P (MAP) Pulse Ox O2 Delivery O2 Flow Rate FiO2 08/25/24 05:55 80 17 100 08/25/24 05:47 Nasal Cannula 2.0 08/25/24 05:47 28 08/25/24 05:00 97.8 108/68 (81) 97.8 Total Intake and Output 08/24/24 08/24/24 08/25/24 15:00 23:00 07:00 Intake Total 600 ml 400 ml Output Total 700 ml 800 ml Balance -100 ml -400 ml medications Current Medications Medications Dose Ordered Sig/[place] Route Start Time Stop Time Status Last Admin Dose Admin Amitriptyline HCl 25 mg HS PO 08/10/24 22:00 08/24/24 22:49 25 MG Albuterol 2.5 mg Q4HPRN PRN NEB 08/10/24 17:30 08/24/24 12:13 2.5 MG Diagnostic Test (Pha) 1 strip ACHS 08/10/24 22:00 08/25/24 06:14 1 STRIP Insulin Human Regular ACHS SC 08/10/24 22:00 08/24/24 22:00 4 UNITS Dextrose 50 ml UD PRN IV 08/10/24 17:30 Nitroglycerin 0.4 mg Q5MINP PRN SL 08/10/24 18:45 Amiodarone HCl 200 mg DAILY PO 08/11/24 10:00 08/24/24 09:52 200 MG Levalbuterol HCl 1.25 mg Q6HR NEB 08/12/24 12:00 08/25/24 05:47 1.25 MG Levothyroxine Sodium 50 mcg QAM@0600 PO 08/13/24 06:00 08/25/24 06:14 50 MCG Apixaban 2.5 mg BID PO 08/13/24 10:00 08/24/24 22:49 2.5 MG Ipratropium [place] 0.5 mg Q6HWA NEB 08/13/24 12:00 08/25/24 05:47 0.5 MG Acetaminophen 650 mg Q6HP PRN PO 08/14/24 11:15 08/14/24 12:15 650 MG Throat Lozenges 1 sofi Q2HP PRN MT 08/15/24 11:15 08/19/24 14:57 1 SOFI Doxycycline Monohydrate 100 mg Q12HR PO 08/15/24 22:00 UNV Prednisone 20 mg DAILY PO 08/22/24 10:00 08/24/24 09:52 20 MG Nystatin 5 ml QID MT 08/21/24 18:00 08/25/24 06:14 5 ML Sucralfate 1 gm QID@0600,1130,1700,2200 PO 08/21/24 17:00 08/25/24 06:14 1 GM Pantoprazole Sodium 40 mg BID IV 08/22/24 10:00 08/24/24 22:51 40 MG Sodium Chloride 1,000 ml @ 50 mls/hr Q20H IV 08/22/24 15:00 08/25/24 03:19 50 MLS/HR Metoclopramide HCl 10 mg Q8HR IV 08/23/24 22:00 08/25/24 06:14 10 MG laboratory and microbiology Laboratory Tests 08/24/24 06:30 Test 08/24/24 06:30 Range/Units Serum Glucose 137 H 74-106 mg/dL Assessment/Plan Patient is a 74-year-old female who presented to the hospital for shortness of breath. She also had been having cough. Problem started around a month ago and worsened recently. Cardiology was involved for cardiac aspects of care. Patient is known to our practice from outside and before. She received recent treatment for pneumonia. Denies chest pains. Does complain of dyspnea on exertion. Does complain of leg swellings. In October 2021, the patient was diagnosed to have nonischemic cardiomyopathy, was put on LifeVest, later was found to have improved LV systolic function the LifeVest was taken away. Recently, ejection fraction decreased again. She denies recent chest pain. She is on amiodarone (for history of PVCs). Sitting comfortably in bed, not using accessory muscles of breathing. Mucosa is pink and wet, there is no JVD, no goiter. Chest: Scattered rhonchi/rales. Cardiac: Regular regular, no thrill. Systolic murmur 3/6 in the apex is heard.. Abdomen: Soft, no palpable mass, positive hepatomegaly. Bowel sound is positive. Extremities: 3+ edema. Dorsalis pedis is 2+ bilateral Past medical history includes hypertension, hyperlipidemia, diabetes mellitus, asthma/COPD, history of back surgery, arrhythmia (sustained V. tach in October 2021, for which was shocked), history of old nonischemic cardiomyopathy, pulmonary hypertension (considered type 2), hypothyroidism, hiatal hernia, lupus, SVT, history of colon polyp and its resection, history of thyroid nodule, history of low vitamin-D, possible obstructive sleep apnea, CKD (goes to Nephrology regularly), A-fib/flutter, LBBB and also history of laminectomy. Left heart catheterization of November 17, 2021 revealed nonobstructive coronary artery disease, negative FFR of distal LCx, nonischemic cardiomyopathy Echocardiogram of November 15, 2021 revealed ejection fraction of 40%, enlarged LV/LA and aortic root. Echocardiogram of January 31, 2022 (performed in the office) revealed ejection fraction of 40 to 45%, sigmoid shaped septum, impaired relaxation of left ventricular diastolic function, trace MR/TR and right ventricular systolic pressure of less than 35 mmHg. Echocardiogram of March 2022 reported ejection fraction of 45-50%, anteroseptal/apical hypokinesia, trace MR/TR and right ventricular systolic pressure of 22 mm Hg Echocardiogram of April 2025 (performed in the office) revealed ejection fraction of less than 20%, increased EDP, tethered mitral valve leaflet secondary to left ventricular enlargement, moderate MR, mild TR and right ventricular systolic pressure of 60 mm Hg. Hemoglobin: 10.7 - 11.4 - 11.6 - 13.6 - 13.2 - 12.9 - 12.8 12.4 - 12.1 - 13.2 - 11.4 Creatinine: 1.60 - 1.37 - 1.60 - 1.55 - 1.51 - 1.79 - 2.55 - 2.81 - 2.54 - 2.22 - 2.36 - 1.73 - 1.37 - 1.25 Potassium: 4.0 - 3.4 - 3.5 - 3.5 - 4.2 - 4.1 - 4.2 - 4.3 - 4.5 - 4.6 - 4.5 - 5.3 - 4.8 - 4.4 BNP: 3325.33 - 3570.88 Troponin (high sensitive): - - 12 - 12 - 14 D-dimer: 1.57 Chest x-ray reported: MPRESSION: Cardiomegaly with moderate congestion. Repeat chest xry reported: IMPRESSION: Small right pleural effusion Cardiomegaly with CHF. Repeat chest xry revealed: IMPRESSION: Mild pulmonary congestion. Repeat chest xry revealed: IMPRESSION: No acute disease. Venous duplex of lower ext revealed: Impression: 1. No right or left femoropopliteal venous thrombosis. V/Q scan reported: IMPRESSION: 1. Low probability for PE. CT of neck revealed: IMPRESSION: No evidence of cervical mass lesion, pathologically enlarged lymph nodes or fluid collection. CT of chest (no contrast) reported: Impression: 1. No acute cardiopulmonary disease. 2. Mild right lower lobe atelectasis and traction bronchiectasis. Barium swallow reported: IMPRESSION: No structural abnormality seen of the esophagus. Mild esophageal reflux seen. The stomach was distended with food. Renal ultrasound reported: IMPRESSION: 1. Kidneys appear echogenic compatible with medical renal disease. 2. Bilateral renal cysts measuring up to 5.0 cm. EKG revealed sinus rhythm with left bundle branch block Tele reveals sinus rhythm, occasions of fib/flutter Echocardiogram revealed: Four-chamber dilatation was observed. Left ventricle: Left ventricle was dilated. Severely reduced systolic function of left ventricle was observed. LVEF was around 25%. Diffuse hypokinesis with regional variation of left ventricle seen. Right ventricle was dilated with preserved systolic function. Both atria were mildly dilated. Aortic valve: Aortic valve is trileaflet. Trace aortic insufficiency was seen. There was no aortic stenosis. There was mild mitral/tricuspid regurgitation. There was trace pulmonary valve insufficiency. Small pericardial effusion was seen. Right ventricular systolic pressure was assessed at 35 mm Hg. Patient is a 74-year-old female who presented with shortness of breath/cough. She was recently treated for pneumonia. She does have recent diagnosis of worsened systolic function and heart failure. He is found to have increased BNP. Chest x-ray reveals congestion. Presentation is in favor of acute on chronic systolic heart failure. Does have old history of nonischemic cardiomyopathy, but systolic function has worsened recently. Has been managed for acute on chronic systolic heart failure is considered the reason for presentation. May benefit from repeat ischemic workup (inpatient Vs outpatient). As EF had dropped suggestion is for Life Vest. Being followed by Nephrology. Was seen by GI for dysphagia and had CT of neck. Started on Nystatin by GI Acute on chronic systolic heart failure COPD exacerbation Fluid overload Bronchitis, acute Pneumonia, community acquired ALFONZO on CKD History of nonsustained VT Left bundle branch block Pulmonary hypertension, type 2 Hypothyroidism Left bundle branch block Atrial fib/flutter Elevated D-dimer s/p EGD: hiatal hernia, esophagitis, gastroparesis Cardiac suggestion for management: Telemetry monitoring Follow-up electrolytes and kidney function tests and correct abnormalities. Keep potassium above 4 and magnesium above 2 Continuation of amiodarone for history of non-sustained ventricular tachycardia is suggested (dose: 200 mg once daily) Patient with A-fib/flutter and high CHADS/Vasc score On Eliquis 2.5 mg BID. On Reglan as per GI (for gastroparesis) Kestra external wearable cardioverter defibrillator vest for primary prevention against sudden cardiac Nephrology follow up May benefit from ischemic workup/cardiac catheterization (outpatient) Further evaluation and management depends on the above and clinical course A total of 55 minutes was spent reviewing the patient record, examining the patient, making a diagnostic and therapeutic plan, discussing this plan with medical personnel, following up on diagnostic studies and following the patient for clinical stability excluding any and all procedures. At least 50% of this time was spent in direct, [id number] contact. Thank you for allowing me to participate in this patient's care. Further recommendations will depend on patient's clinical course. Please do not hesitate to contact me if you have any questions or concerns. This medical document was created using electronic medical record system with [employer] software computerized dictation system. Although this document has been carefully reviewed, there may still be some phonetic and typographical errors. These areas are purely typographical due to the imperfection of the software programs, and do not reflect any compromise in the patient's medical care. Dietary Evaluation Review Comments: 1) Add cardiac restriction to 45g CCHO diet order 2) Consider Zofran prn for N/V 3) Continue current plan of care 4) Follow-up with cardiology and nephrology Expected Outcomes/Goals: 1) appetite and labs to improve 2) f/u in 3-5 days Plan discussed with: Patient, Other (nurse) WALESKA CHEW MD Aug 25, 2024 07:34
[2024-08-25 08:19] LABS: Basophils # (auto) 0 10 ^3/uL (0-0.2); Eosinophils # (auto) 0.1 10 ^3/uL (0-0.8); Eosinophils % (auto) 1.9 % (0.0-7.0); Hematocrit 33.3 % (36.0-46.0); Hemoglobin 10.7 g/dL (12.2-16.2); Lymphocytes % (auto) 22.2 % (10.0-50.0); Mean Corpuscular Hemoglobin 29.3 pg (28.0-32.0); Mean Corpuscular Hgb Conc. 32.2 g/dL (32.0-36.0); Mean Corpuscular Volume 90.9 fL (80.0-100.0); Monocytes # (auto) 0.4 10 ^3/uL (0-1.3); Monocytes % (auto) 8.1 % (0.0-12.0); Neutrophils % (auto) 67.8 % (37.0-80.0); Platelet Count (auto) 147 10^3/uL (140-450); Red Blood Cells 3.67 10^6/uL (4.0-5.20); Red Cell Distribution Width 14.6 % (11.8-14.3); White Blood Cell 4.4 10^3/uL (4.4-10.8)
[2024-08-25 08:56] LABS: Anion Gap 11 (5-15)
[2024-08-25 08:57] LABS: Calcium 9.2 mg/dL (8.7-10.4)
[2024-08-25 09:01] LABS: BUN/Creatinine Ratio 32.2 (10.0-20.0)
[2024-08-25 09:05] LABS: Blood Urea Nitrogen 38 mg/dL (9-23); Carbon Dioxide 20 mmol/L (20-31); Chloride 107 mmol/L (98-107); Glucose 120 mg/dL (74-106); Potassium 4.2 mmol/L (3.5-5.1); Sodium 138 mmol/L (136-145)
--- NOTE | 2024-08-25 10:09 | DVHPN2 ---
Progress Note - Dictate Date Seen: Aug 25, 2024 Medical Necessity Reason Pt with a Central, PICC or Fol: No Subjective No acute issues overnight. Denies any shortness of breath vital signs Vital Sign Date Time Temp Pulse Resp B/P (MAP) Pulse Ox O2 Delivery O2 Flow Rate FiO2 08/25/24 09:15 98.0 87 20 122/70 (87) 95 98.0 08/25/24 05:47 Nasal Cannula 2.0 08/25/24 05:47 28 Total Intake and Output 08/24/24 08/24/24 08/25/24 15:00 23:00 07:00 Intake Total 600 ml 400 ml Output Total 700 ml 800 ml Balance -100 ml -400 ml medications Current Medications Medications Dose Ordered Sig/[place] Route Start Time Stop Time Status Last Admin Dose Admin Amitriptyline HCl 25 mg HS PO 08/10/24 22:00 08/24/24 22:49 25 MG Albuterol 2.5 mg Q4HPRN PRN NEB 08/10/24 17:30 08/24/24 12:13 2.5 MG Diagnostic Test (Pha) 1 strip ACHS 08/10/24 22:00 08/25/24 06:14 1 STRIP Insulin Human Regular ACHS SC 08/10/24 22:00 08/24/24 22:00 4 UNITS Dextrose 50 ml UD PRN IV 08/10/24 17:30 Nitroglycerin 0.4 mg Q5MINP PRN SL 08/10/24 18:45 Amiodarone HCl 200 mg DAILY PO 08/11/24 10:00 08/24/24 09:52 200 MG Levalbuterol HCl 1.25 mg Q6HR NEB 08/12/24 12:00 08/25/24 05:47 1.25 MG Levothyroxine Sodium 50 mcg QAM@0600 PO 08/13/24 06:00 08/25/24 06:14 50 MCG Apixaban 2.5 mg BID PO 08/13/24 10:00 08/24/24 22:49 2.5 MG Ipratropium [place] 0.5 mg Q6HWA NEB 08/13/24 12:00 08/25/24 05:47 0.5 MG Acetaminophen 650 mg Q6HP PRN PO 08/14/24 11:15 08/14/24 12:15 650 MG Throat Lozenges 1 sofi Q2HP PRN MT 08/15/24 11:15 08/19/24 14:57 1 SOFI Doxycycline Monohydrate 100 mg Q12HR PO 08/15/24 22:00 UNV Prednisone 20 mg DAILY PO 08/22/24 10:00 08/24/24 09:52 20 MG Nystatin 5 ml QID MT 08/21/24 18:00 08/25/24 06:14 5 ML Sucralfate 1 gm QID@0600,1130,1700,2200 PO 08/21/24 17:00 08/25/24 06:14 1 GM Pantoprazole Sodium 40 mg BID IV 08/22/24 10:00 08/24/24 22:51 40 MG Metoclopramide HCl 10 mg Q8HR IV 08/23/24 22:00 08/25/24 06:14 10 MG objective Awake alert oriented x3 HEENT: Normocephalic, no JVD Lungs: Bilateral good air entry CVS: S1, S2 regular rate rhythm Abdomen: Soft, bowel sounds present 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 Worsening GFR secondary to over-diuresis Acute on chronic systolic heart failure Hyponatremia secondary to heart failure Hypotension,resolved Type 2 diabetes with nephropathy Acute on chronic hypoxic respiratory failure COPD Hypothyroidism Type 2 diabetes History of V-tach Hyperkalemia Assessment/Plan GFR with the improvement and at baseline. Discontinue IV fluids Respiratory status stable Entresto and Jardiance can be started gradually in the outpatient setting. She has a follow up with Nephrology on the 03 of September. Stable from renal standpoint to be discharged. Dietary Evaluation Review Comments: 1) Add cardiac restriction to 45g CCHO diet order 2) Consider Zofran prn for N/V 3) Continue current plan of care 4) Follow-up with cardiology and nephrology Expected Outcomes/Goals: 1) appetite and labs to improve 2) f/u in 3-5 days Plan discussed with: Patient XOCHITL ORELLANA MD Aug 25, 2024 10:09
--- NOTE | 2024-08-25 11:00 | DVHPN2 ---
Reviewed: Care Plan, H&P, Labs, Medications, Previous Orders, Radiology Changes from previous H/P or p: No Changes General: Per HPI Eyes: No Pain, No Vision change, No Conjunctivae inflammation, No Eyelid inflammation, No Other, No Redness ENT: No Ear pain, No Ear discharge, No Nose pain, No Nose discharge, No Nose congestion, No Mouth pain, No Mouth swelling, No Throat pain, No Throat swelling, No Other Cardiovascular: No Chest Pain, No Palpitations, No Orthopnea, No Paroxysmal Noc. Dyspnea, No Edema, No Lt Headedness, No Other Respiratory: Cough; No Dry; Shortness of breath; No SOB with excertion, No Wheezing, No Hemoptysis, No Pleuritic Pain, No Sputum, No Other Gastrointestinal: No Nausea, No Vomiting, No Abdominal Pain, No Diarrhea, No Constipation, No Melena, No Hematochezia, No Other Genitourinary: No Dysuria, No Frequency, No Incontinence, No Hematuria, No Retention, No Other Musculoskeletal: No other, No neck pain, No shoulder pain, No arm pain, No back pain, No hand pain, No leg pain, No foot pain Skin: No Rash, No Lesions, No Jaundice, No Bruising, No Other Objective Vitals Vital Signs Date Time Temp Pulse Resp B/P (MAP) Pulse Ox O2 Delivery O2 Flow Rate FiO2 08/25/24 09:15 98.0 87 20 122/70 (87) 95 98.0 08/25/24 05:47 Nasal Cannula 2.0 08/25/24 05:47 28 Intake/Output Intake and Output 08/25/24 07:00 Intake Total 1000 ml Output Total 1500 ml Balance -500 ml Intake Oral 1000 ml Output Urine Total 1500 ml General Appearance: Alert, Oriented X3, Cooperative HEENT: Atraumatic Cardiovascular: Regular rate, Normal S1, Normal S2 Abdomen: Normal bowel sounds, Soft Medications Current Medications Medications Dose Ordered Sig/[place] Route Start Time Stop Time Status Last Admin Dose Admin Amitriptyline HCl 25 mg HS PO 08/10/24 22:00 08/24/24 22:49 25 MG Albuterol 2.5 mg Q4HPRN PRN NEB 08/10/24 17:30 08/24/24 12:13 2.5 MG Diagnostic Test (Pha) 1 strip ACHS 08/10/24 22:00 08/25/24 06:14 1 STRIP Insulin Human Regular ACHS SC 08/10/24 22:00 08/24/24 22:00 4 UNITS Dextrose 50 ml UD PRN IV 08/10/24 17:30 Nitroglycerin 0.4 mg Q5MINP PRN SL 08/10/24 18:45 Amiodarone HCl 200 mg DAILY PO 08/11/24 10:00 08/25/24 10:10 200 MG Levalbuterol HCl 1.25 mg Q6HR NEB 08/12/24 12:00 08/25/24 05:47 1.25 MG Levothyroxine Sodium 50 mcg QAM@0600 PO 08/13/24 06:00 08/25/24 06:14 50 MCG Apixaban 2.5 mg BID PO 08/13/24 10:00 08/25/24 10:10 2.5 MG Ipratropium [place] 0.5 mg Q6HWA NEB 08/13/24 12:00 08/25/24 05:47 0.5 MG Acetaminophen 650 mg Q6HP PRN PO 08/14/24 11:15 08/14/24 12:15 650 MG Throat Lozenges 1 sofi Q2HP PRN MT 08/15/24 11:15 08/19/24 14:57 1 SOFI Doxycycline Monohydrate 100 mg Q12HR PO 08/15/24 22:00 UNV Prednisone 20 mg DAILY PO 08/22/24 10:00 08/25/24 10:10 20 MG Nystatin 5 ml QID MT 08/21/24 18:00 08/25/24 06:14 5 ML Sucralfate 1 gm QID@0600,1130,1700,2200 PO 08/21/24 17:00 08/25/24 06:14 1 GM Pantoprazole Sodium 40 mg BID IV 08/22/24 10:00 08/25/24 10:10 40 MG Metoclopramide HCl 10 mg Q8HR IV 08/23/24 22:00 08/25/24 06:14 10 MG Laboratory Results Laboratory Tests 08/25/24 06:56 Chemistry Test 08/25/24 06:56 Calcium Level 9.2 mg/dL (8.7-10.4) Urinalysis Test 08/24/24 09:30 08/24/24 23:00 Urine WBC Clumps Present /hpf (None Seen) Urine Color Light-yellow (Yellow) Urine Clarity Clear (Clear) Urine pH 5.0 (5.0-9.0) Urine Specific [place] 1.021 (1.001-1.035) Urine Protein Negative (Negative) Urine Ketones Negative (Negative) Urine Blood Negative /uL (Negative) Urine Nitrite Negative (Negative) Urine Bilirubin Negative (Negative) Urine Urobilinogen Normal mg/dL (Negative) Urine Leukocyte Esterase 2+ /uL (Negative) Urine RBC 34 /hpf (0 - 4) Urine Microscopic WBC 62 /HPF (0-5) H Urine Squamous Epithelial Cells Few /hpf (<5) Urine Renal Epithelial Cells Few /hpf (None Seen) Urine Bacteria Few /hpf (None Seen) H Urine Mucus Few (None Seen) Urine Yeast (Budding) Occasional /hpf (None Urine Glucose 4+ mg/dL (Normal) H Microbiology Microbiology Date/Time Source Procedure Growth Status 08/11/24 01:23 Nose MRSA Screen - Final Complete Labs and/or images reviewed: Labs reviewed by me, Image(s) reviewed by me Assessment/Plan Assessment/Plan Covering for Dr. Verduzco #1 acute on chronic systolic heart failure: cont meds, dc metolazone #2 chronic resp failure #3 copd with exacerbation: prednisone, bronchodilators, ct chest-negative #4 acute on chronic renal failure ?vasomotor nephropathy: ivf #5 hypothyroidism #6 dm; ssi #7 s/p back surgery #8 h/o v tach: on amiodarone #8 Community-acquired pneumonia treated with the IV antibiotics #9 dysphagia/upper airway obstruction: CT neck negative, barium swallow negative #10 PE ruled out Patient is on 2 L of oxygen which is her usual home oxygen requirement Possible DC Monday Plan discussed with: Patient Date of Service: Aug 25, 2024 Billing Provider: SAMANTHA FERRER MD Common Visit Codes: [id number] INP/OBS CARE(HIGH) SAMANTHA FERRER MD Aug 25, 2024 11:00
--- NOTE | 2024-08-25 13:29 | DVHPN2 ---
Progress Note - Dictate Date Seen: Aug 25, 2024 Medical Necessity Reason Pt with a Central, PICC or Fol: No Subjective Patient seen at bedside She is awake and alert Patient feels much better She is swallowing better EGD findings reviewed with the patient vital signs Vital Sign Date Time Temp Pulse Resp B/P (MAP) Pulse Ox O2 Delivery O2 Flow Rate FiO2 08/25/24 11:08 81 18 98 08/25/24 11:00 Nasal Cannula 2.0 08/25/24 11:00 28 08/25/24 09:15 98.0 122/70 (87) 98.0 Total Intake and Output 08/24/24 08/24/24 08/25/24 15:00 23:00 07:00 Intake Total 600 ml 400 ml Output Total 700 ml 800 ml Balance -100 ml -400 ml medications Current Medications Medications Dose Ordered Sig/[place] Route Start Time Stop Time Status Last Admin Dose Admin Amitriptyline HCl 25 mg HS PO 08/10/24 22:00 08/24/24 22:49 25 MG Albuterol 2.5 mg Q4HPRN PRN NEB 08/10/24 17:30 08/24/24 12:13 2.5 MG Diagnostic Test (Pha) 1 strip ACHS 08/10/24 22:00 08/25/24 11:38 1 STRIP Insulin Human Regular ACHS SC 08/10/24 22:00 08/25/24 11:37 4 UNITS Dextrose 50 ml UD PRN IV 08/10/24 17:30 Nitroglycerin 0.4 mg Q5MINP PRN SL 08/10/24 18:45 Amiodarone HCl 200 mg DAILY PO 08/11/24 10:00 08/25/24 10:10 200 MG Levalbuterol HCl 1.25 mg Q6HR NEB 08/12/24 12:00 08/25/24 11:00 1.25 MG Levothyroxine Sodium 50 mcg QAM@0600 PO 08/13/24 06:00 08/25/24 06:14 50 MCG Apixaban 2.5 mg BID PO 08/13/24 10:00 08/25/24 10:10 2.5 MG Ipratropium [place] 0.5 mg Q6HWA NEB 08/13/24 12:00 08/25/24 11:00 0.5 MG Acetaminophen 650 mg Q6HP PRN PO 08/14/24 11:15 08/14/24 12:15 650 MG Throat Lozenges 1 sofi Q2HP PRN MT 08/15/24 11:15 08/19/24 14:57 1 SOFI Doxycycline Monohydrate 100 mg Q12HR PO 08/15/24 22:00 UNV Prednisone 20 mg DAILY PO 08/22/24 10:00 08/25/24 10:10 20 MG Nystatin 5 ml QID MT 08/21/24 18:00 08/25/24 11:36 5 ML Sucralfate 1 gm QID@0600,1130,1700,2200 PO 08/21/24 17:00 08/25/24 11:36 1 GM Pantoprazole Sodium 40 mg BID IV 08/22/24 10:00 08/25/24 10:10 40 MG Metoclopramide HCl 10 mg Q8HR IV 08/23/24 22:00 08/25/24 06:14 10 MG objective Awake alert oriented x3 HEENT: Normocephalic, no JVD Lungs: Bilateral good air entry CVS: S1, S2 regular rate rhythm Abdomen: Soft, bowel sounds present MANAGER FRONT: No focal deficits Extremities: No edema laboratory and microbiology Laboratory Tests 08/25/24 06:56 Test 08/25/24 06:56 Range/Units Serum Glucose 120 H 74-106 mg/dL Problems(with codes): (1) Hiatal hernia with gastroesophageal reflux disease and esophagitis (2) Gastroparesis (3) Oropharyngeal dysphagia (4) COPD (chronic obstructive pulmonary disease) (5) Systolic CHF Prognosis Plan Advance to soft mechanical diet Continue Reglan 10 mg IV q.8 hours Protonix 40 mg IV q.day Discharge planning as per hospitalist I would recommend discharge in this patient on Protonix 40 mg p.o. a.m. and Reglan 10 mg p.o. Q HS Patient will follow up in my office as an outpatient for ongoing GI evaluation and management Dietary Evaluation Review Comments: 1) Add cardiac restriction to 45g CCHO diet order 2) Consider Zofran prn for N/V 3) Continue current plan of care 4) Follow-up with cardiology and nephrology Expected Outcomes/Goals: 1) appetite and labs to improve 2) f/u in 3-5 days Plan discussed with: Patient BREANNA MORSE MD Aug 25, 2024 13:29
[2024-08-26] VITALS (18 sets, daily range): BP systolic 111–130; BP diastolic 69–78; PULSE 60–104; RESP 16–20; TEMP 97.2–98.9; O2SAT 94–100
[2024-08-26 06:05] LABS: Basophils # (auto) 0 10 ^3/uL (0-0.2); Basophils % (auto) 0.1 % (0.0-2.0); Eosinophils # (auto) 0.1 10 ^3/uL (0-0.8); Eosinophils % (auto) 1.1 % (0.0-7.0); Hematocrit 33.6 % (36.0-46.0); Hemoglobin 10.6 g/dL (12.2-16.2); Lymphocytes # (auto) 0.9 10 ^3/uL (0.4-5.4); Lymphocytes % (auto) 15.4 % (10.0-50.0); Mean Corpuscular Hemoglobin 28.9 pg (28.0-32.0); Mean Corpuscular Hgb Conc. 31.6 g/dL (32.0-36.0); Mean Corpuscular Volume 91.4 fL (80.0-100.0); Monocytes # (auto) 0.4 10 ^3/uL (0-1.3); Monocytes % (auto) 6.9 % (0.0-12.0); Neutrophils # (auto) 4.4 10 ^3/uL (1.6-8.6); Neutrophils % (auto) 76.5 % (37.0-80.0); Nucleated Red Blood Cells % 0.1 %; Platelet Count (auto) 159 10^3/uL (140-450); Red Blood Cells 3.68 10^6/uL (4.0-5.20); Red Cell Distribution Width 14.8 % (11.8-14.3); White Blood Cell 5.8 10^3/uL (4.4-10.8)
[2024-08-26 06:16] LABS: Alanine Aminotransferase 22 U/L (7-40); Alkaline Phosphatase 74 U/L (46-116); Anion Gap 8 (5-15); BUN/Creatinine Ratio 26.1 (10.0-20.0); Calcium 9.5 mg/dL (8.7-10.4); Carbon Dioxide 22 mmol/L (20-31); Glucose 90 mg/dL (74-106); Sodium 141 mmol/L (136-145)
[2024-08-26 06:17] LABS: Albumin 3.3 g/dL (3.2-4.8); Aspartate Aminotransferase 17 U/L (13-40)
[2024-08-26 06:33] LABS: Blood Urea Nitrogen 31 mg/dL (9-23); Chloride 111 mmol/L (98-107); Potassium 5.5 mmol/L (3.5-5.1); Total Protein 5.6 g/dL (5.7-8.2)
--- NOTE | 2024-08-26 08:06 | DVHPN2 ---
Progress Note - Dictate Date Seen: Aug 26, 2024 Medical Necessity Reason Pt with a Central, PICC or Fol: No vital signs Vital Sign Date Time Temp Pulse Resp B/P (MAP) Pulse Ox O2 Delivery O2 Flow Rate FiO2 08/26/24 05:00 97.8 82 20 111/71 (84) 97 97.8 08/26/24 00:00 Nasal Cannula* 2 28 Total Intake and Output 08/25/24 08/25/24 08/26/24 15:00 23:00 07:00 Intake Total 350 ml 760 ml 300 ml Output Total 1200 ml Balance 350 ml -440 ml 300 ml medications Current Medications Medications Dose Ordered Sig/[place] Route Start Time Stop Time Status Last Admin Dose Admin Amitriptyline HCl 25 mg HS PO 08/10/24 22:00 08/25/24 22:25 25 MG Albuterol 2.5 mg Q4HPRN PRN NEB 08/10/24 17:30 08/24/24 12:13 2.5 MG Diagnostic Test (Pha) 1 strip ACHS 08/10/24 22:00 08/26/24 07:00 1 STRIP Insulin Human Regular ACHS SC 08/10/24 22:00 08/25/24 22:29 6 UNITS Dextrose 50 ml UD PRN IV 08/10/24 17:30 Nitroglycerin 0.4 mg Q5MINP PRN SL 08/10/24 18:45 Amiodarone HCl 200 mg DAILY PO 08/11/24 10:00 08/25/24 10:10 200 MG Levalbuterol HCl 1.25 mg Q6HR NEB 08/12/24 12:00 08/26/24 00:00 1.25 MG Levothyroxine Sodium 50 mcg QAM@0600 PO 08/13/24 06:00 08/26/24 05:22 50 MCG Apixaban 2.5 mg BID PO 08/13/24 10:00 08/25/24 22:24 2.5 MG Ipratropium [place] 0.5 mg Q6HWA NEB 08/13/24 12:00 08/26/24 00:00 0.5 MG Acetaminophen 650 mg Q6HP PRN PO 08/14/24 11:15 08/14/24 12:15 650 MG Throat Lozenges 1 sofi Q2HP PRN MT 08/15/24 11:15 08/19/24 14:57 1 SOFI Doxycycline Monohydrate 100 mg Q12HR PO 08/15/24 22:00 UNV Prednisone 20 mg DAILY PO 08/22/24 10:00 08/25/24 10:10 20 MG Nystatin 5 ml QID MT 08/21/24 18:00 08/26/24 05:21 5 ML Sucralfate 1 gm QID@0600,1130,1700,2200 PO 08/21/24 17:00 08/26/24 05:21 1 GM Pantoprazole Sodium 40 mg BID IV 08/22/24 10:00 08/25/24 22:17 40 MG Metoclopramide HCl 10 mg Q8HR IV 08/23/24 22:00 08/26/24 05:23 10 MG laboratory and microbiology Laboratory Tests 08/26/24 04:26 Test 08/26/24 04:26 Range/Units Serum Glucose 90 74-106 mg/dL Assessment/Plan Patient is a 74-year-old female who presented to the hospital for shortness of breath. She also had been having cough. Problem started around a month ago and worsened recently. Cardiology was involved for cardiac aspects of care. Patient is known to our practice from outside and before. She received recent treatment for pneumonia. Denies chest pains. Does complain of dyspnea on exertion. Does complain of leg swellings. In October 2021, the patient was diagnosed to have nonischemic cardiomyopathy, was put on LifeVest, later was found to have improved LV systolic function the LifeVest was taken away. Recently, ejection fraction decreased again. She denies recent chest pain. She is on amiodarone (for history of PVCs). Sitting comfortably in bed, not using accessory muscles of breathing. Mucosa is pink and wet, there is no JVD, no goiter. Chest: Scattered rhonchi/rales. Cardiac: Regular regular, no thrill. Systolic murmur 3/6 in the apex is heard.. Abdomen: Soft, no palpable mass, positive hepatomegaly. Bowel sound is positive. Extremities: 3+ edema. Dorsalis pedis is 2+ bilateral Past medical history includes hypertension, hyperlipidemia, diabetes mellitus, asthma/COPD, history of back surgery, arrhythmia (sustained V. tach in October 2021, for which was shocked), history of old nonischemic cardiomyopathy, pulmonary hypertension (considered type 2), hypothyroidism, hiatal hernia, lupus, SVT, history of colon polyp and its resection, history of thyroid nodule, history of low vitamin-D, possible obstructive sleep apnea, CKD (goes to Nephrology regularly), A-fib/flutter, LBBB and also history of laminectomy. Left heart catheterization of November 17, 2021 revealed nonobstructive coronary artery disease, negative FFR of distal LCx, nonischemic cardiomyopathy Echocardiogram of November 15, 2021 revealed ejection fraction of 40%, enlarged LV/LA and aortic root. Echocardiogram of January 31, 2022 (performed in the office) revealed ejection fraction of 40 to 45%, sigmoid shaped septum, impaired relaxation of left ventricular diastolic function, trace MR/TR and right ventricular systolic pressure of less than 35 mmHg. Echocardiogram of March 2022 reported ejection fraction of 45-50%, anteroseptal/apical hypokinesia, trace MR/TR and right ventricular systolic pressure of 22 mm Hg Echocardiogram of April 2025 (performed in the office) revealed ejection fraction of less than 20%, increased EDP, tethered mitral valve leaflet secondary to left ventricular enlargement, moderate MR, mild TR and right ventricular systolic pressure of 60 mm Hg. BNP: 3325.33 - 3570.88 Troponin (high sensitive): - 23 - 23 - 12 - 12 - 14 D-dimer: 1.57 Chest x-ray reported: MPRESSION: Cardiomegaly with moderate congestion. Repeat chest xry reported: IMPRESSION: Small right pleural effusion Cardiomegaly with CHF. Repeat chest xry revealed: IMPRESSION: Mild pulmonary congestion. Repeat chest xry revealed: IMPRESSION: No acute disease. Venous duplex of lower ext revealed: Impression: 1. No right or left femoropopliteal venous thrombosis. V/Q scan reported: IMPRESSION: 1. Low probability for PE. CT of neck revealed: IMPRESSION: No evidence of cervical mass lesion, pathologically enlarged lymph nodes or fluid collection. CT of chest (no contrast) reported: Impression: 1. No acute cardiopulmonary disease. 2. Mild right lower lobe atelectasis and traction bronchiectasis. Barium swallow reported: IMPRESSION: No structural abnormality seen of the esophagus. Mild esophageal reflux seen. The stomach was distended with food. Renal ultrasound reported: IMPRESSION: 1. Kidneys appear echogenic compatible with medical renal disease. 2. Bilateral renal cysts measuring up to 5.0 cm. EKG revealed sinus rhythm with left bundle branch block Tele reveals sinus rhythm, occasions of fib/flutter Echocardiogram revealed: Four-chamber dilatation was observed. Left ventricle: Left ventricle was dilated. Severely reduced systolic function of left ventricle was observed. LVEF was around 25%. Diffuse hypokinesis with regional variation of left ventricle seen. Right ventricle was dilated with preserved systolic function. Both atria were mildly dilated. Aortic valve: Aortic valve is trileaflet. Trace aortic insufficiency was seen. There was no aortic stenosis. There was mild mitral/tricuspid regurgitation. There was trace pulmonary valve insufficiency. Small pericardial effusion was seen. Right ventricular systolic pressure was assessed at 35 mm Hg. Patient is a 74-year-old female who presented with shortness of breath/cough. She was recently treated for pneumonia. She does have recent diagnosis of worsened systolic function and heart failure. He is found to have increased BNP. Chest x-ray reveals congestion. Presentation is in favor of acute on chronic systolic heart failure. Does have old history of nonischemic cardiomyopathy, but systolic function has worsened recently. Has been managed for acute on chronic systolic heart failure is considered the reason for presentation. May benefit from repeat ischemic workup (inpatient Vs outpatient). As EF had dropped suggestion is for Life Vest. Being followed by Nephrology. Was seen by GI for dysphagia and had CT of neck. Started on Nystatin by GI Acute on chronic systolic heart failure COPD exacerbation Fluid overload Bronchitis, acute Pneumonia, community acquired ALFONZO on CKD History of nonsustained VT Left bundle branch block Pulmonary hypertension, type 2 Hypothyroidism Left bundle branch block Atrial fib/flutter Elevated D-dimer s/p EGD: hiatal hernia, esophagitis, gastroparesis Cardiac suggestion for management: Telemetry monitoring Follow-up electrolytes and kidney function tests and correct abnormalities. Keep potassium above 4 and magnesium above 2 Continuation of amiodarone for history of non-sustained ventricular tachycardia is suggested (dose: 200 mg once daily) Patient with A-fib/flutter and high CHADS/Vasc score On Eliquis 2.5 mg BID. On Reglan as per GI (for gastroparesis) Kestra external wearable cardioverter defibrillator vest for primary prevention against sudden cardiac Nephrology follow up May benefit from ischemic workup/cardiac catheterization (outpatient) Further evaluation and management depends on the above and clinical course A total of 55 minutes was spent reviewing the patient record, examining the patient, making a diagnostic and therapeutic plan, discussing this plan with medical personnel, following up on diagnostic studies and following the patient for clinical stability excluding any and all procedures. At least 50% of this time was spent in direct, [id number] contact. Thank you for allowing me to participate in this patient's care. Further recommendations will depend on patient's clinical course. Please do not hesitate to contact me if you have any questions or concerns. This medical document was created using electronic medical record system with [employer] dictation system. Although this document has been carefully reviewed, there may still be some phonetic and typographical errors. These areas are purely typographical due to the imperfection of the software programs, and do not reflect any compromise in the patient's medical care. Dietary Evaluation Review Comments: 1) Add cardiac restriction to 45g CCHO diet order 2) Consider Zofran prn for N/V 3) Continue current plan of care 4) Follow-up with cardiology and nephrology Expected Outcomes/Goals: 1) appetite and labs to improve 2) f/u in 3-5 days Plan discussed with: Patient, Other (nurse) WALESKA CHEW MD Aug 26, 2024 08:06
--- NOTE | 2024-08-26 11:59 | DVHPN2 ---
Progress Note Date Seen: Aug 26, 2024 Medical Necessity Reason Pt with a Central, PICC or Fol: No Subjective Patient reports: No new complaints Review of Systems: HEENT:Normal, CVS:Normal, RESPIRATORY:Normal, GI:Normal, :Normal, MSK:Normal, NEURO:Normal Objective vital signs Vital Sign Date Time Temp Pulse Resp B/P (MAP) Pulse Ox O2 Delivery O2 Flow Rate FiO2 08/26/24 11:28 90 16 100 08/26/24 09:00 97.2 130/78 (95) 97.2 08/26/24 08:00 Nasal Cannula* 2 28 Total Intake and Output 08/25/24 08/25/24 08/26/24 15:00 23:00 07:00 Intake Total 350 ml 760 ml 300 ml Output Total 1200 ml Balance 350 ml -440 ml 300 ml medications Current Medications Medications Dose Ordered Sig/[place] Route Start Time Stop Time Status Last Admin Dose Admin Amitriptyline HCl 25 mg HS PO 08/10/24 22:00 08/25/24 22:25 25 MG Albuterol 2.5 mg Q4HPRN PRN NEB 08/10/24 17:30 08/24/24 12:13 2.5 MG Diagnostic Test (Pha) 1 strip ACHS 08/10/24 22:00 08/26/24 07:00 1 STRIP Insulin Human Regular ACHS SC 08/10/24 22:00 08/26/24 11:28 6 UNITS Dextrose 50 ml UD PRN IV 08/10/24 17:30 Nitroglycerin 0.4 mg Q5MINP PRN SL 08/10/24 18:45 Amiodarone HCl 200 mg DAILY PO 08/11/24 10:00 08/26/24 08:36 200 MG Levalbuterol HCl 1.25 mg Q6HR NEB 08/12/24 12:00 08/26/24 11:18 1.25 MG Levothyroxine Sodium 50 mcg QAM@0600 PO 08/13/24 06:00 08/26/24 05:22 50 MCG Apixaban 2.5 mg BID PO 08/13/24 10:00 08/26/24 08:37 2.5 MG Ipratropium [place] 0.5 mg Q6HWA NEB 08/13/24 12:00 08/26/24 08:47 0.5 MG Acetaminophen 650 mg Q6HP PRN PO 08/14/24 11:15 08/14/24 12:15 650 MG Throat Lozenges 1 sofi Q2HP PRN MT 08/15/24 11:15 08/19/24 14:57 1 SOFI Doxycycline Monohydrate 100 mg Q12HR PO 08/15/24 22:00 UNV Prednisone 20 mg DAILY PO 08/22/24 10:00 08/26/24 08:36 20 MG Nystatin 5 ml QID MT 08/21/24 18:00 08/26/24 11:26 5 ML Sucralfate 1 gm QID@0600,1130,1700,2200 PO 08/21/24 17:00 08/26/24 11:19 1 GM Pantoprazole Sodium 40 mg BID IV 08/22/24 10:00 08/26/24 08:37 40 MG Metoclopramide HCl 10 mg Q8HR IV 08/23/24 22:00 08/26/24 05:23 10 MG Examination: GENERAL:Normal, HEENT:Normal, NECK:Normal, LUNGS:Normal, LUNGS:Abnormal (on oxygen), CVS:Normal, ABDOMEN:Normal, MSK:Normal, SKIN:Normal, NEURO:Normal, :Normal laboratory and microbiology Laboratory Tests 08/26/24 04:26 Test 08/26/24 04:26 Range/Units Serum Glucose 90 74-106 mg/dL Microbiology Date/Time Source Procedure Growth Status 08/11/24 01:23 Nose MRSA Screen - Final Complete Problem List/Assessment/Plan Problem List/Assessment/Plan #1 acute on chronic systolic heart failure: cont meds, dc metolazone #2 chronic resp failure #3 copd with exacerbation: prednisone, bronchodilators, ct chest-negative #4 acute on chronic renal failure ?vasomotor nephropathy: ivf #5 hypothyroidism #6 dm; ssi #7 s/p back surgery #8 h/o v tach: on amiodarone #8 ? pneumonia - gram positive/neg: dc iv antibiotics #9 gastroparesis: on reglan #10 hyperkalemia: repeat, [facility] advance care planning- full code- time spent 19 mins Plan discussed with: Patient My Orders My Orders Orders - JASWINDER TORRES MD Procedure Category Date Status Time Prednisone Tablet PHA 08/27/24 Verified 10:00 Sodium Zirconium PHA 08/26/24 Verified Cyclosilicate 12:00 * Certified First Assistant CONS 08/26/24 Verified Consult Potassium LAB 08/26/24 Verified 11:51 Dietary Evaluation Review Comments: 1) Add cardiac restriction to 45g CCHO diet order 2) Consider Zofran prn for N/V 3) Continue current plan of care 4) Follow-up with cardiology and nephrology Expected Outcomes/Goals: 1) appetite and labs to improve 2) f/u in 3-5 days Date of Service: Aug 26, 2024 Billing Provider: JASWINDER TORRES MD Common Visit Codes: [id number] INP/OBS CARE(HIGH) JASWINDER TORRES MD Aug 26, 2024 11:59
[2024-08-26] MEDS: SODIUM ZIRCONIUM CYCL 10 GM PAK PO ONE (12:19)
--- NOTE | 2024-08-26 16:09 | DVHPN2 ---
Progress Note Date Seen: Aug 26, 2024 Resident Creating Document: ANNETTE CROCKER RESIDENT Medical Necessity Reason Pt with a Central, PICC or Fol: No Subjective Patient reports: No new complaints Changes from previous H/P or p: No Changes Objective vital signs Vital Sign Date Time Temp Pulse Resp B/P (MAP) Pulse Ox O2 Delivery O2 Flow Rate FiO2 08/26/24 11:28 90 16 100 08/26/24 09:00 97.2 130/78 (95) 97.2 08/26/24 08:00 Nasal Cannula* 2 28 Total Intake and Output 08/25/24 08/25/24 08/26/24 15:00 23:00 07:00 Intake Total 350 ml 760 ml 300 ml Output Total 1200 ml Balance 350 ml -440 ml 300 ml medications Current Medications Medications Dose Ordered Sig/[place] Route Start Time Stop Time Status Last Admin Dose Admin Amitriptyline HCl 25 mg HS PO 08/10/24 22:00 08/25/24 22:25 25 MG Albuterol 2.5 mg Q4HPRN PRN NEB 08/10/24 17:30 08/24/24 12:13 2.5 MG Diagnostic Test (Pha) 1 strip ACHS 08/10/24 22:00 08/26/24 11:30 1 STRIP Insulin Human Regular ACHS SC 08/10/24 22:00 08/26/24 11:28 6 UNITS Dextrose 50 ml UD PRN IV 08/10/24 17:30 Nitroglycerin 0.4 mg Q5MINP PRN SL 08/10/24 18:45 Amiodarone HCl 200 mg DAILY PO 08/11/24 10:00 08/26/24 08:36 200 MG Levalbuterol HCl 1.25 mg Q6HR NEB 08/12/24 12:00 08/26/24 11:18 1.25 MG Levothyroxine Sodium 50 mcg QAM@0600 PO 08/13/24 06:00 08/26/24 05:22 50 MCG Apixaban 2.5 mg BID PO 08/13/24 10:00 08/26/24 08:37 2.5 MG Ipratropium [place] 0.5 mg Q6HWA NEB 08/13/24 12:00 08/26/24 08:47 0.5 MG Acetaminophen 650 mg Q6HP PRN PO 08/14/24 11:15 08/14/24 12:15 650 MG Throat Lozenges 1 sofi Q2HP PRN MT 08/15/24 11:15 08/19/24 14:57 1 SOFI Doxycycline Monohydrate 100 mg Q12HR PO 08/15/24 22:00 UNV Nystatin 5 ml QID MT 08/21/24 18:00 08/26/24 11:26 5 ML Sucralfate 1 gm QID@0600,1130,1700,2200 PO 08/21/24 17:00 08/26/24 11:19 1 GM Metoclopramide HCl 10 mg Q8HR IV 08/23/24 22:00 08/26/24 14:42 10 MG Prednisone 10 mg DAILY PO 08/27/24 10:00 Pantoprazole Sodium 40 mg BID@0600,1700 PO 08/26/24 17:00 Examination General Appearance: Cooperative. Well developed. Well nourished. NAD Head Exam: Normal inspection Neck Exam: Normal inspection. Non-tender. Normal alignment Pulmonary/Respiratory: Chest non-tender. Clear bilateral breath sounds, no crackles, no wheezing. Cardiovascular/Chest: Regular rate and rhythm. No murmurs. No JVD. Peripheral Pulses: 2+ Radial (R). 2+ Radial (L). 2+ Pedal (R). 2+ Pedal (L) Abdominal Exam: Normal bowel sounds. Soft. normal abdomen, no visible veins, Nontender. No hepatospenomegaly. No masses Ankle Exam: Negative ankle edema Lower extremities: Negative lower extremity edema Neuro/Mental Status: A&O x4. Coherent. Thoughts/Psych: Normal thought pattern. Appropriate mood and affect. Good judgement and insight Skin Exam: Normal inspection. Normal color. Warm. Dry laboratory and microbiology Laboratory Tests 08/26/24 13:00 08/26/24 04:26 Test 08/26/24 04:26 Range/Units Serum Glucose 90 74-106 mg/dL Microbiology Date/Time Source Procedure Growth Status 08/11/24 01:23 Nose MRSA Screen - Final Complete Problem List/Assessment/Plan Problem List/Assessment/Plan Oropharyngeal dysphagia Hiatal hernia with GERD Acute on chronic systolic CHF COPD, currently on baseline 2 L oxygen via nasal cannula Acute bronchitis Plan/recommendation Dr William EGD on 08/23/2024 1. 1-2 cm sliding-type hiatal hernia with slightly irregular squamocolumnar junction but no significant erosive esophagitis and no evidence of a stricture 2. There was evidence of mild esophagitis with some whitish yellowish plaques in the distal esophagus from which biopsies were obtained to rule out Dina 3. [id number] gastroparesis with a large amount of retained food in the stomach 4. Otherwise normal examination up to the 2nd and 3rd part of the duodenum Continue Reglan 10 mg IV Q eight, discharge planning in a.m.. Continue with Protonix 40 mg p.o. daily and Reglan 10 mg p.o. q.h.s. on discharge. Soft mechanical diet, advance as per toleration Discharge planning as per hospitalist, possible discharge tomorrow a.m.. Follow up in GI clinic for ongoing GI evaluation and management Plan discussed with: Patient, Other Dietary Evaluation Review Comments: 1) Add cardiac restriction to 45g CCHO diet order 2) Consider Zofran prn for N/V 3) Continue current plan of care 4) Follow-up with cardiology and nephrology Expected Outcomes/Goals: 1) appetite and labs to improve 2) f/u in 3-5 days ANNETTE CROCKER RESIDENT Aug 26, 2024 16:09
[2024-08-26] MEDS: PANTOPRAZOLE 40 MG TAB PO SCH (17:32)
--- NOTE | 2024-08-26 17:45 | DVHPN2 ---
Progress Note - Dictate Date Seen: Aug 26, 2024 Medical Necessity Reason Pt with a Central, PICC or Fol: No Subjective no new symptoms vital signs Vital Sign Date Time Temp Pulse Resp B/P (MAP) Pulse Ox O2 Delivery O2 Flow Rate FiO2 08/26/24 13:00 98.5 104 19 119/69 (86) 94 98.5 08/26/24 08:00 Nasal Cannula* 2 28 Total Intake and Output 08/25/24 08/25/24 08/26/24 15:00 23:00 07:00 Intake Total 350 ml 760 ml 300 ml Output Total 1200 ml Balance 350 ml -440 ml 300 ml medications Current Medications Medications Dose Ordered Sig/[place] Route Start Time Stop Time Status Last Admin Dose Admin Amitriptyline HCl 25 mg HS PO 08/10/24 22:00 08/25/24 22:25 25 MG Albuterol 2.5 mg Q4HPRN PRN NEB 08/10/24 17:30 08/24/24 12:13 2.5 MG Diagnostic Test (Pha) 1 strip ACHS 08/10/24 22:00 08/26/24 17:00 1 STRIP Insulin Human Regular ACHS SC 08/10/24 22:00 08/26/24 17:00 4 UNITS Dextrose 50 ml UD PRN IV 08/10/24 17:30 Nitroglycerin 0.4 mg Q5MINP PRN SL 08/10/24 18:45 Amiodarone HCl 200 mg DAILY PO 08/11/24 10:00 08/26/24 08:36 200 MG Levalbuterol HCl 1.25 mg Q6HR NEB 08/12/24 12:00 08/26/24 11:18 1.25 MG Levothyroxine Sodium 50 mcg QAM@0600 PO 08/13/24 06:00 08/26/24 05:22 50 MCG Apixaban 2.5 mg BID PO 08/13/24 10:00 08/26/24 08:37 2.5 MG Ipratropium [place] 0.5 mg Q6HWA NEB 08/13/24 12:00 08/26/24 08:47 0.5 MG Acetaminophen 650 mg Q6HP PRN PO 08/14/24 11:15 08/14/24 12:15 650 MG Throat Lozenges 1 sofi Q2HP PRN MT 08/15/24 11:15 08/19/24 14:57 1 SOFI Doxycycline Monohydrate 100 mg Q12HR PO 08/15/24 22:00 UNV Nystatin 5 ml QID MT 08/21/24 18:00 08/26/24 11:26 5 ML Sucralfate 1 gm QID@0600,1130,1700,2200 PO 08/21/24 17:00 08/26/24 17:32 1 GM Metoclopramide HCl 10 mg Q8HR IV 08/23/24 22:00 08/26/24 14:42 10 MG Prednisone 10 mg DAILY PO 08/27/24 10:00 Pantoprazole Sodium 40 mg BID@0600,1700 PO 08/26/24 17:00 08/26/24 17:32 40 MG objective Awake alert oriented x3 HEENT: Normocephalic, no JVD Lungs: Bilateral good air entry CVS: S1, S2 regular rate rhythm Abdomen: Soft, bowel sounds present [employer]: No focal deficits Extremities: No edema laboratory and microbiology Laboratory Tests 08/26/24 13:00 08/26/24 04:26 Test 08/26/24 04:26 Range/Units Serum Glucose 90 74-106 mg/dL Assessment/Plan Assessment: Acute kidney injury superimposed on CKD stage IIIB. Acute on chronic systolic heart failure Hyponatremia secondary to heart failure Hypotension,resolved Type 2 diabetes with nephropathy Acute on chronic hypoxic respiratory failure COPD Hypothyroidism Type 2 diabetes History of V-tach Hyperkalemia Plan: GFR with the improvement and at baseline. Discontinue IV fluids Respiratory status stable Entresto and Jardiance can be started gradually in the outpatient setting. She has a follow up with Nephrology on the 03 of September. Stable from renal standpoint to be discharged. Dietary Evaluation Review Comments: 1) Add cardiac restriction to 45g CCHO diet order 2) Consider Zofran prn for N/V 3) Continue current plan of care 4) Follow-up with cardiology and nephrology Expected Outcomes/Goals: 1) appetite and labs to improve 2) f/u in 3-5 days Plan discussed with: Patient HEATHER ROBERTS MD Aug 26, 2024 17:45
[2024-08-27] VITALS (11 sets, daily range): BP systolic 114–130; BP diastolic 55–76; PULSE 81–99; RESP 16–20; TEMP 98–98.6; O2SAT 97–100
--- NOTE | 2024-08-27 07:39 | DVHPN2 ---
Progress Note - Dictate Date Seen: Aug 27, 2024 Medical Necessity Reason Pt with a Central, PICC or Fol: No vital signs Vital Sign Date Time Temp Pulse Resp B/P (MAP) Pulse Ox O2 Delivery O2 Flow Rate FiO2 08/27/24 06:42 86 18 100 08/27/24 06:36 Nasal Cannula 2.0 08/27/24 06:36 28 08/27/24 05:00 98.1 130/76 (94) 98.1 Total Intake and Output 08/26/24 08/26/24 08/27/24 15:00 23:00 07:00 Intake Total 1250 ml 400 ml Output Total 800 ml 500 ml Balance 450 ml -100 ml medications Current Medications Medications Dose Ordered Sig/[place] Route Start Time Stop Time Status Last Admin Dose Admin Amitriptyline HCl 25 mg HS PO 08/10/24 22:00 08/26/24 21:36 25 MG Albuterol 2.5 mg Q4HPRN PRN NEB 08/10/24 17:30 08/24/24 12:13 2.5 MG Diagnostic Test (Pha) 1 strip ACHS 08/10/24 22:00 08/26/24 21:38 1 STRIP Insulin Human Regular ACHS SC 08/10/24 22:00 08/26/24 21:51 6 UNITS Dextrose 50 ml UD PRN IV 08/10/24 17:30 Nitroglycerin 0.4 mg Q5MINP PRN SL 08/10/24 18:45 Amiodarone HCl 200 mg DAILY PO 08/11/24 10:00 08/26/24 08:36 200 MG Levalbuterol HCl 1.25 mg Q6HR NEB 08/12/24 12:00 08/27/24 06:36 1.25 MG Levothyroxine Sodium 50 mcg QAM@0600 PO 08/13/24 06:00 08/27/24 05:44 50 MCG Apixaban 2.5 mg BID PO 08/13/24 10:00 08/26/24 21:36 2.5 MG Ipratropium [place] 0.5 mg Q6HWA NEB 08/13/24 12:00 08/27/24 06:36 0.5 MG Acetaminophen 650 mg Q6HP PRN PO 08/14/24 11:15 08/14/24 12:15 650 MG Throat Lozenges 1 sofi Q2HP PRN MT 08/15/24 11:15 08/19/24 14:57 1 SOFI Doxycycline Monohydrate 100 mg Q12HR PO 08/15/24 22:00 UNV Nystatin 5 ml QID MT 08/21/24 18:00 08/27/24 05:44 5 ML Sucralfate 1 gm QID@0600,1130,1700,2200 PO 08/21/24 17:00 08/27/24 05:44 1 GM Metoclopramide HCl 10 mg Q8HR IV 08/23/24 22:00 08/27/24 05:44 10 MG Prednisone 10 mg DAILY PO 08/27/24 10:00 Pantoprazole Sodium 40 mg BID@0600,1700 PO 08/26/24 17:00 08/27/24 05:44 40 MG laboratory and microbiology Laboratory Tests 08/26/24 13:00 08/26/24 04:26 Test 08/26/24 04:26 Range/Units Serum Glucose 90 74-106 mg/dL Assessment/Plan Patient is a 74-year-old female who presented to the hospital for shortness of breath. She also had been having cough. Problem started around a month ago and worsened recently. Cardiology was involved for cardiac aspects of care. Patient is known to our practice from outside and before. She received recent treatment for pneumonia. Denies chest pains. Does complain of dyspnea on exertion. Does complain of leg swellings. In October 2021, the patient was diagnosed to have nonischemic cardiomyopathy, was put on LifeVest, later was found to have improved LV systolic function the LifeVest was taken away. Recently, ejection fraction decreased again. She denies recent chest pain. She is on amiodarone (for history of PVCs). Sitting comfortably in bed, not using accessory muscles of breathing. Mucosa is pink and wet, there is no JVD, no goiter. Chest: Scattered rhonchi/rales. Cardiac: Regular regular, no thrill. Systolic murmur 3/6 in the apex is heard.. Abdomen: Soft, no palpable mass, positive hepatomegaly. Bowel sound is positive. Extremities: 3+ edema. Dorsalis pedis is 2+ bilateral Past medical history includes hypertension, hyperlipidemia, diabetes mellitus, asthma/COPD, history of back surgery, arrhythmia (sustained V. tach in October 2021, for which was shocked), history of old nonischemic cardiomyopathy, pulmonary hypertension (considered type 2), hypothyroidism, hiatal hernia, lupus, SVT, history of colon polyp and its resection, history of thyroid nodule, history of low vitamin-D, possible obstructive sleep apnea, CKD (goes to Nephrology regularly), A-fib/flutter, LBBB and also history of laminectomy. Left heart catheterization of November 17, 2021 revealed nonobstructive coronary artery disease, negative FFR of distal LCx, nonischemic cardiomyopathy Echocardiogram of November 15, 2021 revealed ejection fraction of 40%, enlarged LV/LA and aortic root. Echocardiogram of January 31, 2022 (performed in the office) revealed ejection fraction of 40 to 45%, sigmoid shaped septum, impaired relaxation of left ventricular diastolic function, trace MR/TR and right ventricular systolic pressure of less than 35 mmHg. Echocardiogram of March 2022 reported ejection fraction of 45-50%, anteroseptal/apical hypokinesia, trace MR/TR and right ventricular systolic pressure of 22 mm Hg Echocardiogram of April 2025 (performed in the office) revealed ejection fraction of less than 20%, increased EDP, tethered mitral valve leaflet secondary to left ventricular enlargement, moderate MR, mild TR and right ventricular systolic pressure of 60 mm Hg. BNP: 3325.33 - 3570.88 Troponin (high sensitive): - 23 - 12 - - 14 D-dimer: 1.57 Chest x-ray reported: MPRESSION: Cardiomegaly with moderate congestion. Repeat chest xry reported: IMPRESSION: Small right pleural effusion Cardiomegaly with CHF. Repeat chest xry revealed: IMPRESSION: Mild pulmonary congestion. Repeat chest xry revealed: IMPRESSION: No acute disease. Venous duplex of lower ext revealed: Impression: 1. No right or left femoropopliteal venous thrombosis. V/Q scan reported: IMPRESSION: 1. Low probability for PE. CT of neck revealed: IMPRESSION: No evidence of cervical mass lesion, pathologically enlarged lymph nodes or fluid collection. CT of chest (no contrast) reported: Impression: 1. No acute cardiopulmonary disease. 2. Mild right lower lobe atelectasis and traction bronchiectasis. Barium swallow reported: IMPRESSION: No structural abnormality seen of the esophagus. Mild esophageal reflux seen. The stomach was distended with food. Renal ultrasound reported: IMPRESSION: 1. Kidneys appear echogenic compatible with medical renal disease. 2. Bilateral renal cysts measuring up to 5.0 cm. EKG revealed sinus rhythm with left bundle branch block Tele reveals sinus rhythm, occasions of fib/flutter Echocardiogram revealed: Four-chamber dilatation was observed. Left ventricle: Left ventricle was dilated. Severely reduced systolic function of left ventricle was observed. LVEF was around 25%. Diffuse hypokinesis with regional variation of left ventricle seen. Right ventricle was dilated with preserved systolic function. Both atria were mildly dilated. Aortic valve: Aortic valve is trileaflet. Trace aortic insufficiency was seen. There was no aortic stenosis. There was mild mitral/tricuspid regurgitation. There was trace pulmonary valve insufficiency. Small pericardial effusion was seen. Right ventricular systolic pressure was assessed at 35 mm Hg. Patient is a 74-year-old female who presented with shortness of breath/cough. She was recently treated for pneumonia. She does have recent diagnosis of worsened systolic function and heart failure. He is found to have increased BNP. Chest x-ray reveals congestion. Presentation is in favor of acute on chronic systolic heart failure. Does have old history of nonischemic cardiomyopathy, but systolic function has worsened recently. Has been managed for acute on chronic systolic heart failure is considered the reason for presentation. May benefit from repeat ischemic workup (inpatient Vs outpatient). As EF had dropped suggestion is for Life Vest. Being followed by Nephrology. Was seen by GI for dysphagia and had CT of neck. Started on Nystatin by GI Acute on chronic systolic heart failure COPD exacerbation Fluid overload Bronchitis, acute Pneumonia, community acquired ALFONZO on CKD History of nonsustained VT Left bundle branch block Pulmonary hypertension, type 2 Hypothyroidism Left bundle branch block Atrial fib/flutter Elevated D-dimer s/p EGD: hiatal hernia, esophagitis, gastroparesis Cardiac suggestion for management: Telemetry monitoring Follow-up electrolytes and kidney function tests and correct abnormalities. Keep potassium above 4 and magnesium above 2 Continuation of amiodarone for history of non-sustained ventricular tachycardia is suggested (dose: 200 mg once daily) Patient with A-fib/flutter and high CHADS/Vasc score On Eliquis 2.5 mg BID. On Reglan as per GI (for gastroparesis) Kestra external wearable cardioverter defibrillator vest for primary prevention against sudden cardiac Nephrology follow up May benefit from ischemic workup/cardiac catheterization (outpatient) Further evaluation and management depends on the above and clinical course A total of 55 minutes was spent reviewing the patient record, examining the patient, making a diagnostic and therapeutic plan, discussing this plan with medical personnel, following up on diagnostic studies and following the patient for clinical stability excluding any and all procedures. At least 50% of this time was spent in direct, [id number] contact. Thank you for allowing me to participate in this patient's care. Further recommendations will depend on patient's clinical course. Please do not hesitate to contact me if you have any questions or concerns. This medical document was created using electronic medical record system with Keep[employer] computerized dictation system. Although this document has been carefully reviewed, there may still be some phonetic and typographical errors. These areas are purely typographical due to the imperfection of the software programs, and do not reflect any compromise in the patient's medical care. Dietary Evaluation Review Comments: 1) Add cardiac restriction to 45g CCHO diet order 2) Consider Zofran prn for N/V 3) Continue current plan of care 4) Follow-up with cardiology and nephrology Expected Outcomes/Goals: 1) appetite and labs to improve 2) f/u in 3-5 days Plan discussed with: Patient, Other (nurse) WALESKA CHEW MD Aug 27, 2024 07:38
[2024-08-27] MEDS: predniSONE 20 MG TAB PO SCH (09:30)
[2024-08-27] MEDS ORDERED: METO5TAB67 PO (11:45)
[2024-08-27] MEDS ORDERED: PANT40TA2 PO (11:45)
--- NOTE | 2024-08-27 11:47 | DVHDS2 ---
Discharge Summary Date of Admission Aug 10, 2024 at 18:36 Date of Discharge: Aug 27, 2024 Labs/Diagnostic Data: Laboratory Results Test 08/27/24 05:34 08/26/24 13:00 08/26/24 04:26 08/24/24 23:00 POC Glucose 118 mg/dl (70-106) Potassium Level 4.9 mmol/L (3.5-5.1) White Blood Count 5.8 10^3/uL (4.4-10.8) Red Blood Count 3.68 10^6/uL (4.0-5.20) Hemoglobin 10.6 g/dL (12.2-16.2) Hematocrit 33.6 % (36.0-46.0) Mean Corpuscular Volume 91.4 fL (80.0-100.0) Mean Corpuscular Hemoglobin 28.9 pg (28.0-32.0) Mean Corpuscular Hemoglobin Concent 31.6 g/dL (32.0-36.0) Red Cell Distribution Width 14.8 % (11.8-14.3) Platelet Count 159 10^3/uL (140-450) Mean Platelet Volume 9.6 fL (6.9-10.8) Neutrophils (%) (Auto) 76.5 % (37.0-80.0) Lymphocytes (%) (Auto) 15.4 % (10.0-50.0) Monocytes (%) (Auto) 6.9 % (0.0-12.0) Eosinophils (%) (Auto) 1.1 % (0.0-7.0) Basophils (%) (Auto) 0.1 % (0.0-2.0) Neutrophils # (Auto) 4.4 10 ^3/uL (1.6-8.6) Lymphocytes # (Auto) 0.9 10 ^3/uL (0.4-5.4) Monocytes # (Auto) 0.4 10 ^3/uL (0-1.3) Eosinophils # (Auto) 0.1 10 ^3/uL (0-0.8) Basophils # (Auto) 0 10 ^3/uL (0-0.2) Nucleated Red Blood Cells 0.1 % Sodium Level 141 mmol/L (136-145) Chloride Level 111 mmol/L (98-107) Carbon Dioxide Level 22 mmol/L (20-31) Anion Gap 8 (5-15) Blood Urea Nitrogen 31 mg/dL (9-23) Creatinine 1.19 mg/dL (0.550-1.02) Glomerular Filtration Rate Calc 48 mL/min (>90) BUN/Creatinine Ratio 26.1 (10.0-20.0) Serum Glucose 90 mg/dL (74-106) Calcium Level 9.5 mg/dL (8.7-10.4) Total Bilirubin 1.0 mg/dL (0.2-1.0) Aspartate Amino Transferase (AST) 17 U/L (13-40) Alanine Aminotransferase (ALT) 22 U/L (7-40) Alkaline Phosphatase 74 U/L (46-116) Total Protein 5.6 g/dL (5.7-8.2) Albumin 3.3 g/dL (3.2-4.8) Urine Color Light-yellow (Yellow) Urine Clarity Clear (Clear) Urine pH 5.0 (5.0-9.0) Urine Specific [place] 1.021 (1.001-1.035) Urine Protein Negative (Negative) Urine Ketones Negative (Negative) Urine Blood Negative /uL (Negative) Urine Nitrite Negative (Negative) Urine Bilirubin Negative (Negative) Urine Urobilinogen Normal mg/dL (Negative) Urine Leukocyte Esterase 2+ /uL (Negative) Urine RBC 34 /hpf (0 - 4) Urine Microscopic WBC 62 /HPF (0-5) Urine Squamous Epithelial Cells Few /hpf (<5) Urine Renal Epithelial Cells Few /hpf (None Seen) Urine Bacteria Few /hpf (None Seen) Urine Mucus Few (None Seen) Urine Yeast (Budding) Occasional /hpf (None Urine Glucose 4+ mg/dL (Normal) Test 08/24/24 09:30 08/23/24 05:52 08/18/24 13:05 08/13/24 05:18 Urine WBC Clumps Present /hpf (None Seen) Prothrombin Time 11.9 sec (9.3-11.8) Prothrombin Time INR 1.14 (0.9-1.15) Activated Partial Thromboplast Time 27.6 SEC (24.5-34.5) D-Dimer, Quantitative 1.57 mg/L FEU (0.0-0.49) Hemoglobin A1c 7.8 % A1C (<5.7) Magnesium Level 1.9 mg/dL (1.6-2.6) Thyroid Stimulating Hormone (TSH) 0.16 uIU/mL (0.55-4.78) Test 08/12/24 22:39 08/12/24 19:49 08/10/24 15:08 08/10/24 11:54 Troponin I High Sensitivity 14 ng/L (</=34) Phosphorus Level 3.6 mg/dL (2.4-5.1) B-Type Natriuretic Peptide 3570.88 pg/mL (0-100) Triglycerides Level 124 mg/dL (< 150) Cholesterol Level 93 mg/dL (< 200) LDL Cholesterol 36 mg/dL (< 100) HDL Cholesterol 37 mg/dL (40-59) Influenza Type A Antigen Negative (Negative) Influenza Type B Antigen Negative (Negative) SARS-CoV-2 Antigen (Rapid) Negative (NEGATIVE) Other Laboratory Tests 08/26/24 13:00 08/26/24 04:26 Brief Hx & Hospital Course: SEE DICTATED NOTE Condition at Discharge: Fair Final Diagnosis/Problems List COPD, CHF Discharge Disposition: Home Discharge Instruct/Medications Diet: Consistent carbohydrate, Cardiac 2g Na,low cholest Activity: No Restrictions, As Tolerated Follow Up/Referral: PARRIS CHEW, DR Hesham MORSE Medications: RESUME HOME MEDS SCRIPT TO PHARMACY Discharge Statement: "Patient was advised to return to the ER or call 911 if any headaches, dizziness, shortness of breath, chest pain, abdominal pain, bleeding, fevers, or worsening of medical condition. Patient was counseled about treatment plan, medications, possible side effects, patientverbalized understanding. All questions were answered to the best of my ability. This discharge took greater then 30 minutes in planning, reviewing documentation, counseling the patient, and discussing with other team members." ASSESSMENT ASSESSMENT Assessment COPD, CHF Date of Service: Aug 27, 2024 Billing Provider: JASWINDER TORRES MD Common Visit Codes: 07732-ZTX/OBS DISCH DAY >30min JASWINDER TORRES MD Aug 27, 2024 11:47
--- NOTE | 2024-08-27 12:05 | DVHDS ---
DATE OF DISCHARGE: 08/27/2024 HISTORY OF PRESENT ILLNESS: The patient is a 74-year-old lady who was admitted with history of increasing difficulty in breathing and cough. The patient has history of COPD, congestive heart failure, chronic respiratory failure, lupus, chronic kidney disease, hypothyroidism, hypertension, diabetes and hyperlipidemia. HOSPITAL COURSE: The patient was seen in cardiology consult by Dr. Bloom. The patient was initially placed on diuretics, but developed worsening renal failure. She was seen in Nephrology consult by Dr. Trevino. The patient's diuretics were eventually stopped and she was rehydrated with improvement in her kidney numbers. The patient was placed on steroids along with antibiotics. The patient had a V/Q scan that was low probability for PE. She had difficulty in swallowing and a CT neck that was done was negative. The patient had a barium swallow that also showed no structural abnormality. The patient had a CT of the chest that showed mild right lower lobe atelectasis. The patient was seen in GI consult by Dr. Samantha William. The patient underwent upper endoscopy that showed [id number] gastroparesis with large amount of retained food in the stomach. She also had erosive esophagitis. The patient will now be discharged home to resume her home medications as well as to be on Protonix 40 mg daily and Reglan 5 mg at bedtime. I have discussed this plan of care with Dr. William. The patient will resume the rest of her home medications. I have also talked to her about reconsidering continued use of Ozempic, which is likely making her gastroparesis worse. She will follow up with Dr. William as well as Dr. Bloom. The patient also has a LifeVest in place. FINAL DIAGNOSES: Therefore, * Owolq-pa-qrrxcvr systolic heart failure. * Chronic obstructive pulmonary disease exacerbation. * Chronic respiratory failure. * Pyrmr-vf-yodjiiv renal failure, questionable vasomotor nephropathy. * Hypothyroidism. * Diabetes mellitus. * History of back surgery. * History of ventricular tachycardia. * Pneumonia, questionable gram-positive, gram-negative. * Gastroparesis. * Status post hypokalemia. * Lupus/rheumatoid arthritis. Time spent in discharge planning and review of plan with the patient, call center consultant and nursing was 41 minutes. MD ERIKA Mays/FLORENTIN TID: [id number] RECEIPT: [id number]
--- NOTE | 2024-08-27 15:23 | DVHPN2 ---
Progress Note - Dictate Date Seen: Aug 27, 2024 Medical Necessity Reason Pt with a Central, PICC or Fol: No Subjective no new symptoms vital signs Vital Sign Date Time Temp Pulse Resp B/P (MAP) Pulse Ox O2 Delivery O2 Flow Rate FiO2 08/27/24 13:00 98.3 93 18 116/69 (85) 97 98.3 08/27/24 11:21 Nasal Cannula 2.0 08/27/24 11:21 28 Total Intake and Output 08/26/24 08/26/24 08/27/24 15:00 23:00 07:00 Intake Total 1250 ml 400 ml Output Total 800 ml 500 ml Balance 450 ml -100 ml medications Current Medications Medications Dose Ordered Sig/[place] Route Start Time Stop Time Status Last Admin Dose Admin Amitriptyline HCl 25 mg HS PO 08/10/24 22:00 08/26/24 21:36 25 MG Albuterol 2.5 mg Q4HPRN PRN NEB 08/10/24 17:30 08/24/24 12:13 2.5 MG Diagnostic Test (Pha) 1 strip ACHS 08/10/24 22:00 08/27/24 11:30 1 STRIP Insulin Human Regular ACHS SC 08/10/24 22:00 08/27/24 14:57 3 UNITS Dextrose 50 ml UD PRN IV 08/10/24 17:30 Nitroglycerin 0.4 mg Q5MINP PRN SL 08/10/24 18:45 Amiodarone HCl 200 mg DAILY PO 08/11/24 10:00 08/27/24 09:30 200 MG Levalbuterol HCl 1.25 mg Q6HR NEB 08/12/24 12:00 08/27/24 11:20 1.25 MG Levothyroxine Sodium 50 mcg QAM@0600 PO 08/13/24 06:00 08/27/24 05:44 50 MCG Apixaban 2.5 mg BID PO 08/13/24 10:00 08/27/24 09:30 2.5 MG Ipratropium [place] 0.5 mg Q6HWA NEB 08/13/24 12:00 08/27/24 11:20 0.5 MG Acetaminophen 650 mg Q6HP PRN PO 08/14/24 11:15 08/14/24 12:15 650 MG Throat Lozenges 1 sofi Q2HP PRN MT 08/15/24 11:15 08/19/24 14:57 1 SOFI Doxycycline Monohydrate 100 mg Q12HR PO 08/15/24 22:00 UNV Nystatin 5 ml QID MT 08/21/24 18:00 08/27/24 11:02 5 ML Sucralfate 1 gm QID@0600,1130,1700,2200 PO 08/21/24 17:00 08/27/24 11:02 1 GM Metoclopramide HCl 10 mg Q8HR IV 08/23/24 22:00 08/27/24 14:54 10 MG Prednisone 10 mg DAILY PO 08/27/24 10:00 08/27/24 09:30 10 MG Pantoprazole Sodium 40 mg BID@0600,1700 PO 08/26/24 17:00 08/27/24 05:44 40 MG objective Awake alert oriented x3 HEENT: Normocephalic, no JVD Lungs: Bilateral good air entry CVS: S1, S2 regular rate rhythm Abdomen: Soft, bowel sounds present [employer]: No focal deficits Extremities: No edema laboratory and microbiology Laboratory Tests 08/26/24 13:00 08/26/24 04:26 Test 08/26/24 04:26 Range/Units Serum Glucose 90 74-106 mg/dL Assessment/Plan Assessment: Acute kidney injury superimposed on CKD stage IIIB. Acute on chronic systolic heart failure Hyponatremia secondary to heart failure Hypotension,resolved Type 2 diabetes with nephropathy Acute on chronic hypoxic respiratory failure COPD Hypothyroidism Type 2 diabetes History of V-tach Hyperkalemia Plan: GFR with the improvement and at baseline. Respiratory status stable Entresto and Jardiance can be started gradually in the outpatient setting. She has a follow up with Nephrology on the 03 of September. Stable from renal standpoint to be discharged. I will sign off Dietary Evaluation Review Comments: 1) Add cardiac restriction to 45g CCHO diet order 2) Consider Zofran prn for N/V 3) Continue current plan of care 4) Follow-up with cardiology and nephrology Expected Outcomes/Goals: 1) appetite and labs to improve 2) f/u in 3-5 days Plan discussed with: Patient HEATHER ROBERTS MD Aug 27, 2024 15:23
== END 2024-08-27 15:17 | disposition home or self-care (01) | DRG 177 ==
LOC: ER 10:17 → OVERFLOW 18:36 → TELE-CENTR 23:00 → TELE-WESTW 08-15 17:57
PROVIDERS: ADMIT Internal Medicine; ATTEND Internal Medicine
PROC: 0DB68ZX Excision of Stomach, Via Natural or Artificial Opening Endoscopic, Diagnostic (ICD-10-PCS; 2024-08-23)
PROC: 0DB58ZX Excision of Esophagus, Via Natural or Artificial Opening Endoscopic, Diagnostic (ICD-10-PCS; 2024-08-23)
PROC: 0DB48ZX Excision of Esophagogastric Junction, Via Natural or Artificial Opening Endoscopic, Diagnostic (ICD-10-PCS; 2024-08-23)
PROC: 0DB98ZX Excision of Duodenum, Via Natural or Artificial Opening Endoscopic, Diagnostic (ICD-10-PCS; principal; 2024-08-23 14:25)
DX: J15.69 Pneumonia due to other Gram-negative bacteria (principal); I50.23 Acute on chronic systolic (congestive) heart failure; N17.0 Acute kidney failure with tubular necrosis; I13.0 Hypertensive heart and chronic kidney disease with heart failure and stage 1 through stage 4 chronic kidney disease, or unspecified chronic kidney disease; J44.1 Chronic obstructive pulmonary disease with (acute) exacerbation; J44.0 Chronic obstructive pulmonary disease with (acute) lower respiratory infection; I48.92 Unspecified atrial flutter; E87.1 Hypo-osmolality and hyponatremia; J98.11 Atelectasis; J96.10 Chronic respiratory failure, unspecified whether with hypoxia or hypercapnia; R65.10 Systemic inflammatory response syndrome (SIRS) of non-infectious origin without acute organ dysfunction; K20.80 Other esophagitis without bleeding; I48.91 Unspecified atrial fibrillation; E03.9 Hypothyroidism, unspecified; E11.22 Type 2 diabetes mellitus with diabetic chronic kidney disease; J20.9 Acute bronchitis, unspecified; I44.7 Left bundle-branch block, unspecified; I27.20 Pulmonary hypertension, unspecified; I07.1 Rheumatic tricuspid insufficiency; E11.43 Type 2 diabetes mellitus with diabetic autonomic (poly)neuropathy; K31.84 Gastroparesis; E87.5 Hyperkalemia; E87.6 Hypokalemia; I25.10 Atherosclerotic heart disease of native coronary artery without angina pectoris; K21.9 Gastro-esophageal reflux disease without esophagitis; N18.32 Chronic kidney disease, stage 3b; N28.1 Cyst of kidney, acquired; T50.2X5A Adverse effect of carbonic-anhydrase inhibitors, benzothiadiazides and other diuretics, initial encounter; Z79.01 Long term (current) use of anticoagulants; Y92.89 Other specified places as the place of occurrence of the external cause; Z86.79 Personal history of other diseases of the circulatory system; Z83.3 Family history of diabetes mellitus; Z79.84 Long term (current) use of oral hypoglycemic drugs; Z87.891 Personal history of nicotine dependence; Z86.0100 Personal history of colon polyps, unspecified; Z79.899 Other long term (current) drug therapy; Z87.01 Personal history of pneumonia (recurrent); Z79.51 Long term (current) use of inhaled steroids; J15.9 Unspecified bacterial pneumonia; M06.9 Rheumatoid arthritis, unspecified
CPT/HCPCS: 36415; 70490; 71045; 71250; 74220; 76775; 78582; 80048; 80053; 80061; 81001; 82962; 83036; 83735; 83880; 84100; 84132; 84443; 84484; 85025; 85379; 85610; 85730; 86850; 86900; 86901; 87081; 87426; 87804; 93005; 93306; 93970; 94640; 96374; 96376; 97163; 99291; G0378; J1815; J2470; J2704; P9047